=== PATIENT | male | born 1945 | race Two or more races ===

== ENCOUNTER 2016-03-31 10:13 | Inpatient (IN) | payer MEDICARE, OTHER ==
[2016-03-31] MEDS ORDERED: PIPERACILLIN-TAZOBACTAM 3.375 GM in DEXTROSE/WATER 1 50ML.BAG IVPB STA (10:39)
[2016-03-31] MEDS ORDERED: ACETAMINOPHEN TAB 500 MG TAB PO STA (10:39)
[2016-03-31] MEDS ORDERED: IV VANCOMYCIN PER PHARMACY 1 EACH MISC MISCELLANE PRN (10:39)
[2016-03-31] MEDS ORDERED: VANCOMYCIN 1,500 MG in SODIUM CHLORIDE 0.9% 250 ML IVPB STA (10:45)
--- NOTE | 2016-03-31 10:55 | ED ---
General Adult HPI - General Stated complaint: Foot Pain Source: patient, EMS, RN notes reviewed Mode of arrival: EMS Limitations: no limitations - History of Present Illness Initial comments: If complaint and history of present illness 70-year-old male here with a severely infected left foot. The patient has dry gangrene to his left great toe. He has redness and swelling just above the ankle and left side. Patient thinks it may have started 3 weeks ago. Patient's been living with his brother who one week ago. He states she's not been to a physician in over 10 years. History of hypertension but does not take any medications. Otherwise denying any past history of diabetes, cancer or respiratory problems. When asked if he had a stroke he thinks he may have had a stroke in 1973 but states he was never evaluated because his father was too cheap to take him to a hospital or doctor. - Related Data Home Medications Medication Instructions Recorded Confirmed Aspirin/Acetaminophen/Caffeine 2 tab PO Q6H PRN 03/31/16 03/31/16 [Excedrin Extra Strength Caplet] Allergies Allergy/AdvReac Type Severity Reaction Status Date / Time shellfish derived Allergy Unknown Verified 03/31/16 10:41 Review of Systems ROS Statement: Those systems with pertinent positive or pertinent negative responses have been documented in the HPI. Review of systems at this time patient's denying any headache or visual acuity changes denies any chest pain or shortness of breath denies any GI or neuro deficits. He hasn't even complain of pain to his severely infected left foot. All systems are reviewed. Patient denies any significant past medical problems other than maybe having had hypertension but does not take any medications for. Has not seen a doctor for more than 10 years. Denies any surgeries. Denies any ALLERGIES to medications but he does have an ALLERGY to shellfish. Family history Brother one week ago with police lived for as long period of time. States she's lost 50 pounds over the last year because he stopped eating bad food. Smokes 2 packs per day and drinks occasionally but not heavily. ROS Other: All systems not noted in ROS Statement are negative. Past Medical History Past Medical History: Coronary Artery Disease (CAD), Hypertension, Myocardial Infarction (PR) History of Any Multi-Drug Resistant Organisms: None Reported Past Surgical History: No Surgical Hx Reported Past Psychological History: No Psychological Hx Reported Smoking Status: Current every day smoker Past Alcohol Use History: None Reported Past Drug Use History: None Reported General Exam - General Exam Comments Initial Comments: General: The patient is awake and alert, in no distress, and does not appear acutely ill. Presents with severely infected left foot with dry gangrene left great toe swelling cellulitis just above the ankle. Vital signs shows temperature 97.7 pulse 114 respiratory rate 16 pulse ox 90% room air blood pressure 175/84. History of hypertension but no treatment for years. Eye: Pupils are equal, round and reactive to light, extra-ocular movements are intact ; there is normal conjunctiva bilaterally. No signs of icterus. Ears, nose, mouth and throat: There are moist mucous membranes and no oral lesions. Very poor dentition. Missing many teeth. Neck: The neck is supple, there is no tenderness . Cardiovascular: Irregular rate and rhythm. No murmur appreciated. Respiratory: Lungs are clear to auscultation, respirations are non-labored, breath sounds are equal. No wheezes, stridor, rales, or rhonchi. Gastrointestinal: Soft, non-distended, non-tender abdomen without masses or organomegaly noted. There is no rebound or guarding present. No CVA tenderness. Bowel sounds are unremarkable. Patient states she's lost 50 pounds over the past year Back: There is no tenderness to palpation in the midline. There is no obvious deformity. No rashes noted. Musculoskeletal: Upper lower extremities all normal except his left foot from the mid calf down. He has dry gangrene to his left great toe cellulitis with blistering to the plantar surface. Cultures taken. This patient has been ambulating with pain. Denies any specific injury. He states he may have put his foot in the hot water about a month ago but denies any blistering starting after that. Neurological: CN II-XII intact, There are no obvious motor or sensory deficits. Coordination appears grossly intact. Speech is normal. Slight droop to the right side of his mouth. States he may have had a stroke in 1973 when he would've been only 28 but no other deficits. Skin: Cellulitis left mid calf to the foot. Psychiatric: Cooperative, appropriate mood & affect, denies any treatment for past mental health issues. Limitations: no limitations Course Vital Signs 03/31/16 03/31/16 03/31/16 10:21 11:17 12:03 Temperature 97.7 F Pulse Rate 114 H 101 H 92 Respiratory 16 15 18 Rate Blood Pressure 175/84 181/84 173/83 O2 Sat by Pulse 98 99 94 L Oximetry Medical Decision Making - Medical Decision Making Medical decision making; patient's labs show white count of 15.8 hemoglobin 14 hematocrit of 46. INR 1.0. Potassium 4.3, BUN 14 creatinine 0.9 the GFR greater than 60. Cortisol normal at 18 pleasant lactic acid within normal limits. Alk phos elevated at 333. Troponin less than 0.012. But does have an elevated glucose of 355. The patient denies having diabetes. Patient states he never goes to the doctor. Chest x-ray was done and reviewed by radiologist's his final impression is no suspicious acute infiltrate is present. As read by Dr. north x-ray of the foot was done and reviewed by radiologist as well his final impression is there is suspicion for acute osteomyelitis involving the first distal phalanx. Correlate clinically as advised. As read by Dr. north The patient was started on vancomycin and Zosyn soon after admission to the emergency room. Cultures were taken of the discharge from the foot. Patient be admitted to the hospitalist on-call for the emergency room. - Lab Data Result diagrams: 03/31/16 11:00 03/31/16 11:00 Lab Results 03/31/16 03/31/16 03/31/16 Range/Units 11:00 11:00 11:00 WBC 15.8 H (3.8-10.6) k/uL RBC 4.67 (4.30-5.90) m/uL Hgb 14.2 (13.0-17.5) gm/dL Hct 44.1 (39.0-53.0) % MCV 94.3 (80.0-100.0) fL MCH 30.4 (25.0-35.0) pg MCHC 32.2 (31.0-37.0) g/dL RDW 13.3 (11.5-15.5) % Plt Count 320 (150-450) k/uL Neutrophils % 85 % Lymphocytes % 9 % Monocytes % 4 % Eosinophils % 0 % Basophils % 1 % Neutrophils # 13.5 H (1.3-7.7) k/uL Lymphocytes # 1.4 (1.0-4.8) k/uL Monocytes # 0.7 (0-1.0) k/uL Eosinophils # 0.0 (0-0.7) k/uL Basophils # 0.1 (0-0.2) k/uL PT (9.0-12.0) sec INR (<1.1) APTT (22.0-30.0) sec Sodium 139 (137-145) mmol/L Potassium 4.5 (3.5-5.1) mmol/L Chloride 103 (98-107) mmol/L Carbon Dioxide 20 L (22-30) mmol/L Anion Gap 16 mmol/L BUN 14 (9-20) mg/dL Creatinine 0.90 (0.66-1.25) mg/dL Est GFR (MDRD) Af Amer >60 (>60 ml/min/1.73 sqM) Est GFR (MDRD) Non-Af >60 (>60 ml/min/1.73 sqM) Glucose 355 H (74-99) mg/dL Plasma Lactic Acid Kyaw (0.7-2.0) mmol/L Calcium 9.0 (8.4-10.2) mg/dL Total Bilirubin 0.6 (0.2-1.3) mg/dL AST 17 (17-59) U/L ALT 34 (21-72) U/L Alkaline Phosphatase 333 H (38-126) U/L Total Creatine Kinase 94 (55-170) U/L CK-MB (CK-2) 1.4 (0.0-2.4) ng/mL CK-MB (CK-2) Rel Index 1.5 Troponin I <0.012 (0.000-0.034) ng/mL Total Protein 6.7 (6.3-8.2) g/dL Albumin 3.1 L (3.5-5.0) g/dL Cortisol 18 ug/dL 03/31/16 03/31/16 Range/Units 11:00 11:00 WBC (3.8-10.6) k/uL RBC (4.30-5.90) m/uL Hgb (13.0-17.5) gm/dL Hct (39.0-53.0) % MCV (80.0-100.0) fL MCH (25.0-35.0) pg MCHC (31.0-37.0) g/dL RDW (11.5-15.5) % Plt Count (150-450) k/uL Neutrophils % % Lymphocytes % % Monocytes % % Eosinophils % % Basophils % % Neutrophils # (1.3-7.7) k/uL Lymphocytes # (1.0-4.8) k/uL Monocytes # (0-1.0) k/uL Eosinophils # (0-0.7) k/uL Basophils # (0-0.2) k/uL PT 10.1 (9.0-12.0) sec INR 1.0 (<1.1) APTT 24.4 (22.0-30.0) sec Sodium (137-145) mmol/L Potassium (3.5-5.1) mmol/L Chloride (98-107) mmol/L Carbon Dioxide (22-30) mmol/L Anion Gap mmol/L BUN (9-20) mg/dL Creatinine (0.66-1.25) mg/dL Est GFR (MDRD) Af Amer (>60 ml/min/1.73 sqM) Est GFR (MDRD) Non-Af (>60 ml/min/1.73 sqM) Glucose (74-99) mg/dL Plasma Lactic Acid Kyaw 1.4 (0.7-2.0) mmol/L Calcium (8.4-10.2) mg/dL Total Bilirubin (0.2-1.3) mg/dL AST (17-59) U/L ALT (21-72) U/L Alkaline Phosphatase (38-126) U/L Total Creatine Kinase (55-170) U/L CK-MB (CK-2) (0.0-2.4) ng/mL CK-MB (CK-2) Rel Index Troponin I (0.000-0.034) ng/mL Total Protein (6.3-8.2) g/dL Albumin (3.5-5.0) g/dL Cortisol ug/dL Disposition Clinical Impression: Gangrene of toe, Diabetes mellitus type 2 with complications Disposition: ADMITTED IP TO THIS [facility] Condition: Serious
[2016-03-31] MEDS: SODIUM CHLORIDE 0.9% 1,000 ML IV SCH ×2 (11:12→21:03)
[2016-03-31 11:25] LABS: Basophils # (A) 0.1 k/uL (0-0.2); Basophils % (A) 1 %; CH 30.6; CHCM 32.6; Eosinophils % (A) 0 %; HCT 44.1 % (39.0-53.0); HDW 2.72; HGB 14.2 gm/dL (13.0-17.5); Luc # (Auto) 0.08; Luc % (Auto) 1; Lymphocytes # (A) 1.4 k/uL (1.0-4.8); Lymphocytes % (A) 9 %; MCH 30.4 pg (25.0-35.0); MCHC 32.2 g/dL (31.0-37.0); MCV 94.3 fL (80.0-100.0); Mean Platelet Volume 8.8; Monocytes # (A) 0.7 k/uL (0-1.0); Monocytes % (A) 4 %; Neutrophils # (A) 13.5 k/uL (1.3-7.7); Neutrophils % (A) 85 %; RBC 4.67 m/uL (4.30-5.90); RDW 13.3 % (11.5-15.5); WBC 15.8 k/uL (3.8-10.6); WBC (Perox) 15.73
[2016-03-31 11:32] LABS: ALT 34 U/L (21-72); AST 17 U/L (17-59); Alkaline Phosphatase 333 U/L (38-126); Anion Gap 16 mmol/L; Blood Urea Nitrogen 14 mg/dL (9-20); Carbon Dioxide 20 mmol/L (22-30); Chloride 103 mmol/L (98-107); Glucose 355 mg/dL (74-99); Non-African American GFR(MDRD) >60 (>60 ml/min/1.73 sqM); Potassium 4.5 mmol/L (3.5-5.1); Sodium 139 mmol/L (137-145); Total Bilirubin 0.6 mg/dL (0.2-1.3); Total Protein 6.7 g/dL (6.3-8.2)
[2016-03-31 11:42] LABS: Creatine Kinase 94 U/L (55-170)
--- NOTE | 2016-03-31 11:42 | XR ---
EXAMINATION TYPE: XR chest 2V DATE OF EXAM: 03/31/2016 11:33 AM COMPARISON: NONE HISTORY: Fever TECHNIQUE: Frontal and lateral views of the chest are obtained. FINDINGS: Underlying emphysematous change is not excluded. There is no focal air space opacity, pleu ral effusion, or pneumothorax seen. The cardiac silhouette size is within normal limits. The osseo us structures are demineralized. Underlying scoliosis is noted. IMPRESSION: No suspicious acute infiltrate is present.
--- NOTE | 2016-03-31 11:44 | XR ---
EXAMINATION TYPE: XR foot complete LT DATE OF EXAM: 03/31/2016 11:33 AM CLINICAL HISTORY: Left foot pain per order. Swelling and redness for 3 weeks with black great toe TECHNIQUE: Frontal, lateral, and oblique images of the left foot are obtained. COMPARISON: None FINDINGS: Osseous structures are demineralized which is noted lower radiographic sensitivity for eval uation of fine anatomic detail. There is old healed fracture deformity distal fifth metatarsal. There is some irregular cortical destruction suspected involving the first distal phalanx, acute oste omyelitis at this level cannot be excluded. Moderate soft tissue swelling with subcutaneous lucency w orrisome for open or gas-forming infection is noted. Moderate size inferior calcaneal spur is present. Mild diffuse subcutaneous edema is noted. IMPRESSION: There is suspicion for acute osteomyelitis involving the first distal phalanx. Clinical correlation advised.
[2016-03-31 11:55] LABS: Creatine Kinase MB 1.4 ng/mL (0.0-2.4); Troponin I <0.012 ng/mL (0.000-0.034)
[2016-03-31 11:59] LABS: Partial Thromboplastin Time 24.4 sec (22.0-30.0); Prothrombin Time 10.1 sec (9.0-12.0)
[2016-03-31] MEDS ORDERED: NALOXONE 0.4 MG/ML 1 ML VIAL IV PRN (12:50)
[2016-03-31] MEDS ORDERED: ACETAMINOPHEN TAB 325 MG TAB PO PRN (12:50)
[2016-03-31] MEDS ORDERED: SODIUM CHLORIDE 0.9% 1,000 ML IV SCH (13:00)
[2016-03-31 13:12] LABS: Glucose,Whole Blood 301 mg/dL (75-99)
[2016-03-31] MEDS: INSULIN LISPRO (humaLOG) 300 UNIT/3 ML VIAL SQ SCH ×2 (13:15→21:03)
[2016-03-31 13:27] LABS: Appearance,Urine Clear (Clear); Bilirubin,Urine Negative (Negative); Glucose,Urine (UA) 4+ (Negative); Ketones,Urine 1+ (Negative); Leukocyte Esterase,Urine Negative (Negative); Nitrite,Urine Negative (Negative); Protein,Urine Trace (Negative); Specific Gravity,Urine 1.018 (1.001-1.035); UA Billing (MACRO vs. MICRO) CHEM; Urobilinogen,Urine <2.0 mg/dL (<2.0)
[2016-03-31] MEDS ORDERED: HYDROmorphone 1 MG/ML 1 ML SYRINGE IVP STA (15:34)
[2016-03-31] MEDS ORDERED: ASPIRIN-ACET-CAFF 250-250-65MG 1 EACH TAB PO PRN (16:23)
[2016-03-31 17:20] LABS: Glucose,Whole Blood 136 mg/dL (75-99)
[2016-03-31] MEDS: PIPERACILLIN-TAZOBACTAM 3.375 GM in DEXTROSE/WATER 1 50ML.BAG IVPB SCH (17:57)
--- NOTE | 2016-03-31 18:38 | P.GSCN ---
History of Present Illness History of present illness: 70-year-old white male, patient came to the emergency room with history of gangrene left foot according to patient he has this for the past 3 weeks he didn 't pay attention he lives with his brother who about a week ago patient has not been treating physician for the past 10 years has recently been diagnosed with diabetes mellitus type 2 Medical history history of hypertension history of coronary artery disease Personal history no known ALLERGIES On examination neck is supple no bruit appreciated Chest is clear auscultation first and second sound normal Abdomen soft nontender Vascular examination femorals are palpable bilateral posterior tibial dorsal pedis by the Doppler on the left side patient has a gangrene of the left big toe and there is a gangrene changes involving the dorsal aspect of the foot and also plantar aspect of the foot and also involving the ankle there is marked redness noticed on the left lower extremity impression is gangrene of the left foot involving dorsum of poor plantar aspect of the foot with a gangrene and gangrene changes involving the ankles there marked redness noted on the left lower extremity Plan is disarticulation of the foot #1 #2 we will wait for a few days and patient will need below-knee amputation we will arrange this procedure tomorrow ankle very much discussed with the patient he agrees Past Medical History Past Medical History: Coronary Artery Disease (CAD), GERD/Reflux, Hypertension, Myocardial Infarction (DE), Pneumonia Additional Past Medical History / Comment(s): PALPITATIONS, STATED HE" BROKE HIS BACK AGE 14 AND"2 VERTEBRE NATURALLY FUSED TOGETHER"."POSS STROKE 1973 BUT NEVER EVALUATED" Last Myocardial Infarction Date:: UNK History of Any Multi-Drug Resistant Organisms: None Reported Past Surgical History: No Surgical Hx Reported Additional Past Surgical History / Comment(s): TOOTH EXTRACTIONS Past Anesthesia/Blood Transfusion Reactions: Motion Sickness Past Psychological History: No Psychological Hx Reported Additional Psychological History / Comment(s): PT LIVES ALONE, USES CANE WHEN UP , HAD A FALL W/O IMJURY(LOST BALANCE). NO HOME CARE SERVICES. Smoking Status: Current every day smoker Past Alcohol Use History: Daily, Heavy Additional Past Alcohol Use History / Comment(s): 1-2- PPD,, PAST HEVY ETOH ABUSE QUIT HEAVY DRINKING IN 1986 STATED NOW ONLY A RARE DRINK Past Drug Use History: None Reported - Past Family History Mother Family Medical History: Cancer Additional Family Medical History / Comment(s): BREAST CANCER, CERGVICAL CANCER AND PART OF TONGUE AND LT JAW REMOVED Father History Unknown: Yes Additional Family Medical History / Comment(s): DAD LEFT THE HOME WHEN PT WAS 14 Medications and Allergies Home Medications Medication Instructions Recorded Confirmed Type Aspirin/Acetaminophen/Caffeine 2 tab PO Q6H PRN 03/31/16 03/31/16 History [Excedrin Extra Strength Caplet] Allergies Allergy/AdvReac Type Severity Reaction Status Date / Time shellfish derived Allergy Unknown Verified 03/31/16 10:41 Surgical - Exam Vital Signs Temp Pulse Resp BP Pulse Ox 97.7 F 114 H 16 175/84 98 03/31/16 10:21 03/31/16 10:21 03/31/16 10:21 03/31/16 10:21 03/31/16 10:21 Results - Labs 03/31/16 11:00 03/31/16 11:00 Abnormal Lab Results - Last 24 Hours (Table) 03/31/16 03/31/16 03/31/16 Range/Units 13:02 13:10 16:53 POC Glucose (mg/dL) 301 H 136 H (75-99) mg/dL Urine Protein Trace H (Negative) Urine Glucose (UA) 4+ H (Negative) Urine Ketones 1+ H (Negative)
--- NOTE | 2016-03-31 19:38 | HP ---
Patient is a 70-year-old, came in with a severely infected left foot with gangrene of the left great toe, appears to be wet gangrene. Patient was never diagnosed diabetic. Patient's blood sugars were elevated here and patient was complaining of fever since he came in here. Denied any fevers at home. Patient was having burning and sharp pain in the left lower limb with ( ) toes last week of the left foot with gangrene of the left toe. Patient denied any peripheral vascular disease. Patient was started on Zosyn and vancomycin, which I believe are appropriate. Infectious Disease and Vascular Surgery were consulted. Home medications include: 1. Aspirin. 2. Acetaminophen. 3. ( ). ALLERGIES: ALLERGIC TO SHELLFISH. REVIEW OF SYSTEMS: CONSTITUTIONAL: No fever, no malaise, no fatigue. HEENT: No recent visual problems or hearing problems. Denied any sore throat. CARDIOVASCULAR: No chest pain, orthopnea, PND, no palpitations, no syncope. PULMONARY: No shortness of breath, no cough, no hemoptysis. GASTROINTESTINAL: No diarrhea, no nausea, no vomiting, no abdominal pain. Normoactive bowel sounds. NEUROLOGICAL: No headaches, no weakness, no numbness. HEMATOLOGICAL: Denies any bleeding or petechiae. GENITOURINARY: Denies any burning micturition, frequency, or urgency. MUSCULOSKELETAL/RHEUMATOLOGICAL: Denies any joint pain, swelling, or any muscle pain. ENDOCRINE: Denies any polyuria or polydipsia. DERMATALOGIC: As described in HPI. The rest of the 14 point review of systems is negative. PAST MEDICAL HISTORY: Coronary artery disease, hypertension, myocardial infarction and patient does smoke a pack per day. Denied any alcohol abuse or any drug abuse. FAMILY HISTORY: Significant for diabetes mellitus. PHYSICAL EXAMINATION: VITAL SIGNS: Temperature 97, pulse of 114, came down to 92, blood pressure is 172/83, oxygen saturation 94% on room air. GENERAL: The patient is alert and oriented x3, not in any acute distress. Well developed, well nourished. HEENT: Pupils are round and equally reacting to light. EOMI. No scleral icterus. No conjunctival pallor. Normocephalic, atraumatic. No pharyngeal erythema. No thyromegaly. CARDIOVASCULAR: S1 and S2 present. No murmurs, rubs, or gallops. PULMONARY: Chest is clear to auscultation, no wheezing or crackles. ABDOMEN: Soft, nontender, nondistended, normoactive bowel sounds. No palpable organomegaly. MUSCULOSKELETAL: No joint swelling or deformity. EXTREMITIES: Left leg: Patient has significant redness extending up to a few centimeters above the ankle and skin breakdown on the left dorsal aspect of the left foot along with gangrene. Patient does not look like the typical dry gangrene, can be an infected toe as well. Patient has gangrene of the left great toe. Pulses are present but feeble in the left lower extremity. NEUROLOGICAL: Gross neurological examination did not reveal any focal deficits. SKIN: No rashes. LABORATORY DATA: Patient does have leukocytosis, elevated blood sugars. No hemoglobin A1c available yet. ASSESSMENT AND PLAN: 1. Gangrene of the left toe distal with cellulitis of the left foot. Patient is on appropriate antibiotics ( ) because of which patient needs to have anaerobic coverage. Wound culture ( ) will be obtained. 2. Newly diagnosed diabetes mellitus. Patient is on a sliding scale insulin, which will be continued. 3. Mildly elevated blood pressure secondary to pain. Patient is on Dilaudid. I will start him on [place] to avoid Dilaudid as much as possible. Vascular surgery will be consulted. 4. Nicotine abuse. Nicotine cessation counseling was provided. 5. History of hypertension, not on any medication. We will just monitor for now.
[2016-03-31 20:56] LABS: Glucose,Whole Blood 274 mg/dL (75-99)
[2016-03-31] MEDS: VANCOMYCIN 1,500 MG in SODIUM CHLORIDE 0.9% 250 ML IVPB SCH (22:14)
[2016-04-01] MEDS: PIPERACILLIN-TAZOBACTAM 3.375 GM in DEXTROSE/WATER 1 50ML.BAG IVPB SCH ×3 (00:44→17:53)
[2016-04-01] MEDS: HYDROcodone/APAP 10-325MG 1 EACH TAB PO PRN ×2 (01:44→21:30)
[2016-04-01] MEDS: SODIUM CHLORIDE 0.9% 1,000 ML IV SCH ×2 (05:57→18:00)
[2016-04-01 07:16] LABS: Glucose,Whole Blood 226 mg/dL (75-99)
[2016-04-01] MEDS: INSULIN LISPRO (humaLOG) 300 UNIT/3 ML VIAL SQ SCH ×4 (07:30→21:31)
[2016-04-01 12:13] LABS: Glucose,Whole Blood 198 mg/dL (75-99)
[2016-04-01] MEDS: VANCOMYCIN 1,500 MG in SODIUM CHLORIDE 0.9% 250 ML IVPB SCH ×2 (12:48→21:54)
[2016-04-01 13:10] VITALS: BMI 23.7
[2016-04-01] MEDS ORDERED: IV FLUID CONTINUATION 250 ML IV ONE (13:30)
[2016-04-01 13:47] LABS: Glucose,Whole Blood 213 mg/dL (75-99)
[2016-04-01] MEDS ORDERED: INSULIN LISPRO (humaLOG) 300 UNIT/3 ML VIAL SQ ONE (14:17)
[2016-04-01] MEDS ORDERED: fentaNYL (PF) 50 MCG/ML 2 ML AMP ONE (14:58)
[2016-04-01] MEDS ORDERED: LACTATED RINGERS 1,000 ML IV ONE (14:58)
[2016-04-01] MEDS ORDERED: MIDAZOLAM 2 MG/2 ML VIAL ONE (14:58)
[2016-04-01] MEDS ORDERED: PROPOFOL 10 MG/ML 20 ML VIAL IV ONE (14:58)
--- NOTE | 2016-04-01 15:25 | P.PN ---
Objective - Vital Signs Vital signs: Vital Signs Temp 98.2 F 04/01/16 13:32 Pulse 103 H 04/01/16 13:32 Resp 18 04/01/16 13:32 BP 162/76 04/01/16 13:32 Pulse Ox 99 04/01/16 13:32 Intake & Output 03/31/16 04/01/16 04/01/16 18:59 06:59 18:59 Intake Total 50 Balance 50 Weight 81.647 kg Intake: IV 50 Other: Voiding Method Urinal Urinal # Voids 4 1 - Labs CBC & Chem 7: 03/31/16 11:00 03/31/16 11:00 Labs: Abnormal Lab Results - Last 24 Hours (Table) 03/31/16 03/31/16 04/01/16 Range/Units 16:53 20:55 07:15 POC Glucose (mg/dL) 136 H 274 H 226 H (75-99) mg/dL 04/01/16 04/01/16 Range/Units 12:11 13:43 POC Glucose (mg/dL) 198 H 213 H (75-99) mg/dL Microbiology - Last 24 Hours (Table) 03/31/16 13:02 Urine Culture - Preliminary Urine,Voided
--- NOTE | 2016-04-01 15:25 | P.PN ---
Subjective Date of service 2-04/16 Progress note being dictated for Dr. Parker Interval history: This a 70-year-old gentleman admitted with left foot cellulitis with gangrene, newly diagnosed diabetes mellitus, hemoglobin A1c 14, ongoing nicotine abuse and multiple other medical issues. Maintained on Zosyn and vancomycin. Preliminary wound cultures growing Presumptive MRSA, Strep agalactiae - (group b), Gram Neg Bacill. Foot x-ray reporting suspicious for acute osteomyelitis involving the first distal phalanx. Evaluated by vascular surgery and patient is scheduled for surgery today: Disarticulation of foot today, BKA in a few days. Denies chest pain, palpitations or increasing shortness of breath. Blood sugars uncontrolled in the 200s. Objective - Vital Signs Vital signs: Vital Signs Temp 98.2 F 04/01/16 13:32 Pulse 103 H 04/01/16 13:32 Resp 18 04/01/16 13:32 BP 162/76 04/01/16 13:32 Pulse Ox 99 04/01/16 13:32 Intake & Output 03/31/16 04/01/16 04/01/16 18:59 06:59 18:59 Weight 81.647 kg Other: Voiding Method Urinal Urinal # Voids 4 1 - Exam PHYSICAL EXAM: VITAL SIGNS: As above GENERAL: [Sitting up at side of bed, no acute distress] HEENT: [Pupils equal conjunctiva normal, poor dentition.] NECK: [Supple, no JVD] RESPIRATORY EFFORT:[Normal] LUNGS: [Clear to auscultation, no wheezing, no crackles, no rhonchi] CARDIOVASCULAR[regular S1 and S2, no murmurs, rubs or gallops] GI: [Abdomen soft, nontender, positive bowel sounds.] PSYCH: [Alert and oriented -3, mood and affect normal.] SKIN: Unchanged, Left lower leg severe redness, erythema extending up above the ankles, with skin breakdown of the dorsal aspect of the left foot, left great toe black, extremity warm, Doppler pulses, minimal sensation NEURO: No focal deficits Microbiology 03/31/16 11:45 Blood Blood Culture - Preliminary No Growth after 24 hours 03/31/16 11:00 Blood Blood Culture - Preliminary No Growth after 24 hours 03/31/16 11:00 Foot - Left Gram Stain - Preliminary 03/31/16 11:00 Foot - Left Wound Culture - Preliminary Presumptive MRSA Strep agalactiae - (group b) Gram Neg Bacilli 03/31/16 13:02 Urine,Voided Urine Culture - Preliminary - Labs CBC & Chem 7: 03/31/16 11:00 03/31/16 11:00 Labs: Abnormal Lab Results - Last 24 Hours (Table) 03/31/16 03/31/16 04/01/16 Range/Units 16:53 20:55 07:15 POC Glucose (mg/dL) 136 H 274 H 226 H (75-99) mg/dL 04/01/16 04/01/16 Range/Units 12:11 13:43 POC Glucose (mg/dL) 198 H 213 H (75-99) mg/dL Microbiology - Last 24 Hours (Table) 03/31/16 13:02 Urine Culture - Preliminary Urine,Voided Assessment and Plan Plan: 1. Cellulitis of left foot with gangrenous changes involving the ankle, left great toe gangrene, surgery pending]. Preliminary Wound culture Presumptive MRSA, Strep agalactiae - (group b), Gram Neg Bacill 2. [Newly diagnosed diabetes mellitus, hemoglobin A1c 14]. 3. Hypertension]. 4. [Ongoing nicotine abuse]. 5. [CAD, history of RI]. 6. [Gastroesophageal reflux disease]. Plan: Continue on current medication regime , IV antibiotics monitoring and symptomatic treatment. family living educator consulted. Lantus added to med regime. Close monitoring of Accu-Cheks. Nothing by mouth, awaiting surgery with Dr. Ortiz, vascular surgeon. GI prophylaxis in place. Patient has no support system states that his only friend, 1 month ago, has no family. Smoking cessation readdressed. Prognosis guarded given multiple complex medical issues. The impression and plan of care has been dictated as directed. : I performed a H&P examination of this patient and discussed the same with the dictator. I agree with the dictator's note. Any additional findings/opinions/ etc. will be noted.
[2016-04-01 16:21] LABS: Glucose,Whole Blood 187 mg/dL (75-99)
[2016-04-01 17:09] LABS: Glucose,Whole Blood 164 mg/dL (75-99)
[2016-04-01] MEDS: PANTOPRAZOLE 40 MG/10 ML VIAL IVP SCH (17:53)
[2016-04-01] MEDS: HYDROmorphone 1 MG/ML 1 ML SYRINGE IVP PRN (20:21)
[2016-04-01] MEDS ORDERED: INSULIN GLARGINE 100 UNIT/ML 10 ML VIAL SQ SCH (21:00)
[2016-04-01 21:17] LABS: Glucose,Whole Blood 303 mg/dL (75-99)
--- NOTE | 2016-04-01 22:32 | OP ---
DATE OF SERVICE: SURGEON: AMILCAR RENO MD METALLURGICAL SPECIALIST: PREOPERATIVE DIAGNOSIS: Wet gangrene of the left foot involving the left big toe, dorsal aspect of the foot, plantar aspect of the foot, with marked redness of the left lower extremity. POSTOPERATIVE DIAGNOSIS: OPERATION: Disarticulation of the left foot. ANESTHESIA: Spinal. ESTIMATED BLOOD LOSS: SPECIMENS REMOVED: COMPLICATIONS: OPERATIVE FINDINGS: This patient has had wet gangrene of the foot for the last 2 weeks. Patient came to the hospital yesterday. Patient has not been seeing a physician for a long period of time and recently has been diagnosed with diabetes. This foot was not salvageable. Patient was taken to the OR. Left leg was prepped and draped in sterile manner. Under spinal anesthesia, incision was made on the dorsal aspect of the ankle and circular incision was made which was deepened through the skin, fat and tendons. Then the posterior flap incision was mated, deepened through the skin, fat and fascia, and tendo calcaneus was divided. The foot was kept in flexed position. The ligaments of the medial and lateral ankle were divided. Tendo calcaneus was divided. The tibial vessels were identified and were calcified and suture-ligated with 3-0 Prolene. Specimen was removed. There was some extension of pus that was noted going toward the lower leg, and we opened the superficial tissue and the fascia and kept the wound open. No bleeding was noted. Dressing was applied. Patient will need below-knee amputation in a week. We will continue the IV antibiotic and local wound care.
[2016-04-02] MEDS: HYDROmorphone 1 MG/ML 1 ML SYRINGE IVP PRN ×2 (00:16→14:03)
[2016-04-02] MEDS: PIPERACILLIN-TAZOBACTAM 3.375 GM in DEXTROSE/WATER 1 50ML.BAG IVPB SCH ×4 (00:20→23:34)
[2016-04-02] MEDS: SODIUM CHLORIDE 0.9% 1,000 ML IV SCH ×3 (02:28→21:46)
[2016-04-02 07:27] LABS: Glucose,Whole Blood 182 mg/dL (75-99)
[2016-04-02] MEDS: PANTOPRAZOLE 40 MG/10 ML VIAL IVP SCH (07:27)
[2016-04-02] MEDS: INSULIN LISPRO (humaLOG) 300 UNIT/3 ML VIAL SQ SCH ×4 (07:28→21:45)
[2016-04-02] MEDS: HYDROcodone/APAP 10-325MG 1 EACH TAB PO PRN (07:30)
[2016-04-02] MEDS ORDERED: VANCOMYCIN TROUGH DUE 1 EACH MISC MISCELLANE ONE (08:00)
[2016-04-02] MEDS: VANCOMYCIN 1,500 MG in SODIUM CHLORIDE 0.9% 250 ML IVPB SCH (08:08)
[2016-04-02 08:33] LABS: Calcium 8.8 mg/dL (8.4-10.2); Potassium 4.2 mmol/L (3.5-5.1)
[2016-04-02 11:34] LABS: Glucose,Whole Blood 335 mg/dL (75-99)
[2016-04-02 16:22] LABS: Glucose,Whole Blood 292 mg/dL (75-99)
--- NOTE | 2016-04-02 18:59 | P.PN ---
Subjective Date of service 2- Progress note being dictated for Dr. Parker Interval history: This a 70-year-old gentleman admitted with left foot cellulitis with gangrene, status post disarticulation of left foot, newly diagnosed diabetes mellitus, hemoglobin A1c 14, ongoing nicotine abuse and multiple other medical issues. Maintained on Zosyn and vancomycin. Preliminary wound cultures growingMRSA Presumptive MRSA, Strep agalactiae - ( group b). Pain controlled. Denies chest pain, palpitations or increasing shortness of breath. Blood sugars uncontrolled. Objective - Vital Signs Vital signs: Vital Signs Temp 99.5 F 04/02/16 15:00 Pulse 88 04/02/16 15:00 Resp 19 04/02/16 15:00 BP 148/85 04/02/16 15:00 Pulse Ox 96 04/02/16 15:00 Intake & Output 04/01/16 04/02/16 04/02/16 18:59 06:59 18:59 Intake Total 900 Output Total 375 2240 Balance 525 -2240 Weight 81.647 kg Intake: IV 900 Output: Urine 325 2240 Estimated Blood Loss 50 Other: Voiding Method Urinal Urinal # Voids 1 # Bowel Movements 0 - Exam PHYSICAL EXAM: VITAL SIGNS: As above GENERAL: [Sitting up at side of bed, no acute distress] HEENT: [Pupils equal conjunctiva normal, poor dentition.] NECK: [Supple, no JVD] RESPIRATORY EFFORT:[Normal] LUNGS: [Clear to auscultation, no wheezing, no crackles, no rhonchi] CARDIOVASCULAR[regular S1 and S2, no murmurs, rubs or gallops] GI: [Abdomen soft, nontender, positive bowel sounds.] PSYCH: [Alert and oriented -3, mood and affect normal.] SKIN: Status post left disarticulation of foot , underside of Kamaljit wrap dressing with sanguinous drainage .elevated on pillow Left lower leg pink extending up above dressing. NEURO: No focal deficits Microbiology 04/01/16 15:30 Ankle - Left Gram Stain - Preliminary 04/01/16 15:30 Ankle - Left Wound Culture - Preliminary Strep agalactiae - (group b) 03/31/16 11:00 Foot - Left Gram Stain - Final 03/31/16 11:00 Foot - Left Wound Culture - Final Methicillin resist S. aureus Strep agalactiae - (group b) Enterobacter cloacae 03/31/16 11:45 Blood Blood Culture - Preliminary No Growth after 48 hours 03/31/16 11:00 Blood Blood Culture - Preliminary No Growth after 48 hours 04/01/16 15:30 Ankle - Left Anaerobic Culture - Preliminary 03/31/16 13:02 Urine,Voided Urine Culture - Final - Labs CBC & Chem 7: 03/31/16 11:00 04/02/16 07:44 Labs: Abnormal Lab Results - Last 24 Hours (Table) 04/01/16 04/02/16 04/02/16 Range/Units 21:16 07:26 07:44 Creatinine 1.61 H (0.66-1.25) mg/dL Glucose 191 H (74-99) mg/dL POC Glucose (mg/dL) 303 H 182 H (75-99) mg/dL 04/02/16 04/02/16 Range/Units 11:33 16:20 Creatinine (0.66-1.25) mg/dL Glucose (74-99) mg/dL POC Glucose (mg/dL) 335 H 292 H (75-99) mg/dL Microbiology - Last 24 Hours (Table) 04/01/16 15:30 Gram Stain - Preliminary Ankle - Left Wound Culture - Preliminary Strep agalactiae - (group b) 04/01/16 15:30 Anaerobic Culture - Preliminary Ankle - Left 03/31/16 13:02 Urine Culture - Final Urine,Voided Assessment and Plan Plan: 1. Cellulitis of left foot with gangrenous changes involving the ankle, left great toe gangrene, Foot x-ray reporting suspicious for acute osteomyelitis involving the first distal phalanx. S/P Diasrticulation of left foot. Preliminary Wound cultures MRSA, Strep agalactiae - (group b). 2. [Newly diagnosed diabetes mellitus, hemoglobin A1c 14,uncontrolled]. 3. Hypertension]. 4. [Ongoing nicotine abuse]. 5. [CAD, history of AK]. 6. [Gastroesophageal reflux disease]. Plan: Continue on current medication regime , IV antibiotics monitoring and symptomatic treatment. Lantus dose increased, pre-meal insulin added to med regime Close monitoring of Accu-Cheks. GI prophylaxis in place. Smoking cessation readdressed. Prognosis guarded given multiple complex medical issues. The impression and plan of care has been dictated as directed. : I performed a H&P examination of this patient and discussed the same with the dictator. I agree with the dictator's note. Any additional findings/opinions/ etc. will be noted.
--- NOTE | 2016-04-02 19:18 | PN ---
Patient has disarticulation of the left foot for gangrene of the foot. Today we have changed the dressing. There is less redness noted of the left lower extremity. Dressing is changed and we will wait for a few more days and then patient will need BKA amputation. We will continue with IV antibiotics.
[2016-04-02] MEDS ORDERED: INSULIN GLARGINE 100 UNIT/ML 10 ML VIAL SQ SCH (21:00)
[2016-04-02 21:27] LABS: Glucose,Whole Blood 323 mg/dL (75-99)
[2016-04-03 02:17] LABS: Glucose,Whole Blood 305 mg/dL (75-99)
[2016-04-03] MEDS: PIPERACILLIN-TAZOBACTAM 3.375 GM in DEXTROSE/WATER 1 50ML.BAG IVPB SCH ×2 (07:50→15:58)
[2016-04-03] MEDS: PANTOPRAZOLE 40 MG TABLET PO SCH (07:50)
[2016-04-03] MEDS: INSULIN LISPRO (humaLOG) 300 UNIT/3 ML VIAL SQ SCH ×7 (07:50→21:27)
[2016-04-03 07:51] LABS: Glucose,Whole Blood 296 mg/dL (75-99)
[2016-04-03] MEDS: SODIUM CHLORIDE 0.9% 1,000 ML IV SCH ×5 (07:53→17:29)
[2016-04-03 08:40] LABS: Basophils # (A) 0.1 k/uL (0-0.2); Basophils % (A) 0 %; CH 30.6; CHCM 32.7; Eosinophils # (A) 0.1 k/uL (0-0.7); Eosinophils % (A) 1 %; HCT 38.1 % (39.0-53.0); HGB 12.3 gm/dL (13.0-17.5); Luc # (Auto) 0.08; Luc % (Auto) 1; Lymphocytes # (A) 1.5 k/uL (1.0-4.8); Lymphocytes % (A) 11 %; MCH 30.3 pg (25.0-35.0); MCHC 32.2 g/dL (31.0-37.0); Mean Platelet Volume 9.3; Monocytes # (A) 0.8 k/uL (0-1.0); Monocytes % (A) 6 %; Neutrophils # (A) 11.6 k/uL (1.3-7.7); Neutrophils % (A) 82 %; RBC 4.05 m/uL (4.30-5.90); RDW 13.4 % (11.5-15.5); WBC 14.1 k/uL (3.8-10.6); WBC (Perox) 13.34
[2016-04-03 09:05] LABS: Calcium 8.5 mg/dL (8.4-10.2); Potassium 4.3 mmol/L (3.5-5.1)
[2016-04-03 11:49] LABS: Glucose,Whole Blood 247 mg/dL (75-99)
[2016-04-03] MEDS: VANCOMYCIN 1,500 MG in SODIUM CHLORIDE 0.9% 250 ML IVPB SCH (12:22)
[2016-04-03 16:48] LABS: Glucose,Whole Blood 173 mg/dL (75-99)
--- NOTE | 2016-04-03 18:05 | PN ---
INTERVAL HISTORY: Mr. Hayes is a 70-year-old male who was recently diagnosed with diabetes with a Hemoglobin A1c of 14, admitted to the hospital, with left foot cellulitis and gangrene. He is status post disarticulation of the left foot done by Dr. Ortiz. Currently being treated for acute osteomyelitis with antibiotics in the form of Zosyn and vancomycin. Today, the patient is lying in bed, appears to be no acute distress. He states that he is extremely sensitive to touch at his left foot where he had disarticulation but denies having any other complaints. REVIEW OF SYSTEMS: CONSTITUTIONAL: Denies having fever, chills or rigors. RESPIRATORY: No cough. No difficulty in breathing. CARDIAC: No chest pain or palpitations. GI: No abdominal pain, nausea and vomiting. The patient medications have been reviewed. On examination, patient's vital signs temperature 97.4, heart rate 93, respiratory rate is 16, blood pressure 171/93, saturating at 95% on room air. GENERAL EXAMINATION: The patient appears to be no acute distress. HEAD: Atraumatic, normocephalic. EYES: Pupils, round, and reactive to light. NECK: No JVD. No thyromegaly. CARDIOVASCULAR: S1, S2 heard. No additional sounds. RESPIRATORY: Lung sounds positive bilaterally. GI: Abdomen is soft, nontender. Bowel sounds positive. EXTREMITIES: Right lower extremity no edema. No cyanosis. The left extremity had disarticulation of the foot and is wrapped in Kamaljit bandage I did not open the bandage. PSYCHIATRIC: Appropriate mood and affect. CRYSTAL REPORT DEVELOPER: Alert, awake, oriented x3. No focal deficits. Patient's labs: White count of 14.1, hemoglobin 12.3, platelets of 265. Sodium 140, potassium 4.3, chloride 106, bicarb 24, BUN 19, creatinine 2.20. ASSESSMENT AND PLAN: 1. Cellulitis of the left foot with gangrenous changes involving left great toe, gangrene and foot x-ray suspicious for acute osteomyelitis involving the first phalanx status post disarticulation of the left foot. Wound cultures positive for group B streptococcus agalactiae and Methicillin-resistant Staph aureus. The patient currently on vancomycin and Zosyn. 2. Newly diagnosed diabetes mellitus with hemoglobin A1c of 14, poorly controlled. The patient's blood sugars have been elevated around 200s to 300s, so we will increase the dose of Lantus from 20 to 30 units q.h.s. Continue sliding scale of insulin. 3. Acute kidney injury, unclear etiology. We will get urine lytes and also start the patient on IV fluids. 4. Nicotine dependence. 5. History of coronary artery disease in the past. 6. Gastroesophageal reflux disease. PLAN: The plan is to continue the patient on IV antibiotics in the form of vancomycin and Zosyn. Will check vancomycin trough levels and also start the patient on IV fluids and check urine lytes. Further recommendations to follow depending on the progress of the patient. Will repeat a.m. labs
[2016-04-03 18:27] LABS: Specific Gravity,Urine 1.007 (1.001-1.035)
[2016-04-03 21:11] LABS: Glucose,Whole Blood 160 mg/dL (75-99)
[2016-04-03] MEDS: INSULIN GLARGINE 100 UNIT/ML 10 ML VIAL SQ SCH (21:27)
[2016-04-04] MEDS: PIPERACILLIN-TAZOBACTAM 3.375 GM in DEXTROSE/WATER 1 50ML.BAG IVPB SCH ×3 (00:06→16:55)
[2016-04-04] MEDS: SODIUM CHLORIDE 0.9% 1,000 ML IV SCH ×3 (00:06→13:48)
[2016-04-04 01:59] LABS: Glucose,Whole Blood 283 mg/dL (75-99)
[2016-04-04 07:27] LABS: Glucose,Whole Blood 215 mg/dL (75-99)
[2016-04-04] MEDS: INSULIN LISPRO (humaLOG) 300 UNIT/3 ML VIAL SQ SCH ×7 (07:39→22:48)
[2016-04-04] MEDS: PANTOPRAZOLE 40 MG TABLET PO SCH (07:39)
[2016-04-04 08:10] LABS: Basophils # (A) 0.2 k/uL (0-0.2); Basophils % (A) 2 %; CH 30.8; CHCM 32.7; Eosinophils # (A) 0.1 k/uL (0-0.7); Eosinophils % (A) 1 %; HCT 39.8 % (39.0-53.0); HDW 2.66; HGB 12.6 gm/dL (13.0-17.5); Luc # (Auto) 0.12; Luc % (Auto) 1; Lymphocytes # (A) 1.6 k/uL (1.0-4.8); Lymphocytes % (A) 13 %; MCH 29.8 pg (25.0-35.0); MCHC 31.5 g/dL (31.0-37.0); MCV 94.6 fL (80.0-100.0); Mean Platelet Volume 9.2; Monocytes # (A) 0.6 k/uL (0-1.0); Monocytes % (A) 5 %; Neutrophils # (A) 10.2 k/uL (1.3-7.7); Neutrophils % (A) 79 %; RBC 4.21 m/uL (4.30-5.90); RDW 13.4 % (11.5-15.5); WBC 12.8 k/uL (3.8-10.6); WBC (Perox) 12.89
[2016-04-04 08:37] LABS: Calcium 8.7 mg/dL (8.4-10.2); Potassium 4.4 mmol/L (3.5-5.1)
[2016-04-04 11:58] LABS: Glucose,Whole Blood 221 mg/dL (75-99)
[2016-04-04] MEDS: VANCOMYCIN 1,500 MG in SODIUM CHLORIDE 0.9% 250 ML IVPB SCH (12:17)
[2016-04-04 16:58] LABS: Glucose,Whole Blood 178 mg/dL (75-99)
--- NOTE | 2016-04-04 19:29 | PN ---
INTERVAL HISTORY: Mr. Hayes is a 70-year-old male who was recently hallways diagnosed with diabetes with hemoglobin A1c of 14, admitted to the hospital with left foot cellulitis and gangrene. He is status post disarticulation of the left foot, done by Dr. Ortiz. Currently, he is being treated for acute osteomyelitis with antibiotics in the form of Zosyn and vancomycin. The patient is lying in bed, appears to be in no acute distress. He states that the pain in his left amputation site feels much better than yesterday. REVIEW OF SYSTEMS: CONSTITUTIONAL: Denies having any fever, chills, or rigors. RESPIRATORY: No cough, no difficulty in breathing. CARDIAC: No chest pain or palpitation. GI: No abdominal pain, no nausea, vomiting or diarrhea. Patient's medications have been reviewed. On examination, patient's vital signs temperature 97.9, heart rate 80, respiratory rate 16, blood pressure 149/75, saturating at 95% on room air. GENERAL EXAMINATION: Patient appears to be no acute distress. Head is atraumatic, normocephalic. EYES: Pupils round and reactive to light. NECK: No JVD, no thyromegaly. CARDIOVASCULAR: S1, S2 heard. RESPIRATORY: Bilateral breath sounds are positive. No wheeze or crackles. GI: Abdomen is soft, nontender. Bowel sounds are positive. EXTREMITIES: Right lower extremity is no edema. No cyanosis. The left lower extremity, disarticulation of the foot is done and it is wrapped in Kamaljit bandage. PSYCHIATRIC: Appropriate mood and affect. GAS MAKER HELPER: Alert and oriented x3. No focal neurological deficits. Patient's labs from this morning, white count of 12.8, hemoglobin is 12.6. Sodium 144, potassium 4.4, chloride 107, bicarb 25, BUN 20, creatinine is 2.39. ASSESSMENT AND PLAN: 1. Cellulitis of the left foot with gangrenous change involving the left great toe, foot x-ray suspicious for acute osteomyelitis involving the first phalanx. He is status post in disarticulation of the left foot. Wound cultures positive for group B Streptococcus agalactiae and methicillin-resistant Staphylococcus aureus. Patient is currently on vancomycin and Zosyn. 2. Acute kidney injury, most likely secondary to vancomycin that he is on. Patient's vancomycin trough levels have been 23.5 and 24.2. His creatinine has a slightly trended down from yesterday. It was 2.54 and today it is 2.39. 3. Diabetes mellitus with hemoglobin A1c of 14, continue with Lantus for 30 units and sliding scale of insulin. 4. Nicotine dependence. 5. History of coronary artery disease in the past. PLAN: The plan is to continue the patient on IV antibiotics in the form of vancomycin and Zosyn. Patient's vancomycin trough levels have been slightly on higher side, pharmacy to adjust the dosing. Continue with IV fluids and will also obtain a Nephrology consult. Further recommendations to follow depending on the progress of the patient. Will repeat a.m. labs.
[2016-04-04 20:59] LABS: Glucose,Whole Blood 238 mg/dL (75-99)
[2016-04-04] MEDS: INSULIN GLARGINE 100 UNIT/ML 10 ML VIAL SQ SCH (22:47)
[2016-04-05] MEDS: SODIUM CHLORIDE 0.9% 1,000 ML IV SCH ×5 (00:27→20:32)
[2016-04-05] MEDS: PIPERACILLIN-TAZOBACTAM 3.375 GM in DEXTROSE/WATER 1 50ML.BAG IVPB SCH ×3 (01:59→16:43)
[2016-04-05 07:33] LABS: Glucose,Whole Blood 149 mg/dL (75-99)
[2016-04-05 07:49] LABS: Basophils # (A) 0.1 k/uL (0-0.2); Basophils % (A) 1 %; CH 30.6; CHCM 32.3; Eosinophils # (A) 0.1 k/uL (0-0.7); Eosinophils % (A) 1 %; HCT 38.3 % (39.0-53.0); HDW 2.65; HGB 12.5 gm/dL (13.0-17.5); Luc # (Auto) 0.16; Luc % (Auto) 1; Lymphocytes # (A) 1.7 k/uL (1.0-4.8); Lymphocytes % (A) 14 %; MCHC 32.5 g/dL (31.0-37.0); MCV 95.1 fL (80.0-100.0); Monocytes # (A) 0.7 k/uL (0-1.0); Monocytes % (A) 6 %; Neutrophils # (A) 9.6 k/uL (1.3-7.7); Neutrophils % (A) 77 %; RBC 4.02 m/uL (4.30-5.90); RDW 13.5 % (11.5-15.5); WBC 12.4 k/uL (3.8-10.6); WBC (Perox) 12.87
[2016-04-05 08:18] LABS: Calcium 8.7 mg/dL (8.4-10.2); Potassium 4.2 mmol/L (3.5-5.1)
[2016-04-05] MEDS: PANTOPRAZOLE 40 MG TABLET PO SCH (08:31)
[2016-04-05] MEDS: INSULIN LISPRO (humaLOG) 300 UNIT/3 ML VIAL SQ SCH ×7 (08:31→20:31)
[2016-04-05] MEDS ORDERED: VANCOMYCIN 1,500 MG in SODIUM CHLORIDE 0.9% 250 ML IVPB SCH (12:00)
[2016-04-05 12:04] LABS: Glucose,Whole Blood 177 mg/dL (75-99)
[2016-04-05] MEDS: HYDROmorphone 1 MG/ML 1 ML SYRINGE IVP PRN (16:38)
--- NOTE | 2016-04-05 16:47 | CONS ---
REASON FOR CONSULTATION: Renal failure. HISTORY OF PRESENT ILLNESS: Patient is a 70-year-old white male who was admitted to the hospital on 03/31/2016 with pain, drainage and gangrene of the left great toe. Patient was diagnosed to be diabetic this admission, is maintained on antibiotics, but subsequently had left foot disarticulation by Dr. Ortiz. He has been maintained on Zosyn and vancomycin. Wound cultures were growing MRSA. Patient's serum creatinine is noted to be 2.49 mg/dL today. On admission, his creatinine was 0.9 on 03/31/2016. Patient has not received any IV contrast during his admission and he is not maintained on RUBEN inhibitors or nonsteroidal anti-inflammatory agents. Vancomycin level was at 23.5 and 24.2. Patient states he is voiding and has had good urine output. PAST MEDICAL HISTORY: Coronary artery disease, hypertension, history of [place], and nicotine abuse. SOCIAL HISTORY: Positive for smoking. No history of drug abuse or alcohol abuse. REVIEW OF SYSTEMS: Currently negative for nausea, vomiting, fever, chills, chest pain, shortness of breath. Patient has good urine output. On examination, blood pressure is 147/79, heart rate 74 per minute. Patient is afebrile. HEART: S1 and S2. LUNGS: Bilateral breath sounds are heard. Abdomen is soft, nontender. Lower extremities show no edema on the right leg and disarticulation of the foot noted on the left leg. CHIEF DEPUTY is otherwise grossly intact. Patient is moving all 4 extremities. Labs show sodium 144, potassium 4.2, chloride 108, BUN 24, serum creatinine 2.49. ASSESSMENT: Acute kidney injury, most likely acute tubular necrosis. Patient is nonoliguric. He also appears to be hypovolemic. I will add IV fluids and repeat labs in the a.m. Currently the vancomycin level is not significantly elevated. We will also check an ultrasound of the kidneys and repeat his labs in a.m. Creatinine was 0.9 mg/dL at the time of admission. PLAN: Check ultrasound of the kidneys, start IV fluids, consider changing antibiotics and discontinuing vancomycin.
[2016-04-05 16:56] LABS: Glucose,Whole Blood 115 mg/dL (75-99)
--- NOTE | 2016-04-05 19:16 | P.CONS ---
History of Present Illness - Reason for Consult Consult date: 04/05/16 - Chief Complaint Wound left foot - History of Present Illness 70-year-old male who presented to the emergency center with a three- week history of increasing lesion to his left foot. It was not painful. There is evidence of extensive gangrenous change of the time of his presentation at the great toe and ascending the foot. Apparently the patient has a long- standing history of diabetes for about the last 10 years. However is not sought ongoing care for this at this timeframe. It appears that his social situation has recently changed. Apparently was living with his brother until a week ago or so. It is related to brother . The patient has severe pain to the disarticulated site to the left ankle. It is denying fever, chills or rigors. Denies other new acute complaints at this time. Does relate that he is now aware that he has diabetes will need to do something about it. Is aware that his attempt to ignore it has resulted in his significant debility. Review of Systems HEENT:Denies headache or acute visual change. Denies sinus or mouth discomforts. Denies neck stiffness or pain. Denies significant oral cavity pain. Denies difficulty on swallowing. Lungs: Denies significant shortness of breath, cough, sputum production, or hemoptysis. Cardiovascular: Denies significant shortness of breath, chest pain, chest wall pain, orthopnea, dyspnea on exertion, syncope Gastrointestinal:Denies nausea, vomiting, diarrhea, constipation, hematemesis, melena, hematochezia. No no significant change of bowel habit noticed. Musculoskeletal: denies significant myalgias or arthralgias. No new joint swelling. Denies new back pain. Skin: As per the HPI as the gangrenous change to his left foot resulting in the disarticulation Neuro: Denies headache or visual change. Denies any new onset weakness or difficulty with ambulation. Denies falls or seizures. Psychiatric: Significant stressors in his life as of late. Has now technologist 's diabetes for 10 years. Endocrine: Fatigue and weight loss Past Medical History Past Medical History: Coronary Artery Disease (CAD), GERD/Reflux, Hypertension, Myocardial Infarction ([place]), Pneumonia Additional Past Medical History / Comment(s): PALPITATIONS, STATED HE" BROKE HIS BACK AGE 14 AND"2 VERTEBRE NATURALLY FUSED TOGETHER"."POSS STROKE 1973 BUT NEVER EVALUATED" Last Myocardial Infarction Date:: UNK History of Any Multi-Drug Resistant Organisms: None Reported, MRSA Year Discovered:: 03/31/16 MDRO Source:: Left Foot Past Surgical History: No Surgical Hx Reported Additional Past Surgical History / Comment(s): TOOTH EXTRACTIONS Past Anesthesia/Blood Transfusion Reactions: Motion Sickness Past Psychological History: No Psychological Hx Reported Additional Psychological History / Comment(s): PT LIVES ALONE, USES CANE WHEN UP , HAD A FALL W/O IMJURY(LOST BALANCE). NO HOME CARE SERVICES. His primary contact was his brother who about a week ago. He has never been . experience. No international travel. Worked in bars in restaurants. Does related to alcohol use at this time apparently stopped his heavy use in 1986. Is an ongoing tobacco smoker Smoking Status: Current every day smoker Past Alcohol Use History: Daily, Heavy Additional Past Alcohol Use History / Comment(s): 1-2- PPD,, PAST HEVY ETOH ABUSE QUIT HEAVY DRINKING IN 1986 STATED NOW ONLY A RARE DRINK Past Drug Use History: None Reported - Past Family History Mother Family Medical History: Cancer Additional Family Medical History / Comment(s): BREAST CANCER, CERGVICAL CANCER AND PART OF TONGUE AND LT JAW REMOVED Father History Unknown: Yes Additional Family Medical History / Comment(s): DAD LEFT THE HOME WHEN PT WAS 14 Medications and Allergies Home Medications and Allergies Comment(s): Current Medications Acetaminophen (Tylenol Tab) 650 mg PO Q6HR PRN PRN Reason: Mild Pain or Fever > 100.5 Acetaminophen/Aspirin/Caffeine (Excedrin) 2 each PO Q6H PRN PRN Reason: Headache Acetaminophen/Hydrocodone Bitart ([place] 10) 1 each PO Q4HR PRN PRN Reason: Pain Last Admin: 04/02/16 07:30 Dose: 1 each Hydromorphone HCl (Dilaudid) 0.5 mg IVP Q4HR PRN PRN Reason: Pain Last Admin: 04/05/16 16:38 Dose: 0.5 mg Piperacillin/Tazobactam/ (Dextrose 3.375 gm/ IV Solution) 50 mls @ 12.5 mls/hr IVPB Q8HR MAHENDRA Last Admin: 04/05/16 16:43 Dose: 12.5 mls/hr Vancomycin HCl 1,500 mg/ (Sodium Chloride) 250 mls @ 125 mls/hr IVPB Q24H [facility] Last Admin: 04/05/16 12:47 Dose: 125 mls/hr Sodium Chloride (Saline 0.9%) 1,000 mls @ 100 mls/hr IV .Q10H [facility] Last Admin: 04/05/16 12:51 Dose: Not Given Insulin Glargine (Lantus) 30 unit SQ HS [facility] Last Admin: 04/04/16 22:47 Dose: 30 unit Insulin Human Lispro (Humalog) 0 unit SQ ACHS MAHENDRA PRN Reason: Protocol Last Admin: 04/05/16 17:57 Dose: Not Given Insulin Human Lispro (Humalog) 5 unit SQ AC-TID [facility] Last Admin: 04/05/16 17:58 Dose: 5 unit Miscellaneous Information (Vancomycin Trough Due) 0 each MISCELLANE DIRECTED ONE Stop: 04/06/16 11:01 Naloxone HCl (Narcan) 0.2 mg IV Q2M PRN PRN Reason: Opioid Reversal Pantoprazole Sodium (Protonix) 40 mg PO AC-BRKFST [facility] Last Admin: 04/05/16 08:31 Dose: 40 mg Home Medications Medication Instructions Recorded Confirmed Type Aspirin/Acetaminophen/Caffeine 2 tab PO Q6H PRN 03/31/16 03/31/16 History [Excedrin Extra Strength Caplet] Allergies Allergy/AdvReac Type Severity Reaction Status Date / Time shellfish derived Allergy Unknown Verified 03/31/16 10:41 Physical Exam Vitals: Vital Signs Temp Pulse Resp BP Pulse Ox 04/05/16 15:00 97.6 F 75 16 152/77 97 04/05/16 07:00 97.5 F L 80 16 144/76 96 04/04/16 23:00 98.4 F 74 20 147/79 97 Intake and Output 04/05/16 04/05/16 04/05/16 06:59 14:59 22:59 Intake Total 100 1000 Output Total 500 1300 Balance -400 -300 Intake: Oral 100 1000 Output: Urine 500 1300 Other: # Voids 4 3 # Bowel Movements 0 70-year-old male who is a poor historian relates to some pain at the amputation site to his left ankle area. Other than this he has no acute complaint. HEENT: Anicteric conjunctiva are pink and moist nasal mucosa grossly intact without significant lesions, there is no thrush. Poor dentition Neck: The neck is supple without significant lymphadenopathy or thyromegaly. Lungs: Metrical air entry is noted. Expiratory wheezes scattered at the lung hernandez. No bronchial sounds are noted. No dullness or egophony Heart: Regular with an audible S1 and S2 soft S4 no murmur click or rub PMI was nondisplaced Abdomen: Positive bowel sounds soft and nontender without palpable masses or organomegaly. There was no guarding or rebound. Extremities: The upper extremities failed to reveal lesions. IV access is noted. Is without erythema or tenderness. The lower extremities reveal evidence of the disarticulation site to the left ankle. Remove the dressing causes him to scream in pain. It is done gently and saturating with saline. despite this he had significant pain. Vaseline dressing is applied and a bulky dressing was replaced. He tolerated this part well. The ascending erythema appears to be improving, there is mild lymphadenopathy to the left groin. Neuro: Awake alert oriented to person person and place. He is however quite a poor historian. Results CBC & Chem 7: 04/05/16 07:09 04/05/16 07:09 Labs: Abnormal Lab Results - Last 24 Hours (Table) 04/04/16 04/05/16 04/05/16 Range/Units 20:56 07:09 07:09 WBC 12.4 H (3.8-10.6) k/uL RBC 4.02 L (4.30-5.90) m/uL Hgb 12.5 L (13.0-17.5) gm/dL Hct 38.3 L (39.0-53.0) % Neutrophils # 9.6 H (1.3-7.7) k/uL Chloride 108 H (98-107) mmol/L BUN 24 H (9-20) mg/dL Creatinine 2.49 H (0.66-1.25) mg/dL Glucose 141 H (74-99) mg/dL POC Glucose (mg/dL) 238 H (75-99) mg/dL 04/05/16 04/05/16 04/05/16 Range/Units 07:19 11:58 16:54 WBC (3.8-10.6) k/uL RBC (4.30-5.90) m/uL Hgb (13.0-17.5) gm/dL Hct (39.0-53.0) % Neutrophils # (1.3-7.7) k/uL Chloride (98-107) mmol/L BUN (9-20) mg/dL Creatinine (0.66-1.25) mg/dL Glucose (74-99) mg/dL POC Glucose (mg/dL) 149 H 177 H 115 H (75-99) mg/dL Microbiology - Last 24 Hours (Table) 04/01/16 15:30 Anaerobic Culture - Final Ankle - Left Laboratory Results WBC 12.4 k/uL (3.8-10.6) H 04/05/16 07:09 RBC 4.02 m/uL (4.30-5.90) L 04/05/16 07:09 Hgb 12.5 gm/dL (13.0-17.5) L 04/05/16 07:09 Hct 38.3 % (39.0-53.0) L 04/05/16 07:09 MCV 95.1 fL (80.0-100.0) 04/05/16 07:09 MCH 31.0 pg (25.0-35.0) 04/05/16 07:09 MCHC 32.5 g/dL (31.0-37.0) 04/05/16 07:09 RDW 13.5 % (11.5-15.5) 04/05/16 07:09 Plt Count 282 k/uL (150-450) 04/05/16 07:09 Neutrophils % 77 % 04/05/16 07:09 Lymphocytes % 14 % 04/05/16 07:09 Monocytes % 6 % 04/05/16 07:09 Eosinophils % 1 % 04/05/16 07:09 Basophils % 1 % 04/05/16 07:09 Neutrophils # 9.6 k/uL (1.3-7.7) H 04/05/16 07:09 Lymphocytes # 1.7 k/uL (1.0-4.8) 04/05/16 07:09 Monocytes # 0.7 k/uL (0-1.0) 04/05/16 07:09 Eosinophils # 0.1 k/uL (0-0.7) 04/05/16 07:09 Basophils # 0.1 k/uL (0-0.2) 04/05/16 07:09 PT 10.1 sec (9.0-12.0) 03/31/16 11:00 INR 1.0 (<1.1) 03/31/16 11:00 APTT 24.4 sec (22.0-30.0) 03/31/16 11:00 Sodium 144 mmol/L (137-145) 04/05/16 07:09 Potassium 4.2 mmol/L (3.5-5.1) 04/05/16 07:09 Chloride 108 mmol/L (98-107) H 04/05/16 07:09 Carbon Dioxide 24 mmol/L (22-30) 04/05/16 07:09 Anion Gap 12 mmol/L 04/05/16 07:09 BUN 24 mg/dL (9-20) H 04/05/16 07:09 Creatinine 2.49 mg/dL (0.66-1.25) H 04/05/16 07:09 Est GFR (MDRD) Af Amer 31 (>60 ml/min/1.73 sqM) 04/05/16 07:09 Est GFR (MDRD) Non-Af 26 (>60 ml/min/1.73 sqM) 04/05/16 07:09 Glucose 141 mg/dL (74-99) H 04/05/16 07:09 POC Glucose (mg/dL) 115 mg/dL (75-99) H 04/05/16 16:54 POC Glu Cook Pickled Meat Kathia Sheth 04/05/16 16:[address] Glu mg/dL 355 mg/dL 03/31/16 11:00 Hemoglobin A1c 14.0 % (4.2-6.1) H 03/31/16 11:00 Plasma Lactic Acid [place] 1.4 mmol/L (0.7-2.0) 03/31/16 11:00 Calcium 8.7 mg/dL (8.4-10.2) 04/05/16 07:09 Total Bilirubin 0.6 mg/dL (0.2-1.3) 03/31/16 11:00 AST 17 U/L (17-59) 03/31/16 11:00 ALT 34 U/L (21-72) 03/31/16 11:00 Alkaline Phosphatase 333 U/L (38-126) H 03/31/16 11:00 Total Creatine Kinase 94 U/L (55-170) 03/31/16 11:00 CK-MB (CK-2) 1.4 ng/mL (0.0-2.4) 03/31/16 11:00 CK-MB (CK-2) Rel Index 1.5 03/31/16 11:00 Troponin I <0.012 ng/mL (0.000-0.034) 03/31/16 11:00 Total Protein 6.7 g/dL (6.3-8.2) 03/31/16 11:00 Albumin 3.1 g/dL (3.5-5.0) L 03/31/16 11:00 Cortisol 18 ug/dL 03/31/16 11:00 Urine Color Yellow 03/31/16 13:02 Urine Appearance Clear (Clear) 03/31/16 13:02 Urine pH 6.0 (5.0-8.0) 03/31/16 13:02 Ur Specific [place] 1.007 (1.001-1.035) 04/03/16 16:01 Urine Protein Trace (Negative) H 03/31/16 13:02 Urine Glucose (UA) 4+ (Negative) H 03/31/16 13:02 Urine Ketones 1+ (Negative) H 03/31/16 13:02 Urine Blood Negative (Negative) 03/31/16 13:02 Urine Nitrate Negative (Negative) 03/31/16 13:02 Urine Bilirubin Negative (Negative) 03/31/16 13:02 Urine Urobilinogen <2.0 mg/dL (<2.0) 03/31/16 13:02 Ur Leukocyte Esterase Negative (Negative) 03/31/16 13:02 Urine Eosinophils 0 % 04/03/16 16:01 Urine Osmolality 250 mosm/kg (50-1400) 04/03/16 16:01 Ur Random Sodium 92 mmol/L (30-90) H 04/03/16 16:01 Ur Random Potassium 10.0 mmol/L 04/03/16 16:01 Vancomycin Trough 24.2 ug/mL 04/04/16 07:35 Microbiology 04/01/16 15:30 Ankle - Left Anaerobic Culture - Final 03/31/16 11:45 Blood Blood Culture - Preliminary No Growth after 120 hours 03/31/16 11:00 Blood Blood Culture - Preliminary No Growth after 120 hours 04/01/16 15:30 Ankle - Left Gram Stain - Final 04/01/16 15:30 Ankle - Left Wound Culture - Final Strep agalactiae - (group b) 03/31/16 11:00 Foot - Left Gram Stain - Final 03/31/16 11:00 Foot - Left Wound Culture - Final Methicillin resist S. aureus Strep agalactiae - (group b) Enterobacter cloacae 03/31/16 13:02 Urine,Voided Urine Culture - Final Assessment and Plan (1) Gangrene of toe Narrative/Plan: 70-year-old male who is approximately a 10 year history of diabetes that has not been treated to the patient not wanting to acknowledge his diabetes. Presents to hospital with evidence of the gangrenous changes to his left foot. Because of the extensive infection he was taken to the operating room and disarticulation of the foot occurred. The patient will need formal amputation the near future once his infection is improved. For antibiotic therapy we'll alter to Ceftaroline. Given his elevated creatinine avoiding further vancomycin therapy would be ideal, in the center with good coverage for MRSA staph and Enterobacter that has been isolated. Local wound care is with the nonstick Vaseline dressing and bulky dressing. Patient is very intolerant of the dressing change in with pain medication. Albumin is low at 3.1 and will need appropriate protein supplementation. Hemoglobin A1c was 14 admission with an average blood sugar of 355. Blood sugars have improved during his stay but it has been a definite struggle to improve them. His creatinine is markedly increased since admission and hydration is being utilized. Avoid further vancomycin therapy. Likely will go to extended care his discharge. Status: Acute (2) Diabetes mellitus type 2 with complications Status: Acute (3) Leukocytosis Status: Acute
[2016-04-05] MEDS: INSULIN GLARGINE 100 UNIT/ML 10 ML VIAL SQ SCH (20:31)
[2016-04-05] MEDS: CEFTAROLINE FOSAMIL 400 MG in SODIUM CHLORIDE 0.9% 250 ML IVPB SCH (20:32)
--- NOTE | 2016-04-05 20:32 | US ---
EXAMINATION TYPE: US kidneys/renal and bladder DATE OF EXAM: 04/05/2016 4:55 PM COMPARISON: NONE CLINICAL HISTORY: renal failure. EXAM MEASUREMENTS: Right Kidney: 11.5 x 5.7 x 5.4 cm Left Kidney: 10.7 x 5.9 x 6.2 cm TECHNOLOGIST IMPRESSION: Right Kidney: No hydronephrosis or masses seen Left Kidney: No hydronephrosis or masses seen Bladder: wnl Bilateral Jets seen: Yes There is no evidence for hydronephrosis at this point in time. No nephrolithiasis is seen. No erinn s are identified. The urinary bladder is anechoic. Bilateral ureteral jets are seen. IMPRESSION: Normal retroperitoneal sonogram exam. No sign of renal stone or obstruction. No renal atrophy.
[2016-04-05 20:38] LABS: Glucose,Whole Blood 176 mg/dL (75-99)
[2016-04-06 07:48] LABS: Glucose,Whole Blood 84 mg/dL (75-99)
[2016-04-06] MEDS: INSULIN LISPRO (humaLOG) 300 UNIT/3 ML VIAL SQ SCH ×7 (07:49→21:56)
[2016-04-06] MEDS: PANTOPRAZOLE 40 MG TABLET PO SCH (07:50)
[2016-04-06] MEDS: SODIUM CHLORIDE 0.9% 1,000 ML IV SCH ×2 (07:51→15:38)
[2016-04-06] MEDS: CEFTAROLINE FOSAMIL 400 MG in SODIUM CHLORIDE 0.9% 250 ML IVPB SCH ×2 (07:51→20:42)
--- NOTE | 2016-04-06 07:55 | PN ---
INTERVAL HISTORY: Mr. Hayes is a 70-year-old male who was recently diagnosed with diabetes with hemoglobin A1c of 14, admitted to the hospital with left foot gangrene. He is status post disarticulation of the left foot done by Dr. Ortiz. Currently being treated for acute osteomyelitis. Infectious Disease, Dr. Morfin has been consulted today for management of his antibiotics. Today, patient is lying in bed, appears to be in no acute distress. He states that his pain in the left amputation site feels much better. REVIEW OF SYSTEMS: CONSTITUTIONAL: Denies having any fevers, chills or rigors. RESPIRATORY: No cough. No difficulty in breathing. CARDIAC: No chest pain or palpitations. GI: No abdominal pain, nausea, vomiting, or diarrhea. Patient's medications have been reviewed. On examination, the patient's vital signs, temperature 97.6, heart rate 70, respiratory rate 16, blood pressure 152/77, saturating at 97% on room air. GENERAL EXAMINATION: Patient appears to be in no acute distress. HEAD: Atraumatic, normocephalic. EYES: Pupils round and reactive to light. NECK: No JVD. No thyromegaly. CARDIOVASCULAR: S1, S2 are heard. RESPIRATORY: Bilateral breath sounds are positive. No crackles. GI/ABDOMEN: Soft, nontender. Bowel sounds positive. EXTREMITIES: Right lower extremity, no edema. No cyanosis. Left lower extremity, status post amputation, grafting and Kamaljit bandage. TECHNICAL PROJECT LEAD: Alert, awake, oriented x3. No focal deficits. PATIENT'S LABS: White count of 12.4, hemoglobin 12.5, platelets of 282, sodium 142, potassium 4.2, chloride 108, bicarb 24, BUN 24, creatinine 2.49. ASSESSMENT AND PLAN: 1. Left foot gangrene with cellulitis, status post amputation, x-rays suspicious for acute myelitis. Currently on antibiotics in the form of ceftaroline as per ID, Dr. Morfin recommendations and his wound cultures are positive for group B streptococci and methicillin-resistant Staphylococcus aureus. 2. Acute kidney injury, most likely ATN and also that the patient is on vancomycin. His vancomycin and Zosyn has been discontinued this morning. Will continue with IV fluids and avoid nephrotoxins. Nephrology on board. 3. Type 2 diabetes mellitus with hemoglobin A1c of 14. Continue with Lantus and sliding scale of insulin. 4. Nicotine dependence. 5. History of coronary artery disease in the past. PLAN: The plan is to continue the patient on the ceftaroline, IV fluids and monitor his kidney function. Further recommendations to follow depending on the progress of the patient.
[2016-04-06] MEDS ORDERED: VANCOMYCIN TROUGH DUE 1 EACH MISC MISCELLANE ONE (11:00)
[2016-04-06 11:31] LABS: Calcium 8.6 mg/dL (8.4-10.2)
[2016-04-06 11:57] LABS: Glucose,Whole Blood 176 mg/dL (75-99)
--- NOTE | 2016-04-06 15:33 | P.PN ---
Progress Note - Text 70 old white male, patient had a disarticulation of the left foot for blood gangrene of the left foot patient has a MRSA and patient has been on teforo antibiotic for MRSA dressing has been changed stump site looks clean we will scheduled this week for a left BK amputation in the meantime continue with IV antibiotic
[2016-04-06 17:20] LABS: Glucose,Whole Blood 167 mg/dL (75-99)
--- NOTE | 2016-04-06 19:50 | P.PN ---
Subjective Principal diagnosis: Gangrene left foot 70-year-old male who presented to the emergency center with a three- week history of increasing lesion to his left foot. It was not painful. There is evidence of extensive gangrenous change of the time of his presentation at the great toe and ascending the foot. Apparently the patient has a long- standing history of diabetes for about the last 10 years. However is not sought ongoing care for this at this timeframe. It appears that his social situation has recently changed. Apparently was living with his brother until a week ago or so. It is related to brother . The patient has severe pain to the disarticulated site to the left ankle. It is denying fever, chills or rigors. Denies other new acute complaints at this time. Does relate that he is now aware that he has diabetes will need to do something about it. Is aware that his attempt to ignore it has resulted in his significant debility. He is feeling better today. Eating his dinner without troubles. Denies fevers chills or rigors or sweats. Pain is good control Objective - Vital Signs Vital signs: Vital Signs Temp 97.3 F L 04/06/16 15:00 Pulse 84 04/06/16 15:00 Resp 22 04/06/16 15:00 BP 124/75 04/06/16 15:00 Pulse Ox 97 04/06/16 15:00 Intake & Output 04/06/16 04/06/16 04/07/16 06:59 18:59 06:59 Intake Total 250 480 Output Total 1450 575 Balance -1200 -95 Weight 81.647 kg Intake: Oral 250 480 Output: Urine 1450 575 Other: Voiding Method Urinal Urinal # Voids 275 - Exam 70-year-old male who is a poor historian relates to some pain at the amputation site to his left ankle area. Other than this he has no acute complaint. HEENT: Anicteric conjunctiva are pink and moist nasal mucosa grossly intact without significant lesions, there is no thrush. Poor dentition Neck: The neck is supple without significant lymphadenopathy or thyromegaly. Lungs: Metrical air entry is noted. Expiratory wheezes scattered at the lung hernandez. No bronchial sounds are noted. No dullness or egophony Heart: Regular with an audible S1 and S2 soft S4 no murmur click or rub PMI was nondisplaced Abdomen: Positive bowel sounds soft and nontender without palpable masses or organomegaly. There was no guarding or rebound. Extremities: The upper extremities failed to reveal lesions. IV access is noted. Is without erythema or tenderness. The lower extremities reveal evidence of the disarticulation site to the left ankle. The site is without significant bloody drainage or purulent drainage at this time. Is less tender today. Neuro: Awake alert oriented to person person and place. He is however quite a poor historian. - Labs CBC & Chem 7: 04/05/16 07:09 04/06/16 10:34 Labs: Abnormal Lab Results - Last 24 Hours (Table) 04/05/16 04/06/16 04/06/16 Range/Units 20:27 10:34 11:48 Chloride 109 H (98-107) mmol/L BUN 22 H (9-20) mg/dL Creatinine 2.37 H (0.66-1.25) mg/dL Glucose 215 H (74-99) mg/dL POC Glucose (mg/dL) 176 H 176 H (75-99) mg/dL 04/06/16 Range/Units 17:06 Chloride (98-107) mmol/L BUN (9-20) mg/dL Creatinine (0.66-1.25) mg/dL Glucose (74-99) mg/dL POC Glucose (mg/dL) 167 H (75-99) mg/dL Microbiology - Last 24 Hours (Table) 04/01/16 15:30 Anaerobic Culture - Final Ankle - Left Laboratory Results WBC 12.4 k/uL (3.8-10.6) H 04/05/16 07:09 RBC 4.02 m/uL (4.30-5.90) L 04/05/16 07:09 Hgb 12.5 gm/dL (13.0-17.5) L 04/05/16 07:09 Hct 38.3 % (39.0-53.0) L 04/05/16 07:09 MCV 95.1 fL (80.0-100.0) 04/05/16 07:09 MCH 31.0 pg (25.0-35.0) 04/05/16 07:09 MCHC 32.5 g/dL (31.0-37.0) 04/05/16 07:09 RDW 13.5 % (11.5-15.5) 04/05/16 07:09 Plt Count 282 k/uL (150-450) 04/05/16 07:09 Neutrophils % 77 % 04/05/16 07:09 Lymphocytes % 14 % 04/05/16 07:09 Monocytes % 6 % 04/05/16 07:09 Eosinophils % 1 % 04/05/16 07:09 Basophils % 1 % 04/05/16 07:09 Neutrophils # 9.6 k/uL (1.3-7.7) H 04/05/16 07:09 Lymphocytes # 1.7 k/uL (1.0-4.8) 04/05/16 07:09 Monocytes # 0.7 k/uL (0-1.0) 04/05/16 07:09 Eosinophils # 0.1 k/uL (0-0.7) 04/05/16 07:09 Basophils # 0.1 k/uL (0-0.2) 04/05/16 07:09 PT 10.1 sec (9.0-12.0) 03/31/16 11:00 INR 1.0 (<1.1) 03/31/16 11:00 APTT 24.4 sec (22.0-30.0) 03/31/16 11:00 Sodium 143 mmol/L (137-145) 04/06/16 10:34 Potassium 5.0 mmol/L (3.5-5.1) 04/06/16 10:34 Chloride 109 mmol/L (98-107) H 04/06/16 10:34 Carbon Dioxide 25 mmol/L (22-30) 04/06/16 10:34 Anion Gap 9 mmol/L 04/06/16 10:34 BUN 22 mg/dL (9-20) H 04/06/16 10:34 Creatinine 2.37 mg/dL (0.66-1.25) H 04/06/16 10:34 Est GFR (MDRD) Af Amer 33 (>60 ml/min/1.73 sqM) 04/06/16 10:34 Est GFR (MDRD) Non-Af 27 (>60 ml/min/1.73 sqM) 04/06/16 10:34 Glucose 215 mg/dL (74-99) H 04/06/16 10:34 POC Glucose (mg/dL) 167 mg/dL (75-99) H 04/06/16 17:06 POC Glu Rn Building ID Aye Beasley 04/06/16 17:[address] Glu mg/dL 355 mg/dL 03/31/16 11:00 Hemoglobin A1c 14.0 % (4.2-6.1) H 03/31/16 11:00 Plasma Lactic Acid Kyaw 1.4 mmol/L (0.7-2.0) 03/31/16 11:00 Calcium 8.6 mg/dL (8.4-10.2) 04/06/16 10:34 Total Bilirubin 0.6 mg/dL (0.2-1.3) 03/31/16 11:00 AST 17 U/L (17-59) 03/31/16 11:00 ALT 34 U/L (21-72) 03/31/16 11:00 Alkaline Phosphatase 333 U/L (38-126) H 03/31/16 11:00 Total Creatine Kinase 94 U/L (55-170) 03/31/16 11:00 CK-MB (CK-2) 1.4 ng/mL (0.0-2.4) 03/31/16 11:00 CK-MB (CK-2) Rel Index 1.5 03/31/16 11:00 Troponin I <0.012 ng/mL (0.000-0.034) 03/31/16 11:00 Total Protein 6.7 g/dL (6.3-8.2) 03/31/16 11:00 Albumin 3.1 g/dL (3.5-5.0) L 03/31/16 11:00 Cortisol 18 ug/dL 03/31/16 11:00 Urine Color Yellow 03/31/16 13:02 Urine Appearance Clear (Clear) 03/31/16 13:02 Urine pH 6.0 (5.0-8.0) 03/31/16 13:02 Ur Specific [place] 1.007 (1.001-1.035) 04/03/16 16:01 Urine Protein Trace (Negative) H 03/31/16 13:02 Urine Glucose (UA) 4+ (Negative) H 03/31/16 13:02 Urine Ketones 1+ (Negative) H 03/31/16 13:02 Urine Blood Negative (Negative) 03/31/16 13:02 Urine Nitrate Negative (Negative) 03/31/16 13:02 Urine Bilirubin Negative (Negative) 03/31/16 13:02 Urine Urobilinogen <2.0 mg/dL (<2.0) 03/31/16 13:02 Ur Leukocyte Esterase Negative (Negative) 03/31/16 13:02 Urine Eosinophils 0 % 04/03/16 16:01 Urine Osmolality 250 mosm/kg (50-1400) 04/03/16 16:01 Ur Random Sodium 92 mmol/L (30-90) H 04/03/16 16:01 Ur Random Potassium 10.0 mmol/L 04/03/16 16:01 Vancomycin Trough 24.6 ug/mL 04/06/16 10:34 Microbiology 03/31/16 11:45 Blood Blood Culture - Final No Growth after 144 hours 03/31/16 11:00 Blood Blood Culture - Final No Growth after 144 hours 04/01/16 15:30 Ankle - Left Anaerobic Culture - Final 04/01/16 15:30 Ankle - Left Gram Stain - Final 04/01/16 15:30 Ankle - Left Wound Culture - Final Strep agalactiae - (group b) 03/31/16 11:00 Foot - Left Gram Stain - Final 03/31/16 11:00 Foot - Left Wound Culture - Final Methicillin resist S. aureus Strep agalactiae - (group b) Enterobacter cloacae 03/31/16 13:02 Urine,Voided Urine Culture - Final Assessment and Plan (1) Gangrene of toe Narrative/Plan: 70-year-old male who is approximately a 10 year history of diabetes that has not been treated to the patient not wanting to acknowledge his diabetes. Presents to hospital with evidence of the gangrenous changes to his left foot. Because of the extensive infection he was taken to the operating room and disarticulation of the foot occurred. The patient will need formal amputation the near future once his infection is improved. For antibiotic therapy we'll alter to Ceftaroline. Given his elevated creatinine avoiding further vancomycin therapy would be ideal, in the center with good coverage for MRSA staph and Enterobacter that has been isolated. Local wound care is with the nonstick Vaseline dressing and bulky dressing. Patient better today and has less pain Albumin is low at 3.1 and will need appropriate protein supplementation. Hemoglobin A1c was 14 admission with an average blood sugar of 355. Blood sugars have improved during his stay but it has been a definite struggle to improve them. His creatinine is markedly increased since admission was 0.90. Peak at 2.49 now down to 2.37 with antibiotic change and hydration is being utilized. Avoid further vancomycin therapy. Likely will go to extended care his discharge. Status: Acute (2) Diabetes mellitus type 2 with complications Status: Acute (3) Leukocytosis Status: Acute
--- NOTE | 2016-04-06 20:35 | PN ---
Patient is seen for followup for acute kidney injury which appears to be most likely ATN with underlying hypovolemia. Patient had been on vancomycin, which is now discontinued. He is being seen by ID. He was admitted to the hospital with gangrene of his foot and is currently status post disarticulation of his left foot. On examination, blood pressure is 141/70, heart rate 80 per minute. He is afebrile. HEART: S1 and S2. LUNGS: Bilateral breath sounds are heard. Abdomen is soft, nontender. Lower extremities show no evidence of edema in his right leg. Left lower extremity has disarticulation of his foot. Labs show serum creatinine 2.27, sodium 143, potassium 5.0. ASSESSMENT: 1. Acute kidney injury with some improvement in renal function with creatinine going down from 2.49 to 2.37. Continue with IV fluids. The urinalysis does not show any significant hematuria. He has trace proteinuria on 03/31/2016 and the ultrasound of the kidneys unremarkable. Vancomycin has been appropriately discontinued and patient is maintained on ceftaroline. 2. Gangrene of the left foot, status post left lower extremity disarticulation of the foot. PLAN: Continue IV fluids. Repeat labs in a.m. Continue to avoid nephrotoxic agents.
[2016-04-06 21:09] LABS: Glucose,Whole Blood 249 mg/dL (75-99)
[2016-04-06] MEDS: INSULIN GLARGINE 100 UNIT/ML 10 ML VIAL SQ SCH (21:56)
[2016-04-07 03:11] LABS: Glucose,Whole Blood 149 mg/dL (75-99)
[2016-04-07] MEDS: SODIUM CHLORIDE 0.9% 1,000 ML IV SCH ×2 (04:43→13:34)
[2016-04-07 07:30] LABS: Glucose,Whole Blood 120 mg/dL (75-99)
[2016-04-07] MEDS: INSULIN LISPRO (humaLOG) 300 UNIT/3 ML VIAL SQ SCH ×7 (07:41→21:46)
[2016-04-07] MEDS: CEFTAROLINE FOSAMIL 400 MG in SODIUM CHLORIDE 0.9% 250 ML IVPB SCH ×2 (08:24→20:58)
[2016-04-07] MEDS: PANTOPRAZOLE 40 MG TABLET PO SCH (08:24)
--- NOTE | 2016-04-07 09:21 | PN ---
DATE OF SERVICE: 04/06/2016 INTERVAL HISTORY: Mr. Hayes is a 70-year-old male with a past medical history of recently diagnosed diabetes mellitus with hemoglobin A1c, admitted to the hospital for left foot gangrene. Patient is status post disarticulation of the left foot done by Dr. Ortiz. Currently, patient is being treated for acute osteomyelitis. Patient was initially on vancomycin and Zosyn. Patient's creatinine did creep up and these antibiotics have been discontinued and patient currently on ceftaroline. The patient is lying in bed, appears to be in no acute distress. He states Dr. Ortiz did talk to him earlier and talked about further amputation of his left extremity. REVIEW OF SYSTEMS: CONSTITUTIONAL: Denies having in fevers, chills or rigors. RESPIRATORY: No cough, no difficulty in breathing. CARDIAC: No chest pain or palpitation. ABDOMEN: No abdominal pain, nausea, vomiting, or diarrhea. Patient's medications have been reviewed. On examination, patient's vital signs, temperature 97.3, heart rate 84, respiratory rate 22, blood pressure 124/75, saturating at 97% on room air. GENERAL EXAMINATION: Patient appears to be in no acute distress. HEAD: Atraumatic, normocephalic. EYES: Pupils, round, and reactive to light. NECK: No JVD, no thyromegaly. CARDIOVASCULAR SYSTEM: S1, S2, heard. RESPIRATORY: Bilateral breath sounds are positive. No crackles. GI: Abdomen soft, nontender. Bowel sounds are positive. EXTREMITIES: Right lower extremity no edema or cyanosis. Left lower extremity, status post amputation wrapped in Kamaljit bandage. DIRECTOR OF RECRUITMENT AND ADMISSIONS: Alert, awake, oriented x3. No focal deficits. Patient's labs: Sodium 143, potassium 5, chloride 109, bicarb 22, creatinine 2.37. ASSESSMENT AND PLAN: 1. Left foot gangrene with cellulitis, status post amputation, suspicious for an acute osteomyelitis. Patient is currently on ceftaroline as per Infection Disease, Dr. Morfin recommendations. Dr. Ortiz as well as Surgery on board and planning for further amputation of his left extremity. Patient's blood cultures have been positive for group B streptococci and methicillin-resistant Staphylococcus aureus. 2. Acute kidney injury secondary to acute tubular necrosis and also patient was on vancomycin. His vancomycin has been discontinued and his creatinine has been trending down. Continue with IV fluids and avoid nephrotoxins. Nephrology on board. 3. Diabetes mellitus with hemoglobin A1c of 14, recently diagnosed, continue with sliding scale of insulin. 4. Nicotine dependence. 5. History of coronary artery disease in the past. PLAN: Plan is to continue the patient on IV antibiotics in the form of ceftaroline and monitor his kidney function. Patient states that he is very much motivated and wants to talk with other people who have diabetes they are in the care they should be taking as he was really unaware that diabetes could have so many complications. Appreciated ( ). Further recommendations to follow depending on the progress of the patient.
[2016-04-07 10:25] LABS: Calcium 8.2 mg/dL (8.4-10.2); Potassium 4.2 mmol/L (3.5-5.1)
[2016-04-07 11:52] LABS: Glucose,Whole Blood 168 mg/dL (75-99)
[2016-04-07] MEDS: HYDROcodone/APAP 10-325MG 1 EACH TAB PO PRN ×2 (11:54→15:49)
--- NOTE | 2016-04-07 14:20 | PN ---
70-year-old admitted for left foot gangrene status post disarticulation procedure of the left foot and patient is going for a more proximal amputation. The patient is being treated for acute osteomyelitis and patient apparently appears to be on ceftaroline at this point of time. Dr. Morfin is recommending ( ). REVIEW OF SYSTEMS: CARDIOVASCULAR: No chest pain, no orthopnea, no PND, no palpitations. PULMONARY: Denied any shortness of breath. No cough or hemoptysis. GASTROINTESTINAL: No diarrhea, nausea or vomiting. No abdominal pain. Normoactive bowel sounds. NEUROLOGIC: No headaches, no weakness, no numbness. Medications were reviewed. PHYSICAL EXAMINATION: VITAL SIGNS: Temperature 97.0, pulse of 68, respiratory rate 20, blood pressure is 141/72, saturating at 95% on room air. GENERAL: The patient is alert and oriented x3, not in any acute distress. Well developed, well nourished. HEENT: Pupils are round and equally reacting to light. EOMI. No scleral icterus. No conjunctival pallor. Normocephalic, atraumatic. No pharyngeal erythema. No thyromegaly. CARDIOVASCULAR: S1 and S2 present. No murmurs, rubs, or gallops. PULMONARY: Chest is clear to auscultation, no wheezing or crackles. ABDOMEN: Soft, nontender, nondistended, normoactive bowel sounds. No palpable organomegaly. MUSCULOSKELETAL: No joint swelling or deformity. EXTREMITIES: The patient left lower extremity status post amputation and Kamaljit bandage no significant change compared to yesterday. NEUROLOGICAL: Gross neurological examination did not reveal any focal deficits. SKIN: No rashes. LABORATORY DATA: Creatinine remains stable at 2.19. ASSESSMENT AND PLAN: 1. Left foot gangrene status post disarticulation procedure. The patient has osteomyelitis of the left foot, continued with Ceftaroline. 2. Acute kidney injury due to acute tubular necrosis from vancomycin. Patient's kidney function remains stable. Nephrology is following the patient. 3. Diabetes mellitus, uncontrolled blood sugars on admission, fairly controlled now. 4. Nicotine dependence. 5. History of coronary artery disease.
--- NOTE | 2016-04-07 14:55 | PN ---
Patient is seen for followup for acute kidney injury, most likely ATN. He is maintained on IV fluids as he was also hypovolemic. Patient was on vancomycin which is now discontinued. His creatinine went from 0.9 on 03/31/2016 to 2.54 on 04/03/2016. He continues to have good urine output. His UA has been fairly unremarkable with no evidence of proteinuria or hematuria and vancomycin level was not higher than 24. On examination today, blood pressure is 135/71, heart rate 82 per minute. He is afebrile. Examination of the heart, S1 and S2. Examination of the lungs, bilateral breath sounds are heard. Abdomen is soft, nontender. Examination of the lower extremities shows left lower extremity disarticulation of the foot. Labs show sodium 141, potassium 4.2, serum creatinine down to 2.19. ASSESSMENT: 1. Acute kidney injury, most likely acute tubular necrosis, currently nonoliguric and improving. Continue with IV fluids for now. 2. Continue off of nephrotoxic medications including vancomycin. 3. Gangrene of the left foot, status post disarticulation of the left foot, maintained on antibiotics, being followed by Infectious Disease and maintained on ceftaroline. 4. Newly diagnosed diabetes. PLAN: Continue IV fluids. Repeat labs in the a.m. Continue to avoid nephrotoxic agents.
--- NOTE | 2016-04-07 16:12 | P.PN ---
Progress Note - Text 67 old white male, patient came with gangrene of the left foot patient had disarticulation the foot patient is growing MRSA we been changing dressing on daily basis patient scheduled to have a left BK amputation on Tuesday patient will continue with IV antibiotic I have discussed in detail and risks including bleeding infection is ischemic stump patient understand and we'll proceed
[2016-04-07 17:33] LABS: Glucose,Whole Blood 137 mg/dL (75-99)
--- NOTE | 2016-04-07 19:10 | P.PN ---
Subjective Principal diagnosis: Gangrene left foot 70-year-old male who presented to the emergency center with a three- week history of increasing lesion to his left foot. It was not painful. There is evidence of extensive gangrenous change of the time of his presentation at the great toe and ascending the foot. Apparently the patient has a long- standing history of diabetes for about the last 10 years. However is not sought ongoing care for this at this timeframe. It appears that his social situation has recently changed. Apparently was living with his brother until a week ago or so. It is related to brother . The patient has severe pain to the disarticulated site to the left ankle. It is denying fever, chills or rigors. Denies other new acute complaints at this time. Does relate that he is now aware that he has diabetes will need to do something about it. Is aware that his attempt to ignore it has resulted in his significant debility. He is feeling better today. Denies fevers chills or rigors or sweats. Pain is good control Objective - Vital Signs Vital signs: Vital Signs Temp 97.9 F 04/07/16 15:00 Pulse 79 04/07/16 15:00 Resp 20 04/07/16 15:00 BP 135/65 04/07/16 15:00 Pulse Ox 97 04/07/16 15:00 Intake & Output 04/07/16 04/07/16 04/08/16 06:59 18:59 06:59 Intake Total 676 240 Output Total 1275 1475 Balance -599 -1235 Intake: Oral 240 Tube Feeding 675 Other 1 Output: Urine 1275 1475 Other: Voiding Method Urinal Urinal # Voids 3 # Bowel Movements 1 - Exam 70-year-old male who is a poor historian relates to some pain at the amputation site to his left ankle area. Other than this he has no acute complaint. HEENT: Anicteric conjunctiva are pink and moist nasal mucosa grossly intact without significant lesions, there is no thrush. Poor dentition Neck: The neck is supple without significant lymphadenopathy or thyromegaly. Lungs: Metrical air entry is noted. Expiratory wheezes scattered at the lung hernandez. No bronchial sounds are noted. No dullness or egophony Heart: Regular with an audible S1 and S2 soft S4 no murmur click or rub PMI was nondisplaced Abdomen: Positive bowel sounds soft and nontender without palpable masses or organomegaly. There was no guarding or rebound. Extremities: The upper extremities failed to reveal lesions. IV access is noted. Is without erythema or tenderness. The lower extremities reveal evidence of the disarticulation site to the left ankle. The site is without significant bloody drainage or purulent drainage at this time. Is less tender today. Neuro: Awake alert oriented to person and place. He is however quite a poor historian. - Labs CBC & Chem 7: 04/05/16 07:09 04/07/16 09:58 Labs: Abnormal Lab Results - Last 24 Hours (Table) 04/06/16 04/07/16 04/07/16 Range/Units 21:07 03:10 07:26 Chloride (98-107) mmol/L Creatinine (0.66-1.25) mg/dL Glucose (74-99) mg/dL POC Glucose (mg/dL) 249 H 149 H 120 H (75-99) mg/dL Calcium (8.4-10.2) mg/dL 04/07/16 04/07/16 04/07/16 Range/Units 09:58 11:46 17:19 Chloride 109 H (98-107) mmol/L Creatinine 2.19 H (0.66-1.25) mg/dL Glucose 189 H (74-99) mg/dL POC Glucose (mg/dL) 168 H 137 H (75-99) mg/dL Calcium 8.2 L (8.4-10.2) mg/dL Laboratory Results WBC 12.4 k/uL (3.8-10.6) H 04/05/16 07:09 RBC 4.02 m/uL (4.30-5.90) L 04/05/16 07:09 Hgb 12.5 gm/dL (13.0-17.5) L 04/05/16 07:09 Hct 38.3 % (39.0-53.0) L 04/05/16 07:09 MCV 95.1 fL (80.0-100.0) 04/05/16 07:09 MCH 31.0 pg (25.0-35.0) 04/05/16 07:09 MCHC 32.5 g/dL (31.0-37.0) 04/05/16 07:09 RDW 13.5 % (11.5-15.5) 04/05/16 07:09 Plt Count 282 k/uL (150-450) 04/05/16 07:09 Neutrophils % 77 % 04/05/16 07:09 Lymphocytes % 14 % 04/05/16 07:09 Monocytes % 6 % 04/05/16 07:09 Eosinophils % 1 % 04/05/16 07:09 Basophils % 1 % 04/05/16 07:09 Neutrophils # 9.6 k/uL (1.3-7.7) H 04/05/16 07:09 Lymphocytes # 1.7 k/uL (1.0-4.8) 04/05/16 07:09 Monocytes # 0.7 k/uL (0-1.0) 04/05/16 07:09 Eosinophils # 0.1 k/uL (0-0.7) 04/05/16 07:09 Basophils # 0.1 k/uL (0-0.2) 04/05/16 07:09 PT 10.1 sec (9.0-12.0) 03/31/16 11:00 INR 1.0 (<1.1) 03/31/16 11:00 APTT 24.4 sec (22.0-30.0) 03/31/16 11:00 Sodium 141 mmol/L (137-145) 04/07/16 09:58 Potassium 4.2 mmol/L (3.5-5.1) 04/07/16 09:58 Chloride 109 mmol/L (98-107) H 04/07/16 09:58 Carbon Dioxide 22 mmol/L (22-30) 04/07/16 09:58 Anion Gap 10 mmol/L 04/07/16 09:58 BUN 20 mg/dL (9-20) 04/07/16 09:58 Creatinine 2.19 mg/dL (0.66-1.25) H 04/07/16 09:58 Est GFR (MDRD) Af Amer 36 (>60 ml/min/1.73 sqM) 04/07/16 09:58 Est GFR (MDRD) Non-Af 30 (>60 ml/min/1.73 sqM) 04/07/16 09:58 Glucose 189 mg/dL (74-99) H 04/07/16 09:58 POC Glucose (mg/dL) 137 mg/dL (75-99) H 04/07/16 17:19 POC Glu Under Ground [employer]er ID Aye Beasley 04/07/16 17:[address] Glu mg/dL 355 mg/dL 03/31/16 11:00 Hemoglobin A1c 14.0 % (4.2-6.1) H 03/31/16 11:00 Plasma Lactic Acid Ky[place] 1.4 mmol/L (0.7-2.0) 03/31/16 11:00 Calcium 8.2 mg/dL (8.4-10.2) L 04/07/16 09:58 Total Bilirubin 0.6 mg/dL (0.2-1.3) 03/31/16 11:00 AST 17 U/L (17-59) 03/31/16 11:00 ALT 34 U/L (21-72) 03/31/16 11:00 Alkaline Phosphatase 333 U/L (38-126) H 03/31/16 11:00 Total Creatine Kinase 94 U/L (55-170) 03/31/16 11:00 CK-MB (CK-2) 1.4 ng/mL (0.0-2.4) 03/31/16 11:00 CK-MB (CK-2) Rel Index 1.5 03/31/16 11:00 Troponin I <0.012 ng/mL (0.000-0.034) 03/31/16 11:00 Total Protein 6.7 g/dL (6.3-8.2) 03/31/16 11:00 Albumin 3.1 g/dL (3.5-5.0) L 03/31/16 11:00 Cortisol 18 ug/dL 03/31/16 11:00 Urine Color Yellow 03/31/16 13:02 Urine Appearance Clear (Clear) 03/31/16 13:02 Urine pH 6.0 (5.0-8.0) 03/31/16 13:02 Ur Specific [place] 1.007 (1.001-1.035) 04/03/16 16:01 Urine Protein Trace (Negative) H 03/31/16 13:02 Urine Glucose (UA) 4+ (Negative) H 03/31/16 13:02 Urine Ketones 1+ (Negative) H 03/31/16 13:02 Urine Blood Negative (Negative) 03/31/16 13:02 Urine Nitrate Negative (Negative) 03/31/16 13:02 Urine Bilirubin Negative (Negative) 03/31/16 13:02 Urine Urobilinogen <2.0 mg/dL (<2.0) 03/31/16 13:02 Ur Leukocyte Esterase Negative (Negative) 03/31/16 13:02 Urine Eosinophils 0 % 04/03/16 16:01 Urine Osmolality 250 mosm/kg (50-1400) 04/03/16 16:01 Ur Random Sodium 92 mmol/L (30-90) H 04/03/16 16:01 Ur Random Potassium 10.0 mmol/L 04/03/16 16:01 Vancomycin Trough 24.6 ug/mL 04/06/16 10:34 Microbiology 03/31/16 11:45 Blood Blood Culture - Final No Growth after 144 hours 03/31/16 11:00 Blood Blood Culture - Final No Growth after 144 hours 04/01/16 15:30 Ankle - Left Anaerobic Culture - Final 04/01/16 15:30 Ankle - Left Gram Stain - Final 04/01/16 15:30 Ankle - Left Wound Culture - Final Strep agalactiae - (group b) 03/31/16 11:00 Foot - Left Gram Stain - Final 03/31/16 11:00 Foot - Left Wound Culture - Final Methicillin resist S. aureus Strep agalactiae - (group b) Enterobacter cloacae 03/31/16 13:02 Urine,Voided Urine Culture - Final Assessment and Plan (1) Gangrene of toe Narrative/Plan: 70-year-old male who is approximately a 10 year history of diabetes that has not been treated to the patient not wanting to acknowledge his diabetes. Presents to hospital with evidence of the gangrenous changes to his left foot. Because of the extensive infection he was taken to the operating room and disarticulation of the foot occurred. The patient will need formal amputation which is planned for Tuesday. For antibiotic therapy we'll alter to Ceftaroline. Given his elevated creatinine avoiding further vancomycin therapy would be ideal, in the center with good coverage for MRSA staph and Enterobacter that has been isolated. Local wound care is with the nonstick Vaseline dressing and bulky dressing. Patient better today and has less pain Albumin is low at 3.1 and will need appropriate protein supplementation. Hemoglobin A1c was 14 admission with an average blood sugar of 355. Blood sugars have improved during his stay but it has been a definite struggle to improve them. His creatinine is markedly increased since admission was 0.90. Peak at 2.49 now down to 2.37 with antibiotic change and hydration is being utilized. Avoid further vancomycin therapy. Likely will go to extended care his discharge. Status: Acute (2) Diabetes mellitus type 2 with complications Status: Acute (3) Leukocytosis Status: Acute
[2016-04-07 21:02] LABS: Glucose,Whole Blood 157 mg/dL (75-99)
[2016-04-07] MEDS: INSULIN GLARGINE 100 UNIT/ML 10 ML VIAL SQ SCH (21:46)
[2016-04-08 02:30] LABS: Glucose,Whole Blood 135 mg/dL (75-99)
[2016-04-08] MEDS: SODIUM CHLORIDE 0.9% 1,000 ML IV SCH ×3 (03:46→21:09)
[2016-04-08 07:24] LABS: Glucose,Whole Blood 120 mg/dL (75-99)
[2016-04-08] MEDS: PANTOPRAZOLE 40 MG TABLET PO SCH (08:55)
[2016-04-08] MEDS: CEFTAROLINE FOSAMIL 400 MG in SODIUM CHLORIDE 0.9% 250 ML IVPB SCH ×2 (08:55→22:08)
[2016-04-08] MEDS: INSULIN LISPRO (humaLOG) 300 UNIT/3 ML VIAL SQ SCH ×7 (08:55→21:08)
[2016-04-08 12:20] LABS: Glucose,Whole Blood 239 mg/dL (75-99)
--- NOTE | 2016-04-08 13:47 | P.PN ---
Subjective Patient is seen in follow-up for acute kidney injury. His baseline creatinine is near 1 and is elevated at 2.5 this admission. It was down to 2.1 as of yesterday. He is currently having lunch. Denies any vomiting or diarrhea. Admits to good urine output. Denies any chest pain or shortness of breath. Vital signs are stable. General: The patient appeared well nourished and normally developed. HEENT: Head exam is unremarkable. Neck is without jugular venous distension. LUNGS: Lungs are clear to auscultation and percussion. Breath sounds decreased. HEART: Rate and Rhythm are regular. First and second heart sounds normal. No murmurs, rubs or gallops. ABDOMEN: Abdominal exam reveals normal bowel sounds. Non-tender and non- distended. No evidence of peritonitis. EXTREMITITES: No clubbing, cyanosis, or edema. Objective - Vital Signs Vital signs: Vital Signs Temp 98.0 F 04/08/16 07:00 Pulse 69 04/08/16 07:00 Resp 18 04/08/16 07:00 BP 161/71 04/08/16 07:00 Pulse Ox 94 L 04/08/16 07:00 Intake & Output 04/07/16 04/08/16 04/08/16 18:59 06:59 18:59 Intake Total 240 Output Total 1475 1275 1751 Balance -1235 1275 1751 Intake: Oral 240 Output: Urine 1475 1275 1750 Stool 1 Other: Voiding Method Urinal Urinal # Voids 1 # Bowel Movements 1 - Labs CBC & Chem 7: 04/05/16 07:09 04/07/16 09:58 Labs: Abnormal Lab Results - Last 24 Hours (Table) 04/07/16 04/07/16 04/08/16 Range/Units 17:19 20:59 02:27 POC Glucose (mg/dL) 137 H 157 H 135 H (75-99) mg/dL 04/08/16 04/08/16 Range/Units 07:21 12:18 POC Glucose (mg/dL) 120 H 239 H (75-99) mg/dL Assessment and Plan Plan: Assessment: #1. Nonoliguric acute kidney injury secondary to ischemic ATN. Improving. Creatinine was down to 2.1 as of yesterday. #2. Gangrene of the left foot status post disarticulation. #3. Diabetes mellitus. Plan: Continue normal saline to be run at 100 mL an hour. Can likely be discontinued tomorrow. Encourage oral intake. Repeat electrolytes in the morning. Avoid nephrotoxic agents and hypotensive episodes. Antibiotics per infectious disease recommendations.
--- NOTE | 2016-04-08 16:46 | P.PN ---
Progress Note - Text 70-year-old white male, patient has a disarticulation of the left foot for wet gangrene patient has been on IV antibiotic and growing MRSA we have been changing dressing daily basis there is no redness noted of the lower extremity we have discussed with infectious disease patient will need to left BK amputation and scheduled to have a tomorrow risk and complication nonhealing infection bleeding has been discussed thank you
--- NOTE | 2016-04-08 16:57 | PN ---
70-year-old admitted for left foot gangrene status post disarticulation procedure of the left foot and patient is going for a more proximal amputation. The patient is being treated for acute osteomyelitis and patient apparently appears to be on ceftaroline at this point of time. Dr. Morfin is recommending ( ). The patient is going for more proximal amputation today. Creatinine improved to 2.19. Continue to monitor creatinine. REVIEW OF SYSTEMS: CARDIOVASCULAR: No chest pain, no orthopnea, no PND, no palpitations. PULMONARY: Denied any shortness of breath. No cough or hemoptysis. GASTROINTESTINAL: No diarrhea, nausea or vomiting. No abdominal pain. Normoactive bowel sounds. NEUROLOGIC: No headaches, no weakness, no numbness. Medications were reviewed. PHYSICAL EXAMINATION: VITAL SIGNS: Temperature 98.0, pulse of 69, respiratory rate of 18, blood pressure 161/71, saturating at 94% on room air. GENERAL: The patient is alert and oriented x3, not in any acute distress. Well developed, well nourished. HEENT: Pupils are round and equally reacting to light. EOMI. No scleral icterus. No conjunctival pallor. Normocephalic, atraumatic. No pharyngeal erythema. No thyromegaly. CARDIOVASCULAR: S1 and S2 present. No murmurs, rubs, or gallops. PULMONARY: Chest is clear to auscultation, no wheezing or crackles. ABDOMEN: Soft, nontender, nondistended, normoactive bowel sounds. No palpable organomegaly. MUSCULOSKELETAL: No joint swelling or deformity. EXTREMITIES: The patient left lower extremity status post amputation and Kamaljit bandage no significant change compared to yesterday. NEUROLOGICAL: Gross neurological examination did not reveal any focal deficits. SKIN: No rashes. LABORATORY DATA: Creatinine remains stable at 2.19. ASSESSMENT AND PLAN: 1. Left foot gangrene status post disarticulation procedure. The patient has osteomyelitis of the left foot, continued with Ceftaroline. 2. Acute kidney injury due to acute tubular necrosis from vancomycin. Patient's kidney function remains stable. Nephrology is following the patient. 3. Diabetes mellitus, uncontrolled blood sugars on admission, fairly controlled now. 4. Nicotine dependence. 5. History of coronary artery disease.
[2016-04-08 17:03] LABS: Glucose,Whole Blood 166 mg/dL (75-99)
[2016-04-08 20:54] LABS: Glucose,Whole Blood 107 mg/dL (75-99)
[2016-04-08] MEDS: INSULIN GLARGINE 100 UNIT/ML 10 ML VIAL SQ SCH (21:08)
--- NOTE | 2016-04-08 21:34 | P.PN ---
Subjective Principal diagnosis: Gangrene left foot 70-year-old male who presented to the emergency center with a three- week history of increasing lesion to his left foot. It was not painful. There is evidence of extensive gangrenous change of the time of his presentation at the great toe and ascending the foot. Apparently the patient has a long- standing history of diabetes for about the last 10 years. However is not sought ongoing care for this at this timeframe. It appears that his social situation has recently changed. Apparently was living with his brother until a week ago or so. It is related to brother . The patient has severe pain to the disarticulated site to the left ankle. It is denying fever, chills or rigors. Denies other new acute complaints at this time. Does relate that he is now aware that he has diabetes will need to do something about it. Is aware that his attempt to ignore it has resulted in his significant debility. He is feeling better today. Denies fevers chills or rigors or sweats. Pain is good control Objective - Vital Signs Vital signs: Vital Signs Temp 97.9 F 04/08/16 21:14 Pulse 73 04/08/16 21:14 Resp 18 04/08/16 21:14 BP 161/74 04/08/16 21:14 Pulse Ox 98 04/08/16 21:14 Intake & Output 04/08/16 04/08/16 04/09/16 06:59 18:59 06:59 Output Total 1275 2601 300 Balance -1275 -2601 -300 Output: Urine 1275 2600 300 Stool 1 Other: Voiding Method Urinal Urinal # Voids 1 - Exam 70-year-old male who is a poor historian relates to some pain at the amputation site to his left ankle area. Other than this he has no acute complaint. HEENT: Anicteric conjunctiva are pink and moist nasal mucosa grossly intact without significant lesions, there is no thrush. Poor dentition Neck: The neck is supple without significant lymphadenopathy or thyromegaly. Lungs: Metrical air entry is noted. Expiratory wheezes scattered at the lung hernandez. No bronchial sounds are noted. No dullness or egophony Heart: Regular with an audible S1 and S2 soft S4 no murmur click or rub PMI was nondisplaced Abdomen: Positive bowel sounds soft and nontender without palpable masses or organomegaly. There was no guarding or rebound. Extremities: The upper extremities failed to reveal lesions. IV access is noted. Is without erythema or tenderness. The lower extremities reveal evidence of the disarticulation site to the left ankle. The site is without significant bloody drainage or purulent drainage at this time. Is less tender today. Neuro: Awake alert oriented to person and place. He is however quite a poor historian. - Labs CBC & Chem 7: 04/05/16 07:09 04/07/16 09:58 Labs: Abnormal Lab Results - Last 24 Hours (Table) 04/08/16 04/08/16 04/08/16 Range/Units 02:27 07:21 12:18 POC Glucose (mg/dL) 135 H 120 H 239 H (75-99) mg/dL 04/08/16 04/08/16 Range/Units 17:00 20:47 POC Glucose (mg/dL) 166 H 107 H (75-99) mg/dL Laboratory Results WBC 12.4 k/uL (3.8-10.6) H 04/05/16 07:09 RBC 4.02 m/uL (4.30-5.90) L 04/05/16 07:09 Hgb 12.5 gm/dL (13.0-17.5) L 04/05/16 07:09 Hct 38.3 % (39.0-53.0) L 04/05/16 07:09 MCV 95.1 fL (80.0-100.0) 04/05/16 07:09 MCH 31.0 pg (25.0-35.0) 04/05/16 07:09 MCHC 32.5 g/dL (31.0-37.0) 04/05/16 07:09 RDW 13.5 % (11.5-15.5) 04/05/16 07:09 Plt Count 282 k/uL (150-450) 04/05/16 07:09 Neutrophils % 77 % 04/05/16 07:09 Lymphocytes % 14 % 04/05/16 07:09 Monocytes % 6 % 04/05/16 07:09 Eosinophils % 1 % 04/05/16 07:09 Basophils % 1 % 04/05/16 07:09 Neutrophils # 9.6 k/uL (1.3-7.7) H 04/05/16 07:09 Lymphocytes # 1.7 k/uL (1.0-4.8) 04/05/16 07:09 Monocytes # 0.7 k/uL (0-1.0) 04/05/16 07:09 Eosinophils # 0.1 k/uL (0-0.7) 04/05/16 07:09 Basophils # 0.1 k/uL (0-0.2) 04/05/16 07:09 PT 10.1 sec (9.0-12.0) 03/31/16 11:00 INR 1.0 (<1.1) 03/31/16 11:00 APTT 24.4 sec (22.0-30.0) 03/31/16 11:00 Sodium 141 mmol/L (137-145) 04/07/16 09:58 Potassium 4.2 mmol/L (3.5-5.1) 04/07/16 09:58 Chloride 109 mmol/L (98-107) H 04/07/16 09:58 Carbon Dioxide 22 mmol/L (22-30) 04/07/16 09:58 Anion Gap 10 mmol/L 04/07/16 09:58 BUN 20 mg/dL (9-20) 04/07/16 09:58 Creatinine 2.19 mg/dL (0.66-1.25) H 04/07/16 09:58 Est GFR (MDRD) Af Amer 36 (>60 ml/min/1.73 sqM) 04/07/16 09:58 Est GFR (MDRD) Non-Af 30 (>60 ml/min/1.73 sqM) 04/07/16 09:58 Glucose 189 mg/dL (74-99) H 04/07/16 09:58 POC Glucose (mg/dL) 107 mg/dL (75-99) H 04/08/16 20:47 POC Glu Assistant Tennis Coach CHARISSA Chani Perez 04/08/16 20:[address] Glu mg/dL 355 mg/dL 03/31/16 11:00 Hemoglobin A1c 14.0 % (4.2-6.1) H 03/31/16 11:00 Plasma Lactic Acid Kyaw 1.4 mmol/L (0.7-2.0) 03/31/16 11:00 Calcium 8.2 mg/dL (8.4-10.2) L 04/07/16 09:58 Total Bilirubin 0.6 mg/dL (0.2-1.3) 03/31/16 11:00 AST 17 U/L (17-59) 03/31/16 11:00 ALT 34 U/L (21-72) 03/31/16 11:00 Alkaline Phosphatase 333 U/L (38-126) H 03/31/16 11:00 Total Creatine Kinase 94 U/L (55-170) 03/31/16 11:00 CK-MB (CK-2) 1.4 ng/mL (0.0-2.4) 03/31/16 11:00 CK-MB (CK-2) Rel Index 1.5 03/31/16 11:00 Troponin I <0.012 ng/mL (0.000-0.034) 03/31/16 11:00 Total Protein 6.7 g/dL (6.3-8.2) 03/31/16 11:00 Albumin 3.1 g/dL (3.5-5.0) L 03/31/16 11:00 Cortisol 18 ug/dL 03/31/16 11:00 Urine Color Yellow 03/31/16 13:02 Urine Appearance Clear (Clear) 03/31/16 13:02 Urine pH 6.0 (5.0-8.0) 03/31/16 13:02 Ur Specific [place] 1.007 (1.001-1.035) 04/03/16 16:01 Urine Protein Trace (Negative) H 03/31/16 13:02 Urine Glucose (UA) 4+ (Negative) H 03/31/16 13:02 Urine Ketones 1+ (Negative) H 03/31/16 13:02 Urine Blood Negative (Negative) 03/31/16 13:02 Urine Nitrate Negative (Negative) 03/31/16 13:02 Urine Bilirubin Negative (Negative) 03/31/16 13:02 Urine Urobilinogen <2.0 mg/dL (<2.0) 03/31/16 13:02 Ur Leukocyte Esterase Negative (Negative) 03/31/16 13:02 Urine Eosinophils 0 % 04/03/16 16:01 Urine Osmolality 250 mosm/kg (50-1400) 04/03/16 16:01 Ur Random Sodium 92 mmol/L (30-90) H 04/03/16 16:01 Ur Random Potassium 10.0 mmol/L 04/03/16 16:01 Vancomycin Trough 24.6 ug/mL 04/06/16 10:34 Microbiology 03/31/16 11:45 Blood Blood Culture - Final No Growth after 144 hours 03/31/16 11:00 Blood Blood Culture - Final No Growth after 144 hours 04/01/16 15:30 Ankle - Left Anaerobic Culture - Final 04/01/16 15:30 Ankle - Left Gram Stain - Final 04/01/16 15:30 Ankle - Left Wound Culture - Final Strep agalactiae - (group b) 03/31/16 11:00 Foot - Left Gram Stain - Final 03/31/16 11:00 Foot - Left Wound Culture - Final Methicillin resist S. aureus Strep agalactiae - (group b) Enterobacter cloacae 03/31/16 13:02 Urine,Voided Urine Culture - Final Assessment and Plan (1) Gangrene of toe Narrative/Plan: 70-year-old male who is approximately a 10 year history of diabetes that has not been treated to the patient not wanting to acknowledge his diabetes. Presents to hospital with evidence of the gangrenous changes to his left foot. Because of the extensive infection he was taken to the operating room and disarticulation of the foot occurred. The patient will need formal amputation which is planned for tomorrow at noon. The patient is aware and willing to proceed ahead. Has been seen by the field crop i farmworker and is looking forward to improvement. For antibiotic therapy we'll alter to Ceftaroline. Given his elevated creatinine avoiding further vancomycin therapy would be ideal, in the center with good coverage for MRSA staph and Enterobacter that has been isolated. Local wound care is with the nonstick Vaseline dressing and bulky dressing. Patient better today and has less pain Albumin is low at 3.1 and will need appropriate protein supplementation. Hemoglobin A1c was 14 admission with an average blood sugar of 355. Blood sugars have improved during his stay but it has been a definite struggle to improve them. His creatinine is markedly increased since admission was 0.90. Peak at 2.49 now down to 2.19 with antibiotic change and hydration is being utilized. Avoid further vancomycin therapy. Likely will go to extended care his discharge. After the final amputation will not need long-term intravenous antibiotic therapy. Status: Acute (2) Diabetes mellitus type 2 with complications Status: Acute (3) Leukocytosis Status: Acute
[2016-04-09] MEDS: SODIUM CHLORIDE 0.9% 1,000 ML IV SCH ×2 (05:51→17:46)
[2016-04-09 07:15] LABS: Glucose,Whole Blood 139 mg/dL (75-99)
[2016-04-09] MEDS: PANTOPRAZOLE 40 MG TABLET PO SCH (07:46)
[2016-04-09] MEDS: INSULIN LISPRO (humaLOG) 300 UNIT/3 ML VIAL SQ SCH ×7 (07:46→22:20)
[2016-04-09] MEDS: CEFTAROLINE FOSAMIL 400 MG in SODIUM CHLORIDE 0.9% 250 ML IVPB SCH ×2 (07:46→21:44)
[2016-04-09 08:45] LABS: Potassium 4.4 mmol/L (3.5-5.1)
[2016-04-09 11:16] LABS: Appearance,Urine Clear (Clear); Bilirubin,Urine Negative (Negative); Glucose,Urine (UA) Negative (Negative); Ketones,Urine Negative (Negative); Leukocyte Esterase,Urine Negative (Negative); Nitrite,Urine Negative (Negative); Protein,Urine Negative (Negative); Specific Gravity,Urine 1.006 (1.001-1.035); UA Billing (MACRO vs. MICRO) CHEM; Urobilinogen,Urine <2.0 mg/dL (<2.0)
[2016-04-09] MEDS ORDERED: IV FLUID CONTINUATION 1,000 ML IV ONE (11:50)
[2016-04-09] MEDS ORDERED: MIDAZOLAM 2 MG/2 ML VIAL ONE (12:01)
[2016-04-09] MEDS ORDERED: fentaNYL (PF) 50 MCG/ML 2 ML AMP ONE (12:01)
[2016-04-09] MEDS ORDERED: LIDOCAINE 1% INJ 10MG/ML (20 ML MDV) ONE (12:01)
[2016-04-09] MEDS ORDERED: ePHEDrine 50 MG/ML 1 ML AMP ONE (12:01)
[2016-04-09] MEDS ORDERED: PROPOFOL 10 MG/ML 20 ML VIAL IV ONE (12:01)
[2016-04-09] MEDS ORDERED: LACTATED RINGERS 1,000 ML IV ONE (12:37)
[2016-04-09 14:21] LABS: Glucose,Whole Blood 132 mg/dL (75-99)
--- NOTE | 2016-04-09 15:09 | PN ---
Patient is seen for followup for acute kidney injury this admission. Patient's serum creatinine went from 0.9 to 1.61 and subsequently 2.5 mg/dL. He had been maintained on vancomycin, which is now discontinued. He remains non-oliguric, with good urine output. Patient was hypovolemic initially and has been maintained on IV fluids. Serum creatinine has not improved significantly over the past few days. There are no other nephrotoxic agents on board. Repeat UA was ordered today and it is completely benign. There is no evidence of obstructive uropathy noted on the ultrasound. On examination, patient is comfortable, awake, not in any acute distress. Alert and oriented x3. Blood pressure 136/69, heart rate 71 per minute. He is afebrile. EXAMINATION OF THE HEART: S1 and S2. EXAMINATION OF LUNGS: Bilateral breath sounds are heard. Decreased breath sounds in the bases. ABDOMEN: Soft, nontender. Examination shows disarticulation of the foot on the left lower extremity. Labs show serum creatinine of 2.23, BUN 22; sodium 144, potassium 4.4. UA completely normal. ASSESSMENT: 1. Acute kidney injury, most likely secondary to some degree of vancomycin toxicity, although the level was not significantly high. Patient's UA is completely normal. He remains non-oliguric with no evidence of obstructive uropathy on the ultrasound. He is maintained on IV fluids, which I will continue for now. 2. Gangrene of the left foot, status post disarticulation of the foot. Patient will be going down for BKA. 3. Methicillin-resistant Staphylococcus aureus wound infection in the left foot, maintained on ceftaroline now and off of vancomycin, being followed by ID. PLAN: Continue IV fluids. Continue to avoid nephrotoxic agents. Repeat labs in a.m.
--- NOTE | 2016-04-09 15:49 | PN ---
70-year-old admitted for left foot gangrene status post disarticulation procedure of the left foot and patient is going for a more proximal amputation. The patient is being treated for acute osteomyelitis and patient apparently appears to be on ceftaroline at this point of time. Dr. Morfin is recommending ( ). The patient is going for more proximal amputation today. Creatinine improved to 2.19. Continue to monitor creatinine. REVIEW OF SYSTEMS: CARDIOVASCULAR: No chest pain, no orthopnea, no PND, no palpitations. PULMONARY: Denied any shortness of breath. No cough or hemoptysis. GASTROINTESTINAL: No diarrhea, nausea or vomiting. No abdominal pain. Normoactive bowel sounds. NEUROLOGIC: No headaches, no weakness, no numbness. Medications were reviewed. PHYSICAL EXAMINATION: VITAL SIGNS: Temperature 97.3, pulse of 78, respiratory rate of 18, blood pressure is ( )/63, saturating at 95% on room air. GENERAL: The patient is alert and oriented x3, not in any acute distress. Well developed, well nourished. HEENT: Pupils are round and equally reacting to light. EOMI. No scleral icterus. No conjunctival pallor. Normocephalic, atraumatic. No pharyngeal erythema. No thyromegaly. CARDIOVASCULAR: S1 and S2 present. No murmurs, rubs, or gallops. PULMONARY: Chest is clear to auscultation, no wheezing or crackles. ABDOMEN: Soft, nontender, nondistended, normoactive bowel sounds. No palpable organomegaly. MUSCULOSKELETAL: No joint swelling or deformity. EXTREMITIES: The patient left lower extremity status post amputation and Kamaljit bandage no significant change compared to yesterday. NEUROLOGICAL: Gross neurological examination did not reveal any focal deficits. SKIN: No rashes. LABORATORY DATA: Creatinine is 2.23. ASSESSMENT AND PLAN: 1. Left foot gangrene status post disarticulation procedure. The patient has osteomyelitis of the left foot, continued with Ceftaroline. 2. Acute kidney injury due to acute tubular necrosis from vancomycin. Patient's kidney function remains stable. Nephrology is following the patient. 3. Diabetes mellitus, uncontrolled blood sugars on admission, fairly controlled now. 4. Nicotine dependence. 5. History of coronary artery disease. Patient is going for more proximal amputation today.
[2016-04-09] MEDS: HYDROmorphone 1 MG/ML 1 ML SYRINGE IVP PRN (16:05)
[2016-04-09] MEDS: HYDROcodone/APAP 10-325MG 1 EACH TAB PO PRN ×2 (16:52→23:16)
[2016-04-09 16:59] LABS: Glucose,Whole Blood 129 mg/dL (75-99)
--- NOTE | 2016-04-09 17:07 | P.PN ---
Subjective Principal diagnosis: Gangrene left foot 70-year-old male who presented to the emergency center with a three- week history of increasing lesion to his left foot. It was not painful. There is evidence of extensive gangrenous change of the time of his presentation at the great toe and ascending the foot. Apparently the patient has a long- standing history of diabetes for about the last 10 years. However is not sought ongoing care for this at this timeframe. It appears that his social situation has recently changed. Apparently was living with his brother until a week ago or so. It is related to brother . The patient has severe pain to the disarticulated site to the left ankle. It is denying fever, chills or rigors. Denies other new acute complaints at this time. Does relate that he is now aware that he has diabetes will need to do something about it. Is aware that his attempt to ignore it has resulted in his significant debility. H amputation as occurred today. Other than some pain is feeling relatively well Objective - Vital Signs Vital signs: Vital Signs Temp 97.7 F 04/09/16 15:00 Pulse 83 04/09/16 15:45 Resp 18 04/09/16 15:00 BP 152/71 04/09/16 15:45 Pulse Ox 95 04/09/16 15:00 Intake & Output 04/08/16 04/09/16 04/09/16 18:59 06:59 18:59 Intake Total 700 Output Total 2601 1750 760 Balance -2601 -1750 -60 Intake: IV 700 Output: Urine 2600 1750 660 Stool 1 Estimated Blood Loss 100 Other: Voiding Method Urinal Indwelling Catheter - Exam 70-year-old male who is a poor historian relates to some pain at the amputation site to his left ankle area. Other than this he has no acute complaint. HEENT: Anicteric conjunctiva are pink and moist nasal mucosa grossly intact without significant lesions, there is no thrush. Poor dentition Neck: The neck is supple without significant lymphadenopathy or thyromegaly. Lungs: Metrical air entry is noted. Expiratory wheezes scattered at the lung hernandez. No bronchial sounds are noted. No dullness or egophony Heart: Regular with an audible S1 and S2 soft S4 no murmur click or rub PMI was nondisplaced Abdomen: Positive bowel sounds soft and nontender without palpable masses or organomegaly. There was no guarding or rebound. Extremities: The upper extremities failed to reveal lesions. IV access is noted. Is without erythema or tenderness. The lower extremities reveal evidence of the [id number] amputation site that is heavily dressed from the recent surgery today. Neuro: Awake alert oriented to person and place. He is however quite a poor historian. - Labs CBC & Chem 7: 04/05/16 07:09 04/09/16 08:05 Labs: Abnormal Lab Results - Last 24 Hours (Table) 04/08/16 04/09/16 04/09/16 Range/Units 20:47 07:13 08:05 Chloride 110 H (98-107) mmol/L BUN 22 H (9-20) mg/dL Creatinine 2.23 H (0.66-1.25) mg/dL Glucose 143 H (74-99) mg/dL POC Glucose (mg/dL) 107 H 139 H (75-99) mg/dL 04/09/16 04/09/16 Range/Units 14:19 16:57 Chloride (98-107) mmol/L BUN (9-20) mg/dL Creatinine (0.66-1.25) mg/dL Glucose (74-99) mg/dL POC Glucose (mg/dL) 132 H 129 H (75-99) mg/dL Laboratory Results WBC 12.4 k/uL (3.8-10.6) H 04/05/16 07:09 RBC 4.02 m/uL (4.30-5.90) L 04/05/16 07:09 Hgb 12.5 gm/dL (13.0-17.5) L 04/05/16 07:09 Hct 38.3 % (39.0-53.0) L 04/05/16 07:09 MCV 95.1 fL (80.0-100.0) 04/05/16 07:09 MCH 31.0 pg (25.0-35.0) 04/05/16 07:09 MCHC 32.5 g/dL (31.0-37.0) 04/05/16 07:09 RDW 13.5 % (11.5-15.5) 04/05/16 07:09 Plt Count 282 k/uL (150-450) 04/05/16 07:09 Neutrophils % 77 % 04/05/16 07:09 Lymphocytes % 14 % 04/05/16 07:09 Monocytes % 6 % 04/05/16 07:09 Eosinophils % 1 % 04/05/16 07:09 Basophils % 1 % 04/05/16 07:09 Neutrophils # 9.6 k/uL (1.3-7.7) H 04/05/16 07:09 Lymphocytes # 1.7 k/uL (1.0-4.8) 04/05/16 07:09 Monocytes # 0.7 k/uL (0-1.0) 04/05/16 07:09 Eosinophils # 0.1 k/uL (0-0.7) 04/05/16 07:09 Basophils # 0.1 k/uL (0-0.2) 04/05/16 07:09 PT 10.1 sec (9.0-12.0) 03/31/16 11:00 INR 1.0 (<1.1) 03/31/16 11:00 APTT 24.4 sec (22.0-30.0) 03/31/16 11:00 Sodium 144 mmol/L (137-145) 04/09/16 08:05 Potassium 4.4 mmol/L (3.5-5.1) 04/09/16 08:05 Chloride 110 mmol/L (98-107) H 04/09/16 08:05 Carbon Dioxide 24 mmol/L (22-30) 04/09/16 08:05 Anion Gap 10 mmol/L 04/09/16 08:05 BUN 22 mg/dL (9-20) H 04/09/16 08:05 Creatinine 2.23 mg/dL (0.66-1.25) H 04/09/16 08:05 Est GFR (MDRD) Af Amer 36 (>60 ml/min/1.73 sqM) 04/09/16 08:05 Est GFR (MDRD) Non-Af 29 (>60 ml/min/1.73 sqM) 04/09/16 08:05 Glucose 143 mg/dL (74-99) H 04/09/16 08:05 POC Glucose (mg/dL) 129 mg/dL (75-99) H 04/09/16 16:57 POC Glu Technology Coordinator ID Nay Saeed 04/09/16 16:[address] Glu mg/dL 355 mg/dL 03/31/16 11:00 Hemoglobin A1c 14.0 % (4.2-6.1) H 03/31/16 11:00 Plasma Lactic Acid Kyaw 1.4 mmol/L (0.7-2.0) 03/31/16 11:00 Calcium 9.0 mg/dL (8.4-10.2) 04/09/16 08:05 Total Bilirubin 0.6 mg/dL (0.2-1.3) 03/31/16 11:00 AST 17 U/L (17-59) 03/31/16 11:00 ALT 34 U/L (21-72) 03/31/16 11:00 Alkaline Phosphatase 333 U/L (38-126) H 03/31/16 11:00 Total Creatine Kinase 94 U/L (55-170) 03/31/16 11:00 CK-MB (CK-2) 1.4 ng/mL (0.0-2.4) 03/31/16 11:00 CK-MB (CK-2) Rel Index 1.5 03/31/16 11:00 Troponin I <0.012 ng/mL (0.000-0.034) 03/31/16 11:00 Total Protein 6.7 g/dL (6.3-8.2) 03/31/16 11:00 Albumin 3.1 g/dL (3.5-5.0) L 03/31/16 11:00 Cortisol 18 ug/dL 03/31/16 11:00 Urine Color Light Yellow 04/09/16 10:15 Urine Appearance Clear (Clear) 04/09/16 10:15 Urine pH 6.0 (5.0-8.0) 04/09/16 10:15 Ur Specific [place] 1.006 (1.001-1.035) 04/09/16 10:15 Urine Protein Negative (Negative) 04/09/16 10:15 Urine Glucose (UA) Negative (Negative) 04/09/16 10:15 Urine Ketones Negative (Negative) 04/09/16 10:15 Urine Blood Negative (Negative) 04/09/16 10:15 Urine Nitrate Negative (Negative) 04/09/16 10:15 Urine Bilirubin Negative (Negative) 04/09/16 10:15 Urine Urobilinogen <2.0 mg/dL (<2.0) 04/09/16 10:15 Ur Leukocyte Esterase Negative (Negative) 04/09/16 10:15 Urine Eosinophils 0 % 04/03/16 16:01 Urine Osmolality 250 mosm/kg (50-1400) 04/03/16 16:01 Ur Random Sodium 92 mmol/L (30-90) H 04/03/16 16:01 Ur Random Potassium 10.0 mmol/L 04/03/16 16:01 Vancomycin Trough 24.6 ug/mL 04/06/16 10:34 Microbiology 03/31/16 11:45 Blood Blood Culture - Final No Growth after 144 hours 03/31/16 11:00 Blood Blood Culture - Final No Growth after 144 hours 04/01/16 15:30 Ankle - Left Anaerobic Culture - Final 04/01/16 15:30 Ankle - Left Gram Stain - Final 04/01/16 15:30 Ankle - Left Wound Culture - Final Strep agalactiae - (group b) 03/31/16 11:00 Foot - Left Gram Stain - Final 03/31/16 11:00 Foot - Left Wound Culture - Final Methicillin resist S. aureus Strep agalactiae - (group b) Enterobacter cloacae 03/31/16 13:02 Urine,Voided Urine Culture - Final Assessment and Plan (1) Gangrene of toe Narrative/Plan: 70-year-old male who is approximately a 10 year history of diabetes that has not been treated to the patient not wanting to acknowledge his diabetes. Presents to hospital with evidence of the gangrenous changes to his left foot. Because of the extensive infection he was taken to the operating room and disarticulation of the foot occurred. The patient will need formal amputation which is planned for tomorrow at noon. The patient is aware and willing to proceed ahead. Has been seen by the landman and is looking forward to improvement. For antibiotic therapy we'll alter to Ceftaroline. Given his elevated creatinine avoiding further vancomycin therapy would be ideal, in the center with good coverage for MRSA staph and Enterobacter that has been isolated. Local wound care is with the nonstick Vaseline dressing and bulky dressing. Patient better today and has less pain Albumin is low at 3.1 and will need appropriate protein supplementation. Hemoglobin A1c was 14 admission with an average blood sugar of 355. Blood sugars have improved during his stay but it has been a definite struggle to improve them. His creatinine is markedly increased since admission was 0.90. Peak at 2.49 now 2.23 with antibiotic change and hydration is being utilized. Avoid further vancomycin therapy. Likely will go to extended care his discharge. After the final amputation will not need long-term intravenous antibiotic therapy. Status: Acute (2) Diabetes mellitus type 2 with complications Status: Acute (3) Leukocytosis Status: Acute
--- NOTE | 2016-04-09 19:53 | OP ---
DATE OF SERVICE: SURGEON: AMILCAR RENO MD FORECAST ANALYST: PREOPERATIVE DIAGNOSIS: Gangrene of the left foot. POSTOPERATIVE DIAGNOSIS: Disarticulated the foot. OPERATION: Left below knee amputation. ANESTHESIA: Spinal. ESTIMATED BLOOD LOSS: SPECIMENS REMOVED: COMPLICATIONS: OPERATIVE FINDINGS: DESCRIPTION OF PROCEDURE: This patient had a wet gangrene of the left foot. He came in and had a disarticulate foot. The patient is on IV antibiotics. Today we brought him for below-knee amputation. The patient had a spinal anesthesia. Left leg was prepped and draped in usual sterile manner. Incision was made 6 inches below the left tibial tuberosity for the anterior flap, deepened through the skin, fat, and fascia. Then the posterior flap incision was made, which was longer than the anterior flap incision and after that, we divided the medial compartment muscles and tibial vessel was identified and suture ligated with Prolene and then the lateral compartment muscles were divided and tibial vessels were also suture ligated with 0 Prolene until we reached the fibula. Fibula was divided shorter than the tibia. After that, the periosteum elevator was used to elevate the periosteum from the tibia and tibia was divided with hand electric saw and then the posterior flap incision was created. Soleus and gastrocnemius muscles were divided. After that, we had good hemostasis and tibial nerve was divided. Hemostasis was well controlled. After that, we irrigated the wound with saline and hydrogen peroxide and hemostasis was controlled. Tibia and fibula were covered by anterior and posterior compartment muscles with 0 Vicryl interrupted sutures. Then the fascia was approximated with 3-0 Vicryl with interrupted suture and skin was approximated with 4-0 nylon with mattress interrupted suture. Dressing applied. The patient tolerated the procedure well. Blood loss was less than 100 and dressing was applied. Patient transferred to recovery in satisfactory condition.
[2016-04-09] MEDS: MORPHINE SULFATE 4 MG/ML SYRINGE IVP PRN (20:27)
[2016-04-09] MEDS: INSULIN GLARGINE 100 UNIT/ML 10 ML VIAL SQ SCH (22:19)
[2016-04-09 22:29] LABS: Glucose,Whole Blood 159 mg/dL (75-99)
[2016-04-10] MEDS: SODIUM CHLORIDE 0.9% 1,000 ML IV SCH ×3 (04:10→22:01)
[2016-04-10] MEDS: MORPHINE SULFATE 4 MG/ML SYRINGE IVP PRN ×3 (05:34→22:01)
[2016-04-10 07:43] LABS: Glucose,Whole Blood 192 mg/dL (75-99)
[2016-04-10 07:51] LABS: CH 30.3; CHCM 32.4; HCT 34.6 % (39.0-53.0); HDW 2.82; HGB 11.2 gm/dL (13.0-17.5); MCH 30.4 pg (25.0-35.0); MCHC 32.4 g/dL (31.0-37.0); MCV 93.8 fL (80.0-100.0); Mean Platelet Volume 8.2; RDW 13.6 % (11.5-15.5); WBC 12.6 k/uL (3.8-10.6)
[2016-04-10 08:07] LABS: Calcium 8.6 mg/dL (8.4-10.2)
[2016-04-10 08:14] LABS: Potassium 4.6 mmol/L (3.5-5.1)
[2016-04-10] MEDS: PANTOPRAZOLE 40 MG TABLET PO SCH (08:38)
[2016-04-10] MEDS: INSULIN LISPRO (humaLOG) 300 UNIT/3 ML VIAL SQ SCH ×7 (08:38→22:01)
[2016-04-10] MEDS: CEFTAROLINE FOSAMIL 400 MG in SODIUM CHLORIDE 0.9% 250 ML IVPB SCH ×2 (08:38→22:01)
--- NOTE | 2016-04-10 09:49 | P.PN ---
Subjective Principal diagnosis: doing well. Pain controlled. Objective - Vital Signs Vital signs: Vital Signs Temp 98.0 F 04/10/16 07:00 Pulse 87 04/10/16 07:00 Resp 20 04/10/16 07:00 BP 161/76 04/10/16 07:00 Pulse Ox 97 04/10/16 07:00 Intake & Output 04/09/16 04/10/16 04/10/16 18:59 06:59 18:59 Intake Total 700 300 Output Total 1360 3700 Balance -660 -3400 Intake: IV 700 Oral 300 Output: Urine 1260 3700 Uretheral (Dc) 2800 Estimated Blood Loss 100 Other: Voiding Method Indwelling Catheter Indwelling Catheter - Constitutional General appearance: Present: cooperative, no acute distress - Respiratory Respiratory: bilateral: CTA - Cardiovascular Rhythm: regular Heart sounds: normal: S1, S2 - Gastrointestinal General gastrointestinal: Present: normal bowel sounds, soft - Labs CBC & Chem 7: 04/10/16 07:07 04/10/16 07:04 Labs: Abnormal Lab Results - Last 24 Hours (Table) 04/09/16 04/09/16 04/09/16 Range/Units 14:19 16:57 22:07 WBC (3.8-10.6) k/uL RBC (4.30-5.90) m/uL Hgb (13.0-17.5) gm/dL Hct (39.0-53.0) % Chloride (98-107) mmol/L Carbon Dioxide (22-30) mmol/L Creatinine (0.66-1.25) mg/dL Glucose (74-99) mg/dL POC Glucose (mg/dL) 132 H 129 H 159 H (75-99) mg/dL 04/10/16 04/10/16 04/10/16 Range/Units 07:02 07:04 07:07 WBC 12.6 H (3.8-10.6) k/uL RBC 3.70 L (4.30-5.90) m/uL Hgb 11.2 L (13.0-17.5) gm/dL Hct 34.6 L (39.0-53.0) % Chloride 108 H (98-107) mmol/L Carbon Dioxide 20 L (22-30) mmol/L Creatinine 1.85 H (0.66-1.25) mg/dL Glucose 197 H (74-99) mg/dL POC Glucose (mg/dL) 192 H (75-99) mg/dL Assessment and Plan Plan: Assessment/Plan #1. Nonoliguric acute kidney injury secondary to ATN. Improving. --Continue IVFs. #2. Gangrene of the left foot status post disarticulation. #3. Diabetes mellitus.
[2016-04-10 11:52] LABS: Glucose,Whole Blood 203 mg/dL (75-99)
[2016-04-10 17:04] LABS: Glucose,Whole Blood 167 mg/dL (75-99)
--- NOTE | 2016-04-10 18:05 | PN ---
A 70-year-old admitted with left foot gangrene. The patient underwent below-knee amputation and patient went into acute renal failure secondary to acute tubular necrosis, which improved with improving creatinine at this point of time. Creatinine is at 1.85. Patient is receiving IV fluids. REVIEW OF SYSTEMS: CARDIOVASCULAR: No chest pain, no orthopnea, no PND, no palpitations. PULMONARY: Denied any shortness of breath. No cough or hemoptysis. GASTROINTESTINAL: No diarrhea, nausea or vomiting. No abdominal pain. Normoactive bowel sounds. NEUROLOGIC: No headaches, no weakness, no numbness. Medications were reviewed. PHYSICAL EXAMINATION: VITAL SIGNS: Temperature 98.0, pulse 87, shortness 20, blood pressure is 161/76, saturating at 97% on room air. GENERAL: The patient is alert and oriented x3, not in any acute distress. Well developed, well nourished. HEENT: Pupils are round and equally reacting to light. EOMI. No scleral icterus. No conjunctival pallor. Normocephalic, atraumatic. No pharyngeal erythema. No thyromegaly. CARDIOVASCULAR: S1 and S2 present. No murmurs, rubs, or gallops. PULMONARY: Chest is clear to auscultation, no wheezing or crackles. ABDOMEN: Soft, nontender, nondistended, normoactive bowel sounds. No palpable organomegaly. MUSCULOSKELETAL: No joint swelling or deformity. EXTREMITIES: Left extremity, below-knee amputation on the left side. NEUROLOGICAL: Gross neurological examination did not reveal any focal deficits. SKIN: No rashes. LABORATORY DATA: Creatinine is 1.85 as opposed to 2.23 yesterday. ASSESSMENT AND PLAN: 1. Left foot gangrene status post below-knee amputation. To continue with antibiotics. Patient is on ceftaroline at this point of time. 2. Acute kidney injury secondary to acute tubular necrosis from vancomycin. Improving kidney function. 3. Type 2 diabetes mellitus. 4. Nicotine dependence. 5. History of coronary artery disease. Plan is to continue with antibiotics, continue with IV fluids. Possibility of discharge on Tuesday to subacute rehab.
[2016-04-10 21:41] LABS: Glucose,Whole Blood 176 mg/dL (75-99)
[2016-04-10] MEDS: INSULIN GLARGINE 100 UNIT/ML 10 ML VIAL SQ SCH (22:00)
[2016-04-11 07:36] LABS: Glucose,Whole Blood 153 mg/dL (75-99)
[2016-04-11 08:10] LABS: Calcium 8.6 mg/dL (8.4-10.2); Potassium 4.2 mmol/L (3.5-5.1)
[2016-04-11] MEDS: CEFTAROLINE FOSAMIL 400 MG in SODIUM CHLORIDE 0.9% 250 ML IVPB SCH ×2 (08:31→21:16)
[2016-04-11] MEDS: INSULIN LISPRO (humaLOG) 300 UNIT/3 ML VIAL SQ SCH ×7 (08:31→21:10)
[2016-04-11] MEDS: PANTOPRAZOLE 40 MG TABLET PO SCH (08:31)
[2016-04-11] MEDS: SODIUM CHLORIDE 0.9% 1,000 ML IV SCH ×2 (08:33→12:47)
--- NOTE | 2016-04-11 11:01 | P.PN ---
Subjective Principal diagnosis: doing well. Pain controlled. Mo cp/sob. No diarrhea. Recovering MADDY due to ATN. Objective - Vital Signs Vital signs: Vital Signs Temp 97.9 F 04/11/16 07:00 Pulse 69 04/11/16 07:00 Resp 20 04/11/16 07:00 BP 145/68 04/11/16 07:00 Pulse Ox 95 04/11/16 07:00 Intake & Output 04/10/16 04/11/16 04/11/16 18:59 06:59 18:59 Intake Total 600 400 480 Output Total 1425 3600 Balance -825 -3200 480 Intake: Oral 600 400 480 Output: Urine 1425 3600 Uretheral (Dc) 1000 Other: Voiding Method Indwelling Catheter Indwelling Catheter # Bowel Movements 0 - Constitutional General appearance: Present: cooperative, no acute distress - Respiratory Respiratory: bilateral: CTA - Cardiovascular Rhythm: regular Heart sounds: normal: S1, S2 - Peripheral edema leg Peripheral Edema: right: Trace - Gastrointestinal General gastrointestinal: Present: normal bowel sounds, soft - Labs CBC & Chem 7: 04/10/16 07:07 04/11/16 07:17 Labs: Abnormal Lab Results - Last 24 Hours (Table) 04/10/16 04/10/16 04/10/16 Range/Units 11:46 16:55 21:33 Chloride (98-107) mmol/L Carbon Dioxide (22-30) mmol/L Creatinine (0.66-1.25) mg/dL Glucose (74-99) mg/dL POC Glucose (mg/dL) 203 H 167 H 176 H (75-99) mg/dL 04/11/16 04/11/16 Range/Units 07:17 07:22 Chloride 109 H (98-107) mmol/L Carbon Dioxide 21 L (22-30) mmol/L Creatinine 1.72 H (0.66-1.25) mg/dL Glucose 145 H (74-99) mg/dL POC Glucose (mg/dL) 153 H (75-99) mg/dL Assessment and Plan Plan: Assessment/Plan #1. Nonoliguric acute kidney injury secondary to ATN. Improving. --Decrease IVF to 50/hr. --Baseline creatinine 0.9 #2. Gangrene of the left foot s/p BKA. #3. Diabetes mellitus.
[2016-04-11 11:55] LABS: Glucose,Whole Blood 121 mg/dL (75-99)
[2016-04-11] MEDS: MORPHINE SULFATE 4 MG/ML SYRINGE IVP PRN ×2 (12:47→17:23)
[2016-04-11 17:31] LABS: Glucose,Whole Blood 250 mg/dL (75-99)
--- NOTE | 2016-04-11 18:21 | PN ---
A 70-year-old admitted with left foot gangrene. The patient underwent below-knee amputation and patient went into acute renal failure secondary to acute tubular necrosis, which improved with improving creatinine at this point of time. Creatinine is at 1.85. Patient is receiving IV fluids. REVIEW OF SYSTEMS: CARDIOVASCULAR: No chest pain, no orthopnea, no PND, no palpitations. PULMONARY: Denied any shortness of breath. No cough or hemoptysis. GASTROINTESTINAL: No diarrhea, nausea or vomiting. No abdominal pain. Normoactive bowel sounds. NEUROLOGIC: No headaches, no weakness, no numbness. Medications were reviewed. PHYSICAL EXAMINATION: VITAL SIGNS: Temperature 97.9, pulse of 69, respiratory rate 20, blood pressure is 145/68, saturating at 95% on room air. GENERAL: The patient is alert and oriented x3, not in any acute distress. Well developed, well nourished. HEENT: Pupils are round and equally reacting to light. EOMI. No scleral icterus. No conjunctival pallor. Normocephalic, atraumatic. No pharyngeal erythema. No thyromegaly. CARDIOVASCULAR: S1 and S2 present. No murmurs, rubs, or gallops. PULMONARY: Chest is clear to auscultation, no wheezing or crackles. ABDOMEN: Soft, nontender, nondistended, normoactive bowel sounds. No palpable organomegaly. MUSCULOSKELETAL: No joint swelling or deformity. EXTREMITIES: Left extremity, below-knee amputation on the left side. NEUROLOGICAL: Gross neurological examination did not reveal any focal deficits. SKIN: No rashes. LABORATORY DATA: Continued improvement in BUN and creatinine to 17 and 1.72. ASSESSMENT AND PLAN: 1. Left foot gangrene status post below-knee amputation. To continue with antibiotics. Patient is on ceftaroline at this point of time. 2. Acute kidney injury secondary to acute tubular necrosis from vancomycin. Improving kidney function. 3. Type 2 diabetes mellitus. 4. Nicotine dependence. 5. History of coronary artery disease. Plan is to continue with antibiotics, continue with IV fluids. Possibility of discharge on Tuesday to subacute rehab.
--- NOTE | 2016-04-11 18:54 | P.PN ---
Subjective Principal diagnosis: Gangrene left foot 70-year-old male who presented to the emergency center with a three- week history of increasing lesion to his left foot. It was not painful. There is evidence of extensive gangrenous change of the time of his presentation at the great toe and ascending the foot. Apparently the patient has a long- standing history of diabetes for about the last 10 years. However is not sought ongoing care for this at this timeframe. It appears that his social situation has recently changed. Apparently was living with his brother until a week ago or so. It is related to brother . The patient has severe pain to the disarticulated site to the left ankle. It is denying fever, chills or rigors. Denies other new acute complaints at this time. Does relate that he is now aware that he has diabetes will need to do something about it. Is aware that his attempt to ignore it has resulted in his significant debility. H amputation has occurred . Other than some pain is feeling relatively well Objective - Vital Signs Vital signs: Vital Signs Temp 98.9 F 04/11/16 15:00 Pulse 95 04/11/16 15:00 Resp 20 04/11/16 15:00 BP 136/87 04/11/16 15:00 Pulse Ox 95 04/11/16 15:00 Intake & Output 04/10/16 04/11/16 04/11/16 18:59 06:59 18:59 Intake Total 140 762 0407 Output Total 1425 3600 1775 Balance -825 -3200 -355 Intake: Intake, IV Titration 700 Amount Sodium Chloride 0.9% 1, 700 000 ml @ 50 mls/hr IV . Q20H [facility] Rx#:[id number] Oral 600 400 720 Output: Urine 1425 3600 1775 Uretheral (Dc) 1000 Other: Voiding Method Indwelling Catheter Indwelling Catheter Indwelling Catheter # Bowel Movements 0 0 - Exam 70-year-old male who is a poor historian relates to some pain at the amputation site to his left ankle area. Other than this he has no acute complaint. HEENT: Anicteric conjunctiva are pink and moist nasal mucosa grossly intact without significant lesions, there is no thrush. Poor dentition Neck: The neck is supple without significant lymphadenopathy or thyromegaly. Lungs: Metrical air entry is noted. Expiratory wheezes scattered at the lung hernandez. No bronchial sounds are noted. No dullness or egophony Heart: Regular with an audible S1 and S2 soft S4 no murmur click or rub PMI was nondisplaced Abdomen: Positive bowel sounds soft and nontender without palpable masses or organomegaly. There was no guarding or rebound. Extremities: The upper extremities failed to reveal lesions. IV access is noted. Is without erythema or tenderness. The lower extremities reveal evidence of the [id number] amputation site that is heavily dressed from the recent surgery today. Neuro: Awake alert oriented to person and place. He is however quite a poor historian. - Labs CBC & Chem 7: 04/10/16 07:07 04/11/16 07:17 Labs: Abnormal Lab Results - Last 24 Hours (Table) 04/10/16 04/11/16 04/11/16 Range/Units 21:33 07:17 07:22 Chloride 109 H (98-107) mmol/L Carbon Dioxide 21 L (22-30) mmol/L Creatinine 1.72 H (0.66-1.25) mg/dL Glucose 145 H (74-99) mg/dL POC Glucose (mg/dL) 176 H 153 H (75-99) mg/dL 04/11/16 04/11/16 Range/Units 11:50 17:10 Chloride (98-107) mmol/L Carbon Dioxide (22-30) mmol/L Creatinine (0.66-1.25) mg/dL Glucose (74-99) mg/dL POC Glucose (mg/dL) 121 H 250 H (75-99) mg/dL Laboratory Results WBC 12.6 k/uL (3.8-10.6) H 04/10/16 07:07 RBC 3.70 m/uL (4.30-5.90) L 04/10/16 07:07 Hgb 11.2 gm/dL (13.0-17.5) L 04/10/16 07:07 Hct 34.6 % (39.0-53.0) L 04/10/16 07:07 MCV 93.8 fL (80.0-100.0) 04/10/16 07:07 MCH 30.4 pg (25.0-35.0) 04/10/16 07:07 MCHC 32.4 g/dL (31.0-37.0) 04/10/16 07:07 RDW 13.6 % (11.5-15.5) 04/10/16 07:07 Plt Count 299 k/uL (150-450) 04/10/16 07:07 Neutrophils % 77 % 04/05/16 07:09 Lymphocytes % 14 % 04/05/16 07:09 Monocytes % 6 % 04/05/16 07:09 Eosinophils % 1 % 04/05/16 07:09 Basophils % 1 % 04/05/16 07:09 Neutrophils # 9.6 k/uL (1.3-7.7) H 04/05/16 07:09 Lymphocytes # 1.7 k/uL (1.0-4.8) 04/05/16 07:09 Monocytes # 0.7 k/uL (0-1.0) 04/05/16 07:09 Eosinophils # 0.1 k/uL (0-0.7) 04/05/16 07:09 Basophils # 0.1 k/uL (0-0.2) 04/05/16 07:09 PT 10.1 sec (9.0-12.0) 03/31/16 11:00 INR 1.0 (<1.1) 03/31/16 11:00 APTT 24.4 sec (22.0-30.0) 03/31/16 11:00 Sodium 141 mmol/L (137-145) 04/11/16 07:17 Potassium 4.2 mmol/L (3.5-5.1) 04/11/16 07:17 Chloride 109 mmol/L (98-107) H 04/11/16 07:17 Carbon Dioxide 21 mmol/L (22-30) L 04/11/16 07:17 Anion Gap 11 mmol/L 04/11/16 07:17 BUN 17 mg/dL (9-20) 04/11/16 07:17 Creatinine 1.72 mg/dL (0.66-1.25) H 04/11/16 07:17 Est GFR (MDRD) Af Amer 48 (>60 ml/min/1.73 sqM) 04/11/16 07:17 Est GFR (MDRD) Non-Af 40 (>60 ml/min/1.73 sqM) 04/11/16 07:17 Glucose 145 mg/dL (74-99) H 04/11/16 07:17 POC Glucose (mg/dL) 250 mg/dL (75-99) H 04/11/16 17:10 POC Glu [employer] ID Padmini Mac 04/11/16 17:[address] Glu mg/dL 355 mg/dL 03/31/16 11:00 Hemoglobin A1c 14.0 % (4.2-6.1) H 03/31/16 11:00 Plasma Lactic Acid Kyaw 1.4 mmol/L (0.7-2.0) 03/31/16 11:00 Calcium 8.6 mg/dL (8.4-10.2) 04/11/16 07:17 Total Bilirubin 0.6 mg/dL (0.2-1.3) 03/31/16 11:00 AST 17 U/L (17-59) 03/31/16 11:00 ALT 34 U/L (21-72) 03/31/16 11:00 Alkaline Phosphatase 333 U/L (38-126) H 03/31/16 11:00 Total Creatine Kinase 94 U/L (55-170) 03/31/16 11:00 CK-MB (CK-2) 1.4 ng/mL (0.0-2.4) 03/31/16 11:00 CK-MB (CK-2) Rel Index 1.5 03/31/16 11:00 Troponin I <0.012 ng/mL (0.000-0.034) 03/31/16 11:00 Total Protein 6.7 g/dL (6.3-8.2) 03/31/16 11:00 Albumin 3.1 g/dL (3.5-5.0) L 03/31/16 11:00 Cortisol 18 ug/dL 03/31/16 11:00 Urine Color Light Yellow 04/09/16 10:15 Urine Appearance Clear (Clear) 04/09/16 10:15 Urine pH 6.0 (5.0-8.0) 04/09/16 10:15 Ur Specific [place] 1.006 (1.001-1.035) 04/09/16 10:15 Urine Protein Negative (Negative) 04/09/16 10:15 Urine Glucose (UA) Negative (Negative) 04/09/16 10:15 Urine Ketones Negative (Negative) 04/09/16 10:15 Urine Blood Negative (Negative) 04/09/16 10:15 Urine Nitrate Negative (Negative) 04/09/16 10:15 Urine Bilirubin Negative (Negative) 04/09/16 10:15 Urine Urobilinogen <2.0 mg/dL (<2.0) 04/09/16 10:15 Ur Leukocyte Esterase Negative (Negative) 04/09/16 10:15 Urine Eosinophils 0 % 04/03/16 16:01 Urine Osmolality 250 mosm/kg (50-1400) 04/03/16 16:01 Ur Random Sodium 92 mmol/L (30-90) H 04/03/16 16:01 Ur Random Potassium 10.0 mmol/L 04/03/16 16:01 Vancomycin Trough 24.6 ug/mL 04/06/16 10:34 Microbiology 03/31/16 11:45 Blood Blood Culture - Final No Growth after 144 hours 03/31/16 11:00 Blood Blood Culture - Final No Growth after 144 hours 04/01/16 15:30 Ankle - Left Anaerobic Culture - Final 04/01/16 15:30 Ankle - Left Gram Stain - Final 04/01/16 15:30 Ankle - Left Wound Culture - Final Strep agalactiae - (group b) 03/31/16 11:00 Foot - Left Gram Stain - Final 03/31/16 11:00 Foot - Left Wound Culture - Final Methicillin resist S. aureus Strep agalactiae - (group b) Enterobacter cloacae 03/31/16 13:02 Urine,Voided Urine Culture - Final Assessment and Plan (1) Gangrene of toe Narrative/Plan: 70-year-old male who is approximately a 10 year history of diabetes that has not been treated to the patient not wanting to acknowledge his diabetes. Presents to hospital with evidence of the gangrenous changes to his left foot. Because of the extensive infection he was taken to the operating room and disarticulation of the foot occurred. The patient will need formal amputation which is planned for tomorrow at noon. The patient is aware and willing to proceed ahead. Has been seen by the sales merchandising specialist and is looking forward to improvement. For antibiotic therapy we'll alter to Ceftaroline. Given his elevated creatinine avoiding further vancomycin therapy would be ideal, in the center with good coverage for MRSA staph and Enterobacter that has been isolated. Local wound care is with the nonstick Vaseline dressing and bulky dressing. Patient better today and has less pain Albumin is low at 3.1 and will need appropriate protein supplementation. Hemoglobin A1c was 14 admission with an average blood sugar of 355. Blood sugars have improved during his stay but it has been a definite struggle to improve them. His creatinine is markedly increased since admission was 0.90. Peak at 2.49 now 1.72 with antibiotic change and hydration has improved. Avoid further vancomycin therapy. Likely will go to extended care his discharge. Will not need long-term intravenous antibiotic therapy, may transition to po doxycycline 100mg po bid for 7 days Status: Acute (2) Diabetes mellitus type 2 with complications Status: Acute (3) Leukocytosis Status: Acute
[2016-04-11 21:08] LABS: Glucose,Whole Blood 116 mg/dL (75-99)
[2016-04-11] MEDS: INSULIN GLARGINE 100 UNIT/ML 10 ML VIAL SQ SCH (21:16)
[2016-04-12 01:54] LABS: Glucose,Whole Blood 185 mg/dL (75-99)
[2016-04-12 07:24] LABS: Glucose,Whole Blood 135 mg/dL (75-99)
[2016-04-12 07:36] VITALS: BP 170/79; PULSE 82; RESP 16; TEMP 97.8
[2016-04-12] MEDS: CEFTAROLINE FOSAMIL 400 MG in SODIUM CHLORIDE 0.9% 250 ML IVPB SCH (08:07)
[2016-04-12] MEDS: SODIUM CHLORIDE 0.9% 1,000 ML IV SCH (08:07)
[2016-04-12] MEDS: INSULIN LISPRO (humaLOG) 300 UNIT/3 ML VIAL SQ SCH ×4 (08:10→12:31)
[2016-04-12] MEDS: PANTOPRAZOLE 40 MG TABLET PO SCH (08:12)
[2016-04-12 08:22] LABS: Calcium 8.7 mg/dL (8.4-10.2); Potassium 4.3 mmol/L (3.5-5.1)
--- NOTE | 2016-04-12 11:22 | P.PN ---
Progress Note - Text 70-year-old diabetic male, who came with infected gangrene of the left foot patient had a culture and patient is an IV antibiotic first we did the disarticulation of the foot then we did the second stage procedure left below- knee amputation he has history of diabetes newly diagnosed Today we have changed her dressing stump looked clean no discharge or redness noted patient is going to the [facility] today advised to change her dressing every 48 hours patient will be seen in my office patient will be seen in my office 22 of March for possible removal of the stitches
[2016-04-12 12:19] LABS: Glucose,Whole Blood 128 mg/dL (75-99)
--- NOTE | 2016-04-12 14:35 | P.DS ---
Providers Date of admission: 03/31/16 12:50 Expected date of discharge: 04/12/16 Attending physician: Stephanie Parker Consults: 04/04/16 13:15 Consult Physician Routine Consulting Provider: Lona Baltazar Consult Reason/Comments: kidney failure Do you want consulting provider notified?: Yes 04/05/16 11:19 Consult Physician Routine Consulting Provider: Esteban Morfin Consult Reason/Comments: gangrenous left foot with amputation Do you want consulting provider notified?: Yes Dr. Ortiz, Vascular Surgery Primary care physician: Stated None Dr. Quintana [place] Hospital Course: 1. Cellulitis of left foot with gangrenous changes involving the ankle, left great toe gangrene, Foot x-ray reporting suspicious for acute osteomyelitis involving the first distal phalanx. S/P Diasrticulation of left foot. Status post left BKA. Wound cultures MRSA, Strep agalactiae - (group b), Enterobacter clocae.. 2. [Newly diagnosed diabetes mellitus II, hemoglobin A1c 14. 3. Hypertension]. 4. [Ongoing nicotine abuse]. 5. [CAD, history of [place]]. 6. [Gastroesophageal reflux disease]. 7. Acute renal failure secondary to acute tubular necrosis from vancomycin, antibiotics changed to ceftaroline, improving. 8. Hypoalbuminemia, on protein supplementation. Hospital course:This a 70-year-old gentleman admitted with left foot cellulitis with gangrene, status post disarticulation of left foot, status post left BKA, newly diagnosed diabetes mellitus, hemoglobin A1c 14, ongoing nicotine abuse and multiple other medical issues. Evaluated by both vascular surgery and infectious disease. Initially patient had been on vancomycin, developed acute renal failure which is subsequently improving with antibiotics changed to Ceftaroline and IV fluid hydration. Significant clinical improvement. Cleared by both infectious disease, vascular surgery for discharge. Patient is being discharged to [facility] rehab in stable condition with guarded prognosis. Microbiology 03/31/16 11:45 Blood Blood Culture - Final No Growth after 144 hours 03/31/16 11:00 Blood Blood Culture - Final No Growth after 144 hours 04/01/16 15:30 Ankle - Left Anaerobic Culture - Final 04/01/16 15:30 Ankle - Left Gram Stain - Final 04/01/16 15:30 Ankle - Left Wound Culture - Final Strep agalactiae - (group b) 03/31/16 11:00 Foot - Left Gram Stain - Final 03/31/16 11:00 Foot - Left Wound Culture - Final Methicillin resist S. aureus Strep agalactiae - (group b) Enterobacter cloacae 03/31/16 13:02 Urine,Voided Urine Culture - Final Patient Condition at Discharge: Stable Plan - Discharge Summary New Discharge Prescriptions: Doxycycline Monohydrate [Monodox] 100 mg PO Q12HR #14 cap HYDROcodone/APAP 10-325MG [Tower 10-325] 1 each PO Q4HR PRN #20 tab PRN Reason: Pain INSULIN LISPRO (HumaLOG) [humaLOG] 0 unit SQ ACHS #1 vial Discharge Medication List Aspirin/Acetaminophen/Caffeine [Excedrin Extra Strength Caplet] 2 tab PO Q6H PRN 03/31/16 [History] Doxycycline Monohydrate [Monodox] 100 mg PO Q12HR #14 cap 04/12/16 [Rx] HYDROcodone/APAP 10-325MG [Tower 10-325] 1 each PO Q4HR PRN #20 tab 04/12/16 [Rx ] INSULIN LISPRO (HumaLOG) [humaLOG] 0 unit SQ ACHS #1 vial 04/12/16 [Rx] Insulin Glargine [Lantus] 30 unit SQ HS vial 04/12/16 [Rx] Pantoprazole [Protonix] 40 mg PO [id number] tablet. 04/12/16 [Rx] Follow up Appointment(s)/Referral(s): Bryce Minor DO [STAFF PHYSICIAN] - 3 Days (While at [facility]) Robert Quintana MD [REFERRING] - 1 Week (After DC from [facility]) Main Ortiz MD [STAFF PHYSICIAN] - 04/22/16 Activity/Diet/Wound Care/Special Instructions: Medi [facility] PH See Dr. Ortiz on 04-22-16 in his office. Surgical wound care every 48 hours [address] per her Dr. Ortiz Accu-Cheks before meals and at bedtime Diet: Consistent carb Activity: As per surgery CBC, BMP in 3 days Discharge Disposition: TRANSFER TO SNF/F
--- NOTE | 2016-04-12 18:09 | P.PN ---
Subjective Principal diagnosis: Gangrene left foot 70-year-old male who presented to the emergency center with a three- week history of increasing lesion to his left foot. It was not painful. There is evidence of extensive gangrenous change of the time of his presentation at the great toe and ascending the foot. Apparently the patient has a long- standing history of diabetes for about the last 10 years. However is not sought ongoing care for this at this timeframe. It appears that his social situation has recently changed. Apparently was living with his brother until a week ago or so. It is related to brother . The patient has severe pain to the disarticulated site to the left ankle. It is denying fever, chills or rigors. Denies other new acute complaints at this time. Does relate that he is now aware that he has diabetes will need to do something about it. Is aware that his attempt to ignore it has resulted in his significant debility. H amputation has occurred . Other than some pain is feeling relatively well Objective - Vital Signs Vital signs: Vital Signs Temp 97.8 F 04/12/16 07:00 Pulse 82 04/12/16 08:00 Resp 16 04/12/16 08:00 BP 170/79 04/12/16 07:00 Pulse Ox 97 04/12/16 07:00 Intake & Output 04/11/16 04/12/16 04/12/16 18:59 06:59 18:59 Intake Total 1420 500 600 Output Total 1775 3100 1390 Balance -355 2600 -790 Intake: IV 600 Ceftaroline Fosamil 400 250 mg In Sodium Chloride 0.9 % 250 ml @ 250 mls/hr IVPB Q12HR [facility] Rx#: [id number] Sodium Chloride 0.9% 1, 350 000 ml @ 50 mls/hr IV . Q20H [facility] Rx#:[id number] Intake, IV Titration 700 Amount Sodium Chloride 0.9% 1, 700 000 ml @ 50 mls/hr IV . Q20H [facility] Rx#:[id number] Oral 720 500 Output: Urine 1775 3100 1390 Uretheral (Dc) 2200 240 Other: Voiding Method Indwelling Catheter Indwelling Catheter Indwelling Catheter # Voids 1 # Bowel Movements 0 - Exam 70-year-old male who is a poor historian relates to some pain at the amputation site to his left ankle area. Other than this he has no acute complaint. HEENT: Anicteric conjunctiva are pink and moist nasal mucosa grossly intact without significant lesions, there is no thrush. Poor dentition Neck: The neck is supple without significant lymphadenopathy or thyromegaly. Lungs: Metrical air entry is noted. Expiratory wheezes scattered at the lung hernandez. No bronchial sounds are noted. No dullness or egophony Heart: Regular with an audible S1 and S2 soft S4 no murmur click or rub PMI was nondisplaced Abdomen: Positive bowel sounds soft and nontender without palpable masses or organomegaly. There was no guarding or rebound. Extremities: The upper extremities failed to reveal lesions. IV access is noted. Is without erythema or tenderness. The lower extremities reveal evidence of the [id number] amputation site that is without drainage. Neuro: Awake alert oriented to person and place. He is however quite a poor historian. - Labs CBC & Chem 7: 04/10/16 07:07 04/12/16 07:43 Labs: Abnormal Lab Results - Last 24 Hours (Table) 04/11/16 04/12/16 04/12/16 Range/Units 20:59 01:51 07:23 Chloride (98-107) mmol/L Carbon Dioxide (22-30) mmol/L BUN (9-20) mg/dL Creatinine (0.66-1.25) mg/dL Glucose (74-99) mg/dL POC Glucose (mg/dL) 116 H 185 H 135 H (75-99) mg/dL 04/12/16 04/12/16 Range/Units 07:43 12:17 Chloride 110 H (98-107) mmol/L Carbon Dioxide 20 L (22-30) mmol/L BUN 22 H (9-20) mg/dL Creatinine 1.88 H (0.66-1.25) mg/dL Glucose 131 H (74-99) mg/dL POC Glucose (mg/dL) 128 H (75-99) mg/dL Laboratory Results WBC 12.6 k/uL (3.8-10.6) H 04/10/16 07:07 RBC 3.70 m/uL (4.30-5.90) L 04/10/16 07:07 Hgb 11.2 gm/dL (13.0-17.5) L 04/10/16 07:07 Hct 34.6 % (39.0-53.0) L 04/10/16 07:07 MCV 93.8 fL (80.0-100.0) 04/10/16 07:07 MCH 30.4 pg (25.0-35.0) 04/10/16 07:07 MCHC 32.4 g/dL (31.0-37.0) 04/10/16 07:07 RDW 13.6 % (11.5-15.5) 04/10/16 07:07 Plt Count 299 k/uL (150-450) 04/10/16 07:07 Neutrophils % 77 % 04/05/16 07:09 Lymphocytes % 14 % 04/05/16 07:09 Monocytes % 6 % 04/05/16 07:09 Eosinophils % 1 % 04/05/16 07:09 Basophils % 1 % 04/05/16 07:09 Neutrophils # 9.6 k/uL (1.3-7.7) H 04/05/16 07:09 Lymphocytes # 1.7 k/uL (1.0-4.8) 04/05/16 07:09 Monocytes # 0.7 k/uL (0-1.0) 04/05/16 07:09 Eosinophils # 0.1 k/uL (0-0.7) 04/05/16 07:09 Basophils # 0.1 k/uL (0-0.2) 04/05/16 07:09 PT 10.1 sec (9.0-12.0) 03/31/16 11:00 INR 1.0 (<1.1) 03/31/16 11:00 APTT 24.4 sec (22.0-30.0) 03/31/16 11:00 Sodium 142 mmol/L (137-145) 04/12/16 07:43 Potassium 4.3 mmol/L (3.5-5.1) 04/12/16 07:43 Chloride 110 mmol/L (98-107) H 04/12/16 07:43 Carbon Dioxide 20 mmol/L (22-30) L 04/12/16 07:43 Anion Gap 12 mmol/L 04/12/16 07:43 BUN 22 mg/dL (9-20) H 04/12/16 07:43 Creatinine 1.88 mg/dL (0.66-1.25) H 04/12/16 07:43 Est GFR (MDRD) Af Amer 43 (>60 ml/min/1.73 sqM) 04/12/16 07:43 Est GFR (MDRD) Non-Af 36 (>60 ml/min/1.73 sqM) 04/12/16 07:43 Glucose 131 mg/dL (74-99) H 04/12/16 07:43 POC Glucose (mg/dL) 128 mg/dL (75-99) H 04/12/16 12:17 POC Glu Document Design Specialist ID Nay Saeed 04/12/16 12:[address] Glu mg/dL 355 mg/dL 03/31/16 11:00 Hemoglobin A1c 14.0 % (4.2-6.1) H 03/31/16 11:00 Plasma Lactic Acid Kyaw 1.4 mmol/L (0.7-2.0) 03/31/16 11:00 Calcium 8.7 mg/dL (8.4-10.2) 04/12/16 07:43 Total Bilirubin 0.6 mg/dL (0.2-1.3) 03/31/16 11:00 AST 17 U/L (17-59) 03/31/16 11:00 ALT 34 U/L (21-72) 03/31/16 11:00 Alkaline Phosphatase 333 U/L (38-126) H 03/31/16 11:00 Total Creatine Kinase 94 U/L (55-170) 03/31/16 11:00 CK-MB (CK-2) 1.4 ng/mL (0.0-2.4) 03/31/16 11:00 CK-MB (CK-2) Rel Index 1.5 03/31/16 11:00 Troponin I <0.012 ng/mL (0.000-0.034) 03/31/16 11:00 Total Protein 6.7 g/dL (6.3-8.2) 03/31/16 11:00 Albumin 3.1 g/dL (3.5-5.0) L 03/31/16 11:00 Cortisol 18 ug/dL 03/31/16 11:00 Urine Color Light Yellow 04/09/16 10:15 Urine Appearance Clear (Clear) 04/09/16 10:15 Urine pH 6.0 (5.0-8.0) 04/09/16 10:15 Ur Specific [place] 1.006 (1.001-1.035) 04/09/16 10:15 Urine Protein Negative (Negative) 04/09/16 10:15 Urine Glucose (UA) Negative (Negative) 04/09/16 10:15 Urine Ketones Negative (Negative) 04/09/16 10:15 Urine Blood Negative (Negative) 04/09/16 10:15 Urine Nitrate Negative (Negative) 04/09/16 10:15 Urine Bilirubin Negative (Negative) 04/09/16 10:15 Urine Urobilinogen <2.0 mg/dL (<2.0) 04/09/16 10:15 Ur Leukocyte Esterase Negative (Negative) 04/09/16 10:15 Urine Eosinophils 0 % 04/03/16 16:01 Urine Osmolality 250 mosm/kg (50-1400) 04/03/16 16:01 Ur Random Sodium 92 mmol/L (30-90) H 04/03/16 16:01 Ur Random Potassium 10.0 mmol/L 04/03/16 16:01 Vancomycin Trough 24.6 ug/mL 04/06/16 10:34 Microbiology 03/31/16 11:45 Blood Blood Culture - Final No Growth after 144 hours 03/31/16 11:00 Blood Blood Culture - Final No Growth after 144 hours 04/01/16 15:30 Ankle - Left Anaerobic Culture - Final 04/01/16 15:30 Ankle - Left Gram Stain - Final 04/01/16 15:30 Ankle - Left Wound Culture - Final Strep agalactiae - (group b) 03/31/16 11:00 Foot - Left Gram Stain - Final 03/31/16 11:00 Foot - Left Wound Culture - Final Methicillin resist S. aureus Strep agalactiae - (group b) Enterobacter cloacae 03/31/16 13:02 Urine,Voided Urine Culture - Final Assessment and Plan (1) Gangrene of toe Narrative/Plan: 70-year-old male who is approximately a 10 year history of diabetes that has not been treated to the patient not wanting to acknowledge his diabetes. Presents to hospital with evidence of the gangrenous changes to his left foot. Because of the extensive infection he was taken to the operating room and disarticulation of the foot occurred. The patient will need formal amputation which is planned for tomorrow at noon. The patient is aware and willing to proceed ahead. Has been seen by the recreation instructor and is looking forward to improvement. For antibiotic therapy we'll alter to Ceftaroline. Given his elevated creatinine avoiding further vancomycin therapy would be ideal, in the center with good coverage for MRSA staph and Enterobacter that has been isolated. Local wound care is with the nonstick Vaseline dressing and bulky dressing. Patient better today and has less pain Albumin is low at 3.1 and will need appropriate protein supplementation. Hemoglobin A1c was 14 admission with an average blood sugar of 355. Blood sugars have improved during his stay but it has been a definite struggle to improve them. His creatinine is markedly increased since admission was 0.90. Peak at 2.49 now 1.72 with antibiotic change and hydration has improved. Avoid further vancomycin therapy. Likely will go to extended care his discharge. Will not need long-term intravenous antibiotic therapy, will transition to po doxycycline 100mg po bid for 7 days at the [facility]. Status: Acute (2) Diabetes mellitus type 2 with complications Status: Acute (3) Leukocytosis Status: Acute
== END 2016-04-12 15:31 | DRG 239 ==
LOC: EC 10:13 → 5MS5E 12:50 → 4MS4W 16:55
PROVIDERS: ADMIT Internal Medicine; ATTEND Internal Medicine
PROC: 0Y6N0Z0 Detachment at Left Foot, Complete, Open Approach (ICD-10-PCS; principal; 2016-04-01 08:30)
PROC: 0Y6J0Z3 Detachment at Left Lower Leg, Low, Open Approach (ICD-10-PCS; 2016-04-09)
DX: E11.52 Type 2 diabetes mellitus with diabetic peripheral angiopathy with gangrene (principal); N17.0 Acute kidney failure with tubular necrosis; M86.172 Other acute osteomyelitis, left ankle and foot; L03.116 Cellulitis of left lower limb; E11.69 Type 2 diabetes mellitus with other specified complication; E11.65 Type 2 diabetes mellitus with hyperglycemia; E88.09 Other disorders of plasma-protein metabolism, not elsewhere classified; E86.1 Hypovolemia; I10 Essential (primary) hypertension; I25.10 Atherosclerotic heart disease of native coronary artery without angina pectoris; I25.2 Old myocardial infarction; K21.9 Gastro-esophageal reflux disease without esophagitis; T36.8X5A Adverse effect of other systemic antibiotics, initial encounter; B95.1 Streptococcus, group B, as the cause of diseases classified elsewhere; B95.62 Methicillin resistant Staphylococcus aureus infection as the cause of diseases classified elsewhere; Z83.3 Family history of diabetes mellitus; Z79.82 Long term (current) use of aspirin; Z91.013 Allergy to seafood; Z72.0 Tobacco use
CPT/HCPCS: 36415; 71020; 76770; 80048; 80053; 80202; 81003; 82533; 82550; 82553; 83036; 83605; 83935; 84133; 84300; 84484; 85025; 85027; 85610; 85730; 87040; 87070; 87075; 87077; 87086; 87186; 87205; 88307; 93005; 96365; 96366; 96367; 96375; 99285

== ENCOUNTER 2018-09-22 08:07 | Inpatient (IN) | payer MEDICARE, OTHER ==
[2018-09-22] MEDS ORDERED: PIPERACILLIN-TAZOBACTAM 3.375 GM in SODIUM CHLORIDE 0.9% 100 ML IVPB STA (08:21)
[2018-09-22] MEDS ORDERED: VANCOMYCIN IV PER PHARMACY 1 EACH MISC MISCELLANE PRN (08:21)
--- NOTE | 2018-09-22 08:41 | ED ---
General Adult HPI <Nagi Beverly - Last Filed: 09/22/18 08:44> - General Source: EMS, RN notes reviewed, old records reviewed Mode of arrival: EMS Limitations: physical limitation <Sue Ortizily - Last Filed: 09/22/18 11:15> - General Chief complaint: Fall Stated complaint: Fall Time Seen by Provider: 09/22/18 08:10 - History of Present Illness Initial comments: Patient is a 72-year-old male who arrives to emergency Department via EMS, he currently lives at [facility] in [facility] and complains of a fall after having a bowel movement. Assisted living found him on the floor this morn ing. Patient complains of generalized pain and confusion. Patient states that he does not believe he has had. He is placed in a soft c-collar upon EMS arrival. Patient is a diabetic. He has a left below the knee amputee. He also has evidence of the wound and pain over his right leg. Patient states he does not have any family in the area. (Rosalie Ortiz) - Related Data Home Medications Medication Instructions Recorded Confirmed Acetaminophen [Tylenol Arthritis] 650 mg PO Q8H PRN 09/22/18 09/22/18 Allergies Allergy/AdvReac Type Severity Reaction Status Date / Time shellfish derived Allergy Unknown Verified 09/22/18 10:13 Review of Systems ROS Other: All systems not noted in ROS Statement are negative. <BeverlyNagi - Last Filed: 09/22/18 08:44> ROS Other: All systems not noted in ROS Statement are negative. <Rosalie Ortiz - Last Filed: 09/22/18 11:15> ROS Statement: Those systems with pertinent positive or pertinent negative responses have been documented in the HPI. Past Medical History Past Medical History: Coronary Artery Disease (CAD), GERD/Reflux, Hypertension, Myocardial Infarction (OR), Pneumonia Additional Past Medical History / Comment(s): PALPITATIONS, STATED HE" BROKE HIS BACK AGE 14 AND"2 VERTEBRE NATURALLY FUSED TOGETHER"."POSS STROKE 1973 BUT NEVER EVALUATED" Last Myocardial Infarction Date:: UNK History of Any Multi-Drug Resistant Organisms: None Reported, MRSA Date of last positivie culture/infection: 03/31/16 MDRO Source:: Left Foot Past Surgical History: No Surgical Hx Reported Additional Past Surgical History / Comment(s): TOOTH EXTRACTIONS Past Anesthesia/Blood Transfusion Reactions: Motion Sickness Past Psychological History: No Psychological Hx Reported Smoking Status: Current every day smoker Past Alcohol Use History: Daily, Heavy Past Drug Use History: None Reported - Past Family History Mother Family Medical History: Cancer Additional Family Medical History / Comment(s): BREAST CANCER, CERGVICAL CANCER AND PART OF TONGUE AND LT JAW REMOVED Father History Unknown: Yes Additional Family Medical History / Comment(s): DAD LEFT THE HOME WHEN PT WAS 14 <Rosalie Ortiz - Last Filed: 09/22/18 11:15> General Exam Limitations: physical limitation General appearance: alert, in no apparent distress Head exam: Present: atraumatic, normocephalic, normal inspection Eye exam: Present: normal appearance, PERRL, EOMI. Absent: scleral icterus, conjunctival injection, periorbital swelling ENT exam: Present: mucous membranes moist. Absent: normal exam (Pale conjunctiva.) Neck exam: Present: normal inspection. Absent: tenderness, meningismus, lymphadenopathy Respiratory exam: Present: normal lung sounds bilaterally. Absent: respiratory distress, wheezes, rales, rhonchi, stridor Cardiovascular Exam: Present: regular rate, normal rhythm, normal heart sounds. Absent: systolic murmur, diastolic murmur, rubs, gallop, clicks GI/Abdominal exam: Present: soft, normal bowel sounds. Absent: distended, tenderness, guarding, rebound, rigid Rectal exam: Present: heme (+) stool, black stool Extremities exam: Present: full ROM, normal capillary refill, other (Patient has a left below the knee amputee.). Absent: normal inspection, tenderness, pedal edema, joint swelling, calf tenderness Right Ankle exam: Present: swelling (2+ pitting edema bilaterally.). Absent: normal inspection Foot/Toe exam: Absent: normal inspection (Evidence of gangrenous fifth fourth toe. The fifth toe was black necrotic appearing.), full ROM Neurovascular tendon exam: Present: pulse deficit (Unable to obtain Doppler pulses on dorsalis pedis, or posterior tibial pulse, no dopper pulse on the popliteal. Femoral pulses obtained with doppler. ), extremity cold to touch Neurological exam: Present: alert, altered Expanded Patient oriented to: Present: person, place Cranial nerves: EOM's Intact: Normal Upper motor neuron: Pronator Drift: Normal Eye Response: (4) open spontaneously Motor Response: (6) obeys commands Verbal Response: (4) confused conversation Joey Total: 14 Psychiatric exam: Present: normal affect, normal mood Skin exam: Present: warm, dry, intact, normal color. Absent: rash <Rosalie Ortiz - Last Filed: 09/22/18 11:15> - General Exam Comments Initial Comments: 72-year-old male. Patient appears very pale. Confused, alert and oriented to self and place. Does not know date or time. (Rosalie Ortiz) Course <Rosalie Ortiz - Last Filed: 09/22/18 11:15> Vital Signs 09/22/18 09/22/18 09/22/18 08:08 09:09 10:59 Temperature 99.2 F Pulse Rate 115 H 99 89 Respiratory 16 16 16 Rate Blood Pressure 125/47 128/56 136/74 O2 Sat by Pulse 100 100 99 Oximetry - Reevaluation(s) Reevaluation #1: 09/22/18 10:12 Patient is on Avelox hemoglobin of 6.6. Fecal occult was performed and grossly positive. Patient was started on heparin for below the knee ischemia with no palpable pulses were just were Doppler pulses obtained. However this will be discontinued with concern for GI bleed. Patient was given 2 units of PRBCs and one dose of Protonix. Nontender contact patient's assisted living facility with no result. Unaware if Patient is full code. No family is listed as contact. (Rosalie Ortiz) Procedures - Sepsis Sepsis Focused Exam #1 Time Sepsis Criteria Met: 11:14 Sepsis Focused Exam Date: 09/22/18 Sepsis Focused Exam Complete: Yes Vital Signs & RN Notes Reviewed: Yes Capillary Refill: < 2 Seconds: Toes (ischemic right leg with gangreen, left leg amputee. ), > 2 Seconds: Fingers Peripheral Pulses: Absent: Posterior Tibialis (R), Posterior Tibialis (L), Dorsalis Pedis (R), Dorsalis Pedis (L), Normal: Radial (R), Radial (L) Skin Color: Pallor (over entire body, hgb 6.6. ) Respiratory Exam: normal lung sounds Cardiovascular Exam: normal rhythm, tachycardia (112 bpm. ) <Rosalie Ortiz - Last Filed: 09/22/18 11:15> Medical Decision Making <BeverlyNagi rachel - Last Filed: 09/22/18 08:44> - Lab Data Result diagrams: 09/22/18 08:41 09/22/18 08:41 - Radiology Data Radiology results: report reviewed <Rosalie Ortiz - Last Filed: 09/22/18 11:15> - Medical Decision Making I, Sandro Beverly, personally saw and examined the patient. I have reviewed and agree with the PA findings, including all diagnostic interpretations and treatment plans as written unless otherwise stated. I was present for the pritchard portions of any procedures performed and the inclusive time noted for any critical care statement. (Nagi Beverly) Patient is a 72-year-old male who presents emergency department today for evaluation for a fall. Upon arrival he appears very pale. She is conversation. Patient has evidence of gangrenous right foot. The left leg below the knee amputee. History of diabetes. He does not have a doctor. He apparently lives in assisted living facility in [place]. Patient does report he has had some dark stools. Occult is remotely positive with black tarry stool. Patient's hemoglobin is low at 6.6. Reduced want to start the Patient on heparin because dorsalis pedis and popliteal pulses were not detected on Doppler however this will be discontinued with a concern for GI bleed. Patient also was receiving 2 units of PRBCs. He is given IV Protonix. Patient is also acutely septic from the right foot gangrene. White blood cell count is elevated at 27,000 with a lactic acid of 7.9. Patient was started on IV Zosyn and vancomycin. Patient CT of the brain was completed for concern for confusion. This is negative for any acute process. Altered mental status is likely secondary to anemia and sepsis. (DianaRosalie) - Lab Data Lab Results 09/22/18 09/22/18 09/22/18 Range/Units 08:41 08:41 08:41 WBC 27.8 H (3.8-10.6) k/uL RBC 2.11 L (4.30-5.90) m/uL Hgb 6.6 L* (13.0-17.5) gm/dL Hct 20.6 L (39.0-53.0) % MCV 97.4 (80.0-100.0) fL MCH 31.3 (25.0-35.0) pg MCHC 32.2 (31.0-37.0) g/dL RDW 15.4 (11.5-15.5) % Plt Count 292 (150-450) k/uL Neutrophils % 92 % Lymphocytes % 4 % Monocytes % 3 % Eosinophils % 0 % Basophils % 0 % Neutrophils # 25.4 H (1.3-7.7) k/uL Lymphocytes # 1.1 (1.0-4.8) k/uL Monocytes # 0.9 (0-1.0) k/uL Eosinophils # 0.1 (0-0.7) k/uL Basophils # 0.1 (0-0.2) k/uL Manual Slide Review Performed PT (9.0-12.0) sec INR (<1.2) APTT (22.0-30.0) sec Sodium 136 L (137-145) mmol/L Potassium 4.4 (3.5-5.1) mmol/L Chloride 109 H (98-107) mmol/L Carbon Dioxide 10 L (22-30) mmol/L Anion Gap 17 mmol/L BUN 73 H (9-20) mg/dL Creatinine 1.66 H (0.66-1.25) mg/dL Est GFR (CKD-EPI)AfAm 48 (>60 ml/min/1.73 sqM) Est GFR (CKD-EPI)NonAf 41 (>60 ml/min/1.73 sqM) Glucose 282 H (74-99) mg/dL POC Glucose (mg/dL) (75-99) mg/dL POC Glu [employer] Tender ID Plasma Lactic Acid Kyaw 7.2 H* (0.7-2.0) mmol/L Calcium 8.0 L (8.4-10.2) mg/dL Total Bilirubin 0.3 (0.2-1.3) mg/dL AST 18 (17-59) U/L ALT 13 L (21-72) U/L Alkaline Phosphatase 50 (38-126) U/L Creatine Kinase (55-170) U/L Troponin I (0.000-0.034) ng/mL Total Protein 4.9 L (6.3-8.2) g/dL Albumin 2.6 L (3.5-5.0) g/dL 09/22/18 09/22/18 09/22/18 Range/Units 08:41 08:41 08:41 WBC (3.8-10.6) k/uL RBC (4.30-5.90) m/uL Hgb (13.0-17.5) gm/dL Hct (39.0-53.0) % MCV (80.0-100.0) fL MCH (25.0-35.0) pg MCHC (31.0-37.0) g/dL RDW (11.5-15.5) % Plt Count (150-450) k/uL Neutrophils % % Lymphocytes % % Monocytes % % Eosinophils % % Basophils % % Neutrophils # (1.3-7.7) k/uL Lymphocytes # (1.0-4.8) k/uL Monocytes # (0-1.0) k/uL Eosinophils # (0-0.7) k/uL Basophils # (0-0.2) k/uL Manual Slide Review PT 10.3 (9.0-12.0) sec INR 1.0 (<1.2) APTT 20.8 L (22.0-30.0) sec Sodium (137-145) mmol/L Potassium (3.5-5.1) mmol/L Chloride (98-107) mmol/L Carbon Dioxide (22-30) mmol/L Anion Gap mmol/L BUN (9-20) mg/dL Creatinine (0.66-1.25) mg/dL Est GFR (CKD-EPI)AfAm (>60 ml/min/1.73 sqM) Est GFR (CKD-EPI)NonAf (>60 ml/min/1.73 sqM) Glucose (74-99) mg/dL POC Glucose (mg/dL) (75-99) mg/dL POC Glu [employer] Tender ID Plasma Lactic Acid Kyaw (0.7-2.0) mmol/L Calcium (8.4-10.2) mg/dL Total Bilirubin (0.2-1.3) mg/dL AST (17-59) U/L ALT (21-72) U/L Alkaline Phosphatase (38-126) U/L Creatine Kinase 152 (55-170) U/L Troponin I 0.081 H* (0.000-0.034) ng/mL Total Protein (6.3-8.2) g/dL Albumin (3.5-5.0) g/dL 09/22/18 Range/Units 08:44 WBC (3.8-10.6) k/uL RBC (4.30-5.90) m/uL Hgb (13.0-17.5) gm/dL Hct (39.0-53.0) % MCV (80.0-100.0) fL MCH (25.0-35.0) pg MCHC (31.0-37.0) g/dL RDW (11.5-15.5) % Plt Count (150-450) k/uL Neutrophils % % Lymphocytes % % Monocytes % % Eosinophils % % Basophils % % Neutrophils # (1.3-7.7) k/uL Lymphocytes # (1.0-4.8) k/uL Monocytes # (0-1.0) k/uL Eosinophils # (0-0.7) k/uL Basophils # (0-0.2) k/uL Manual Slide Review PT (9.0-12.0) sec INR (<1.2) APTT (22.0-30.0) sec Sodium (137-145) mmol/L Potassium (3.5-5.1) mmol/L Chloride (98-107) mmol/L Carbon Dioxide (22-30) mmol/L Anion Gap mmol/L BUN (9-20) mg/dL Creatinine (0.66-1.25) mg/dL Est GFR (CKD-EPI)AfAm (>60 ml/min/1.73 sqM) Est GFR (CKD-EPI)NonAf (>60 ml/min/1.73 sqM) Glucose (74-99) mg/dL POC Glucose (mg/dL) 353 H (75-99) mg/dL POC Glu [employer] Tender Barb Pina Plasma Lactic Acid Kyaw (0.7-2.0) mmol/L Calcium (8.4-10.2) mg/dL Total Bilirubin (0.2-1.3) mg/dL AST (17-59) U/L ALT (21-72) U/L Alkaline Phosphatase (38-126) U/L Creatine Kinase (55-170) U/L Troponin I (0.000-0.034) ng/mL Total Protein (6.3-8.2) g/dL Albumin (3.5-5.0) g/dL 09/22/18 09:32 EKG performed at 825 shows normal sinus rhythm with sinus arrhythmia, ST-T wave abnormality consider inferior lateral ischemia. Abnormal EKG noted. Ventricular rate of 98 bpm. Interval is 134 ms. QRS duration 8D6 most seconds. QT QTc is 350/446 ms. (Rosalie Ortiz) - Radiology Data Age-related atrophy and chronic small vessel ischemic changes had acute cranial process seen at this time. No evidence for fracture subluxation of cervical spine. Foot x-rays negative for fracture dislocation. Chest x-ray shows biapical opacities right greater than left may be artifactual. Apical lordotic view which could be performed to assess for persistence if there is further clinical concern. (Rosalie Ortiz) Critical Care Time Critical Care Time: Yes Total Critical Care Time: 35 <Rosalie Ortiz - Last Filed: 09/22/18 11:15> Critical Care Time: Crit is 35 minutes of critical care time was with Patient for the patient's care with critical GI bleed, sepsis from right foot gangrene. This time was managed with placing consults to vascular surgery as well as government teacher. (Rosalie Ortiz) Disposition <Nagi Beverly - Last Filed: 09/22/18 08:44> Is patient prescribed a controlled substance at d/c from ED?: No Time of Disposition: 11:15 <Rosalie Ortiz - Last Filed: 09/22/18 11:15> Clinical Impression: Fall, Gangrene of right foot, Ischemia of right lower extremity, Sepsis, Altered mental status, GI bleed, Lactic acidosis, Diabetes Disposition: ADMITTED IP TO THIS HOSP Referrals: None,Stated [Primary Care Provider] - 1-2 days
[2018-09-22] MEDS ORDERED: HEPARIN SODIUM,PORCINE 10,000 UNIT/ML 1 ML VIAL IV ONE (08:43)
[2018-09-22 08:45] LABS: Glucose,Whole Blood 353 mg/dL (75-99)
[2018-09-22] MEDS: SODIUM CHLORIDE 0.9% 500 ML 500 ML IV SCH ×4 (08:54→11:15)
[2018-09-22] MEDS ORDERED: VANCOMYCIN 1,500 MG in SODIUM CHLORIDE 0.9% 250 ML IVPB ONE (09:00)
[2018-09-22] MEDS: HEPARIN SOD,PORK IN 0.45% NACL 25,000 UNIT in 0.45% NACL 1 250ML.BAG IV SCH (09:01)
[2018-09-22 09:29] LABS: Basophils # (A) 0.1 k/uL (0-0.2); Basophils % (A) 0 %; Eosinophils # (A) 0.1 k/uL (0-0.7); Eosinophils % (A) 0 %; HCT 20.6 % (39.0-53.0); Lymphocytes # (A) 1.1 k/uL (1.0-4.8); Lymphocytes % (A) 4 %; MCH 31.3 pg (25.0-35.0); MCHC 32.2 g/dL (31.0-37.0); MCV 97.4 fL (80.0-100.0); Mean Platelet Volume 9.4; Monocytes # (A) 0.9 k/uL (0-1.0); Monocytes % (A) 3 %; Neutrophils # (A) 25.4 k/uL (1.3-7.7); Neutrophils % (A) 92 %; Platelet Count 292 k/uL (150-450); RBC 2.11 m/uL (4.30-5.90); RDW 15.4 % (11.5-15.5); WBC 27.8 k/uL (3.8-10.6)
[2018-09-22 09:32] LABS: HGB 6.6 gm/dL (13.0-17.5)
[2018-09-22 09:35] LABS: Prothrombin Time 10.3 sec (9.0-12.0)
--- NOTE | 2018-09-22 09:44 | XR ---
EXAMINATION TYPE: XR foot complete RT DATE OF EXAM: 09/22/2018 CLINICAL HISTORY: pain TECHNIQUE: Frontal, lateral and oblique images of the right foot are obtained. COMPARISON: None. FINDINGS: There is no acute fracture/dislocation evident. The joint spaces appear within normal fleming its. Soft tissue swelling may reflect underlying cellulitis. IMPRESSION: There is no acute fracture or dislocation. ICD 10 NO FRACTURE, INITIAL EVALUATION
[2018-09-22 09:45] LABS: Albumin 2.6 g/dL (3.5-5.0); Potassium 4.4 mmol/L (3.5-5.1); Total Bilirubin 0.3 mg/dL (0.2-1.3); Total Protein 4.9 g/dL (6.3-8.2)
--- NOTE | 2018-09-22 09:47 | CT ---
EXAMINATION TYPE: CT brain pina cortés DATE OF EXAM: 09/22/2018 COMPARISON: None HISTORY: Pain Unenhanced CT of the brain was performed. The ventricles, basal cisterns and sulci overlying the cerebral convexities demonstrate enlargement. There is no evidence for intracranial hemorrhage or sulcal effacement. Remote insult posterior right MCA territory. There is decreased attenuation about the periventricular white matter and deep white matter of both cerebral hemispheres, compatible with chronic small vessel ischemia. No mass effects are seen. If symptoms persist consider MRI. Osseous calvarium is intact. IMPRESSION: 1. Age related atrophic and chronic small vessel ischemic change without acute intracranial process seen at this time. CT Cervical Spine: Unenhanced CT of the cervical spine was performed with bone and soft tissue window settings submitted . Coronal and sagittal reconstruction is obtained. There is normal alignment and prevertebral soft tissues. No evidence for acute cervical fracture . Scattered degenerative disc disease and spondylosis. Biapical scarring. IMPRESSION: 1. No evidence for acute fracture or subluxation of the cervical spine.
--- NOTE | 2018-09-22 09:49 | XR ---
EXAMINATION TYPE: XR chest 1V portable DATE OF EXAM: 09/22/2018 COMPARISON: 03/31/2016 HISTORY: Fever of unknown origin. TECHNIQUE: Single frontal view of the chest is obtained. FINDINGS: There is no pulmonary vascular congestion, pleural effusion, or pneumothorax seen. The ca rdiac silhouette size is within normal limits. The osseous structures are intact. Biapical opacitie s, right greater than left may be artifactual. [place] multilevel degenerative changes of the thor acic spine. IMPRESSION: Biapical opacities, right greater than left may be artifactual. Apical lordotic view cou ld be performed to assess for persistence if there is further clinical concern.
[2018-09-22 10:26] LABS: Partial Thromboplastin Time 20.8 sec (22.0-30.0)
[2018-09-22] MEDS: PANTOPRAZOLE 40 MG/10 ML VIAL IVP SCH ×2 (11:01→21:11)
[2018-09-22] MEDS ORDERED: LIDOCAINE URO-JET JELLY 2% 5 ML KIT URETHRAL ONE (11:16)
[2018-09-22] MEDS ORDERED: NALOXONE 0.4 MG/ML 1 ML VIAL IV PRN (11:16)
[2018-09-22] MEDS ORDERED: ACETAMINOPHEN TAB 325 MG TAB PO PRN (11:16)
[2018-09-22 11:41] LABS: Appearance,Urine Clear (Clear); Bilirubin,Urine Negative (Negative); Blood,Urine Trace (Negative); Color,Urine Light Yellow; Glucose,Urine (UA) Trace (Negative); Ketones,Urine Negative (Negative); Leukocyte Esterase,Urine Negative (Negative); Mucus,Urine Rare /hpf; Nitrite,Urine Negative (Negative); PH, Urine 5.5 (5.0-8.0); Protein,Urine Trace (Negative); RBC,Urine 4 /hpf (0-5); Specific Gravity,Urine 1.018 (1.001-1.035); Squamous Epithelial Cell,Urine <1 /hpf (0-4); Urobilinogen,Urine <2.0 mg/dL (<2.0); WBC,Urine 3 /hpf (0-5)
[2018-09-22] MEDS: SODIUM CHLORIDE 0.9% 1,000 ML IV SCH (12:25)
[2018-09-22 14:05] LABS: Glucose,Whole Blood 241 mg/dL (75-99)
--- NOTE | 2018-09-22 15:00 | P.CNPUL ---
History of Present Illness Consult date: 09/22/18 Chief complaint: Severe peripheral vascular disease, gangrenous toe, cellulitis History of present illness: 72-year-old male patient came into the hospital because of a fall after having a bowel movement at home. Apparently lives in an assisted living and he was found on the floor to smoke. He was complaining of generalized pain and weakness and the patient was also somewhat confused. For that reason it was brought into the hospital. 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 This was done she years back. He also has diabetes mellitus that seems to be poorly controlled and coronary artery disease . The patient is a chronic smoker and he also drinks alcohol. No previous history of GI bleeds. In the emergency, the patient was found to have a gangrenous right fifth toe in addition to extensive skin maceration over the anterior aspect of the right foot and between his toes mainly in between the third fourth and fifth toe addition to anterior foot cellulitis and marked diminished pulses that were initially absent in the emergency department and subsequently after being transferred to the ICU dorsalis pedis and posterior tibialis pulses were obtained by Doppler signal. He had leukocytosis. Lactic acidosis. He was profoundly anemic. At the later stage he was found to have melanotic stools. His serum bicarb was 10. Creatinine was up to 1.6. Blood sugar was at 282. Hemoglobin is at 6.6. White cell count is at 27. He got moved to the ICU where he was started on IV fluids and the patient currently is receiving maintenance of 100 mL an hour and addition to Zosyn and vancomycin. IV heparin was briefly started and stopped as the patient was found to be GI bleed. He was ordered a total of 2 units of packed RBC. No abdominal distention. No nausea. No vomiting. No hematemesis. He drinks 4 shots of alcohol on a daily basis. He was given 3 L of IV fluid in the emergency department. He has poor vision. He denies having any chest pain or shortness of breath. No cough or sputum production. No altered mentation at this point in time. He is not seeing any physician on a regular basis. In fact he doesn't seem to have seen any physician or seek any medical care over the past 2 years. Review of Systems 14 point review of system was done. The patient is a poor historian and most of the positive findings are mentioned below. HEENT:Denies headache or acute visual change. Denies sinus or mouth discomforts. Denies neck stiffness or pain. Denies significant oral cavity pain. Denies difficulty on swallowing. The patient has impaired vision. This is a chronic problem and there is no acute loss in the vision in both eyes. Lungs: Denies significant shortness of breath, cough, sputum production, or hem optysis. Cardiovascular: Denies significant shortness of breath, chest pain, chest wall pain, orthopnea, dyspnea on exertion, syncope Gastrointestinal:Denies nausea, vomiting, diarrhea, constipation, hematemesis, melena, hematochezia. No no significant change of bowel habit noticed. The patient does not see what is not aware of any GI bleed although this has been documented in the emergency room the patient was found to have melanotic stool. Musculoskeletal: denies significant myalgias or arthralgias. No new joint swelling. Denies new back pain. Skin: As per the HPI as the gangrenous change to his right foot and the patient has also cellulitis Neuro: Altered mentation improved, difficult mobility and gait and is partly related to his application of the left, no headaches, no seizure activity, no change in his speech. Psychiatric: Significant stressors in his life as of late. Has now technologist's diabetes for 10 years. Endocrine: Fatigue and weight loss Constitutional is positive for generalized weakness, weight loss, diminished appetite and poor nutritional status Past Medical History Past Medical History: Coronary Artery Disease (CAD), GERD/Reflux, Hypertension, Myocardial Infarction (AL), Pneumonia Additional Past Medical History / Comment(s): Coronary artery disease, diabetes mellitus, hypertension, questionable alcoholism, severe peripheral vascular disease, 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, chronic back pain, questionable CVA, history of gangrenous left foot post amputation Last Myocardial Infarction Date:: UNK History of Any Multi-Drug Resistant Organisms: None Reported, MRSA Date of last positivie culture/infection: 03/31/16 MDRO Source:: Left Foot Past Surgical History: No Surgical Hx Reported Additional Past Surgical History / Comment(s): TOOTH EXTRACTIONS, below-knee amputation of the left lower extremity Past Anesthesia/Blood Transfusion Reactions: Motion Sickness Past Psychological History: No Psychological Hx Reported Smoking Status: Current every day smoker Past Alcohol Use History: Daily, Heavy Past Drug Use History: None Reported - Past Family History Mother Family Medical History: Cancer Additional Family Medical History / Comment(s): BREAST CANCER, CERGVICAL CANCER AND PART OF TONGUE AND LT JAW REMOVED Father History Unknown: Yes Additional Family Medical History / Comment(s): DAD LEFT THE HOME WHEN PT WAS 14 Medications and Allergies Home Medications Medication Instructions Recorded Confirmed Type Acetaminophen [Tylenol Arthritis] 650 mg PO Q8H PRN 09/22/18 09/22/18 History Allergies Allergy/AdvReac Type Severity Reaction Status Date / Time shellfish derived Allergy Unknown Verified 09/22/18 10:13 Physical Exam Vitals: Vital Signs Temp Pulse Resp BP Pulse Ox 09/22/18 14:10 103 H 27 H 142/67 99 09/22/18 14:00 97.4 F L 101 H 25 H 143/53 100 09/22/18 13:53 105 H 12 09/22/18 13:08 96 16 135/46 96 09/22/18 13:00 98.0 F 96 16 135/46 99 09/22/18 12:50 98.1 F 103 H 18 133/58 97 09/22/18 12:24 98 16 128/74 99 09/22/18 10:59 89 16 136/74 99 09/22/18 09:09 99 16 128/56 100 09/22/18 08:08 99.2 F 115 H 16 125/47 100 Intake and Output 09/21/18 09/22/18 09/22/18 22:59 06:59 14:59 Intake Total 200 Output Total 200 Balance 0 Intake: Intake, IV Titration 200 Amount Sodium Chloride 0.9% 1, 200 000 ml @ 100 mls/hr IV . Q10H [facility] Rx#:[id number] Blood Product 0 Rc Pheresis As-3 Unit 0 [id number] Output: Urine 200 Other: Weight 72.575 kg General appearance: alert, in no apparent distress, the patient has been looking malnourished and cachectic, nonacute distress distress. Answering questions appropriately. Head exam: Present: atraumatic, normocephalic, normal inspection Eye exam: Present: normal appearance, PERRL, EOMI. Absent: scleral icterus, conjunctival injection, periorbital swelling ENT exam: Present: mucous membranes moist. Absent: normal exam (Pale conjunctiva.) The patient has very poor dental hygiene with multiple decayed and dental hygiene is very poor and he has only a few teeth left in his mouth. Neck exam: Present: normal inspection. Absent: tenderness, meningismus, lymphadenopathy Respiratory exam: Present: normal lung sounds bilaterally. Absent: respiratory distress, wheezes, rales, rhonchi, stridor Cardiovascular Exam: Present: regular rate, normal rhythm, normal heart sounds. Absent: systolic murmur, diastolic murmur, rubs, gallop, clicks GI/Abdominal exam: Present: soft, normal bowel sounds. Absent: distended, tenderness, guarding, rebound, rigid Rectal exam: Present: heme (+) stool, black stool Extremities exam: Present: Examination of the left lower extremity shows a below-knee amputation with a healthy stump. Examination of the right leg shows a gangrenous fifth toe which is necrotic and the base of the seems to be ulcerated and the surface covered by purulent material. This area is measuring around 4 cm in size and is essentially extending between the fourth and the fi fth toe. The base of the fourth and seems to be also involved and seems to be somewhat necrotic. There overlying skin is emaciated and there is significant erythema and tenderness upon palpation and a superimposed cellulitis is suspected. The dorsalis pedis and posterior tibialis have been obtained by Doppler signal. No gas. No crepitation. Neurovascular tendon exam: Present: pulse deficit (able to obtain Doppler pulses on dorsalis pedis, or posterior tibial pulse, no dopper pulse on the popliteal. Femoral pulses obtained with doppler. ), extremity cold to touch Neurological exam: Present: alert, no focal neurological deficit. The patient seemed to be confused in the emergency department and seems to be much more Results - Laboratory Findings CBC and BMP: 09/22/18 08:41 09/22/18 08:41 PT/INR, D-dimer PT 10.3 sec (9.0-12.0) 09/22/18 08:41 INR 1.0 (<1.2) 09/22/18 08:41 Abnormal lab findings: Abnormal Labs 09/22/18 09/22/18 09/22/18 08:41 08:41 08:41 WBC 27.8 H RBC 2.11 L Hgb 6.6 L* Hct 20.6 L Neutrophils # 25.4 H APTT Sodium 136 L Chloride 109 H Carbon Dioxide 10 L BUN 73 H Creatinine 1.66 H Glucose 282 H POC Glucose (mg/dL) Plasma Lactic Acid Kyaw 7.2 H* Calcium 8.0 L ALT 13 L Troponin I Total Protein 4.9 L Albumin 2.6 L Urine Protein Urine Glucose (UA) Urine Blood Urine Mucus Crossmatch 09/22/18 09/22/18 09/22/18 08:41 08:41 08:44 WBC RBC Hgb Hct Neutrophils # APTT 20.8 L Sodium Chloride Carbon Dioxide BUN Creatinine Glucose POC Glucose (mg/dL) 353 H Plasma Lactic Acid Kyaw Calcium ALT Troponin I 0.081 H* Total Protein Albumin Urine Protein Urine Glucose (UA) Urine Blood Urine Mucus Crossmatch 09/22/18 09/22/18 09/22/18 09:53 11:14 13:31 WBC RBC Hgb Hct Neutrophils # APTT Sodium Chloride Carbon Dioxide BUN Creatinine Glucose POC Glucose (mg/dL) Plasma Lactic Acid Kyaw 2.1 H* Calcium ALT Troponin I Total Protein Albumin Urine Protein Trace H Urine Glucose (UA) Trace H Urine Blood Trace H Urine Mucus Rare H Crossmatch See Detail 09/22/18 13:54 WBC RBC Hgb Hct Neutrophils # APTT Sodium Chloride Carbon Dioxide BUN Creatinine Glucose POC Glucose (mg/dL) 241 H Plasma Lactic Acid Kyaw Calcium ALT Troponin I Total Protein Albumin Urine Protein Urine Glucose (UA) Urine Blood Urine Mucus Crossmatch Assessment and Plan Plan: 1 gangrenous right fifth toe with ulceration of the toe base in addition to infection as purulent material is covered in the ulcer, in addition to a Lantus of the right foot. Patient has had a similar finding on the left with gangrene and MRSA infection back in 2016 and the patient underwent a below-knee amputation of the left lower extremity. He has severe peripheral vascular disease in addition to diabetes mellitus. Possible today right foot that extremely diminished. Obtain by Doppler signal. 2 cellulitis of the right foot 3 acute leukocytosis 4 acute GI bleeding as the patient has melanotic stool and hemoglobin is down to 6.6 and the patient is a 62 units of packed RBC 5 severe peripheral vascular disease 6 below-knee amputation of the left lower extremity for complications of gangrene of the left foot and ulceration and infection 7 hypertension 8 smoker 9 alcoholism 10 diabetes mellitus type 2 with complications, poorly controlled 11 acute metabolic acidosis with lactic acidosis of 7.2 which improved subsequently down to 2.1 Plan Admit to the ICU. 3 L of IV fluid was given. Lactic acid levels are improved. Continue maintenance fluid. Transfuse a total of 2 units of packed RBC. IV Protonix. GI consultation. Vascular surgery consultation to monitor the right foot findings and monitor the pulses. Obtain wound cultures. The patient has been infected with MRSA in the past and for that reason we'll suggest a combination of Zosyn and vancomycin. Local wound care with nonstick Vaseline dressing. We'll start the patient on Lantus 20 units and cover him with a sinus care coverage. No anticoagulation for now. He will likely need amputation of the toes at the later stage and for that reason ASCUS surgery will be consulted. Smoking cessation counseling was done. Prognosis poor. Based on performance and functional status is poor. His medical follow-up is also extremely poor. We'll follow.
[2018-09-22 16:21] LABS: Glucose,Whole Blood 167 mg/dL (75-99)
[2018-09-22] MEDS: INSULIN ASPART (NovoLOG) 100 UNIT/ML VIAL SQ SCH ×2 (16:50→21:05)
--- NOTE | 2018-09-22 17:00 | P.GSCN ---
History of Present Illness Consult date: 09/22/18 Reason for Consult: Right lower extremity wounds, cellulitis History of present illness: This is a 72-year-old male who was brought into the hospital for a fall after having a bowel movement while he was at home. He lives in a assisted living facility, where he has lived for the past 5 or so years. He has a past medical history of a left below-knee amputation for wet gangrene and peripheral arterial disease. He has poorly controlled diabetes mellitus, coronary artery disease, chronic tobacco abuse, chronic alcohol abuse, history of ND, hypertension, history of pneumonia. Workup in the ER revealed a hemoglobin of 6.6 and elevated white count. At the time of evaluation in the ER, while doing physical exam and removing us oxidated find areas of cellulitis and wound of his right lower extremity more notably between the fourth and fifth digits. The patient denies any pain in this area. When questioned he states he has had this problem in this leg for many months. This was not the reason he came to the emergency room. He denies any fevers, chills, nausea, vomiting, diarrhea or pain in his extremities. Past Medical History Past Medical History: Coronary Artery Disease (CAD), GERD/Reflux, Hypertension, Myocardial Infarction (ND), Pneumonia Additional Past Medical History / Comment(s): Coronary artery disease, diabetes mellitus, hypertension, questionable alcoholism, severe peripheral vascular disease, 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, chronic back pain, questionable CVA, history of gangrenous left foot post amputation Last Myocardial Infarction Date:: UNK History of Any Multi-Drug Resistant Organisms: None Reported, MRSA Year Discovered:: 03/31/16 MDRO Source:: Left Foot Past Surgical History: No Surgical Hx Reported Additional Past Surgical History / Comment(s): TOOTH EXTRACTIONS, below-knee amputation of the left lower extremity Past Anesthesia/Blood Transfusion Reactions: Motion Sickness Smoking Status: Current every day smoker - Past Family History Mother Family Medical History: Cancer Additional Family Medical History / Comment(s): BREAST CANCER, CERVICAL CANCER AND PART OF TONGUE AND LT JAW REMOVED Father History Unknown: Yes Additional Family Medical History / Comment(s): DAD LEFT THE HOME WHEN PT WAS 14 Medications and Allergies Home Medications Medication Instructions Recorded Confirmed Type Acetaminophen [Tylenol Arthritis] 650 mg PO Q8H PRN 07/26/19 07/26/19 History Allergies Allergy/AdvReac Type Severity Reaction Status Date / Time shellfish derived Allergy Unknown Verified 09/22/18 10:13 Surgical - Exam Vital Signs Temp Pulse Resp BP Pulse Ox 99.2 F 115 H 16 125/47 100 09/22/18 08:08 09/22/18 08:08 09/22/18 08:08 09/22/18 08:08 09/22/18 08:08 Patient fidgety in ICU bed, no acute distress, receiving 1 unit PRBC HEENT is normocephalic, atraumatic, extraocular motion intact Heart regular No respiratory distress, barrel chested Abdomen soft, nontender, nondistended. No pulsatile masses Left lower extremity below-knee amputation well healed Right lower extremity edema, cellulitis at the dorsal portion of the lateral foot. There is maceration and some sloughing with areas of necrosis between the third, fourth and fifth toes Palpable femoral pulses bilaterally. On the right there is a monophasic dorsa lis pedis, no posterior tibial identified. Motor sensory remains intact of the right foot Results - Labs 09/22/18 08:41 09/22/18 08:41 Abnormal Lab Results - Last 24 Hours (Table) 09/22/18 09/22/18 09/22/18 Range/Units 08:41 08:41 08:41 WBC 27.8 H (3.8-10.6) k/uL RBC 2.11 L (4.30-5.90) m/uL Hgb 6.6 L* (13.0-17.5) gm/dL Hct 20.6 L (39.0-53.0) % Neutrophils # 25.4 H (1.3-7.7) k/uL APTT (22.0-30.0) sec Sodium 136 L (137-145) mmol/L Chloride 109 H (98-107) mmol/L Carbon Dioxide 10 L (22-30) mmol/L BUN 73 H (9-20) mg/dL Creatinine 1.66 H (0.66-1.25) mg/dL Glucose 282 H (74-99) mg/dL POC Glucose (mg/dL) (75-99) mg/dL Plasma Lactic Acid Kyaw 7.2 H* (0.7-2.0) mmol/L Calcium 8.0 L (8.4-10.2) mg/dL ALT 13 L (21-72) U/L Troponin I (0.000-0.034) ng/mL Total Protein 4.9 L (6.3-8.2) g/dL Albumin 2.6 L (3.5-5.0) g/dL Urine Protein (Negative) Urine Glucose (UA) (Negative) Urine Blood (Negative) Urine Mucus (None) /hpf Crossmatch 09/22/18 09/22/18 09/22/18 Range/Units 08:41 08:41 08:44 WBC (3.8-10.6) k/uL RBC (4.30-5.90) m/uL Hgb (13.0-17.5) gm/dL Hct (39.0-53.0) % Neutrophils # (1.3-7.7) k/uL APTT 20.8 L (22.0-30.0) sec Sodium (137-145) mmol/L Chloride (98-107) mmol/L Carbon Dioxide (22-30) mmol/L BUN (9-20) mg/dL Creatinine (0.66-1.25) mg/dL Glucose (74-99) mg/dL POC Glucose (mg/dL) 353 H (75-99) mg/dL Plasma Lactic Acid Kyaw (0.7-2.0) mmol/L Calcium (8.4-10.2) mg/dL ALT (21-72) U/L Troponin I 0.081 H* (0.000-0.034) ng/mL Total Protein (6.3-8.2) g/dL Albumin (3.5-5.0) g/dL Urine Protein (Negative) Urine Glucose (UA) (Negative) Urine Blood (Negative) Urine Mucus (None) /hpf Crossmatch 09/22/18 09/22/18 09/22/18 Range/Units 09:53 11:14 13:31 WBC (3.8-10.6) k/uL RBC (4.30-5.90) m/uL Hgb (13.0-17.5) gm/dL Hct (39.0-53.0) % Neutrophils # (1.3-7.7) k/uL APTT (22.0-30.0) sec Sodium (137-145) mmol/L Chloride (98-107) mmol/L Carbon Dioxide (22-30) mmol/L BUN (9-20) mg/dL Creatinine (0.66-1.25) mg/dL Glucose (74-99) mg/dL POC Glucose (mg/dL) (75-99) mg/dL Plasma Lactic Acid Kyaw 2.1 H* (0.7-2.0) mmol/L Calcium (8.4-10.2) mg/dL ALT (21-72) U/L Troponin I (0.000-0.034) ng/mL Total Protein (6.3-8.2) g/dL Albumin (3.5-5.0) g/dL Urine Protein Trace H (Negative) Urine Glucose (UA) Trace H (Negative) Urine Blood Trace H (Negative) Urine Mucus Rare H (None) /hpf Crossmatch See Detail 09/22/18 Range/Units 13:54 WBC (3.8-10.6) k/uL RBC (4.30-5.90) m/uL Hgb (13.0-17.5) gm/dL Hct (39.0-53.0) % Neutrophils # (1.3-7.7) k/uL APTT (22.0-30.0) sec Sodium (137-145) mmol/L Chloride (98-107) mmol/L Carbon Dioxide (22-30) mmol/L BUN (9-20) mg/dL Creatinine (0.66-1.25) mg/dL Glucose (74-99) mg/dL POC Glucose (mg/dL) 241 H (75-99) mg/dL Plasma Lactic Acid Kyaw (0.7-2.0) mmol/L Calcium (8.4-10.2) mg/dL ALT (21-72) U/L Troponin I (0.000-0.034) ng/mL Total Protein (6.3-8.2) g/dL Albumin (3.5-5.0) g/dL Urine Protein (Negative) Urine Glucose (UA) (Negative) Urine Blood (Negative) Urine Mucus (None) /hpf Crossmatch Microbiology - Last 24 Hours (Table) 09/22/18 11:14 Urine Culture - Preliminary Urine,Voided Diabetes panel 09/22/18 Range/Units 08:41 Sodium 136 L (137-145) mmol/L Potassium 4.4 (3.5-5.1) mmol/L Chloride 109 H (98-107) mmol/L Carbon Dioxide 10 L (22-30) mmol/L BUN 73 H (9-20) mg/dL Creatinine 1.66 H (0.66-1.25) mg/dL Glucose 282 H (74-99) mg/dL Calcium 8.0 L (8.4-10.2) mg/dL AST 18 (17-59) U/L ALT 13 L (21-72) U/L Alkaline Phosphatase 50 (38-126) U/L Total Protein 4.9 L (6.3-8.2) g/dL Albumin 2.6 L (3.5-5.0) g/dL Calcium panel 09/22/18 Range/Units 08:41 Calcium 8.0 L (8.4-10.2) mg/dL Albumin 2.6 L (3.5-5.0) g/dL Pituitary panel 09/22/18 Range/Units 08:41 Sodium 136 L (137-145) mmol/L Potassium 4.4 (3.5-5.1) mmol/L Chloride 109 H (98-107) mmol/L Carbon Dioxide 10 L (22-30) mmol/L BUN 73 H (9-20) mg/dL Creatinine 1.66 H (0.66-1.25) mg/dL Glucose 282 H (74-99) mg/dL Calcium 8.0 L (8.4-10.2) mg/dL Adrenal panel 09/22/18 Range/Units 08:41 Sodium 136 L (137-145) mmol/L Potassium 4.4 (3.5-5.1) mmol/L Chloride 109 H (98-107) mmol/L Carbon Dioxide 10 L (22-30) mmol/L BUN 73 H (9-20) mg/dL Creatinine 1.66 H (0.66-1.25) mg/dL Glucose 282 H (74-99) mg/dL Calcium 8.0 L (8.4-10.2) mg/dL Total Bilirubin 0.3 (0.2-1.3) mg/dL AST 18 (17-59) U/L ALT 13 L (21-72) U/L Alkaline Phosphatase 50 (38-126) U/L Total Protein 4.9 L (6.3-8.2) g/dL Albumin 2.6 L (3.5-5.0) g/dL - Imaging Additional studies: BLE US reviewed. Multiphasic fem/pop. No identifiable flow at dp/pt Assessment and Plan Assessment: #1 acute GI bleed #2 anemia secondary to #1 #3 right lower extremity gangrene and cellulitis #4 significant chronic peripheral arterial disease #5 uncontrolled diabetes mellitus #6 continued chronic tobacco abuse #7 continued alcoholism #8 hypertension #9 history of ND #10 coronary artery disease #11 acute lactic acidosis, combination hypovolemia, right lower extremity infec tion Plan: At this point the biggest issue appears to be the GI bleed. He is scheduled to undergo EGD in am. His leg shows evidence of chronic ischemia with wounds and cellulitis. He has been initiated on antibiotics. In the next few days he will likely need an angiogram to evaluate blood flow although this does not need to take precedent over the GI bleed. He will likely need some degree of digital amputation versus transmetatarsal amputation versus amputation higher up depending on blood flow. We will continue to follow along. Thank you for allowing me to participate in the evaluation of this patient.
[2018-09-22 18:47] LABS: Anisocytosis Slight; Basophils # (A) 0.1 k/uL (0-0.2); Basophils % (A) 0 %; Eosinophils # (A) 0.1 k/uL (0-0.7); Eosinophils % (A) 0 %; HCT 25.1 % (39.0-53.0); Hypochromasia Moderate; Lymphocytes # (A) 2.5 k/uL (1.0-4.8); Lymphocytes % (A) 13 %; MCH 30.3 pg (25.0-35.0); MCHC 31.7 g/dL (31.0-37.0); MCV 95.7 fL (80.0-100.0); Mean Platelet Volume 9.1; Monocytes % (A) 5 %; Neutrophils # (A) 16.2 k/uL (1.3-7.7); Neutrophils % (A) 81 %; Platelet Count 232 k/uL (150-450); RBC 2.62 m/uL (4.30-5.90); RDW 16.4 % (11.5-15.5); WBC 20.1 k/uL (3.8-10.6)
[2018-09-22] MEDS ORDERED: RX INFO: IV CONTRAST WAS GIVEN 1 EACH MISC MISCELLANE PRN (19:43)
[2018-09-22 20:03] LABS: Glucose,Whole Blood 121 mg/dL (75-99)
[2018-09-22] MEDS: INSULIN DETEMIR (LEVEMIR) 100 UNIT/ML SYR SQ SCH (20:43)
[2018-09-22] MEDS ORDERED: FAMOTIDINE 20 MG/2 ML VIAL IV SCH (21:00)
--- NOTE | 2018-09-22 21:30 | HP ---
HISTORY AND PHYSICAL CHIEF COMPLAINT: Possible sepsis and necrotic ulcer on the right foot. HISTORY OF PRESENT ILLNESS: This is the first known admission for this 72-year-old white male who came in apparently from a care home in the [facility]. He presented with complaint of pain and confusion and he may have had a fall as he was found on the floor. He was evaluated in the emergency room and was found to have a chronic area on the dorsum of the right foot extending into the toes. He also has a left [id number] amputation. Apparently has a prior history of coronary artery disease, hypertension, GERD, and myocardial infarction. He may have had a stroke, but it is not certain. He apparently had a fracture of the spine when he was a youngster. He continues to smoke and has been a heavy drinker in the past. Laboratory studies in the ER revealed a lactic acid of 2.1 and his blood sugar [place] 241[place] [address] with a hemoglobin of 6.6 and a BUN was 73 with a creatinine of 1.66 and GFR 41. He had blood sugars 353 in the emergency room. Lactic acid started out 7.2 and dropped to 2.1. His troponin was also slightly elevated. Urine was clear. REVIEW OF SYSTEMS: Cannot be reliably obtained because of his confusion. PHYSICAL EXAM: Blood pressure 124/67, pulse of 90, respirations of 18. He is afebrile. GENERAL: He appeared to be disheveled, dehydrated, pale. Head, ears, eyes, nose, mouth, and throat were normal. Neck veins could not be assessed. Chest is clear. Cardiac exam demonstrated what sounded like sinus tachycardia. Abdomen is soft and nontender. Extremities demonstrated a left BK amputation and he had a necrotic ulcer on the distal dorsal right foot extending into the toes. IMPRESSION: 1. Septicemia. 2. Necrotic infected ulcer on the dorsum of the right foot. 3. Probable dementia. 4. Delirium. 5. Elevated blood sugar. 6. Renal failure. 7. Left below knee amputation. PLAN: 1. Bed rest. 2. IV fluids. 3. ICU care. 4. Surgery consult. 5. Rehydration. 6. Consult with Cardiology, General surgery and Nephrology. 7. He will also be seen by Infectious Disease. MMODL / IJN: [id number] /
--- NOTE | 2018-09-22 22:50 | P.CONS ---
History of Present Illness - Reason for Consult Consult date: 09/22/18 Right fifth toe gangrene Requesting physician: Wilmer Hawk - Chief Complaint Fall, non-healing wound to the right fifth toe for more than a month - History of Present Illness Patient is a 72-year-old male with past medical history significant for peripheral vascular disease this patient who did have a gangrenous left foot status post left below the knee but patient, patient also have a wound on his right fifth toe that he apparently develop about a month ago with no clear history of any trauma patient said he has been taking care of himself by cleaning it with peroxide and applying some antibacterial cream, patient apparently did have a fall after he did have a bowel movement at the assisted living with the patient has been living for the last 5 years patient was on the floor and subsequently has been brought to [facility] ER patient was noticed to be hypotensive requiring multiple fluid boluses he also have elevated white count of 27,000 he was noticed to have wet gangrene of his right fifth toe, patient did received a dose of Zosyn he was started on vancomycin subsequently has been admitted to the ICU infectious disease was consulted for further recommendation regarding antibiotic therapy, patient currently denies having any pain to his right fifth toe area or any pain in his leg no abdominal pain and some nausea but no vomiting no diarrhea and no urinary symptoms Review of Systems Positive points has been mentioned in HPI rest of the systems are negative Past Medical History Past Medical History: Coronary Artery Disease (CAD), GERD/Reflux, Hypertension, Myocardial Infarction ([place]), Pneumonia Additional Past Medical History / Comment(s): Coronary artery disease, diabetes mellitus, hypertension, questionable alcoholism, severe peripheral vascular disease, 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, chronic back pain, q uestionable CVA, history of gangrenous left foot post amputation Last Myocardial Infarction Date:: UNK History of Any Multi-Drug Resistant Organisms: None Reported, MRSA Year Discovered:: 03/31/16 MDRO Source:: Left Foot Past Surgical History: No Surgical Hx Reported Additional Past Surgical History / Comment(s): TOOTH EXTRACTIONS, below-knee amputation of the left lower extremity Past Anesthesia/Blood Transfusion Reactions: Motion Sickness Smoking Status: Current every day smoker - Past Family History Mother Family Medical History: Cancer Additional Family Medical History / Comment(s): BREAST CANCER, CERVICAL CANCER AND PART OF TONGUE AND LT JAW REMOVED Father History Unknown: Yes Additional Family Medical History / Comment(s): DAD LEFT THE HOME WHEN PT WAS 14 Medications and Allergies Home Medications Medication Instructions Recorded Confirmed Type Acetaminophen [Tylenol Arthritis] 650 mg PO Q8H PRN 09/22/18 09/22/18 History Allergies Allergy/AdvReac Type Severity Reaction Status Date / Time shellfish derived Allergy Unknown Verified 09/22/18 10:13 Physical Exam Vitals: Vital Signs Temp Pulse Resp BP Pulse Ox 09/22/18 16:00 98.5 F 100 23 125/53 99 09/22/18 15:30 98.5 F 90 18 124/67 99 09/22/18 15:11 124/67 09/22/18 15:10 97.7 F 101 H 28 H 130/75 96 09/22/18 15:05 98.6 F 108 H 24 130/75 98 09/22/18 15:00 98.6 F 97 29 H 130/68 98 09/22/18 14:30 105 H 14 128/76 99 09/22/18 14:10 103 H 27 H 142/67 99 09/22/18 14:00 97.4 F L 101 H 25 H 143/53 100 09/22/18 13:53 105 H 12 09/22/18 13:08 96 16 135/46 96 09/22/18 13:00 98.0 F 96 16 135/46 99 09/22/18 12:50 98.1 F 103 H 18 133/58 97 09/22/18 12:24 98 16 128/74 99 09/22/18 10:59 89 16 136/74 99 09/22/18 09:09 99 16 128/56 100 09/22/18 08:08 99.2 F 115 H 16 125/47 100 Intake and Output 09/22/18 09/22/18 09/22/18 06:59 14:59 22:59 Intake Total 200 510 Output Total 200 275 Balance 0 235 Intake: Intake, IV Titration 200 200 Amount Sodium Chloride 0.9% 1, 200 200 000 ml @ 100 mls/hr IV . Q10H [facility] Rx#:[id number] Blood Product 0 310 Rc As-1 Unit 0 [id number] Rc Pheresis As-3 Unit 0 310 [id number] Output: Urine 200 275 Other: Weight 72.575 kg GENERAL DESCRIPTION: Elderly male lying in bed, no distress. No tachypnea or accessory muscle of respiration use. HEENT: Shows Pallor , no scleral icterus. Oral mucous membrane is dry. No pharyngeal erythema or thrush NECK: Trachea central, no thyromegaly. LUNGS: Unlabored breathing. Clear to auscultation anteriorly. No wheeze or crackle. HEART: S1, S2, regular rate and rhythm. No loud murmur ABDOMEN: Soft, no tenderness , guarding or rigidity, no organomegaly EXTREMITIES: Right fifth toe wet gangrene with purulent and maceration in the fourth toe web SKIN: No rash, no masses palpable. NEUROLOGICAL: The patient is awake, alert, oriented x3, mood and affect normal. Results CBC & Chem 7: 09/22/18 18:34 09/22/18 08:41 Labs: Abnormal Lab Results - Last 24 Hours (Table) 09/22/18 09/22/18 09/22/18 Range/Units 08:41 08:41 08:41 WBC 27.8 H (3.8-10.6) k/uL RBC 2.11 L (4.30-5.90) m/uL Hgb 6.6 L* (13.0-17.5) gm/dL Hct 20.6 L (39.0-53.0) % Neutrophils # 25.4 H (1.3-7.7) k/uL APTT (22.0-30.0) sec Sodium 136 L (137-145) mmol/L Chloride 109 H (98-107) mmol/L Carbon Dioxide 10 L (22-30) mmol/L BUN 73 H (9-20) mg/dL Creatinine 1.66 H (0.66-1.25) mg/dL Glucose 282 H (74-99) mg/dL POC Glucose (mg/dL) (75-99) mg/dL Plasma Lactic Acid Kyaw 7.2 H* (0.7-2.0) mmol/L Calcium 8.0 L (8.4-10.2) mg/dL ALT 13 L (21-72) U/L Troponin I (0.000-0.034) ng/mL Total Protein 4.9 L (6.3-8.2) g/dL Albumin 2.6 L (3.5-5.0) g/dL Urine Protein (Negative) Urine Glucose (UA) (Negative) Urine Blood (Negative) Urine Mucus (None) /hpf Crossmatch 09/22/18 09/22/18 09/22/18 Range/Units 08:41 08:41 08:44 WBC (3.8-10.6) k/uL RBC (4.30-5.90) m/uL Hgb (13.0-17.5) gm/dL Hct (39.0-53.0) % Neutrophils # (1.3-7.7) k/uL APTT 20.8 L (22.0-30.0) sec Sodium (137-145) mmol/L Chloride (98-107) mmol/L Carbon Dioxide (22-30) mmol/L BUN (9-20) mg/dL Creatinine (0.66-1.25) mg/dL Glucose (74-99) mg/dL POC Glucose (mg/dL) 353 H (75-99) mg/dL Plasma Lactic Acid Kyaw (0.7-2.0) mmol/L Calcium (8.4-10.2) mg/dL ALT (21-72) U/L Troponin I 0.081 H* (0.000-0.034) ng/mL Total Protein (6.3-8.2) g/dL Albumin (3.5-5.0) g/dL Urine Protein (Negative) Urine Glucose (UA) (Negative) Urine Blood (Negative) Urine Mucus (None) /hpf Crossmatch 09/22/18 09/22/18 09/22/18 Range/Units 09:53 11:14 13:31 WBC (3.8-10.6) k/uL RBC (4.30-5.90) m/uL Hgb (13.0-17.5) gm/dL Hct (39.0-53.0) % Neutrophils # (1.3-7.7) k/uL APTT (22.0-30.0) sec Sodium (137-145) mmol/L Chloride (98-107) mmol/L Carbon Dioxide (22-30) mmol/L BUN (9-20) mg/dL Creatinine (0.66-1.25) mg/dL Glucose (74-99) mg/dL POC Glucose (mg/dL) (75-99) mg/dL Plasma Lactic Acid Kyaw 2.1 H* (0.7-2.0) mmol/L Calcium (8.4-10.2) mg/dL ALT (21-72) U/L Troponin I (0.000-0.034) ng/mL Total Protein (6.3-8.2) g/dL Albumin (3.5-5.0) g/dL Urine Protein Trace H (Negative) Urine Glucose (UA) Trace H (Negative) Urine Blood Trace H (Negative) Urine Mucus Rare H (None) /hpf Crossmatch See Detail 09/22/18 09/22/18 Range/Units 13:54 16:10 WBC (3.8-10.6) k/uL RBC (4.30-5.90) m/uL Hgb (13.0-17.5) gm/dL Hct (39.0-53.0) % Neutrophils # (1.3-7.7) k/uL APTT (22.0-30.0) sec Sodium (137-145) mmol/L Chloride (98-107) mmol/L Carbon Dioxide (22-30) mmol/L BUN (9-20) mg/dL Creatinine (0.66-1.25) mg/dL Glucose (74-99) mg/dL POC Glucose (mg/dL) 241 H 167 H (75-99) mg/dL Plasma Lactic Acid Kyaw (0.7-2.0) mmol/L Calcium (8.4-10.2) mg/dL ALT (21-72) U/L Troponin I (0.000-0.034) ng/mL Total Protein (6.3-8.2) g/dL Albumin (3.5-5.0) g/dL Urine Protein (Negative) Urine Glucose (UA) (Negative) Urine Blood (Negative) Urine Mucus (None) /hpf Crossmatch Microbiology - Last 24 Hours (Table) 09/22/18 11:14 Urine Culture - Preliminary Urine,Voided Assessment and Plan Assessment: 1-patient with right diabetic foot infection card's grade 4 in this patient with a wet gangrene of his right fifth toe. Uncontrolled diabetes mellitus wouldn't cover for both gram-positive as well as gram-negative bacteria for this but gangrene 2-uncontrolled diabetes mellitus 3-elevated Creatinine/ borderline kidney function and high risk of nephrotoxicity Plan: 1--vancomycin pharmacy to dose target trough of 15 while watching her kidney function and Vanco trough closely 2-cefepime 2 g every 12 hr 3-gentle IV fluid 4-dry protective dressing to the right fifth toe we will follow on clinical condition and culture to further adjust medication if needed Thank you for this consultation will follow this patient along with you Time with Patient: Greater than 30
[2018-09-23] MEDS ORDERED: VANCOMYCIN 1,250 MG in SODIUM CHLORIDE 0.9% 250 ML IVPB SCH ×2
[2018-09-23] MEDS: INSULIN ASPART (NovoLOG) 100 UNIT/ML VIAL SQ SCH ×6 (00:01→22:04)
[2018-09-23] MEDS: SODIUM CHLORIDE 0.9% 1,000 ML IV SCH ×3 (00:02→17:49)
[2018-09-23 00:03] LABS: Glucose,Whole Blood 141 mg/dL (75-99)
[2018-09-23 00:38] LABS: Hemoglobin A1C 6.7 % (4.0-6.0)
[2018-09-23 01:06] LABS: Anisocytosis Slight; Basophils # (A) 0.1 k/uL (0-0.2); Basophils % (A) 0 %; Eosinophils # (A) 0.1 k/uL (0-0.7); Eosinophils % (A) 0 %; HCT 23.8 % (39.0-53.0); HGB 7.6 gm/dL (13.0-17.5); Lymphocytes # (A) 2.6 k/uL (1.0-4.8); Lymphocytes % (A) 14 %; MCH 29.6 pg (25.0-35.0); MCV 92.5 fL (80.0-100.0); Mean Platelet Volume 8.8; Monocytes # (A) 1.1 k/uL (0-1.0); Monocytes % (A) 6 %; Neutrophils # (A) 14.4 k/uL (1.3-7.7); Neutrophils % (A) 78 %; Platelet Count 200 k/uL (150-450); RBC 2.57 m/uL (4.30-5.90); RDW 16.1 % (11.5-15.5); WBC 18.4 k/uL (3.8-10.6)
[2018-09-23] MEDS: HEPARIN SOD,PORK IN 0.45% NACL 25,000 UNIT in 0.45% NACL 1 250ML.BAG IV SCH (03:27)
[2018-09-23] MEDS: MORPHINE SULFATE 4 MG/ML SYRINGE IV PRN (05:04)
[2018-09-23 05:10] LABS: Glucose,Whole Blood 105 mg/dL (75-99)
[2018-09-23 05:16] LABS: Anisocytosis Slight; Basophils # (A) 0.1 k/uL (0-0.2); Basophils % (A) 1 %; Eosinophils # (A) 0.1 k/uL (0-0.7); Eosinophils % (A) 1 %; HCT 23.5 % (39.0-53.0); HGB 7.2 gm/dL (13.0-17.5); Lymphocytes # (A) 2.3 k/uL (1.0-4.8); Lymphocytes % (A) 13 %; MCH 28.3 pg (25.0-35.0); MCHC 30.4 g/dL (31.0-37.0); MCV 93.2 fL (80.0-100.0); Mean Platelet Volume 8.3; Monocytes % (A) 6 %; Neutrophils # (A) 13.7 k/uL (1.3-7.7); Neutrophils % (A) 79 %; Platelet Count 216 k/uL (150-450); RBC 2.53 m/uL (4.30-5.90); RDW 16.4 % (11.5-15.5); WBC 17.3 k/uL (3.8-10.6)
[2018-09-23 05:28] LABS: Calcium 8.3 mg/dL (8.4-10.2); Magnesium 2.2 mg/dL (1.6-2.3); Potassium 3.9 mmol/L (3.5-5.1)
[2018-09-23 07:58] LABS: Glucose,Whole Blood 121 mg/dL (75-99)
[2018-09-23] MEDS: CEFEPIME 2 GM in SODIUM CHLORIDE 0.9% 100 ML IVPB SCH ×2 (08:02→22:03)
[2018-09-23] MEDS: PANTOPRAZOLE 40 MG/10 ML VIAL IVP SCH ×2 (08:02→22:16)
[2018-09-23] MEDS ORDERED: PROPOFOL 10 MG/ML 20 ML VIAL IV ONE (08:53)
[2018-09-23] MEDS ORDERED: FAMOTIDINE 20 MG/2 ML VIAL IV SCH (09:00)
[2018-09-23] MEDS ORDERED: IV FLUID CONTINUATION 400 ML IV ONE (09:00)
--- NOTE | 2018-09-23 09:20 | P.CONS ---
History of Present Illness - Reason for Consult Consult date: 09/23/18 Anemia Requesting physician: Kevin Johnston - Chief Complaint Syncope - History of Present Illness 72-year-old male with a medical history significant for peripheral vascular disease, diabetes mellitus, and GERD who presents via EMS after a episode of passing out. The patient reports that it happens after a bowel movement. In the emergency department the patient was found to be hypotensive with a significant leukocytosis. Currently he is found to have wet gangrene in his right fifth toe and is on antibiotic therapy. The patient was also found to be anemic. On questioning he does believe that bowel movements have been dark in color. He denies any history of GI bleed or previous history of anemia. No endoscopy in the past. She does report reflux and frequent daily nausea but denies any hematemesis or coffee-ground emesis. Patient also has a significant history of alcohol consumption. He also reports occasional use of NSAIDs. Laboratory evaluation currently significant for WBC 17.3, hemoglobin 7.2 status post transfusion with initial hemoglobin 6.6 with an MCV of 97.4, platelet count 260,000, INR 1, total bilirubin 0.3, alkaline phosphatase 50, AST 18 and ALT 13. Patient also had a significant lactic acidosis on presentation. Currently he is seen lying comfortably in bed with no acute complaints. Review of Systems REVIEW OF SYSTEMS: CONSTITUTIONAL: Denies any fevers, chills, weight change or fatigue. CARDIOVASCULAR: Denies any chest pain, palpitations high or low blood pressures, but does report passing out prior to presentation. RESPIRATORY: Denies any shortness of breath, hemoptysis or cough. GENITOURINARY: No dysuria or hematuria. MUSCULOSKELETAL: No weakness reported. SKIN: Denies any new rashes or lesions, jaundice or pallor. PSYCHIATRIC: Denies any depression or anxiety. NEUROLOGY: Denies headache, denies any new focal deficits. EARS/NOSE/THROAT: No recent hearing change, congestion, nasal discharge or sore throat. EYES: No pain in eyes, discharge or change in vision. GASTROINTESTINAL: As per HPI. 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, chronic back pain, questionable CVA, history of gangrenous left foot post amputation Last Myocardial Infarction Date:: UNK History of Any Multi-Drug Resistant Organisms: None Reported, MRSA Year Discovered:: 03/31/16 MDRO Source:: Left Foot Past Surgical History: No Surgical Hx Reported Additional Past Surgical History / Comment(s): TOOTH EXTRACTIONS, below-knee amputation of the left lower extremity Past Anesthesia/Blood Transfusion Reactions: Motion Sickness Smoking Status: Current every day smoker - Past Family History Mother Family Medical History: Cancer Additional Family Medical History / Comment(s): BREAST CANCER, CERVICAL CANCER AND PART OF TONGUE AND LT JAW REMOVED Father History Unknown: Yes Additional Family Medical History / Comment(s): DAD LEFT THE HOME WHEN PT WAS 14 Medications and Allergies Home Medications Medication Instructions Recorded Confirmed Type Acetaminophen [Tylenol Arthritis] 650 mg PO Q8H PRN 09/22/18 09/22/18 History Allergies Allergy/AdvReac Type Severity Reaction Status Date / Time shellfish derived Allergy Unknown Verified 09/22/18 10:13 Physical Exam Vitals: Vital Signs Temp Pulse Resp BP Pulse Ox 09/23/18 08:00 98 F 103 H 18 123/82 97 09/23/18 07:00 118 H 26 H 139/69 96 09/23/18 06:00 90 18 137/75 95 09/23/18 05:00 101 H 21 150/68 95 09/23/18 04:00 98.3 F 107 H 17 138/66 96 09/23/18 03:00 96 12 138/66 96 09/23/18 02:00 84 14 132/55 96 09/23/18 01:00 97 18 146/71 97 09/23/18 00:00 98.3 F 98 15 92 L 09/22/18 23:00 104 H 20 126/71 96 09/22/18 22:13 126/71 93 L 09/22/18 22:00 94 16 126/71 96 09/22/18 21:00 92 20 141/64 97 09/22/18 20:00 90 22 130/52 96 09/22/18 19:00 98.0 F 94 22 118/62 97 09/22/18 18:00 86 27 H 133/62 98 09/22/18 17:11 98.4 F 91 22 133/62 100 09/22/18 17:00 104 H 24 147/70 97 09/22/18 16:30 95 12 137/69 98 09/22/18 16:00 98.5 F 100 23 125/53 99 09/22/18 15:30 98.5 F 90 18 124/67 99 09/22/18 15:11 124/67 09/22/18 15:10 97.7 F 101 H 28 H 130/75 96 09/22/18 15:05 98.6 F 108 H 24 130/75 98 09/22/18 15:00 98.6 F 97 29 H 130/68 98 09/22/18 14:30 105 H 14 128/76 99 09/22/18 14:10 103 H 27 H 142/67 99 09/22/18 14:00 97.4 F L 101 H 25 H 143/53 100 09/22/18 13:53 105 H 12 09/22/18 13:08 96 16 135/46 96 09/22/18 13:00 98.0 F 96 16 135/46 99 09/22/18 12:50 98.1 F 103 H 18 133/58 97 09/22/18 12:24 98 16 128/74 99 09/22/18 10:59 89 16 136/74 99 09/22/18 09:09 99 16 128/56 100 Intake and Output 09/22/18 09/23/18 09/23/18 22:59 06:59 14:59 Intake Total 1420 1100 150 Output Total 600 1700 300 Balance 820 -600 -150 Intake: IV 150 Cefepime 2 gm In Sodium 100 Chloride 0.9% 100 ml @ 200 mls/hr IVPB Q12HR [facility] Rx#:[id number] Sodium Chloride 0.9% 1, 50 000 ml @ 100 mls/hr IV . Q10H [facility] Rx#:[id number] Intake, IV Titration 800 1100 Amount Sodium Chloride 0.9% 1, 800 900 000 ml @ 100 mls/hr IV . Q10H [facility] Rx#:[id number] Vancomycin 1,250 mg In 200 Sodium Chloride 0.9% 250 ml @ 125 mls/hr IVPB Q16H [facility] Rx#:[id number] Blood Product 620 Rc As-1 Unit 310 [id number] Rc Pheresis As-3 Unit 310 [id number] Output: Urine 600 1700 300 Other: Voiding Method Urinal Urinal Weight 69.5 kg On physical examination, patient appears comfortable in no apparent distress. HEAD: Normocephalic, atraumatic. EYES: No scleral icterus. No conjunctival injection. MOUTH: No lesions, tongue midline. NECK: Trachea midline, no gross abnormalities. CHEST: Decreased air entry bilaterally. HEART: Regular rate and rhythm. ABDOMEN: Soft, nontender and nondistended. Bowel sounds are positive. No organomegaly. No guarding or rigidity. EXTREMITIES: Left below the knee amputation, right foot currently wrapped secondary to treatment for what gangrene. SKIN: No rashes, no jaundice. NEUROLOGIC: Alert and oriented x3. No focal deficits. Results CBC & Chem 7: 09/23/18 04:26 09/23/18 04:26 Labs: Abnormal Lab Results - Last 24 Hours (Table) 09/22/18 09/22/18 09/22/18 Range/Units 08:41 08:41 08:41 WBC 27.8 H (3.8-10.6) k/uL RBC 2.11 L (4.30-5.90) m/uL Hgb 6.6 L* (13.0-17.5) gm/dL Hct 20.6 L (39.0-53.0) % MCHC (31.0-37.0) g/dL RDW (11.5-15.5) % Neutrophils # 25.4 H (1.3-7.7) k/uL Monocytes # (0-1.0) k/uL APTT (22.0-30.0) sec Sodium 136 L (137-145) mmol/L Chloride 109 H (98-107) mmol/L Carbon Dioxide 10 L (22-30) mmol/L BUN 73 H (9-20) mg/dL Creatinine 1.66 H (0.66-1.25) mg/dL Glucose 282 H (74-99) mg/dL POC Glucose (mg/dL) (75-99) mg/dL Hemoglobin A1c (4.0-6.0) % Plasma Lactic Acid Kyaw 7.2 H* (0.7-2.0) mmol/L Calcium 8.0 L (8.4-10.2) mg/dL ALT 13 L (21-72) U/L Troponin I (0.000-0.034) ng/mL Total Protein 4.9 L (6.3-8.2) g/dL Albumin 2.6 L (3.5-5.0) g/dL Urine Protein (Negative) Urine Glucose (UA) (Negative) Urine Blood (Negative) Urine Mucus (None) /hpf Crossmatch 09/22/18 09/22/18 09/22/18 Range/Units 08:41 08:41 09:53 WBC (3.8-10.6) k/uL RBC (4.30-5.90) m/uL Hgb (13.0-17.5) gm/dL Hct (39.0-53.0) % MCHC (31.0-37.0) g/dL RDW (11.5-15.5) % Neutrophils # (1.3-7.7) k/uL Monocytes # (0-1.0) k/uL APTT 20.8 L (22.0-30.0) sec Sodium (137-145) mmol/L Chloride (98-107) mmol/L Carbon Dioxide (22-30) mmol/L BUN (9-20) mg/dL Creatinine (0.66-1.25) mg/dL Glucose (74-99) mg/dL POC Glucose (mg/dL) (75-99) mg/dL Hemoglobin A1c (4.0-6.0) % Plasma Lactic Acid Kyaw (0.7-2.0) mmol/L Calcium (8.4-10.2) mg/dL ALT (21-72) U/L Troponin I 0.081 H* (0.000-0.034) ng/mL Total Protein (6.3-8.2) g/dL Albumin (3.5-5.0) g/dL Urine Protein (Negative) Urine Glucose (UA) (Negative) Urine Blood (Negative) Urine Mucus (None) /hpf Crossmatch See Detail 09/22/18 09/22/18 09/22/18 Range/Units 11:14 13:31 13:54 WBC (3.8-10.6) k/uL RBC (4.30-5.90) m/uL Hgb (13.0-17.5) gm/dL Hct (39.0-53.0) % MCHC (31.0-37.0) g/dL RDW (11.5-15.5) % Neutrophils # (1.3-7.7) k/uL Monocytes # (0-1.0) k/uL APTT (22.0-30.0) sec Sodium (137-145) mmol/L Chloride (98-107) mmol/L Carbon Dioxide (22-30) mmol/L BUN (9-20) mg/dL Creatinine (0.66-1.25) mg/dL Glucose (74-99) mg/dL POC Glucose (mg/dL) 241 H (75-99) mg/dL Hemoglobin A1c (4.0-6.0) % Plasma Lactic Acid Kyaw 2.1 H* (0.7-2.0) mmol/L Calcium (8.4-10.2) mg/dL ALT (21-72) U/L Troponin I (0.000-0.034) ng/mL Total Protein (6.3-8.2) g/dL Albumin (3.5-5.0) g/dL Urine Protein Trace H (Negative) Urine Glucose (UA) Trace H (Negative) Urine Blood Trace H (Negative) Urine Mucus Rare H (None) /hpf Crossmatch 09/22/18 09/22/18 09/22/18 Range/Units 16:10 18:34 18:34 WBC 20.1 H (3.8-10.6) k/uL RBC 2.62 L (4.30-5.90) m/uL Hgb 8.0 L (13.0-17.5) gm/dL Hct 25.1 L (39.0-53.0) % MCHC (31.0-37.0) g/dL RDW 16.4 H (11.5-15.5) % Neutrophils # 16.2 H (1.3-7.7) k/uL Monocytes # (0-1.0) k/uL APTT (22.0-30.0) sec Sodium (137-145) mmol/L Chloride (98-107) mmol/L Carbon Dioxide (22-30) mmol/L BUN (9-20) mg/dL Creatinine (0.66-1.25) mg/dL Glucose (74-99) mg/dL POC Glucose (mg/dL) 167 H (75-99) mg/dL Hemoglobin A1c 6.7 H (4.0-6.0) % Plasma Lactic Acid Kyaw (0.7-2.0) mmol/L Calcium (8.4-10.2) mg/dL ALT (21-72) U/L Troponin I (0.000-0.034) ng/mL Total Protein (6.3-8.2) g/dL Albumin (3.5-5.0) g/dL Urine Protein (Negative) Urine Glucose (UA) (Negative) Urine Blood (Negative) Urine Mucus (None) /hpf Crossmatch 09/22/18 09/22/18 09/23/18 Range/Units 19:52 23:51 00:25 WBC 18.4 H (3.8-10.6) k/uL RBC 2.57 L (4.30-5.90) m/uL Hgb 7.6 L (13.0-17.5) gm/dL Hct 23.8 L (39.0-53.0) % MCHC (31.0-37.0) g/dL RDW 16.1 H (11.5-15.5) % Neutrophils # 14.4 H (1.3-7.7) k/uL Monocytes # 1.1 H (0-1.0) k/uL APTT (22.0-30.0) sec Sodium (137-145) mmol/L Chloride (98-107) mmol/L Carbon Dioxide (22-30) mmol/L BUN (9-20) mg/dL Creatinine (0.66-1.25) mg/dL Glucose (74-99) mg/dL POC Glucose (mg/dL) 121 H 141 H (75-99) mg/dL Hemoglobin A1c (4.0-6.0) % Plasma Lactic Acid Kyaw (0.7-2.0) mmol/L Calcium (8.4-10.2) mg/dL ALT (21-72) U/L Troponin I (0.000-0.034) ng/mL Total Protein (6.3-8.2) g/dL Albumin (3.5-5.0) g/dL Urine Protein (Negative) Urine Glucose (UA) (Negative) Urine Blood (Negative) Urine Mucus (None) /hpf Crossmatch 09/23/18 09/23/18 09/23/18 Range/Units 04:26 04:26 04:59 WBC 17.3 H (3.8-10.6) k/uL RBC 2.53 L (4.30-5.90) m/uL Hgb 7.2 L (13.0-17.5) gm/dL Hct 23.5 L (39.0-53.0) % MCHC 30.4 L (31.0-37.0) g/dL RDW 16.4 H (11.5-15.5) % Neutrophils # 13.7 H (1.3-7.7) k/uL Monocytes # (0-1.0) k/uL APTT (22.0-30.0) sec Sodium (137-145) mmol/L Chloride 119 H (98-107) mmol/L Carbon Dioxide 14 L (22-30) mmol/L BUN 57 H (9-20) mg/dL Creatinine (0.66-1.25) mg/dL Glucose (74-99) mg/dL POC Glucose (mg/dL) 105 H (75-99) mg/dL Hemoglobin A1c (4.0-6.0) % Plasma Lactic Acid Kyaw (0.7-2.0) mmol/L Calcium 8.3 L (8.4-10.2) mg/dL ALT (21-72) U/L Troponin I (0.000-0.034) ng/mL Total Protein (6.3-8.2) g/dL Albumin (3.5-5.0) g/dL Urine Protein (Negative) Urine Glucose (UA) (Negative) Urine Blood (Negative) Urine Mucus (None) /hpf Crossmatch 09/23/18 Range/Units 07:47 WBC (3.8-10.6) k/uL RBC (4.30-5.90) m/uL Hgb (13.0-17.5) gm/dL Hct (39.0-53.0) % MCHC (31.0-37.0) g/dL RDW (11.5-15.5) % Neutrophils # (1.3-7.7) k/uL Monocytes # (0-1.0) k/uL APTT (22.0-30.0) sec Sodium (137-145) mmol/L Chloride (98-107) mmol/L Carbon Dioxide (22-30) mmol/L BUN (9-20) mg/dL Creatinine (0.66-1.25) mg/dL Glucose (74-99) mg/dL POC Glucose (mg/dL) 121 H (75-99) mg/dL Hemoglobin A1c (4.0-6.0) % Plasma Lactic Acid Kyaw (0.7-2.0) mmol/L Calcium (8.4-10.2) mg/dL ALT (21-72) U/L Troponin I (0.000-0.034) ng/mL Total Protein (6.3-8.2) g/dL Albumin (3.5-5.0) g/dL Urine Protein (Negative) Urine Glucose (UA) (Negative) Urine Blood (Negative) Urine Mucus (None) /hpf Crossmatch Microbiology - Last 24 Hours (Table) 09/22/18 16:52 Gram Stain - Preliminary Foot - Right Wound Culture - Preliminary 09/22/18 16:50 Anaerobic Culture - Preliminary Foot - Right 09/22/18 11:14 Urine Culture - Preliminary Urine,Voided Chest x-ray: report reviewed (Biapical opacities noted on chest x-ray) Assessment and Plan (1) GI bleed Narrative/Plan: 72-year-old male with multiple medical comorbidities who presents to the hospital for evaluation after fall/syncope. Patient was found to be anemic with stool positive for occult blood. Normocytic indices likely indicate a component of anemia of chronic disease, however patient did report dark stools and NSAID use as well as symptoms of nausea and vomiting and frequent reflux and had stool testing which was positive for occult blood. Concern is for upper GI bleed with differential including peptic ulcer disease, esophagitis, gastritis, AVM or other pathology. Current Visit: Yes Status: Acute Code(s): K92.2 - GASTROINTESTINAL HEMORRHAGE, UNSPECIFIED SNOMED Code(s): 34958841 (2) Anemia associated with acute blood loss Current Visit: Yes Status: Acute Code(s): D62 - ACUTE POSTHEMORRHAGIC ANEMIA SNOMED Code(s): 983719037 (3) Lactic acidosis Current Visit: Yes Status: Acute Code(s): E87.2 - ACIDOSIS SNOMED Code(s): 66166893 (4) Diabetes mellitus type 2 with complications Current Visit: No Status: Acute Code(s): E11.8 - TYPE 2 DIABETES MELLITUS WITH UNSPECIFIED COMPLICATIONS SNOMED Code(s): 95047433 (5) Gangrene of toe Current Visit: No Status: Acute Code(s): I96 - GANGRENE, NOT ELSEWHERE C LASSIFIED SNOMED Code(s): 809732965 Plan: Supportive care Nothing by mouth Protonix IV twice a day Continue to monitor hemoglobin and hematocrit and transfuse as needed Continue to monitor stool output Avoid NSAID use Plan for EGD this morning Thank you for allowing us to participate in the care of the patient we will continue to follow
--- NOTE | 2018-09-23 09:27 | P.PCN ---
Date of Procedure: 09/23/18 Description of Procedure: BRIEF HISTORY: 72-year-old male with a medical history significant for peripheral vascular disease, diabetes mellitus, and GERD who presents via EMS after a episode of passing out after a bowel movement. The patient was also found to be anemic. On questioning he does believe that bowel movements have been dark in color. He denies any history of GI bleed or previous history of anemia. No endoscopy in the past. She does report reflux and frequent daily nausea but denies any hematemesis or coffee-ground emesis. Patient also has a significant history of alcohol consumption. He also reports occasional use of NSAIDs. Laboratory evaluation currently significant for WBC 17.3, hemoglobin 7.2 status post transfusion with initial hemoglobin 6.6 with an MCV of 97.4. PROCEDURE PERFORMED: Esophagogastroduodenoscopy. PREOPERATIVE DIAGNOSIS: Anemia of acute blood loss, melena. ESTIMATED BLOOD LOSS: Minimal. IV sedation per anesthesia. PROCEDURE: After informed consent was obtained, the patient was brought into the endoscopy unit. IV sedation was administered by Anesthesia under continuous monitoring. Initially the Olympus GIF-190 video endoscope was inserted into the mouth. Esophagus intubated without any difficulty. It was gradually advanced into the stomach and duodenum and carefully examined. The bulb and duodenal sweep were significant for a large ulcer encompassing almost the entire duodenal bulb without any active bleeding or other high risk stigmata for bleeding. The scope at this time was withdrawn to the stomach, adequately insufflated with air, and upon careful examination, mucosa of the antrum, body, cardia and the fundus grossly normal. The scope was then withdrawn into the esophagus. Moderate 3 cm hiatal hernia was noted. The GE junction was located at 39 cm from the incisors. The esophagus appeared normal. There were no erosions or ulcerations seen and the patient tolerated the procedure well. IMPRESSION: 1. Large ulcer in the duodenal bulb and sweep without any active bleeding, clots or high risk stigmata for bleeding. 2. Hiatal hernia. RECOMMENDATIONS: The findings of this examination were discussed with the patient. Continue to monitor hemoglobin and hematocrit and transfuse as needed. Continue Protonix 40 mg twice daily. Will add Carafate 3 times a day. Okay for liquids today, but would not advance diet until patient is clinically stable. Patient must avoid all NSAID use. If further bleeding occurs the size and location of the ulcer would make endoscopic intervention difficult and consideration should be for referral to a tertiary center for consideration of CT angiography with coiling or surgical intervention.
--- NOTE | 2018-09-23 10:34 | CT ---
EXAMINATION TYPE: CT angio abd aorta w/Runoff DATE OF EXAM: 09/23/2018 COMPARISON: None. HISTORY: Right sided foot wound. CT DLP: 1570 mGycm, Automated Exposure Control for Dose Reduction was Utilized. CONTRAST: CT scan of the abdomen and pelvis is performed with oral and with IV Contrast, patient injected with 125 mL of Isovue 370. FINDINGS: There is dependent atelectasis in the dependent portions of both lungs. Visualized portions of both lungs are otherwise clear. There is no pleural or pericardial fluid. The heart is not enlarg ed. Within the abdomen, liver and spleen are normal. The gallbladder is mildly distended. Both adrenal glands are normal. There are nonobstructing calculi in both kidneys. There is a 1 cm simple appearing cyst in the mid po lar region of the left kidney. Limited views of the pancreas are unremarkable. There is no significant retroperitoneal, iliac or inguinal adenopathy. Bladder is unremarkable. There are scattered diverticula within the left side of the colon. There is no radiographic evidence of diverticulitis. The appendix is not visualized with certainty. Small bowel loops are normal caliber. No free fluid and no free air is seen. There is mild atheromatous calcification of the lower abdominal aorta and iliac vessels. Both the int ernal and external iliac arteries appear intact. The right superficial femoral artery is occluded at its origin. The right popliteal artery is also oc cluded. There is reconstituted via geniculate collaterals at the level of the knee joint. There is th ree-vessel runoff to the level of the ankle on the right. There is been a lower leg amputation on the left. Facial femoral artery on the left is occluded as it enters the adductor canal. The popliteal arteries reconstitute at the level of the ankle but is very attenuated. There is two-vessel runoff throughout most of the stomach but only 1 vessel runoff to th e distal stump. Physicians percent wedge compression fracture of L4. There is severe degenerative disc disease with a vacuum phenomena present at L2-3. There is an incomplete fusion at T12. IMPRESSION: 1. BILATERAL, NONOBSTRUCTING NEPHROLITHIASIS. 2. MINIMAL, UNCOMPLICATED DIVERTICULOSIS OF THE LEFT-SIDED:. 3. OCCLUSION OF THE RIGHT SUPERFICIAL FEMORAL ARTERY. THE POPLITEAL ARTERY IS RECONSTITUTED VIA GENIC ULATE COLLATERALS. THERE IS THREE-VESSEL RUNOFF TO THE LEVEL OF THE ANKLE. 4. PREVIOUS BELOW-KNEE AMPUTATION ON THE LEFT. 5. ATTENUATION OF THE SUPERFICIAL FEMORAL ARTERY ON THE LEFT WITH THREE-VESSEL RUNOFF IN THE PROXIMAL STOMACH BUT ONLY 1 VESSEL RUNOFF IN THE DISTAL STUMP. 6. 50% WEDGE COMPRESSION FRACTURE OF L4 WITH SEVERE DEGENERATIVE CHANGE AND PARTIAL FUSIONS THROUGHOU T THE VISUALIZED PORTION OF THE SPINE.
[2018-09-23 11:58] LABS: Glucose,Whole Blood 128 mg/dL (75-99)
--- NOTE | 2018-09-23 12:43 | P.PN ---
Subjective Progress Note Date: 09/23/18 72-year-old male patient came into the hospital because of a fall after having a bowel movement at home. Apparently lives in an assisted living and he was found on the floor to smoke. He was complaining of generalized pain and weakness and the patient was also somewhat confused. For that reason it was brought into the hospital. 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 This was done she years back. He also has diabetes mellitus that seems to be poorly controlled and coronary artery disease. The patient is a chronic smoker and he also drinks alcohol. No p revious history of GI bleeds. In the emergency, the patient was found to have a gangrenous right fifth toe in addition to extensive skin maceration over the anterior aspect of the right foot and between his toes mainly in between the third fourth and fifth toe addition to anterior foot cellulitis and marked diminished pulses that were initially absent in the emergency department and subsequently after being transferred to the ICU dorsalis pedis and posterior tibialis pulses were obtained by Doppler signal. He had leukocytosis. Lactic acidosis. He was profoundly anemic. At the later stage he was found to have melanotic stools. His serum bicarb was 10. Creatinine was up to 1.6. Blood s ugar was at 282. Hemoglobin is at 6.6. White cell count is at 27. He got moved to the ICU where he was started on IV fluids and the patient currently is receiving maintenance of 100 mL an hour and addition to Zosyn and vancomycin. IV heparin was briefly started and stopped as the patient was found to be GI bleed. He was ordered a total of 2 units of packed RBC. No abdominal distention. No nausea. No vomiting. No hematemesis. He drinks 4 shots of alcohol on a daily basis. He was given 3 L of IV fluid in the emergency department. He has poor vision. He denies having any chest pain or shortness of breath. No cough or sputum production. No altered mentation at this point in time. He is not seeing any physician on a regular basis. In fact he doesn't seem to have seen any physician or seek any medical care over the past 2 years. On 09/23/2018 I'm seeing this patient for a follow-up. Doing well. Underwent EGD. The patient was found to have a large ulcer in the duodenal bulb and sweep without active bleeding clots or high stigmatic risk for bleeding. As such the patient was brought back to the ICU and she was allowed clear liquid diet. He was also seen by vascular surgery. The CT angiogram of the lower extremities was done and it showed bilateral nonobstructive nephrolithiasis, occlusion of the right superficial femoral artery. The popliteal artery was reconstituted via geniculate collaterals. There is a previously noted below the knee amputation on the left. . Meanwhile, the patient still being treated for cellulitis and necrotic toe and the right foot was also noted. The white cell count is at 17.3. The serum bicarb is up to 14. Renal function is stable. He is awake and alert. No hemodynamic instability. He is receiving IV fluids in the form of normal saline at the rate of 100 mL an hour. He has an adequate urine output. Objective - Vital Signs Vital signs: Vital Signs Temp 98 F 09/23/18 08:00 Pulse 97 09/23/18 11:00 Resp 14 09/23/18 11:00 BP 145/72 09/23/18 11:00 Pulse Ox 98 09/23/18 11:00 Intake & Output 09/22/18 09/23/18 09/23/18 18:59 06:59 18:59 Intake Total 1220 1500 500 Output Total 700 1800 600 Balance 520 -300 -100 Weight 72.575 kg 69.5 kg 69.5 kg Intake: IV 500 Cefepime 2 gm In Sodium 100 Chloride 0.9% 100 ml @ 200 mls/hr IVPB Q12HR MAHENDRA Rx#:[id number] Sodium Chloride 0.9% 1, 350 000 ml @ 100 mls/hr IV . Q10H MAHENDRA Rx#:[id number] Intake, IV Titration 600 1500 Amount Sodium Chloride 0.9% 1, 600 1300 000 ml @ 100 mls/hr IV . Q10H MAHENDRA Rx#:[id number] Vancomycin 1,250 mg In 200 Sodium Chloride 0.9% 250 ml @ 125 mls/hr IVPB Q16H MAHENDRA Rx#:[id number] Blood Product 620 Rc As-1 Unit 310 [id number] Rc Pheresis As-3 Unit 310 [id number] Output: Urine 700 1800 600 Other: Voiding Method Urinal Urinal - Exam General appearance: alert, in no apparent distress, the patient has been looking malnourished and cachectic, nonacute distress distress. Answering questions appropriately. Head exam: Present: atraumatic, normocephalic, normal inspection Eye exam: Present: normal appearance, PERRL, EOMI. Absent: scleral icterus, conjunctival injection, periorbital swelling ENT exam: Present: mucous membranes moist. Absent: normal exam (Pale conjunctiva.) The patient has very poor dental hygiene with multiple decayed and dental hygiene is very poor and he has only a few teeth left in his mouth. Neck exam: Present: normal inspection. Absent: tenderness, meningismus, ly mphadenopathy Respiratory exam: Present: normal lung sounds bilaterally. Absent: respiratory distress, wheezes, rales, rhonchi, stridor Cardiovascular Exam: Present: regular rate, normal rhythm, normal heart sounds. Absent: systolic murmur, diastolic murmur, rubs, gallop, clicks GI/Abdominal exam: Present: soft, normal bowel sounds. Absent: distended, tenderness, guarding, rebound, rigid Rectal exam: Present: heme (+) stool, black stool Extremities exam: Present: Examination of the left lower extremity shows a below-knee amputation with a healthy stump. Examination of the right leg shows a gangrenous fifth toe which is necrotic and the base of the seems to be ulc erated and the surface covered by purulent material. This area is measuring around 4 cm in size and is essentially extending between the fourth and the fifth toe. The base of the fourth and seems to be also involved and seems to be somewhat necrotic. There overlying skin is emaciated and there is significant erythema and tenderness upon palpation and a superimposed cellulitis is suspected. The dorsalis pedis and posterior tibialis have been obtained by Doppler signal. No gas. No crepitation. Neurovascular tendon exam: Present: pulse deficit (able to obtain Doppler pulses on dorsalis pedis, or posterior tibial pulse, no dopper pulse on the popliteal. Femoral pulses obtained with doppler. ), extremity cold to touch Neurological exam: Present: alert, no focal neurological deficit. The patient seemed to be confused in the emergency department and seems to be much more - Labs CBC & Chem 7: 09/23/18 04:26 09/23/18 04:26 Labs: Abnormal Lab Results - Last 24 Hours (Table) 09/22/18 09/22/18 09/22/18 Range/Units 09:53 13:31 13:54 WBC (3.8-10.6) k/uL RBC (4.30-5.90) m/uL Hgb (13.0-17.5) gm/dL Hct (39.0-53.0) % MCHC (31.0-37.0) g/dL RDW (11.5-15.5) % Neutrophils # (1.3-7.7) k/uL Monocytes # (0-1.0) k/uL Chloride (98-107) mmol/L Carbon Dioxide (22-30) mmol/L BUN (9-20) mg/dL POC Glucose (mg/dL) 241 H (75-99) mg/dL Hemoglobin A1c (4.0-6.0) % Plasma Lactic Acid Kyaw 2.1 H* (0.7-2.0) mmol/L Calcium (8.4-10.2) mg/dL Crossmatch See Detail 09/22/18 09/22/18 09/22/18 Range/Units 16:10 18:34 18:34 WBC 20.1 H (3.8-10.6) k/uL RBC 2.62 L (4.30-5.90) m/uL Hgb 8.0 L (13.0-17.5) gm/dL Hct 25.1 L (39.0-53.0) % MCHC (31.0-37.0) g/dL RDW 16.4 H (11.5-15.5) % Neutrophils # 16.2 H (1.3-7.7) k/uL Monocytes # (0-1.0) k/uL Chloride (98-107) mmol/L Carbon Dioxide (22-30) mmol/L BUN (9-20) mg/dL POC Glucose (mg/dL) 167 H (75-99) mg/dL Hemoglobin A1c 6.7 H (4.0-6.0) % Plasma Lactic Acid Kyaw (0.7-2.0) mmol/L Calcium (8.4-10.2) mg/dL Crossmatch 09/22/18 09/22/18 09/23/18 Range/Units 19:52 23:51 00:25 WBC 18.4 H (3.8-10.6) k/uL RBC 2.57 L (4.30-5.90) m/uL Hgb 7.6 L (13.0-17.5) gm/dL Hct 23.8 L (39.0-53.0) % MCHC (31.0-37.0) g/dL RDW 16.1 H (11.5-15.5) % Neutrophils # 14.4 H (1.3-7.7) k/uL Monocytes # 1.1 H (0-1.0) k/uL Chloride (98-107) mmol/L Carbon Dioxide (22-30) mmol/L BUN (9-20) mg/dL POC Glucose (mg/dL) 121 H 141 H (75-99) mg/dL Hemoglobin A1c (4.0-6.0) % Plasma Lactic Acid Kyaw (0.7-2.0) mmol/L Calcium (8.4-10.2) mg/dL Crossmatch 09/23/18 09/23/18 09/23/18 Range/Units 04:26 04:26 04:59 WBC 17.3 H (3.8-10.6) k/uL RBC 2.53 L (4.30-5.90) m/uL Hgb 7.2 L (13.0-17.5) gm/dL Hct 23.5 L (39.0-53.0) % MCHC 30.4 L (31.0-37.0) g/dL RDW 16.4 H (11.5-15.5) % Neutrophils # 13.7 H (1.3-7.7) k/uL Monocytes # (0-1.0) k/uL Chloride 119 H (98-107) mmol/L Carbon Dioxide 14 L (22-30) mmol/L BUN 57 H (9-20) mg/dL POC Glucose (mg/dL) 105 H (75-99) mg/dL Hemoglobin A1c (4.0-6.0) % Plasma Lactic Acid Kyaw (0.7-2.0) mmol/L Calcium 8.3 L (8.4-10.2) mg/dL Crossmatch 09/23/18 09/23/18 Range/Units 07:47 11:47 WBC (3.8-10.6) k/uL RBC (4.30-5.90) m/uL Hgb (13.0-17.5) gm/dL Hct (39.0-53.0) % MCHC (31.0-37.0) g/dL RDW (11.5-15.5) % Neutrophils # (1.3-7.7) k/uL Monocytes # (0-1.0) k/uL Chloride (98-107) mmol/L Carbon Dioxide (22-30) mmol/L BUN (9-20) mg/dL POC Glucose (mg/dL) 121 H 128 H (75-99) mg/dL Hemoglobin A1c (4.0-6.0) % Plasma Lactic Acid Kyaw (0.7-2.0) mmol/L Calcium (8.4-10.2) mg/dL Crossmatch Microbiology - Last 24 Hours (Table) 09/22/18 11:14 Urine Culture - Final Urine,Voided 09/22/18 08:41 Blood Culture - Preliminary Blood No Growth after 24 hours 09/22/18 16:52 Gram Stain - Preliminary Foot - Right Wound Culture - Preliminary 09/22/18 16:50 Anaerobic Culture - Preliminary Foot - Right Assessment and Plan Plan: 1 gangrenous right fifth toe with ulceration of the toe base in addition to infection as purulent material is covered in the ulcer, in addition to a cellulitis of the right foot. Patient has had a similar finding on the left with gangrene and MRSA infection back in 2017 and the patient underwent a below- knee amputation of the left lower extremity. He has severe peripheral vascular disease in addition to diabetes mellitus. Possible today right foot that extremely diminished. Obtain by Doppler signal. 2 cellulitis of the right foot 3 acute leukocytosis 4 acute GI bleeding as the patient has melanotic stool and hemoglobin is down to 6.6 and the patient was given 2 units of packed RBC. EGD was done and the patient was found to have a duodenal ulcer and that is no evidence of any acute bleeding for now. The patient's hemoglobin is at 7.2. 5 severe peripheral vascular disease 6 below-knee amputation of the left lower extremity for complications of gangrene of the left foot and ulceration and infection 7 hypertension 8 smoker 9 alcoholism 10 diabetes mellitus type 2 with complications, poorly controlled 11 acute metabolic acidosis with lactic acidosis of 7.2 which improved subsequently down to 2.1, and the patient still has a component of metabolic acidosis on today's blood work. 12 bilateral nephrolithiasis, nonobstructive 13 50% was compression fracture of the L4 spine with severe degenerative changes Plan Allow clear liquid diet. Watch for any signs of GI bleeds. Monitor hemoglobin. Continue same antibiotic coverage. ID is on the case. Vascular surgery is on the case. Wound care. The CT angiogram to reviewed by vascular surgery. The patient will ultimately need a amputation which will be either a digital" or possibly metatarsal amputation depending on the vascular surgery's evaluation. We'll continue to follow.
[2018-09-23] MEDS: SUCRALFATE 1 GM TAB PO SCH ×2 (12:49→17:47)
[2018-09-23] MEDS: VANCOMYCIN 1,500 MG in SODIUM CHLORIDE 0.9% 250 ML IVPB SCH ×2 (12:50→23:48)
--- NOTE | 2018-09-23 13:19 | PN ---
PROGRESS NOTE CHIEF COMPLAINT: Anemia, infected ulcer in the distal and dorsal right foot. HISTORY OF PRESENT ILLNESS: This gentleman remains fairly awake and alert. He has not had a fever. There have been no signs of bleeding. PHYSICAL EXAMINATION: He remains slightly pale. Chest is clear. Cardiac exam is normal. Abdomen is soft, nontender. The right foot and the lateral toes are the same. IMPRESSION: 1. Necrotic and infected ulcer on the dorsum of the right foot involving the right lateral two toes with cellulitis. 2. Anemia. PLAN: Continue with IV fluids and antibiotics and await recommendations from Vascular Surgery. MMODL / IJN: [id number] /
[2018-09-23 17:12] LABS: Glucose,Whole Blood 132 mg/dL (75-99)
--- NOTE | 2018-09-23 18:57 | P.PN ---
Progress Note - Text Progress Note Date: 09/23/18 Reviewed CTA of the lower extremity. Chronic occlusion of the SFA with reconstitution at the popliteal artery behind the knee. There is no soft tissue edema or air at the right foot and toes. Once patient is more stable from a GI perspective then would recommend angiogram with revascularization of the right lower extremity and amputation of the gangrenous toes. Will tentatively schedule for Tuesday and re-evaluate Tuesday.
[2018-09-23 21:08] LABS: Glucose,Whole Blood 141 mg/dL (75-99)
[2018-09-23] MEDS: INSULIN DETEMIR (LEVEMIR) 100 UNIT/ML SYR SQ SCH (22:04)
[2018-09-23] MEDS: ACETAMINOPHEN TAB 325 MG TAB PO PRN (23:04)
[2018-09-24] MEDS: SODIUM CHLORIDE 0.9% 1,000 ML IV SCH ×2 (06:03→17:27)
[2018-09-24 06:23] LABS: Anisocytosis Slight; Basophils # (A) 0.1 k/uL (0-0.2); Basophils % (A) 1 %; Eosinophils # (A) 0.1 k/uL (0-0.7); Eosinophils % (A) 0 %; HCT 22.4 % (39.0-53.0); HGB 7.1 gm/dL (13.0-17.5); Hypochromasia Slight; Lymphocytes # (A) 1.6 k/uL (1.0-4.8); Lymphocytes % (A) 9 %; MCH 29.7 pg (25.0-35.0); MCHC 31.9 g/dL (31.0-37.0); Mean Platelet Volume 8.3; Monocytes # (A) 1.1 k/uL (0-1.0); Monocytes % (A) 6 %; Neutrophils # (A) 14.4 k/uL (1.3-7.7); Neutrophils % (A) 82 %; Platelet Count 279 k/uL (150-450); RBC 2.41 m/uL (4.30-5.90); RDW 16.7 % (11.5-15.5); WBC 17.6 k/uL (3.8-10.6)
[2018-09-24 06:25] LABS: Glucose,Whole Blood 48 mg/dL (75-99)
[2018-09-24] MEDS: SUCRALFATE 1 GM TAB PO SCH ×3 (06:28→17:26)
[2018-09-24 06:39] LABS: Glucose,Whole Blood 45 mg/dL (75-99)
[2018-09-24] MEDS ORDERED: DEXTROSE 10 % IN WATER 250 ML IV STA (06:44)
[2018-09-24 06:49] LABS: African American GFR (CKD) >90 (>60 ml/min/1.73 sqM); Anion Gap 6 mmol/L; Blood Urea Nitrogen 28 mg/dL (9-20); Calcium 8.3 mg/dL (8.4-10.2); Carbon Dioxide 17 mmol/L (22-30); Chloride 118 mmol/L (98-107); Potassium 3.2 mmol/L (3.5-5.1); Sodium 141 mmol/L (137-145)
[2018-09-24 06:56] LABS: Glucose 37 mg/dL (74-99)
[2018-09-24 06:57] LABS: Glucose,Whole Blood 148 mg/dL (75-99)
[2018-09-24] MEDS: INSULIN ASPART (NovoLOG) 100 UNIT/ML VIAL SQ SCH ×4 (06:58→20:41)
[2018-09-24] MEDS: CEFEPIME 2 GM in SODIUM CHLORIDE 0.9% 100 ML IVPB SCH ×2 (08:20→20:27)
[2018-09-24] MEDS: PANTOPRAZOLE 40 MG/10 ML VIAL IVP SCH ×2 (08:20→20:27)
[2018-09-24] MEDS: ACETAMINOPHEN TAB 325 MG TAB PO PRN (08:37)
[2018-09-24] MEDS: VANCOMYCIN 1,500 MG in SODIUM CHLORIDE 0.9% 250 ML IVPB SCH ×2 (11:41→23:17)
[2018-09-24 11:48] LABS: Glucose,Whole Blood 93 mg/dL (75-99)
--- NOTE | 2018-09-24 13:19 | P.PN ---
Subjective Progress Note Date: 09/24/18 72-year-old male patient came into the hospital because of a fall after having a bowel movement at home. Apparently lives in an assisted living and he was found on the floor to smoke. He was complaining of generalized pain and weakness and the patient was also somewhat confused. For that reason it was brought into the hospital. 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 This was done she years back. He also has diabetes mellitus that seems to be poorly controlled and coronary artery disease. The patient is a chronic smoker and he also drinks alcohol. No p revious history of GI bleeds. In the emergency, the patient was found to have a gangrenous right fifth toe in addition to extensive skin maceration over the anterior aspect of the right foot and between his toes mainly in between the third fourth and fifth toe addition to anterior foot cellulitis and marked diminished pulses that were initially absent in the emergency department and subsequently after being transferred to the ICU dorsalis pedis and posterior tibialis pulses were obtained by Doppler signal. He had leukocytosis. Lactic acidosis. He was profoundly anemic. At the later stage he was found to have melanotic stools. His serum bicarb was 10. Creatinine was up to 1.6. Blood s ugar was at 282. Hemoglobin is at 6.6. White cell count is at 27. He got moved to the ICU where he was started on IV fluids and the patient currently is receiving maintenance of 100 mL an hour and addition to Zosyn and vancomycin. IV heparin was briefly started and stopped as the patient was found to be GI bleed. He was ordered a total of 2 units of packed RBC. No abdominal distention. No nausea. No vomiting. No hematemesis. He drinks 4 shots of alcohol on a daily basis. He was given 3 L of IV fluid in the emergency department. He has poor vision. He denies having any chest pain or shortness of breath. No cough or sputum production. No altered mentation at this point in time. He is not seeing any physician on a regular basis. In fact he doesn't seem to have seen any physician or seek any medical care over the past 2 years. On 09/23/2018 I'm seeing this patient for a follow-up. Doing well. Underwent EGD. The patient was found to have a large ulcer in the duodenal bulb and sweep without active bleeding clots or high stigmatic risk for bleeding. As such the patient was brought back to the ICU and she was allowed clear liquid diet. He was also seen by vascular surgery. The CT angiogram of the lower extremities was done and it showed bilateral nonobstructive nephrolithiasis, occlusion of the right superficial femoral artery. The popliteal artery was reconstituted via geniculate collaterals. There is a previously noted below the knee amputation on the left. . Meanwhile, the patient still being treated for cellulitis and necrotic toe and the right foot was also noted. The white cell count is at 17.3. The serum bicarb is up to 14. Renal function is stable. He is awake and alert. No hemodynamic instability. He is receiving IV fluids in the form of normal saline at the rate of 100 mL an hour. He has an adequate urine output. On 09/24/2018, the patient has no specific complaints. No evidence of any bleeding and the patient is maintaining a stable hemoglobin. No nausea. No vomiting. No abdominal pain. He is also being treated for a cellulitis of the right foot in addition to that he has a gangrenous toe. He remains on a combination of cefepime and vancomycin. IV fluids are running at the rate of 100 mL an hour. No altered mentation. No fever or chills. No other significant events overnight. The wound cultures presumptive staph aureus. Objective - Vital Signs Vital signs: Vital Signs Temp 98.2 F 09/24/18 11:35 Pulse 82 09/24/18 11:35 Resp 20 09/24/18 11:35 BP 154/66 09/24/18 11:35 Pulse Ox 100 09/24/18 11:35 Intake & Output 09/23/18 09/24/18 09/24/18 18:59 06:59 18:59 Intake Total 1040 650 720 Output Total 1400 550 300 Balance -360 100 420 Weight 69.5 kg 70.5 kg Intake: IV 800 400 Cefepime 2 gm In Sodium 100 Chloride 0.9% 100 ml @ 200 mls/hr IVPB Q12HR [facility] Rx#:[id number] Sodium Chloride 0.9% 1, 650 400 000 ml @ 100 mls/hr IV . Q10H [facility] Rx#:[id number] Intake, IV Titration 250 Amount Vancomycin 1,500 mg In 250 Sodium Chloride 0.9% 250 ml @ 125 mls/hr IVPB Q12H [facility] Rx#:[id number] Oral 240 720 Output: Urine 1400 550 300 Other: Voiding Method Urinal Urinal # Voids 0 # Bowel Movements 0 - Exam General appearance: alert, in no apparent distress, the patient has been looking malnourished and cachectic, nonacute distress distress. Answering questions appropriately. Head exam: Present: atraumatic, normocephalic, normal inspection Eye exam: Present: normal appearance, PERRL, EOMI. Absent: scleral icterus, conjunctival injection, periorbital swelling ENT exam: Present: mucous membranes moist. Absent: normal exam (Pale conjun ctiva.) The patient has very poor dental hygiene with multiple decayed and dental hygiene is very poor and he has only a few teeth left in his mouth. Neck exam: Present: normal inspection. Absent: tenderness, meningismus, lymphadenopathy Respiratory exam: Present: normal lung sounds bilaterally. Absent: respiratory distress, wheezes, rales, rhonchi, stridor Cardiovascular Exam: Present: regular rate, normal rhythm, normal heart sounds. Absent: systolic murmur, diastolic murmur, rubs, gallop, clicks GI/Abdominal exam: Present: soft, normal bowel sounds. Absent: distended, tenderness, guarding, rebound, rigid Rectal exam: Present: heme (+) stool, black stool Extremities exam: Present: Examination of the left lower extremity shows a below -knee amputation with a healthy stump. Examination of the right leg shows a gangrenous fifth toe which is necrotic and the base of the seems to be ulcerated and the surface covered by purulent material. This area is measuring around 4 cm in size and is essentially extending between the fourth and the fifth toe. The base of the fourth and seems to be also involved and seems to be somewhat necrotic. There overlying skin is emaciated and there is significant erythema and tenderness upon palpation and a superimposed cellulitis is suspected. The dorsalis pedis and posterior tibialis have been obtained by Doppler signal. No gas. No crepitation. Neurovascular tendon exam: Present: pulse deficit (able to obtain Doppler pulses on dorsalis pedis, or posterior tibial pulse, no dopper pulse on the popliteal. Femoral pulses obtained with doppler. ), extremity cold to touch Neurological exam: Present: alert, no focal neurological deficit. The patient seemed to be confused in the emergency department and seems to be much more - Labs CBC & Chem 7: 09/24/18 05:47 09/24/18 05:47 Labs: Abnormal Lab Results - Last 24 Hours (Table) 09/23/18 09/23/18 09/24/18 Range/Units 17:00 20:57 05:47 WBC 17.6 H (3.8-10.6) k/uL RBC 2.41 L (4.30-5.90) m/uL Hgb 7.1 L (13.0-17.5) gm/dL Hct 22.4 L (39.0-53.0) % RDW 16.7 H (11.5-15.5) % Neutrophils # 14.4 H (1.3-7.7) k/uL Monocytes # 1.1 H (0-1.0) k/uL Potassium (3.5-5.1) mmol/L Chloride (98-107) mmol/L Carbon Dioxide (22-30) mmol/L BUN (9-20) mg/dL Glucose (74-99) mg/dL POC Glucose (mg/dL) 132 H 141 H (75-99) mg/dL Calcium (8.4-10.2) mg/dL 09/24/18 09/24/18 09/24/18 Range/Units 05:47 06:22 06:37 WBC (3.8-10.6) k/uL RBC (4.30-5.90) m/uL Hgb (13.0-17.5) gm/dL Hct (39.0-53.0) % RDW (11.5-15.5) % Neutrophils # (1.3-7.7) k/uL Monocytes # (0-1.0) k/uL Potassium 3.2 L (3.5-5.1) mmol/L Chloride 118 H (98-107) mmol/L Carbon Dioxide 17 L (22-30) mmol/L BUN 28 H (9-20) mg/dL Glucose 37 L* (74-99) mg/dL POC Glucose (mg/dL) 48 L 45 L (75-99) mg/dL Calcium 8.3 L (8.4-10.2) mg/dL 09/24/18 Range/Units 06:56 WBC (3.8-10.6) k/uL RBC (4.30-5.90) m/uL Hgb (13.0-17.5) gm/dL Hct (39.0-53.0) % RDW (11.5-15.5) % Neutrophils # (1.3-7.7) k/uL Monocytes # (0-1.0) k/uL Potassium (3.5-5.1) mmol/L Chloride (98-107) mmol/L Carbon Dioxide (22-30) mmol/L BUN (9-20) mg/dL Glucose (74-99) mg/dL POC Glucose (mg/dL) 148 H (75-99) mg/dL Calcium (8.4-10.2) mg/dL Microbiology - Last 24 Hours (Table) 09/22/18 08:41 Blood Culture - Preliminary Blood No Growth after 48 hours 09/22/18 16:52 Gram Stain - Preliminary Foot - Right Wound Culture - Preliminary Presumptive Staph aureus 09/22/18 11:14 Urine Culture - Final Urine,Voided Assessment and Plan Plan: 1 gangrenous right fifth toe with ulceration of the toe base in addition to infection as purulent material is covered in the ulcer, in addition to a cellulitis of the right foot. Patient has had a similar finding on the left with gangrene and MRSA infection back in 2017 and the patient underwent a below- knee amputation of the left lower extremity. He has severe peripheral vascular disease in addition to diabetes mellitus. Possible today right foot that extremely diminished. Obtain by Doppler signal. 2 cellulitis of the right foot, improving and the cultures of shown staph aureus from the wound and the patient is currently on cefepime vancomycin 3 acute leukocytosis, slightly improved and a white cell count of 17.6 4 acute GI bleeding as the patient has melanotic stool and hemoglobin is down to 6.6 and the patient was given 2 units of packed RBC. EGD was done and the patient was found to have a duodenal ulcer and that is no evidence of any acute bleeding for now. The patient's hemoglobin is at 7.1 and is stable for now and the patient has not shown any further bleeding 5 severe peripheral vascular disease 6 below-knee amputation of the left lower extremity for complications of gangrene of the left foot and ulceration and infection 7 hypertension 8 smoker 9 alcoholism 10 diabetes mellitus type 2 with complications, poorly controlled 11 acute metabolic acidosis with lactic acidosis of 7.2 which improved subsequently down to 2.1, and the patient still has a component of metabolic acidosis on today's blood work. 12 bilateral nephrolithiasis, nonobstructive 13 50% was compression fracture of the L4 spine with severe degenerative changes Plan Advance diet as tolerated. Hemoglobin is stable. No evidence of any GI bleeding. The patient has staph aureus presumptive in the wound. The patient will be kept on the same antibiotic coverage . The patient will ultimately need a amputation which will be either a digital" or possibly metatarsal amputation depending on the vascular surgery's evaluation. We'll continue to follow.
--- NOTE | 2018-09-24 13:21 | PN ---
PROGRESS NOTE DATE OF SERVICE: 09/23/2018. REASON FOR FOLLOWUP: Right 5th toe diabetic foot infection and Tabitha's Grade IV. INTERVAL HISTORY: The patient is currently afebrile. The patient is breathing comfortably. The patient denies having any chest pain or shortness of breath, no cough, no abdominal pain or any worsening pain to the right foot or toe area. PHYSICAL EXAMINATION: Blood pressure is 133/64 with a pulse of 85, temperature 98. He is 98% on room air. General description is an elderly male lying in bed in no distress. Respiratory system: Unlabored breathing with decreased breath sounds in the bases. HEART: S1, S2. Regular rate and rhythm. Abdomen soft. No tenderness. Right foot currently dressed up. No obvious drainage on the dressing. LABS: Cultures from the , currently pending. DIAGNOSTIC IMPRESSION AND PLAN: Patient with right diabetic foot infection Tabitha's grade 4, with necrotic fourth toe cultures currently pending. Patient covered with cefepime and vancomycin to continue while waiting for the culture to finalize. Continue supportive care. MMODL / IJN: [id number] /
[2018-09-24] MEDS: MORPHINE SULFATE 4 MG/ML SYRINGE IV PRN (14:59)
[2018-09-24 17:02] LABS: Glucose,Whole Blood 103 mg/dL (75-99)
[2018-09-24] MEDS ORDERED: Magnesium Replacement Protocol 1 EACH MISC MISCELLANE PRN (18:08)
[2018-09-24] MEDS: POTASSIUM CHLORIDE ER 20 MEQ TAB.ER PO SCH ×2 (18:18→20:27)
--- NOTE | 2018-09-24 19:18 | PN ---
PROGRESS NOTE CHIEF COMPLAINT: Infected gangrenous ulcer of the right foot. HISTORY OF PRESENT ILLNESS: This gentleman has been comfortable without any evidence of bleeding. He continues on IV fluids and antibiotics. PHYSICAL EXAM: Chest is clear. Cardiac exam is unremarkable. Abdomen is soft and nontender. IMPRESSION: 1. Infected gangrenous ulcer on the dorsum of the right foot. 2. Probable septicemia. 3. Gastrointestinal bleed. PLAN: At the present time he is stable and will continue with IV fluids and IV antibiotics and wait to see what other measures may be taken for the right foot. MMODL / IJN: [id number] /
--- NOTE | 2018-09-24 19:56 | P.PN ---
Subjective Progress Note Date: 09/24/18 Principal diagnosis: GI bleed Patient seen lying in bed reporting that he is feeling well. No signs or symptoms of GI bleeding reported. Tolerating his diet. Objective - Vital Signs Vital signs: Vital Signs Temp 98.9 F 09/24/18 19:15 Pulse 95 09/24/18 19:15 Resp 18 09/24/18 19:15 BP 148/62 09/24/18 19:15 Pulse Ox 100 09/24/18 19:15 Intake & Output 09/24/18 09/24/18 09/25/18 06:59 18:59 06:59 Intake Total 650 1440 Output Total 550 500 Balance 100 940 Weight 70.5 kg Intake: IV 400 Sodium Chloride 0.9% 1, 400 000 ml @ 100 mls/hr IV . Q10H [facility] Rx#:[id number] Intake, IV Titration 250 Amount Vancomycin 1,500 mg In 250 Sodium Chloride 0.9% 250 ml @ 125 mls/hr IVPB Q12H [facility] Rx#:[id number] Oral 1440 Output: Urine 550 500 Other: Voiding Method Urinal Urinal # Voids 0 # Bowel Movements 0 - Exam On physical examination, patient appears comfortable in no apparent distress. HEAD: Normocephalic, atraumatic. EYES: No scleral icterus. No conjunctival injection. MOUTH: No lesions, tongue midline. NECK: Trachea midline, no gross abnormalities. CHEST: Decreased air entry bilaterally. HEART: S1-S2 appreciated. ABDOMEN: Soft, obese and nontender. Bowel sounds are positive. No organomegaly. No guarding or rigidity. SKIN: No rashes, no jaundice. NEUROLOGIC: Alert and oriented x2. No focal deficits. - Labs CBC & Chem 7: 09/24/18 05:47 09/24/18 05:47 Labs: Abnormal Lab Results - Last 24 Hours (Table) 09/23/18 09/24/18 09/24/18 Range/Units 20:57 05:47 05:47 WBC 17.6 H (3.8-10.6) k/uL RBC 2.41 L (4.30-5.90) m/uL Hgb 7.1 L (13.0-17.5) gm/dL Hct 22.4 L (39.0-53.0) % RDW 16.7 H (11.5-15.5) % Neutrophils # 14.4 H (1.3-7.7) k/uL Monocytes # 1.1 H (0-1.0) k/uL Potassium 3.2 L (3.5-5.1) mmol/L Chloride 118 H (98-107) mmol/L Carbon Dioxide 17 L (22-30) mmol/L BUN 28 H (9-20) mg/dL Glucose 37 L* (74-99) mg/dL POC Glucose (mg/dL) 141 H (75-99) mg/dL Calcium 8.3 L (8.4-10.2) mg/dL Vancomycin Trough ug/mL 09/24/18 09/24/18 09/24/18 Range/Units 06:22 06:37 06:56 WBC (3.8-10.6) k/uL RBC (4.30-5.90) m/uL Hgb (13.0-17.5) gm/dL Hct (39.0-53.0) % RDW (11.5-15.5) % Neutrophils # (1.3-7.7) k/uL Monocytes # (0-1.0) k/uL Potassium (3.5-5.1) mmol/L Chloride (98-107) mmol/L Carbon Dioxide (22-30) mmol/L BUN (9-20) mg/dL Glucose (74-99) mg/dL POC Glucose (mg/dL) 48 L 45 L 148 H (75-99) mg/dL Calcium (8.4-10.2) mg/dL Vancomycin Trough ug/mL 09/24/18 09/24/18 Range/Units 12:44 16:58 WBC (3.8-10.6) k/uL RBC (4.30-5.90) m/uL Hgb (13.0-17.5) gm/dL Hct (39.0-53.0) % RDW (11.5-15.5) % Neutrophils # (1.3-7.7) k/uL Monocytes # (0-1.0) k/uL Potassium (3.5-5.1) mmol/L Chloride (98-107) mmol/L Carbon Dioxide (22-30) mmol/L BUN (9-20) mg/dL Glucose (74-99) mg/dL POC Glucose (mg/dL) 103 H (75-99) mg/dL Calcium (8.4-10.2) mg/dL Vancomycin Trough 36.3 H* ug/mL Microbiology - Last 24 Hours (Table) 09/22/18 16:52 Gram Stain - Preliminary Foot - Right Wound Culture - Preliminary Staphylococcus aureus 09/22/18 08:41 Blood Culture - Preliminary Blood No Growth after 48 hours Assessment and Plan (1) GI bleed Narrative/Plan: 72-year-old male with multiple medical comorbidities who presents to the hospital for evaluation after fall/syncope. Patient was found to be anemic with stool positive for occult blood. Normocytic indices likely indicate a component of anemia of chronic disease, however patient did report dark stools and NSAID use as well as symptoms of nausea and vomiting and frequent reflux and had stool testing which was positive for occult blood. Patient was taken for EGD with a large duodenal bulb ulcer without high-risk stigmata for rebleeding or active bleeding noted. Current Visit: Yes Status: Acute Code(s): K92.2 - GASTROINTESTINAL HEMORRHAGE, UNSPECIFIED SNOMED Code(s): 87577924 (2) Anemia associated with acute blood loss Current Visit: Yes Status: Acute Code(s): D62 - ACUTE POSTHEMORRHAGIC ANEMIA SNOMED Code(s): 042833000 (3) Lactic acidosis Current Visit: Yes Status: Acute Code(s): E87.2 - ACIDOSIS SNOMED Code(s): 25564162 (4) Diabetes mellitus type 2 with complications Current Visit: No Status: Acute Code(s): E11.8 - TYPE 2 DIABETES MELLITUS WITH UNSPECIFIED COMPLICATIONS SNOMED Code(s): 54596270 (5) Gangrene of toe Current Visit: No Status: Acute Code(s): I96 - GANGRENE, NOT ELSEWHERE CLASSIFIED SNOMED Code(s): 262890457 Plan: Supportive care Okay for liquid diet, if no further signs of bleeding and hemoglobin stable tomorrow and advance to full liquids Protonix IV twice a day and Carafate Continue to monitor hemoglobin and hematocrit and transfuse as needed Continue to monitor stool output Avoid NSAID use If further signs or symptoms of bleeding occur or fall in hemoglobin, consideration for surgical consult versus referral to tertiary center for CT angiography with embolization given the size and location of ulcer Thank you for allowing us to participate in the care of the patient we will continue to follow
[2018-09-24 20:39] LABS: Glucose,Whole Blood 183 mg/dL (75-99)
[2018-09-24] MEDS: INSULIN DETEMIR (LEVEMIR) 100 UNIT/ML SYR SQ SCH (20:39)
--- NOTE | 2018-09-24 22:11 | PN ---
PROGRESS NOTE DATE OF SERVICE: 09/24/2018. REASON FOR FOLLOWUP: Right diabetic foot infection. INTERVAL HISTORY: The patient is currently afebrile. Patient has been breathing comfortably. Denies having any chest pain, shortness of breath. No cough or abdominal pain. Has been complaining of some pain in the right foot area, but no worsening. PHYSICAL EXAMINATION: Blood pressure 128/60 with a pulse of 83. Temperature 98.4. He is 98% on room air. General description is a middle-aged elderly male lying in bed in no distress. RESPIRATORY SYSTEM: Unlabored breathing, clear to auscultation anteriorly. HEART: S1, S2. Regular rate and rhythm. ABDOMEN: Soft. Right foot is currently dressed up, no obvious drainage on the dressing. LABS: Creatinine 0.94. Vancomycin trough up to 6.3. Wound culture presumptive Staph aureus. DIAGNOSTIC IMPRESSION AND PLAN: Patient with right diabetic foot infection, Tabitha's grade 4 with presumptive Staph aureus. Vancomycin dose needs to be adjusted down to keep the trough around 15. Kidney function to monitor closely. Await surgical evaluation. Vascular surgeon already on the case. Continue supportive care. MMODL / IJN: [id number] /
[2018-09-25] MEDS: SODIUM CHLORIDE 0.9% 1,000 ML IV SCH ×3 (04:00→20:27)
[2018-09-25] MEDS: SUCRALFATE 1 GM TAB PO SCH ×3 (06:27→17:46)
[2018-09-25 06:28] LABS: Glucose,Whole Blood 118 mg/dL (75-99)
[2018-09-25] MEDS: INSULIN ASPART (NovoLOG) 100 UNIT/ML VIAL SQ SCH ×4 (06:40→20:21)
[2018-09-25 08:10] LABS: African American GFR (CKD) >90 (>60 ml/min/1.73 sqM); Magnesium 1.9 mg/dL (1.6-2.3)
[2018-09-25] MEDS: PANTOPRAZOLE 40 MG/10 ML VIAL IVP SCH ×2 (09:35→20:18)
[2018-09-25] MEDS: CEFEPIME 2 GM in SODIUM CHLORIDE 0.9% 100 ML IVPB SCH ×2 (09:35→20:21)
[2018-09-25] MEDS: POTASSIUM CHLORIDE ER 20 MEQ TAB.ER PO SCH ×3 (09:36→20:18)
[2018-09-25] MEDS ORDERED: VANCOMYCIN TROUGH DUE 1 EACH MISC MISCELLANE ONE (11:00)
--- NOTE | 2018-09-25 12:09 | P.PN ---
Subjective Progress Note Date: 09/25/18 Patient seen and examined. Imaging are reviewed from the weekend. No issues per patient. No further bleeding. Objective - Vital Signs Vital signs: Vital Signs Temp 96.9 F L 09/25/18 08:00 Pulse 97 09/25/18 08:00 Resp 18 09/25/18 03:20 BP 134/65 09/25/18 08:00 Pulse Ox 95 09/25/18 08:00 Intake & Output 09/24/18 09/25/18 09/25/18 18:59 06:59 18:59 Intake Total 1440 700 Output Total 500 875 675 Balance 940 -875 25 Weight 72 kg Intake: Oral 1440 700 Output: Urine 500 875 675 Other: Voiding Method Urinal Urinal # Voids 0 1,200 # Bowel Movements 0 - Exam Gen. is a pleasant cooperative male in no acute distress resting comfortably HEENT is normal cephalic atraumatic extraocular motion intact Chest is Bear chested Abdomen soft, nontender, nondistended Left lower extremity BKA intact clean and dry Right lower extremity third fourth and fifth toes gangrenous with cellulitis, there is some necrosis at the dorsal portion of the foot which is worsened from previous. Staph aureus on culture - Labs CBC & Chem 7: 09/24/18 05:47 09/25/18 07:07 Labs: Abnormal Lab Results - Last 24 Hours (Table) 09/24/18 09/24/18 09/24/18 Range/Units 12:44 16:58 20:35 POC Glucose (mg/dL) 103 H 183 H (75-99) mg/dL Vancomycin Trough 36.3 H* ug/mL 09/25/18 Range/Units 06:26 POC Glucose (mg/dL) 118 H (75-99) mg/dL Vancomycin Trough ug/mL Microbiology - Last 24 Hours (Table) 09/22/18 08:41 Blood Culture - Preliminary Blood No Growth after 72 hours 09/22/18 16:50 Anaerobic Culture - Final Foot - Right 09/22/18 16:52 Gram Stain - Preliminary Foot - Right Wound Culture - Preliminary Staphylococcus aureus Assessment and Plan Assessment: #1 acute GI bleed resolved #2 anemia secondary to #1 stable #3 right lower extremity gangrene and cellulitis #4 significant chronic peripheral arterial disease #5 uncontrolled diabetes mellitus #6 continued chronic tobacco abuse #7 continued alcoholism #8 hypertension #9 history of [place] #10 coronary artery disease Plan: At this point appears his GI bleeding issue has stabilized. We will plan to take him to the operating room tomorrow for revascularization attempts endovascularly as well as amputation of at least his third through fifth toe for the time being. Discussion was had with him that if we are unable to revascularize he may need a bypass. He would rather continue attempts at limb salvage then undergo an above/below-knee amputation. Any revascularization would require at least 1 form of antiplatelet therapy. Appreciate GI input
[2018-09-25 12:17] LABS: Glucose,Whole Blood 187 mg/dL (75-99)
--- NOTE | 2018-09-25 15:22 | P.PN ---
Subjective Progress Note Date: 09/25/18 Principal diagnosis: Gangrenous right fifth toe with ulceration of the toe base in addition to infection, cellulitis of the right foot, acute GI bleeding 72-year-old male patient came into the hospital because of a fall after having a bowel movement at home. Apparently lives in an assisted living and he was found on the floor to smoke. He was complaining of generalized pain and weakness and the patient was also somewhat confused. For that reason it was brought into the hospital. 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 This was done she years back. He also has diabetes mellitus that seems to be poorly controlled and coronary artery disease. The patient is a chronic smoker and he also drinks alcohol. No previous history of GI bleeds. In the emergency, the patient was found to have a gangrenous right fifth toe in addition to extensive skin maceration over the anterior aspect of the right foot and between his toes mainly in between the third fourth and fifth toe addition to anterior foot cellulitis and marked diminished pulses that were initially absent in the emergency department and subsequently after being transferred to the ICU dorsalis pedis and posterior tibialis pulses were obtained by Doppler signal. He had leukocytosis. Lactic acidosis. He was profoundly anemic. At the later stage he was found to have melanotic stools. His serum bicarb was 10. Creatinine was up to 1.6. Blood sugar was at 282. Hemoglobin is at 6.6. White cell count is at 27. He got moved to the ICU where he was started on IV fluids and the patient currently is receiving maintenance of 100 mL an hour and addition to Zosyn and vancomycin. IV heparin was briefly started and stopped as the patient was found to be GI bleed. He was ordered a total of 2 units of packed RBC. No abdominal distention. No nausea. No vomiting. No hematemesis. He drinks 4 shots of alcohol on a daily basis. He was given 3 L of IV fluid in the emergency department. He has poor vision. He denies having any chest pain or shortness of breath. No cough or sputum production. No altered mentation at this point in time. He is not seeing any physician on a regular basis. In fact he doesn't seem to have seen any physician or seek any medical care over the past 2 years. On 09/23/2018 I'm seeing this patient for a follow-up. Doing well. Underwent EGD. The patient was found to have a large ulcer in the duodenal bulb and sweep without active bleeding clots or high stigmatic risk for bleeding. As such the patient was brought back to the ICU and she was allowed clear liquid diet. He was also seen by vascular surgery. The CT angiogram of the lower extremities was done and it showed bilateral nonobstructive nephrolithiasis, occlusion of the right superficial femoral artery. The popliteal artery was reconstituted via geniculate collaterals. There is a previously noted below the knee amputation on the left. . Meanwhile, the patient still being treated for cellulitis and necrotic toe and the right foot was also noted. The white cell count is at 17.3. The serum bicarb is up to 14. Renal function is stable. He is awake and alert. No hemodynamic instability. He is receiving IV fluids in the form of normal saline at the rate of 100 mL an hour. He has an adequate urine output. On 09/24/2018, the patient has no specific complaints. No evidence of any bleeding and the patient is maintaining a stable hemoglobin. No nausea. No vomiting. No abdominal pain. He is also being treated for a cellulitis of the right foot in addition to that he has a gangrenous toe. He remains on a combination of cefepime and vancomycin. IV fluids are running at the rate of 100 mL an hour. No altered mentation. No fever or chills. No other significant events overnight. The wound cultures presumptive staph aureus. On 09/25/2018 patient seen in follow-up on selective care unit, awake and alert, in no acute distress, denies any shortness of breath or chest pain, no signs of active GI bleeding, no CBC was done today, yesterday's CBC showed hemoglobin of 7.1, patient is hemodynamically stable. No melena, no hematemesis, no hematochezia. Wound culture of the right foot was positive for staph aureus, with sensitivity to methicillin, however it was resistant to Cipro, clindamycin, erythromycin and Levaquin, with intermediate sensitivity to moxifloxacin. Urine and blood cultures were negative. Patient is on cefepime and vancomycin, ID service is following, and patient is scheduled for revascularization as well as amputation of his third through fifth toe of the right lower extremity. Objective - Vital Signs Vital signs: Vital Signs Temp 96.9 F L 09/25/18 08:00 Pulse 97 09/25/18 08:00 Resp 18 09/25/18 03:20 BP 134/65 09/25/18 08:00 Pulse Ox 95 09/25/18 08:00 Intake & Output 09/24/18 09/25/18 09/25/18 18:59 06:59 18:59 Intake Total 1440 1300 Output Total 500 875 675 Balance 940 -875 625 Weight 72 kg Intake: Oral 1440 1300 Output: Urine 500 875 675 Other: Voiding Method Urinal Urinal # Voids 0 1,200 # Bowel Movements 0 - Exam GENERAL EXAM: Alert, pleasant, 72-year-old white male, comfortable in no apparent distress. HEAD: Normocephalic/atraumatic. EYES: Normal reaction of pupils, equal size. Conjunctiva pink, sclera white. NOSE: Clear with pink turbinates. THROAT: No erythema or exudates. NECK: No masses, no JVD, no thyroid enlargement, no adenopathy. CHEST: No chest wall deformity. Symmetrical expansion. LUNGS: Equal air entry with no crackles, wheeze, rhonchi or dullness. CVS: Regular rate and rhythm, normal S1 and S2, no gallops, no murmurs, no rubs ABDOMEN: Soft, nontender. No hepatosplenomegaly, normal bowel sounds, no guarding or rigidity. EXTREMITIES: No clubbing, no edema, no cyanosis, 2+ pulses and upper and lower extremities. Left low the knee amputation, right lower extremity with a dressi ng on his right foot with swelling and redness extending to his ankle. Underneath the dressing third fourth and fifth toes gangrenous with cellulitis with necrosis at the dorsal portion of the foot MUSCULOSKELETAL: Muscle strength and tone normal. SPINE: No scoliosis or deformity SKIN: No rashes CENTRAL NERVOUS SYSTEM: Alert and oriented -3. No focal deficits, tone is normal in all 4 extremities. PSYCHIATRIC: Alert and oriented -3. Appropriate affect. Intact judgment and insight. - Labs CBC & Chem 7: 09/24/18 05:47 09/25/18 07:07 Labs: Abnormal Lab Results - Last 24 Hours (Table) 09/24/18 09/24/18 09/25/18 Range/Units 16:58 20:35 06:26 POC Glucose (mg/dL) 103 H 183 H 118 H (75-99) mg/dL 09/25/18 Range/Units 12:00 POC Glucose (mg/dL) 187 H (75-99) mg/dL Microbiology - Last 24 Hours (Table) 09/22/18 08:41 Blood Culture - Preliminary Blood No Growth after 72 hours 09/22/18 16:50 Anaerobic Culture - Final Foot - Right 09/22/18 16:52 Gram Stain - Preliminary Foot - Right Wound Culture - Preliminary Staphylococcus aureus Assessment and Plan Plan: Assessment: 1 gangrenous right fifth toe with ulceration of the toe base in addition to infection as purulent material is covered in the ulcer, in addition to a cellulitis of the right foot. Patient has had a similar finding on the left with gangrene and MRSA infection back in 2017 and the patient underwent a below- knee amputation of the left lower extremity. He has severe peripheral vascular disease in addition to diabetes mellitus. Possible today right foot that extremely diminished. Obtain by Doppler signal. 2 cellulitis of the right foot, improving and the cultures of shown staph aureus from the wound and the patient is currently on cefepime vancomycin 3 acute leukocytosis, slightly improved and a white cell count of 17.6 4 acute GI bleeding as the patient has melanotic stool and hemoglobin is down to 6.6 and the patient was given 2 units of packed RBC. EGD was done and the patient was found to have a duodenal ulcer and that is no evidence of any acute bleeding for now. The patient's hemoglobin is at 7.1 and is stable for now and the patient has not shown any further bleeding 5 severe peripheral vascular disease 6 below-knee amputation of the left lower extremity for complications of gangrene of the left foot and ulceration and infection 7 hypertension 8 smoker 9 alcoholism 10 diabetes mellitus type 2 with complications, poorly controlled 11 acute metabolic acidosis with lactic acidosis of 7.2 which improved subsequently down to 2.1, and the patient still has a component of metabolic acidosis on today's blood work. 12 bilateral nephrolithiasis, nonobstructive 13 50% was compression fracture of the L4 spine with severe degenerative changes Plan: No ongoing GI bleeding, hemodynamically patient stable, afebrile, antibiotics per ID service recommendations, methicillin sensitive staph aureus in the wound cultures from the right foot. No new labs today, no difficulty breathing, no chest pain, patient is being followed by vascular surgery and is scheduled for amputation of his third fourth and fifth digits on his right lower extremity and the possibility of revascularization tomorrow. We will sign off and follow on as-needed basis, please feel free to reconsult us if there is any ongoing on rate of critical care issues I performed a history & physical examination of the patient and discussed their management with my nurse practitioner, Ayleen Villarreal. I reviewed the nurse practitioner's note and agree with the documented findings and plan of care. Lung sounds are positive for clear lung sounds. The findings and the impression was discussed with the patient. I attest to the documentation by the nurse practitioner. Time with Patient: Less than 30
--- NOTE | 2018-09-25 15:50 | PN ---
PROGRESS NOTE DATE OF DICTATION: 09/25/2018 This patient is a 72-year-old pleasant white male admitted to the hospital with acute GI bleed. He underwent upper endoscopy by Dr. Verde 2 days ago and was noted to have a large duodenal bulbar ulcer without any active bleeding. The patient since has been on Protonix 40 mg twice daily and is doing well. He had one bowel movement this morning. No bleeding noted. He denies any abdominal pain. He complains of right foot pain. PHYSICAL EXAMINATION: GENERAL: He appears comfortable, in no apparent distress. VITAL SIGNS: Stable. Blood pressure is 132/86, pulse 80 per minute and afebrile. HEENT EXAMINATION: Unremarkable. Conjunctivae pink. Sclerae anicteric. Oral cavity no lesions. NECK: No JVD or lymph node enlargement. CHEST: Clear to auscultation. HEART: Regular rate and rhythm. ABDOMEN: Soft. Bowel sounds are positive. No organomegaly. EXTREMITIES: No pedal edema. Left below-knee amputation noted. Right leg has severe erythema with dry gangrene of the right little toe. LABS: Labs from today not available. Yesterday WBC was 17.6, hemoglobin 7.1, and platelets were normal. BUN is 28 and creatinine 0.9. IMPRESSION: 1. Acute upper gastrointestinal bleed from duodenal bulbar ulcer, status post EGD by Dr. Verde two days ago. Hemoglobin had gradual drop, and this morning it is 7.1 g/dL. Clinically patient has no active bleeding. 2. Peripheral vascular disease with gangrene of the right little toe. Vascular Surgery is following the patient closely. RECOMMENDATIONS: 1. Continue with Protonix 40 mg q.12 hours. 2. Advance diet as tolerated. 3. CBC in the morning. Will follow with you closely during his hospital stay. Thank you for this consultation. MMODL / IJN: [id number] /
[2018-09-25 17:19] LABS: Glucose,Whole Blood 56 mg/dL (75-99)
[2018-09-25 17:24] LABS: Glucose,Whole Blood 61 mg/dL (75-99)
[2018-09-25 17:56] LABS: Glucose,Whole Blood 97 mg/dL (75-99)
[2018-09-25] MEDS ORDERED: VANCOMYCIN 1,500 MG in SODIUM CHLORIDE 0.9% 250 ML IVPB SCH (18:00)
--- NOTE | 2018-09-25 18:56 | PN ---
PROGRESS NOTE DATE OF SERVICE: 09/25/2018. REASON FOR FOLLOWUP: Right diabetic foot infection, Tabitha's Grade IV. INTERVAL HISTORY: The patient is currently afebrile. The patient has been breathing comfortably. Patient denies having any chest pain or any cough. No nausea, no vomiting. No abdominal pain or any worsening pain in the right foot area. PHYSICAL EXAMINATION: Blood pressure 146/56, pulse of 98 temperature 96.9. He is 97% on room air. General description is an elderly male lying in bed in no distress. Respiratory system: Unlabored breathing with decreased breath sounds in the bases. No wheeze. Heart S1, S2. Regular rate and rhythm. ABDOMEN: Soft, no tenderness. Right foot remains to be necrotic especially the 4th and 5th toe. Some surrounding redness. No foul smelling drainage. LAB: Wound culture has been finalized with MSSA. DIAGNOSTIC IMPRESSION AND PLAN: Patient with right diabetic foot infection Tabitha's Grade IV with chronic fourth and fifth toe with some evidence of necrosis to the dorsum of the right foot with secondary cellulitis, the patient to continue with cefepime, vancomycin to be discontinued. No MRSA has grown and monitor clinical course closely. Await possible amputation being monitored closely by vascular surgery. Continue supportive care. MMODL / IJN: [id number] /
--- NOTE | 2018-09-25 19:39 | PN ---
PROGRESS NOTE CHIEF COMPLAINT: Infected ulcer with cellulitis and gangrene of the right foot. HISTORY OF PRESENT ILLNESS: This gentleman is doing fairly well and the IV antibiotics continue with local wound care. He is not having any significant amount of pain. We are working on discharge plan. PHYSICAL EXAMINATION: Chest is clear. Cardiac exam is normal. Abdomen is soft, nontender. Right foot is about the same, although the wound is cleaning up nicely. IMPRESSION: Infected gangrenous ulcer of the distal right foot. PLAN: Continue with IV fluids and antibiotics. MMODL / IJN: [id number] /
[2018-09-25] MEDS: INSULIN DETEMIR (LEVEMIR) 100 UNIT/ML SYR SQ SCH (20:21)
[2018-09-25 20:24] LABS: Glucose,Whole Blood 290 mg/dL (75-99)
[2018-09-26] MEDS: ACETAMINOPHEN TAB 325 MG TAB PO PRN (05:34)
[2018-09-26] MEDS: SODIUM CHLORIDE 0.9% 1,000 ML IV SCH ×3 (05:35→22:05)
[2018-09-26] MEDS: INSULIN ASPART (NovoLOG) 100 UNIT/ML VIAL SQ SCH ×4 (06:18→22:09)
[2018-09-26] MEDS: SUCRALFATE 1 GM TAB PO SCH ×3 (06:18→18:02)
[2018-09-26 06:19] LABS: Glucose,Whole Blood 53 mg/dL (75-99)
[2018-09-26 06:36] LABS: Glucose,Whole Blood 65 mg/dL (75-99)
[2018-09-26 06:51] LABS: Glucose,Whole Blood 84 mg/dL (75-99)
[2018-09-26 07:33] LABS: African American GFR (CKD) >90 (>60 ml/min/1.73 sqM)
[2018-09-26 07:54] LABS: Anisocytosis Slight; Basophils % (A) 0 %; Eosinophils # (A) 0.1 k/uL (0-0.7); Eosinophils % (A) 0 %; HCT 22.1 % (39.0-53.0); HGB 7.1 gm/dL (13.0-17.5); Hypochromasia Slight; Lymphocytes # (A) 1.6 k/uL (1.0-4.8); Lymphocytes % (A) 10 %; MCH 30.5 pg (25.0-35.0); MCHC 31.9 g/dL (31.0-37.0); MCV 95.8 fL (80.0-100.0); Macrocytosis Slight; Mean Platelet Volume 8.2; Monocytes # (A) 0.9 k/uL (0-1.0); Monocytes % (A) 6 %; Neutrophils # (A) 12.4 k/uL (1.3-7.7); Neutrophils % (A) 82 %; Platelet Count 278 k/uL (150-450); RBC 2.31 m/uL (4.30-5.90); RDW 17.5 % (11.5-15.5); WBC 15.2 k/uL (3.8-10.6)
[2018-09-26 08:25] LABS: Anion Gap 10 mmol/L; Blood Urea Nitrogen 19 mg/dL (9-20); Calcium 8.3 mg/dL (8.4-10.2); Carbon Dioxide 15 mmol/L (22-30); Chloride 116 mmol/L (98-107); Glucose 69 mg/dL (74-99); Potassium 3.8 mmol/L (3.5-5.1); Sodium 141 mmol/L (137-145)
[2018-09-26] MEDS ORDERED: diphenhydrAMINE 50 MG/ML 1 ML VIAL IVP ONE (08:37)
[2018-09-26] MEDS ORDERED: LIDOCAINE 2% INJ 20 MG/ML SQ ONE (08:37)
[2018-09-26] MEDS ORDERED: methylPREDNISolone SOD SUCCI 125 MG/2 ML VIAL IVP ONE (08:37)
[2018-09-26] MEDS: fentaNYL (PF) 50 MCG/ML 2 ML AMP IVP ONE ×6 (08:38→10:22)
[2018-09-26] MEDS: MIDAZOLAM (PF) 2 MG/2 ML VIAL IVP ONE ×4 (08:38→10:26)
[2018-09-26] MEDS ORDERED: SODIUM CHLORIDE 0.9% 1,000 ML IV ONE ×3 (08:46→13:26)
[2018-09-26] MEDS: HEPARIN SODIUM 1,000 UN/ML (10ML VL) IV ONE ×3 (09:06→10:26)
[2018-09-26] MEDS ORDERED: ALTEPLASE 2 MG VIAL (CATHFLO) IV ONE ×3 (10:00→13:00)
[2018-09-26] MEDS ORDERED: MIDAZOLAM 2 MG/2 ML VIAL ONE ×2 (11:04→13:26)
[2018-09-26] MEDS ORDERED: PROPOFOL 10 MG/ML 20 ML VIAL IV ONE ×2 (11:04→13:26)
[2018-09-26] MEDS ORDERED: fentaNYL (PF) 50 MCG/ML 2 ML AMP ONE ×2 (11:04→13:26)
[2018-09-26] MEDS ORDERED: HEPARIN SODIUM,PORCINE 5,000 UNIT/ML 1 ML VIAL ONE (11:04)
[2018-09-26] MEDS ORDERED: KETAMINE 10 MG/ML 20 ML VIAL ONE ×2 (11:04→13:26)
[2018-09-26] MEDS ORDERED: IOPAMIDOL-250 100ML BTL INTRAARTER ONE ×3 (11:30→13:10)
[2018-09-26] MEDS ORDERED: IOPAMIDOL-250 50ML BTL INTRAARTER ONE (11:31)
[2018-09-26] MEDS: NITROGLYCERIN 1000MCG/10ML SYRINGE INTRAARTER ONE ×3 (11:34→13:02)
--- NOTE | 2018-09-26 12:18 | P.PN ---
Subjective Progress Note Date: 09/26/18 Principal diagnosis: GI bleed duodenal ulcer Patient off floor for testing will reevaluate later. Objective - Vital Signs Vital signs: Vital Signs Temp 97.6 F 09/26/18 08:00 Pulse 86 09/26/18 08:00 Resp 18 09/26/18 06:00 BP 138/60 09/26/18 08:00 Pulse Ox 98 09/26/18 08:00 Intake & Output 09/25/18 09/26/18 09/26/18 18:59 06:59 18:59 Intake Total 1900 200 Output Total 1600 725 400 Balance 300 -725 -200 Weight 72 kg 71.8 kg 71.8 kg Intake: IV 200 Oral 1900 Output: Urine 1600 725 400 Other: Voiding Method Urinal # Voids 2 - Labs CBC & Chem 7: 09/26/18 06:55 09/26/18 06:55 Labs: Abnormal Lab Results - Last 24 Hours (Table) 09/25/18 09/25/18 09/25/18 Range/Units 12:00 17:02 17:20 WBC (3.8-10.6) k/uL RBC (4.30-5.90) m/uL Hgb (13.0-17.5) gm/dL Hct (39.0-53.0) % RDW (11.5-15.5) % Neutrophils # (1.3-7.7) k/uL Chloride (98-107) mmol/L Carbon Dioxide (22-30) mmol/L Glucose (74-99) mg/dL POC Glucose (mg/dL) 187 H 56 L 61 L (75-99) mg/dL Calcium (8.4-10.2) mg/dL 09/25/18 09/26/18 09/26/18 Range/Units 20:12 06:14 06:35 WBC (3.8-10.6) k/uL RBC (4.30-5.90) m/uL Hgb (13.0-17.5) gm/dL Hct (39.0-53.0) % RDW (11.5-15.5) % Neutrophils # (1.3-7.7) k/uL Chloride (98-107) mmol/L Carbon Dioxide (22-30) mmol/L Glucose (74-99) mg/dL POC Glucose (mg/dL) 290 H 53 L 65 L (75-99) mg/dL Calcium (8.4-10.2) mg/dL 09/26/18 09/26/18 Range/Units 06:55 06:55 WBC 15.2 H (3.8-10.6) k/uL RBC 2.31 L (4.30-5.90) m/uL Hgb 7.1 L (13.0-17.5) gm/dL Hct 22.1 L (39.0-53.0) % RDW 17.5 H (11.5-15.5) % Neutrophils # 12.4 H (1.3-7.7) k/uL Chloride 116 H (98-107) mmol/L Carbon Dioxide 15 L (22-30) mmol/L Glucose 69 L (74-99) mg/dL POC Glucose (mg/dL) (75-99) mg/dL Calcium 8.3 L (8.4-10.2) mg/dL Microbiology - Last 24 Hours (Table) 09/22/18 08:41 Blood Culture - Preliminary Blood No Growth after 96 hours 09/22/18 16:52 Gram Stain - Final Foot - Right Wound Culture - Final Staphylococcus aureus
[2018-09-26] MEDS ORDERED: LIDOCAINE 1% INJ 10MG/ML (20 ML MDV) SQ ONE (13:21)
[2018-09-26 14:36] LABS: Glucose,Whole Blood 92 mg/dL (75-99)
[2018-09-26] MEDS ORDERED: HYDROmorphone 1 MG/ML 1 ML SYRINGE IVP ONE ×2 (15:00→15:15)
--- NOTE | 2018-09-26 15:03 | P.OP ---
Description of Procedure: Preoperative diagnosis: Right femoral artery occlusive disease, wet gangrene right toes 3 through 5 Postoperative diagnosis: Same Procedure: 1. Ultrasound-guided left common femoral artery access 2. Selective right lower extremity angiogram 3. Right superficial femoral artery atherectomy 4. Right superficial femoral artery percutaneous transluminal balloon angioplasty with 4 x 150 balloon 5. Selective anterior tibial artery angiogram 6. Selective tibial peroneal trunk angiogram 7. Pharmacal mechanical thrombectomy with TPA and export thrombectomy catheter 8. Superficial femoral and popliteal artery stent placement with 6 x 59 Omnilink, 6 x 150 Viabahn, 6 x 250 Viabahn, 5 x 100 Viabahn 9. Anterior tibial artery percutaneous transluminal balloon angioplasty 10. Dorsalis pedis preteens transluminal balloon angioplasty 11. Placement of left femoral artery closure device 6-[place] Angio-Seal 12. Ray amputation of right third through fifth toe Surgeon: Negra Dc D.O. [employer] Dies: Collins Vargas D.O. Anesthesia: Moderate conscious sedation 4h25m with MAC initiation following EBL: 60cc IV fluids: See records Urine output: See records Drains: none Complications: none Condition: Stable Operative indication and findings: The patient is a 72-year-old male who was initially admitted to the hospital with a GI bleed and findings of gangrene of his right foot. After appropriate stability of his GI bleed, a CT angiogram was performed revealing occlusion of his superficial femoral artery with reconstitution at the popliteal artery. Long discussion was had with the patient regarding potential revascularization and need for anticoagulation which may increase his risk of rebleeding. He wishes to do everything he can to salvage his right lower extremity at this time. He was taken to the operative suite for endovascular revascularization and amputation of his third through fifth toes. Upon imaging there was a long segment of superficial femoral artery occlusion. Upon crossing this there was two-vessel runoff below the knee. After the atherectomy, there was a slight wire channel but no significant improvement of flow. Balloon was utilized, there was found to be thrombus forming even though patient had already received 5000 units of heparin. The export thrombectomy catheter and TPA was utilized with multiple passes and eventually the flow was found to be patent through the 2 vessels. Review balloon was performed followed by stenting from the popliteal artery to the superficial femoral takeoff. Flow was brisk and cleared quickly. On imaging of the ankle there was flow through the dorsalis pedis after serial ballooning. Procedure in detail: The patient was taken to the procedural suite and placed in supine position the bilateral groins were prepped and draped in usual sterile fashion a preprocedure timeout was performed and all parties in agreement. The ultrasound was utilized and the left common femoral artery was identified and skin overlying was anesthetized and a multipurpose needle was utilized to cannulate the common femoral artery. A guidewire was passed and a 5-[place] sheath was placed. A Glidewire was utilized and an RBI catheter in order to traverse the aortic bifurcation. A right lower extremity angiogram was performed and also an THOMSON position. This elucidated the nipple of the superficial femoral artery. The nipple was engaged with a glide advantage. At that point the sheath was exchanged for a 6-[place] Angela. Utilizing a glide advantage and a crossing catheter the superficial femoral artery was traversed. The catheter was utilized to confirm positioning the below-knee popliteal artery intraluminal. A 5 spider filter wire was placed through the catheter. A 6 F, Hawk One M was utilized with multiple passes throughout levels of the occlusion of the superficial femoral artery. After multiple passes a repeat injury and was performed with no evidence of adequate flow. There was some suspicion of thrombus given the final evacuation of the Hawk one catheter device therefore a export thrombectomy catheter was placed and suctioned revealing blood clot. TPA a total of 4 mg was instilled. Balloon angioplasty with a 3 x 2 50 and a 4 x 2 50 balloon were utilized. After multiple passes of the thrombectomy device and ballooning there appeared to be adequate blood flow below the tibial bifurcation. At that point wire access using an 014 wire was performed to each of the anterior tibial artery and tibial peroneal trunk. The 3 x 250 balloon was utilized in both along their distance. At that point the Biobond stents were placed, most distally the 5 x 100 followed by the 6 x 2 50 followed by 6 x 1 50 followed by a 6 x 59 Omnilink balloon expandable stent at the takeoff of the superficial femoral artery. Repeat imaging was performed revealing brisk filling and washout of the superficial femoral artery and the popliteal to the a nterior tibial and posterior tibial arteries. There was cessation of flow at the distal calf. At that point a guidewire was placed again into the anterior tibial artery and balloon was performed. This is all the way to the level of the dorsalis pedis. The catheters and wires were then removed. The sheath was removed over a guidewire. An Angio-Seal, 6-[place] was placed with adequate hemostasis. There was a palpable pulse distal to the closure device upon completion. At that point the patient was then taken to the operative suite his right lower exam he was prepped and draped in usual sterile fashion. The skin of the third through fifth toes was sharply incised and carried down to the level of the bone. The toes were removed. The periosteal elevator was utilized and the metatarsals were cleared. The Sudhir and bone cutters were utilized to remove the distal portions of the metatarsal head. Any bony edges were smoothed down. The area was then copiously irrigated. There was hyperemic tissue on the dorsum of the foot, this was left intact given the recent revascularization in hopes that it may survive. The wound was left open and wet-to-dry dressings were placed. The patient was transferred to PACU in stable condition having tolerated both procedures well.
[2018-09-26] MEDS: CEFEPIME 2 GM in SODIUM CHLORIDE 0.9% 100 ML IVPB SCH ×2 (15:10→22:06)
[2018-09-26] MEDS ORDERED: hydrALAZINE HCL 20 MG/ML 1 ML VIAL IVP ONE (15:15)
[2018-09-26 16:58] LABS: Glucose,Whole Blood 136 mg/dL (75-99)
[2018-09-26 17:26] LABS: Anisocytosis Slight; Basophils % (A) 0 %; Eosinophils % (A) 0 %; HCT 23.1 % (39.0-53.0); HGB 7.1 gm/dL (13.0-17.5); Hypochromasia Moderate; Lymphocytes # (A) 0.7 k/uL (1.0-4.8); Lymphocytes % (A) 6 %; MCH 29.8 pg (25.0-35.0); MCHC 30.7 g/dL (31.0-37.0); MCV 97.1 fL (80.0-100.0); Macrocytosis Slight; Monocytes # (A) 0.2 k/uL (0-1.0); Monocytes % (A) 2 %; Neutrophils # (A) 11.5 k/uL (1.3-7.7); Neutrophils % (A) 92 %; Platelet Count 280 k/uL (150-450); RBC 2.38 m/uL (4.30-5.90); RDW 17.6 % (11.5-15.5); WBC 12.6 k/uL (3.8-10.6)
[2018-09-26 17:40] LABS: African American GFR (CKD) >90 (>60 ml/min/1.73 sqM); Anion Gap 7 mmol/L; Blood Urea Nitrogen 18 mg/dL (9-20); Calcium 8.3 mg/dL (8.4-10.2); Carbon Dioxide 17 mmol/L (22-30); Chloride 115 mmol/L (98-107); Glucose 113 mg/dL (74-99); Sodium 139 mmol/L (137-145)
[2018-09-26] MEDS: POTASSIUM CHLORIDE ER 20 MEQ TAB.ER PO SCH ×3 (17:50→22:01)
[2018-09-26] MEDS: PANTOPRAZOLE 40 MG/10 ML VIAL IVP SCH ×2 (18:02→22:02)
[2018-09-26 21:04] LABS: Glucose,Whole Blood 309 mg/dL (75-99)
[2018-09-26] MEDS: CLOPIDOGREL 75 MG TAB PO SCH (22:01)
[2018-09-26] MEDS: INSULIN DETEMIR (LEVEMIR) 100 UNIT/ML SYR SQ SCH (22:09)
--- NOTE | 2018-09-26 22:35 | PN ---
PROGRESS NOTE CHIEF COMPLAINT: Anemia and gangrenous ulcer of the right foot with PVD. HISTORY OF PRESENT ILLNESS: This gentleman is doing fairly well postoperatively. He is not having significant discomfort. PHYSICAL EXAMINATION: His chest is fairly clear. There are scattered rales. Cardiac exam is normal. Abdomen is soft. IMPRESSION: 1. Ischemic ulcer of the dorsum of the right foot. 2. Peripheral vascular occlusive disease. PLAN: No change in program and follow with vascular surgery including looking into discharge arrangements. MMODL / IJN: [id number] /
--- NOTE | 2018-09-26 23:08 | PN ---
PROGRESS NOTE DATE OF SERVICE: 09/26/2018. REASON FOR FOLLOWUP: Right diabetic foot infection, Tabitha's grade 4. INTERVAL HISTORY: The patient was taken to the OR today. The patient is status post revascularization and amputation of his right third to fifth toes. The patient tolerated the procedure. The patient was seen post surgery. Pain is currently controlled. He was eating his dinner. No nausea, no vomiting, no abdominal pain, no diarrhea. PHYSICAL EXAMINATION: Blood pressure 138/59 with a pulse of 92, temperature 98.6. He is 97% on room air. General description is an elderly male lying in bed in no distress. RESPIRATORY SYSTEM: Unlabored breathing with decreased breath sounds at the base. HEART: S1, S2. Regular rate and rhythm. ABDOMEN: Soft. No tenderness. Right foot is currently dressed up. No obvious drainage on the dressing. LABS: Hemoglobin 7.9, white count 12.6, BUN of 18, creatinine 0.91. DIAGNOSTIC IMPRESSION AND PLAN: Patient with right diabetic foot infection, Tabitha's grade 4, in this patient who did have necrotic right fourth and fifth toes. The patient is status post amputation of the right third, fourth and fifth toes. Wound culture has been Staphylococcus aureus. Patient is currently covered with cefepime; to continue while monitoring clinical course closely. Continue supportive care. MMODL / IJN: [id number] /
[2018-09-27] MEDS: ACETAMINOPHEN TAB 325 MG TAB PO PRN ×2 (03:33→17:25)
[2018-09-27 06:11] LABS: Glucose,Whole Blood 168 mg/dL (75-99)
[2018-09-27] MEDS: SUCRALFATE 1 GM TAB PO SCH ×3 (06:12→17:24)
[2018-09-27] MEDS: INSULIN ASPART (NovoLOG) 100 UNIT/ML VIAL SQ SCH ×4 (06:12→21:10)
[2018-09-27 07:29] LABS: Calcium 8.2 mg/dL (8.4-10.2); Potassium 4.5 mmol/L (3.5-5.1)
[2018-09-27 07:32] LABS: Anisocytosis Slight; Basophils # (A) 0.1 k/uL (0-0.2); Basophils % (A) 0 %; Eosinophils # (A) 0.1 k/uL (0-0.7); Eosinophils % (A) 0 %; Hypochromasia Moderate; Lymphocytes # (A) 1.7 k/uL (1.0-4.8); Lymphocytes % (A) 9 %; MCHC 31.3 g/dL (31.0-37.0); Macrocytosis Slight; Mean Platelet Volume 8.5; Monocytes # (A) 1.2 k/uL (0-1.0); Monocytes % (A) 6 %; Neutrophils # (A) 15.6 k/uL (1.3-7.7); Neutrophils % (A) 82 %; Platelet Count 282 k/uL (150-450); Poikilocytosis Slight; RBC 2.01 m/uL (4.30-5.90); RDW 18.5 % (11.5-15.5); WBC 18.9 k/uL (3.8-10.6)
[2018-09-27 07:47] LABS: HCT 19.9 % (39.0-53.0); HGB 6.2 gm/dL (13.0-17.5)
--- NOTE | 2018-09-27 08:02 | P.PN ---
Subjective Progress Note Date: 09/27/18 Patient seen and examined. Overall doing well. Has more feeling in his right leg. The pain essentially controlled. Did have dressing change once overnight due to serosanguineous drainage. No acute distress resting comfortably Right lower extremity warm, dry. Dressing is changed. Minimal serosanguineous drainage from edema and mild oozing. Audible strong monophasic PT and AT flow at the ankle Labs reviewed, this morning hemoglobin 6.2 from 7.1. No evidence of active bleeding, likely just postsurgical Acute on chronic anemia, history of GI bleed, recent surgery Postoperative day #1 from right lower extremity endovascular revascularization with stents and right third through fifth toe amputation for wet gangrene The patient is currently on Plavix for his stents. He was discussed with him that if he does have issues with continuing low hemoglobin and worsening of this his Plavix may need to be stopped in which case he might thrombose his stents. He seemingly understands this risk and is willing to proceed as planned. At this point there is no evidence of active bleeding. We will transfuse 1 unit of PRBC at this time. His wounds on his foot appear much improved with healthy-ap pearing tissue. We will await one more day for further demarcation and plan on wound VAC and discharged versus wound closure attempts. Hopeful for DC in the next 48 hours. Objective - Vital Signs Vital signs: Vital Signs Temp 98.8 F 09/27/18 03:41 Pulse 91 09/27/18 04:00 Resp 18 09/27/18 04:00 BP 130/64 09/27/18 03:41 Pulse Ox 99 09/27/18 03:41 Intake & Output 09/26/18 09/27/18 09/27/18 18:59 06:59 18:59 Intake Total 860 800 Output Total 1660 500 Balance -800 300 Weight 71.8 kg 73.5 kg Intake: IV 500 800 Sodium Chloride 0.9% 1, 800 000 ml @ 100 mls/hr IV . Q10H MAHENDRA Rx#:[id number] Oral 360 Output: Urine 1650 500 Estimated Blood Loss 10 Other: Voiding Method Indwelling Catheter # Voids 1 - Labs CBC & Chem 7: 09/27/18 06:51 09/27/18 06:51 Labs: Abnormal Lab Results - Last 24 Hours (Table) 09/26/18 09/26/1819 Range/Units 06:55 16:56 17:04 WBC (3.8-10.6) k/uL RBC (4.30-5.90) m/uL Hgb (13.0-17.5) gm/dL Hct (39.0-53.0) % MCHC (31.0-37.0) g/dL RDW (11.5-15.5) % Neutrophils # (1.3-7.7) k/uL Lymphocytes # (1.0-4.8) k/uL Monocytes # (0-1.0) k/uL Chloride 116 H 115 H (98-107) mmol/L Carbon Dioxide 15 L 17 L (22-30) mmol/L BUN (9-20) mg/dL Glucose 69 L 113 H (74-99) mg/dL POC Glucose (mg/dL) 136 H (75-99) mg/dL Calcium 8.3 L 8.3 L (8.4-10.2) mg/dL 09/26/18 09/26/18 09/27/18 Range/Units 17:11 21:02 06:08 WBC 12.6 H (3.8-10.6) k/uL RBC 2.38 L (4.30-5.90) m/uL Hgb 7.1 L (13.0-17.5) gm/dL Hct 23.1 L (39.0-53.0) % MCHC 30.7 L (31.0-37.0) g/dL RDW 17.6 H (11.5-15.5) % Neutrophils # 11.5 H (1.3-7.7) k/uL Lymphocytes # 0.7 L (1.0-4.8) k/uL Monocytes # (0-1.0) k/uL Chloride (98-107) mmol/L Carbon Dioxide (22-30) mmol/L BUN (9-20) mg/dL Glucose (74-99) mg/dL POC Glucose (mg/dL) 309 H 168 H (75-99) mg/dL Calcium (8.4-10.2) mg/dL 09/27/18 09/27/18 Range/Units 06:51 06:51 WBC 18.9 H (3.8-10.6) k/uL RBC 2.01 L (4.30-5.90) m/uL Hgb 6.2 L* (13.0-17.5) gm/dL Hct 19.9 L* (39.0-53.0) % MCHC (31.0-37.0) g/dL RDW 18.5 H (11.5-15.5) % Neutrophils # 15.6 H (1.3-7.7) k/uL Lymphocytes # (1.0-4.8) k/uL Monocytes # 1.2 H (0-1.0) k/uL Chloride 113 H (98-107) mmol/L Carbon Dioxide 19 L (22-30) mmol/L BUN 26 H (9-20) mg/dL Glucose 113 H (74-99) mg/dL POC Glucose (mg/dL) (75-99) mg/dL Calcium 8.2 L (8.4-10.2) mg/dL Microbiology - Last 24 Hours (Table) 09/22/18 08:41 Blood Culture - Preliminary Blood No Growth after 96 hours
--- NOTE | 2018-09-27 08:41 | IR ---
Fluoroscopy HISTORY: Pain 68.1 minutes fluoroscopy time supplied to the referring clinician. 9184 intraoperative C-arm images document the procedure. See dictated report from vascular surgery.
[2018-09-27] MEDS: CEFEPIME 2 GM in SODIUM CHLORIDE 0.9% 100 ML IVPB SCH (09:47)
[2018-09-27] MEDS: CLOPIDOGREL 75 MG TAB PO SCH (09:47)
[2018-09-27] MEDS: PANTOPRAZOLE 40 MG/10 ML VIAL IVP SCH ×2 (09:47→21:09)
[2018-09-27] MEDS: POTASSIUM CHLORIDE ER 20 MEQ TAB.ER PO SCH ×3 (09:47→21:10)
--- NOTE | 2018-09-27 11:31 | P.ARTDOP ---
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 Doppler waveforms: Multiphasic at both femorals. Atypical at the right popliteal, no pulsatile flow at the right ankle or foot Pulse volume recording: []. Pressure gradients: No pressures are recorded. Ankle-brachial indices: []. Toe pressures: [] on the right, [] on the left Impression: Severe right femoral popliteal disease.
[2018-09-27 12:00] LABS: Glucose,Whole Blood 219 mg/dL (75-99)
--- NOTE | 2018-09-27 13:25 | P.PN ---
Subjective Progress Note Date: 09/27/18 Principal diagnosis: GI bleed duodenal ulcer 72-year-old gentleman status post inpatient EGD 4 days ago for acute GI bleed with findings of a large duodenal ulcer. Presently denies active GI bleeding such as hematemesis hematochezia or melena. Patient underwent right lower extr emity endovascular revascularization with stents in right third-fifth toe amputation for wet gangrene yesterday. Patient was started on Plavix this morning. He will 6.2 blood transfusion as been ordered. Denies abdominal complaints. Afebrile. Objective - Vital Signs Vital signs: Vital Signs Temp 98.4 F 09/27/18 13:20 Pulse 83 09/27/18 13:20 Resp 18 09/27/18 04:00 BP 136/53 09/27/18 13:20 Pulse Ox 95 09/27/18 13:20 Intake & Output 09/26/18 09/27/18 09/27/18 18:59 06:59 18:59 Intake Total 860 800 460 Output Total 1660 500 Balance -800 300 460 Weight 71.8 kg 73.5 kg Intake: IV 500 800 100 Cefepime 2 gm In Sodium 100 Chloride 0.9% 100 ml @ 200 mls/hr IVPB Q12HR [facility]DRA Rx#:[id number] Sodium Chloride 0.9% 1, 800 000 ml @ 100 mls/hr IV . Q10H MAHENDRA Rx#:[id number] Oral 360 360 Blood Product 0 Rc As-1 Unit 0 [id number] Output: Urine 1650 500 Estimated Blood Loss 10 Other: Voiding Method Indwelling Catheter # Voids 1 - Exam General appearance: The patient is alert, oriented, in no acute distress. HET: Head is normocephalic and atraumatic. Pupils are equal and reactive. Oropharynx is clear without lesions. Neck: Supple without lymphadenopathy. Trachea midline. Heart: S1 S2. Regular rate and rhythm. Lungs: No crackles or wheezes are heard. Abdomen: Soft, nontender, nondistended with bowel sounds. No peritoneal signs. No palpable organomegaly or masses. Neurological: No focal deficits. Strength and sensation are grossly intact. - Labs CBC & Chem 7: 09/27/18 06:51 09/27/18 06:51 Labs: Abnormal Lab Results - Last 24 Hours (Table) 09/26/18 09/26/1819 Range/Units 16:56 17:04 17:11 WBC 12.6 H (3.8-10.6) k/uL RBC 2.38 L (4.30-5.90) m/uL Hgb 7.1 L (13.0-17.5) gm/dL Hct 23.1 L (39.0-53.0) % MCHC 30.7 L (31.0-37.0) g/dL RDW 17.6 H (11.5-15.5) % Neutrophils # 11.5 H (1.3-7.7) k/uL Lymphocytes # 0.7 L (1.0-4.8) k/uL Monocytes # (0-1.0) k/uL Chloride 115 H (98-107) mmol/L Carbon Dioxide 17 L (22-30) mmol/L BUN (9-20) mg/dL Glucose 113 H (74-99) mg/dL POC Glucose (mg/dL) 136 H (75-99) mg/dL Calcium 8.3 L (8.4-10.2) mg/dL Crossmatch 09/26/18 09/27/18 09/27/18 Range/Units 21:02 06:08 06:51 WBC (3.8-10.6) k/uL RBC (4.30-5.90) m/uL Hgb (13.0-17.5) gm/dL Hct (39.0-53.0) % MCHC (31.0-37.0) g/dL RDW (11.5-15.5) % Neutrophils # (1.3-7.7) k/uL Lymphocytes # (1.0-4.8) k/uL Monocytes # (0-1.0) k/uL Chloride 113 H (98-107) mmol/L Carbon Dioxide 19 L (22-30) mmol/L BUN 26 H (9-20) mg/dL Glucose 113 H (74-99) mg/dL POC Glucose (mg/dL) 309 H 168 H (75-99) mg/dL Calcium 8.2 L (8.4-10.2) mg/dL Crossmatch 09/27/18 09/27/18 09/27/18 Range/Units 06:51 08:24 11:47 WBC 18.9 H (3.8-10.6) k/uL RBC 2.01 L (4.30-5.90) m/uL Hgb 6.2 L* (13.0-17.5) gm/dL Hct 19.9 L* (39.0-53.0) % MCHC (31.0-37.0) g/dL RDW 18.5 H (11.5-15.5) % Neutrophils # 15.6 H (1.3-7.7) k/uL Lymphocytes # (1.0-4.8) k/uL Monocytes # 1.2 H (0-1.0) k/uL Chloride (98-107) mmol/L Carbon Dioxide (22-30) mmol/L BUN (9-20) mg/dL Glucose (74-99) mg/dL POC Glucose (mg/dL) 219 H (75-99) mg/dL Calcium (8.4-10.2) mg/dL Crossmatch See Detail Microbiology - Last 24 Hours (Table) 09/22/18 08:41 Blood Culture - Preliminary Blood No Growth after 120 hours Assessment and Plan (1) Duodenal ulcer Current Visit: Yes Status: Acute Code(s): K26.9 - DUODENAL ULCER, UNSP ACUTE OR CHRONIC, W/O HEMOR OR PERF SNOMED Code(s): 64431722 (2) Anemia associated with acute blood loss Current Visit: Yes Status: Acute Code(s): D62 - ACUTE POSTHEMORRHAGIC ANEMIA SNOMED Code(s): 780247107 (3) GI bleed Current Visit: Yes Status: Acute Code(s): K92.2 - GASTROINTESTINAL HEMORRHAGE, UNSPECIFIED SNOMED Code(s): 50996753 (4) Gangrene of right foot Current Visit: Yes Status: Acute Code(s): I96 - GANGRENE, NOT ELSEWHERE CLASSIFIED SNOMED Code(s): 17253552087884636 Plan: 1. CBC monitoring. Continue Protonix 40 mg twice daily. Blood transfusions as indicated. Presently no evidence of active GI bleeding. Continue with present medications including Plavix with close clinical monitoring of hemoglobin for recurrent GI bleed secondary to EGD findings of duodenal ulcer 4 days ago. Will follow closely with you. Assessment and plan a care discussed with Dr. Ferraro
[2018-09-27] MEDS: SODIUM CHLORIDE 0.9% 1,000 ML IV SCH (13:37)
--- NOTE | 2018-09-27 13:54 | PN ---
PROGRESS NOTE DATE OF SERVICE: 09/27/2018 REASON FOR FOLLOWUP: Right diabetic foot infection Loja's stage IV MSSA. INTERVAL HISTORY: The patient is currently afebrile. Patient has been breathing comfortably. The patient denies having any chest pain, shortness of breath or cough. The patient's pain to his right foot is currently controlled. No nausea or vomiting. No abdominal pain and no diarrhea. PHYSICAL EXAMINATION: On examination, blood pressure 103/63 with a pulse of 91 temperature 97.6. He is 95% 2 L nasal cannula. General description is an elderly male lying in bed in no distress. RESPIRATORY SYSTEM: Unlabored breathing, clear to auscultation anteriorly. HEART: S1, S2. Regular rate and rhythm. ABDOMEN: Soft, no tenderness. Right foot is currently dressed up, no obvious drainage on the dressing. LABS: Hemoglobin is 6.2 with a white count of 18.9, BUN of 26, creatinine 1.14. DIAGNOSTIC IMPRESSION AND PLAN: Patient with right diabetic foot infection with wet gangrene and discoloration of right fourth and fifth toe, status post right fourth and fifth amputation. The patient did have slight jump in white count, possibly reactive as the patient did have a drop in hemoglobin as well. He will be monitored closely. Antibiotic will be adjusted to cefazolin 2 grams q.8 hours. Repeating tomorrow. Local care to continue per surgery. Continue supportive care. JESSICAL / MERLEN: [id number] /
--- NOTE | 2018-09-27 16:42 | PN ---
PROGRESS NOTE CHIEF COMPLAINT: PVOD with necrotic ulcer and gangrene of the right foot. HISTORY OF PRESENT ILLNESS: This gentleman is still having GI bleeding issues. He had a melanotic stool this morning and his hemoglobin is 6.2. PHYSICAL EXAMINATION: He remains pale. He is slightly agitated but seems alert. Head, ears, eyes, nose, mouth and throat are normal. Chest is clear. Cardiac exam is normal. The abdomen seems soft without masses. IMPRESSION: 1. Gastrointestinal bleed. 2. Peripheral vascular occlusive disease involving the right lower extremity with necrotic ulcer of the distal foot and lateral 3 toes. PLAN: Continue to follow with Vascular Surgery and Gastroenterology. He will require transfusions as long as he continues to bleed. MMODL / IJN: [id number] /
[2018-09-27 16:43] LABS: Glucose,Whole Blood 114 mg/dL (75-99)
[2018-09-27 20:36] LABS: Glucose,Whole Blood 332 mg/dL (75-99)
[2018-09-27] MEDS: INSULIN DETEMIR (LEVEMIR) 100 UNIT/ML SYR SQ SCH (21:09)
[2018-09-28] MEDS: ACETAMINOPHEN TAB 325 MG TAB PO PRN ×2 (00:09→11:33)
[2018-09-28] MEDS: MORPHINE SULFATE 4 MG/ML SYRINGE IV PRN ×3 (02:54→21:44)
[2018-09-28] MEDS: SODIUM CHLORIDE 0.9% 1,000 ML IV SCH ×3 (04:38→17:39)
[2018-09-28 06:33] LABS: Glucose,Whole Blood 82 mg/dL (75-99)
[2018-09-28] MEDS: INSULIN ASPART (NovoLOG) 100 UNIT/ML VIAL SQ SCH ×4 (06:51→21:43)
[2018-09-28 08:39] LABS: Anisocytosis Slight; Basophils # (A) 0.1 k/uL (0-0.2); Basophils % (A) 0 %; Eosinophils # (A) 0.1 k/uL (0-0.7); Eosinophils % (A) 1 %; HCT 22.9 % (39.0-53.0); HGB 7.2 gm/dL (13.0-17.5); Hypochromasia Slight; Lymphocytes # (A) 2.6 k/uL (1.0-4.8); Lymphocytes % (A) 15 %; MCH 29.8 pg (25.0-35.0); MCHC 31.4 g/dL (31.0-37.0); MCV 94.8 fL (80.0-100.0); Mean Platelet Volume 8.3; Monocytes # (A) 1.2 k/uL (0-1.0); Monocytes % (A) 7 %; Neutrophils # (A) 12.4 k/uL (1.3-7.7); Neutrophils % (A) 75 %; Platelet Count 297 k/uL (150-450); Poikilocytosis Slight; RBC 2.42 m/uL (4.30-5.90); RDW 16.7 % (11.5-15.5); WBC 16.6 k/uL (3.8-10.6)
[2018-09-28] MEDS: SUCRALFATE 1 GM TAB PO SCH ×3 (08:41→17:39)
[2018-09-28] MEDS: PANTOPRAZOLE 40 MG/10 ML VIAL IVP SCH ×2 (08:45→21:44)
[2018-09-28] MEDS: POTASSIUM CHLORIDE ER 20 MEQ TAB.ER PO SCH ×3 (08:45→21:58)
[2018-09-28] MEDS: CLOPIDOGREL 75 MG TAB PO SCH (08:45)
[2018-09-28 08:51] LABS: Calcium 8.1 mg/dL (8.4-10.2); Potassium 4.2 mmol/L (3.5-5.1)
[2018-09-28 11:59] LABS: Glucose,Whole Blood 243 mg/dL (75-99)
--- NOTE | 2018-09-28 12:10 | P.PN ---
Subjective Progress Note Date: 09/28/18 Principal diagnosis: GI bleed duodenal ulcer 72-year-old gentleman status post inpatient EGD 5 days ago for acute GI bleed with findings of a large duodenal ulcer. Presently denies active GI bleeding such as hematemesis hematochezia or melena. Patient underwent right lower extr emity endovascular revascularization with stents in right third-fifth toe amputation for wet gangrene. Receiving Plavix. Hemoglobin today 7.2. Denies abdominal complaints. Afebrile. Objective - Vital Signs Vital signs: Vital Signs Temp 98 F 09/28/18 11:36 Pulse 80 09/28/18 11:36 Resp 20 09/28/18 11:36 BP 123/62 09/28/18 11:36 Pulse Ox 97 09/28/18 11:36 Intake & Output 09/27/18 09/28/18 09/28/18 18:59 06:59 18:59 Intake Total 1610 500 360 Output Total 1400 1000 650 Balance 210 -500 -290 Weight 74 kg Intake: IV 100 500 Cefepime 2 gm In Sodium 100 Chloride 0.9% 100 ml @ 200 mls/hr IVPB Q12HR [facility]DR[facility] Rx#:[id number] Sodium Chloride 0.9% 1, 500 000 ml @ 100 mls/hr IV . Q10H MAHENDRA Rx#:[id number] Oral 1200 360 Blood Product 310 Rc As-1 Unit 310 [id number] Output: Urine 1400 1000 650 Other: Voiding Method Indwelling Catheter Indwelling Catheter - Exam General appearance: The patient is alert, oriented, in no acute distress. HET: Head is normocephalic and atraumatic. Pupils are equal and reactive. Oropharynx is clear without lesions. Neck: Supple without lymphadenopathy. Trachea midline. Heart: S1 S2. Regular rate and rhythm. Lungs: No crackles or wheezes are heard. Abdomen: Soft, nontender, nondistended with bowel sounds. No peritoneal signs. No palpable organomegaly or masses. Neurological: No focal deficits. Strength and sensation are grossly intact. - Labs CBC & Chem 7: 09/28/18 08:05 09/28/18 08:05 Labs: Abnormal Lab Results - Last 24 Hours (Table) 09/27/18 09/27/18 09/27/18 Range/Units 08:24 16:39 20:34 WBC (3.8-10.6) k/uL RBC (4.30-5.90) m/uL Hgb (13.0-17.5) gm/dL Hct (39.0-53.0) % RDW (11.5-15.5) % Neutrophils # (1.3-7.7) k/uL Monocytes # (0-1.0) k/uL Chloride (98-107) mmol/L Carbon Dioxide (22-30) mmol/L BUN (9-20) mg/dL POC Glucose (mg/dL) 114 H 332 H (75-99) mg/dL Calcium (8.4-10.2) mg/dL Crossmatch See Detail 09/28/18 09/28/18 09/28/18 Range/Units 08:05 08:05 11:55 WBC 16.6 H (3.8-10.6) k/uL RBC 2.42 L (4.30-5.90) m/uL Hgb 7.2 L (13.0-17.5) gm/dL Hct 22.9 L (39.0-53.0) % RDW 16.7 H (11.5-15.5) % Neutrophils # 12.4 H (1.3-7.7) k/uL Monocytes # 1.2 H (0-1.0) k/uL Chloride 114 H (98-107) mmol/L Carbon Dioxide 20 L (22-30) mmol/L BUN 33 H (9-20) mg/dL POC Glucose (mg/dL) 243 H (75-99) mg/dL Calcium 8.1 L (8.4-10.2) mg/dL Crossmatch Microbiology - Last 24 Hours (Table) 09/22/18 08:41 Blood Culture - Final Blood No Growth after 144 hours Assessment and Plan (1) Duodenal ulcer Current Visit: Yes Status: Acute Code(s): K26.9 - DUODENAL ULCER, UNSP ACUTE OR CHRONIC, W/O HEMOR OR PERF SNOMED Code(s): 78149597 (2) Anemia associated with acute blood loss Current Visit: Yes Status: Acute Code(s): D62 - ACUTE POSTHEMORRHAGIC ANEMIA SNOMED Code(s): 576996636 (3) GI bleed Current Visit: Yes Status: Acute Code(s): K92.2 - GASTROINTESTINAL HEMORRHAGE, UNSPECIFIED SNOMED Code(s): 96326037 (4) Gangrene of right foot Current Visit: Yes Status: Acute Code(s): I96 - GANGRENE, NOT ELSEWHERE C LASSIFIED SNOMED Code(s): 50738366441572169 Plan: 1. CBC monitoring. Continue Protonix 40 mg twice daily on discharge. Return to office 3-4 weeks. Blood transfusions as indicated. Presently no evidence of active GI bleeding. Continue with present medications including Plavix with close clinical monitoring of hemoglobin for recurrent GI bleed secondary to EGD findings of duodenal ulcer 5 days ago. Discharge planning per vascular surgery medicine. We'll follow on an as-needed basis. Assessment and plan a care discussed with Dr. Ferraro
[2018-09-28 16:53] LABS: Glucose,Whole Blood 149 mg/dL (75-99)
--- NOTE | 2018-09-28 19:27 | PN ---
PROGRESS NOTE DATE OF SERVICE: 09/28/2018. REASON FOR FOLLOWUP: Right diabetic foot Tabitha's grade 4/wet gangrene. INTERVAL HISTORY: The patient is currently afebrile. The patient has been breathing comfortably. Patient denies having any chest pain or shortness of breath or cough. No nausea, no vomiting, no abdominal pain or any worsening pain to the right foot area. PHYSICAL EXAMINATION: Blood pressure 120/69 with a pulse of 84, temperature 97.5. He is 100% on room air. General description is an elderly male up in the bed in no distress. HEENT EXAMINATION: Pallor. Oral mucosa membrane dry. LUNGS: Unlabored breathing. Clear to auscultation. HEART: S1, S2. Regular rate and rhythm. ABDOMEN: Soft. No tenderness. Right foot is currently dressed up. No obvious drainage on the dressing. LABS: Hemoglobin 7.2 with white count 16.6, BUN of 33, creatinine 1.02. DIAGNOSTIC IMPRESSION AND PLAN: Patient with right diabetic foot infection with wet gangrene, status post right leg endovascular revascularization with stenting and amputation of third to fifth toes. Wound culture with MSSA. The patient is currently covered with cefazolin 2 grams q.8; to continue while monitoring her clinical course closely. Continue with supportive care. MMODL / IJN: [id number] /
--- NOTE | 2018-09-28 20:30 | PN ---
PROGRESS NOTE CHIEF COMPLAINT: GI bleed, PVOD and a chronic ulcer of the right foot. HISTORY OF PRESENT ILLNESS: This gentleman seems to be stabilizing, and his hemoglobin has held for the last 24 hours. PHYSICAL EXAMINATION: He remains pale, but awake and alert. Chest is clear. Cardiac exam is normal. Abdomen is soft, nontender. Perfusion to the right foot seems to be excellent. Dressings are dry and there is no bleeding from his amputation. IMPRESSION: 1. Gastrointestinal bleed. 2. Blood loss anemia. 3. Peripheral vascular occlusive disease affecting the right lower extremity. 4. Necrotic ulcer of the dorsum of the right foot. PLAN: Continue with current management, physical therapy, and work on discharge plan. MMMILDREDL / IJN: [id number] /
[2018-09-28 20:40] LABS: Glucose,Whole Blood 193 mg/dL (75-99)
[2018-09-28] MEDS: INSULIN DETEMIR (LEVEMIR) 100 UNIT/ML SYR SQ SCH (21:43)
[2018-09-29] MEDS: MORPHINE SULFATE 4 MG/ML SYRINGE IV PRN ×2 (00:12→08:43)
[2018-09-29] MEDS: SODIUM CHLORIDE 0.9% 1,000 ML IV SCH ×3 (02:30→23:55)
[2018-09-29 06:25] LABS: Glucose,Whole Blood 86 mg/dL (75-99)
[2018-09-29] MEDS: INSULIN ASPART (NovoLOG) 100 UNIT/ML VIAL SQ SCH ×4 (06:45→21:38)
[2018-09-29] MEDS: SUCRALFATE 1 GM TAB PO SCH ×3 (06:47→17:57)
[2018-09-29] MEDS: POTASSIUM CHLORIDE ER 20 MEQ TAB.ER PO SCH ×3 (08:44→21:39)
[2018-09-29] MEDS: PANTOPRAZOLE 40 MG/10 ML VIAL IVP SCH ×2 (08:45→21:38)
[2018-09-29] MEDS: CLOPIDOGREL 75 MG TAB PO SCH (08:45)
--- NOTE | 2018-09-29 11:45 | P.PN ---
Subjective Progress Note Date: 09/29/18 Principal diagnosis: GI bleed duodenal ulcer 72-year-old gentleman status post inpatient EGD 6 days ago for acute GI bleed with findings of a large duodenal ulcer. Presently denies active GI bleeding such as hematemesis hematochezia or melena. Patient underwent right lower extr emity endovascular revascularization with stents in right third-fifth toe amputation for wet gangrene earlier this week. Receiving Plavix. Hemoglobin yesterday 7.2. Denies abdominal complaints. Afebrile. Possible DC to ECF today. Objective - Vital Signs Vital signs: Vital Signs Temp 97.3 F L 09/29/18 08:00 Pulse 87 09/29/18 08:00 Resp 16 09/29/18 08:00 BP 128/85 09/29/18 08:00 Pulse Ox 100 09/29/18 08:00 Intake & Output 09/28/18 09/29/18 09/29/18 18:59 06:59 18:59 Intake Total 880 960 260 Output Total 1425 3000 Balance -545 -2040 260 Weight 77.5 kg Intake: IV 910 20 Invasive Line 6 10 20 Sodium Chloride 0.9% 1, 900 000 ml @ 100 mls/hr IV . Q10H MAHENDRA Rx#:[id number] Intake, IV Titration 50 Amount ceFAZolin 2 gm In Sodium 50 Chloride 0.9% 50 ml @ 100 mls/hr IVPB Q8HR MAHENDRA Rx# :[id number] Oral 880 240 Output: Urine 1425 3000 Other: Voiding Method Indwelling Catheter Indwelling Catheter Indwelling Catheter - Exam General appearance: The patient is alert, oriented, in no acute distress. HET: Head is normocephalic and atraumatic. Pupils are equal and reactive. Oropharynx is clear without lesions. Neck: Supple without lymphadenopathy. Trachea midline. Heart: S1 S2. Regular rate and rhythm. Lungs: No crackles or wheezes are heard. Abdomen: Soft, nontender, nondistended with bowel sounds. No peritoneal signs. No palpable organomegaly or masses. Neurological: No focal deficits. Strength and sensation are grossly intact. - Labs CBC & Chem 7: 09/28/18 08:05 09/28/18 08:05 Labs: Abnormal Lab Results - Last 24 Hours (Table) 09/28/18 09/28/18 09/28/18 Range/Units 11:55 16:52 20:36 POC Glucose (mg/dL) 243 H 149 H 193 H (75-99) mg/dL Microbiology - Last 24 Hours (Table) 09/22/18 08:41 Blood Culture - Final Blood No Growth after 144 hours Assessment and Plan (1) Duodenal ulcer Current Visit: Yes Status: Acute Code(s): K26.9 - DUODENAL ULCER, UNSP ACUTE OR CHRONIC, W/O HEMOR OR PERF SNOMED Code(s): 91652632 (2) Anemia associated with acute blood loss Current Visit: Yes Status: Acute Code(s): D62 - ACUTE POSTHEMORRHAGIC ANEMIA SNOMED Code(s): 333144760 (3) GI bleed Current Visit: Yes Status: Acute Code(s): K92.2 - GASTROINTESTINAL HEMORRHAGE, UNSPECIFIED SNOMED Code(s): 83368095 (4) Gangrene of right foot Current Visit: Yes Status: Acute Code(s): I96 - GANGRENE, NOT ELSEWHERE CLASSIFIED SNOMED Code(s): 13271380581103487 Plan: 1. Continue Protonix 40 mg twice daily on discharge. Return to office 3-4 weeks. Presently no evidence of active GI bleeding while receiving Plavix. Continue with present medications including Plavix with close clinical monitoring of hemoglobin for recurrent GI bleed secondary to EGD findings of duodenal ulcer. Discharge planning per vascular surgery medicine. We'll follow on an as-needed basis. Assessment and plan a care discussed with Dr. Ferraro
[2018-09-29 11:50] LABS: Glucose,Whole Blood 192 mg/dL (75-99)
--- NOTE | 2018-09-29 12:37 | DS ---
DISCHARGE SUMMARY CHIEF COMPLAINT: Anemia, GI bleed and gangrenous ulcer of the right distal foot and toes. HISTORY OF PRESENT ILLNESS AND PHYSICAL EXAM: Details of this man's history and physical can be found in the initial workup. LABORATORY STUDIES: While he was in a hospital he had laboratory studies, details of which can be found in the laboratory section of his chart. COURSE IN HOSPITAL: After admission, he was placed on bedrest, started intravenous fluids and he was seen by Vascular Surgery. He was taken for an endovascular procedure to reestablish circulation in the right lower extremity. After that, he was taken for debridement of the right foot including removal of the lateral 3 toes. He remained fairly stable after that and was felt that he could be discharged to the custodial for physical therapy on the second. He will go to [facility]. FINAL DIAGNOSES: 1. Gangrene of the right foot. 2. Peripheral vascular occlusive disease. 3. Gastrointestinal bleed. 4. Blood-loss anemia. OPERATIONS: Endovascular femoral popliteal procedure and the amputation of the right lateral 3 toes. CONSULTATIONS: Surgery. He is improved. MMODL / IJN: [id number] /
[2018-09-29] MEDS: ACETAMINOPHEN TAB 325 MG TAB PO PRN (12:42)
[2018-09-29 15:13] VITALS: BMI 21.9
--- NOTE | 2018-09-29 16:33 | PN ---
PROGRESS NOTE DATE OF SERVICE: 09/29/2018 REASON FOR FOLLOWUP: Right foot wet gangrene with culture positive for MSSA. INTERVAL HISTORY: The patient is currently afebrile. The patient has been breathing comfortably. Patient denies having any chest pain or shortness of breath or cough. No abdominal pain or pain to the right foot surgical site. PHYSICAL EXAMINATION: Blood pressure is 128/85 with a pulse of 87, temperature 97.3. He is 100% on room air. General description is an elderly male lying in bed in no distress. RESPIRATORY SYSTEM: Unlabored breathing. Clear to auscultation anteriorly. HEART: S1, S2. Regular rate and rhythm. ABDOMEN: Soft. No tenderness. Right foot is currently dressed up. No obvious drainage on the dressing. LABS: No new labs have been obtained today. DIAGNOSTIC IMPRESSION AND PLAN: Patient with right diabetic foot with wet gangrene, status post endovascular revascularization with stenting and amputation of the right third to fifth toes. The patient clinically is improving post surgery. The patient is currently covered with cefazolin; to continue through a mid line for 2 weeks. Local wound care to continue per Vascular Surgery. To follow up in the wound care center next week. Continue supportive care. MMODL / IJN: [id number] /
[2018-09-29 16:45] LABS: Glucose,Whole Blood 139 mg/dL (75-99)
[2018-09-29 21:25] LABS: Glucose,Whole Blood 349 mg/dL (75-99)
[2018-09-29] MEDS: INSULIN DETEMIR (LEVEMIR) 100 UNIT/ML SYR SQ SCH (21:38)
[2018-09-30 07:51] LABS: Glucose,Whole Blood 63 mg/dL (75-99)
[2018-09-30 08:09] LABS: Glucose,Whole Blood 91 mg/dL (75-99)
[2018-09-30] MEDS: INSULIN ASPART (NovoLOG) 100 UNIT/ML VIAL SQ SCH (08:56)
[2018-09-30] MEDS: PANTOPRAZOLE 40 MG/10 ML VIAL IVP SCH (09:01)
[2018-09-30] MEDS: SUCRALFATE 1 GM TAB PO SCH (09:02)
[2018-09-30] MEDS: CLOPIDOGREL 75 MG TAB PO SCH (09:02)
[2018-09-30] MEDS: POTASSIUM CHLORIDE ER 20 MEQ TAB.ER PO SCH (09:02)
[2018-09-30] MEDS: SODIUM CHLORIDE 0.9% 1,000 ML IV SCH (09:10)
[2018-09-30 11:34] LABS: Glucose,Whole Blood 112 mg/dL (75-99)
[2018-09-30 11:57] VITALS: BP 136/66; PULSE 82; RESP 17; TEMP 98.1
--- NOTE | 2018-09-30 16:32 | PN ---
PROGRESS NOTE DATE OF SERVICE: 09/30/2018 CHIEF COMPLAINT: Peripheral vascular occlusive disease and ischemic and necrotic ulcers of the right foot with gangrene. HISTORY OF PRESENT ILLNESS: This gentleman was supposed to have gone to the senior living yesterday. He is still here. It is not sure if he will be transferred today or not. PHYSICAL EXAM: He is awake and alert. Chest is clear. Cardiac exam is normal. Abdomen is soft, nontender. The foot is dressed. IMPRESSION: 1. Peripheral vascular occlusive disease with gangrene of the right foot. 2. Blood loss anemia. 3. GI bleed. PLAN: Probably go to a senior living today. MMODL / IJN: [id number] /
== END 2018-09-30 12:45 | DRG 853 ==
LOC: EC 08:07 → 2SICU 11:30 → 3SCARD 09-24 00:07 → 3NMEDONC 09-29 22:06
PROVIDERS: ADMIT Family Medicine; ATTEND Family Medicine
PROC: 30233N1 Transfusion of Nonautologous Red Blood Cells into Peripheral Vein, Percutaneous Approach (ICD-10-PCS; 2018-09-22)
PROC: 0DJ08ZZ Inspection of Upper Intestinal Tract, Via Natural or Artificial Opening Endoscopic (ICD-10-PCS; 2018-09-23)
PROC: 047V3ZZ Dilation of Right Foot Artery, Percutaneous Approach (ICD-10-PCS; 2018-09-26)
PROC: 0Y6M0Z6 Detachment at Right Foot, Complete 3rd Ray, Open Approach (ICD-10-PCS; 2018-09-26)
PROC: 0Y6M0Z7 Detachment at Right Foot, Complete 4th Ray, Open Approach (ICD-10-PCS; 2018-09-26)
PROC: 0Y6M0Z8 Detachment at Right Foot, Complete 5th Ray, Open Approach (ICD-10-PCS; 2018-09-26)
PROC: 3E053PZ Introduction of Platelet Inhibitor into Peripheral Artery, Percutaneous Approach (ICD-10-PCS; 2018-09-26)
PROC: B44FZZ3 Ultrasonography of Right Lower Extremity Arteries, Intravascular (ICD-10-PCS; 2018-09-26)
PROC: 047 Lower Arteries, Dilation (ICD-10-PCS; principal; 2018-09-26 07:30)
PROC: 047M3ZZ Dilation of Right Popliteal Artery, Percutaneous Approach (ICD-10-PCS; 2018-09-26 08:22)
PROC: 047P3ZZ Dilation of Right Anterior Tibial Artery, Percutaneous Approach (ICD-10-PCS; 2018-09-26 08:22)
PROC: 04CK3ZZ Extirpation of Matter from Right Femoral Artery, Percutaneous Approach (ICD-10-PCS; 2018-09-26 08:22)
PROC: 05HC33Z Insertion of Infusion Device into Left Basilic Vein, Percutaneous Approach (ICD-10-PCS; 2018-09-29)
DX: A41.01 Sepsis due to Methicillin susceptible Staphylococcus aureus (principal); K26.4 Chronic or unspecified duodenal ulcer with hemorrhage; D62 Acute posthemorrhagic anemia; E11.52 Type 2 diabetes mellitus with diabetic peripheral angiopathy with gangrene; E87.2 Acidosis; I70.261 Atherosclerosis of native arteries of extremities with gangrene, right leg; L03.115 Cellulitis of right lower limb; M48.56XA Collapsed vertebra, not elsewhere classified, lumbar region, initial encounter for fracture; D63.8 Anemia in other chronic diseases classified elsewhere; E11.22 Type 2 diabetes mellitus with diabetic chronic kidney disease; E11.621 Type 2 diabetes mellitus with foot ulcer; E11.628 Type 2 diabetes mellitus with other skin complications; E11.65 Type 2 diabetes mellitus with hyperglycemia; E86.1 Hypovolemia; F03.90 Unspecified dementia, unspecified severity, without behavioral disturbance, psychotic disturbance, mood disturbance, and anxiety; F10.20 Alcohol dependence, uncomplicated; F17.210 Nicotine dependence, cigarettes, uncomplicated; H54.7 Unspecified visual loss; I12.9 Hypertensive chronic kidney disease with stage 1 through stage 4 chronic kidney disease, or unspecified chronic kidney disease; I25.10 Atherosclerotic heart disease of native coronary artery without angina pectoris; I25.2 Old myocardial infarction; I70.235 Atherosclerosis of native arteries of right leg with ulceration of other part of foot; L97.519 Non-pressure chronic ulcer of other part of right foot with unspecified severity; Z79.4 Long term (current) use of insulin; K21.9 Gastro-esophageal reflux disease without esophagitis; K44.9 Diaphragmatic hernia without obstruction or gangrene; N18.9 Chronic kidney disease, unspecified; N20.0 Calculus of kidney; Z04.3 Encounter for examination and observation following other accident; Z16.23 Resistance to quinolones and fluoroquinolones; Z80.3 Family history of malignant neoplasm of breast; Z86.14 Personal history of Methicillin resistant Staphylococcus aureus infection; Z87.01 Personal history of pneumonia (recurrent); Z89.512 Acquired absence of left leg below knee; G89.29 Other chronic pain; M54.9 Dorsalgia, unspecified; Z86.73 Personal history of transient ischemic attack (TIA), and cerebral infarction without residual deficits; Z80.8 Family history of malignant neoplasm of other organs or systems
CPT/HCPCS: 36410; 36415; 37227; 37228; 37232; 43235; 70450; 71045; 72125; 75635; 75710; 76937; 80048; 80053; 80202; 81001; 82272; 82550; 82565; 83036; 83605; 83735; 84484; 85025; 85610; 85730; 86850; 86900; 86901; 86920; 87040; 87070; 87075; 87077; 87086; 87186; 87205; 88305; 88311; 88312; 93005; 93922; 96365; 96367; 96374; 96376; 99291

== ENCOUNTER 2020-05-27 18:03 | Observation (INO) | payer MEDICARE, OTHER ==
[2020-05-27] MEDS ORDERED: ASPIRIN 81 MG PO STA (18:26)
[2020-05-27] MEDS ORDERED: NITROGLYCERIN OINT 1 INCH/GM PACKET TOPICAL STA (18:26)
--- NOTE | 2020-05-27 18:29 | ED ---
General Adult HPI - General Chief complaint: Chest Pain Stated complaint: chest pain Time Seen by Provider: 05/27/20 18:06 Source: patient, EMS, RN notes reviewed Mode of arrival: EMS Limitations: no limitations - History of Present Illness Initial comments: Patient is a pleasant 74-year-old male presenting to the emergency Department with complaints of reported chest discomfort. Patient is a poor historian and does not recall the episode well. Patient believes he was upset and started to get chest discomfort. Patient believes this lasted maybe 10 or 20 minutes however is not sure. No associated dyspnea, nausea, or diaphoresis. Patient has a difficult time describing the type of discomfort he had. No radiation. Patient believes she may have had similar symptoms previously however is not quite sure. - Related Data Home Medications Medication Instructions Recorded Confirmed Apixaban [Eliquis] 5 mg PO BID 05/27/20 05/27/20 Ferrous Sulfate [Feosol] 325 mg PO DAILY 05/27/20 05/27/20 Gabapentin [Neurontin] 300 mg PO Q6H 05/27/20 05/27/20 Insulin Detemir (Levemir) [Levemir] 11 unit SQ HS 05/27/20 05/27/20 Insulin Lispro [humaLOG Kwikpen] See Protocol SQ ACHS 05/27/20 05/27/20 Pantoprazole Sodium [Protonix] 40 mg PO DAILY 05/27/20 05/27/20 Rosuvastatin Calcium [Crestor] 40 mg PO DAILY 05/27/20 05/27/20 Allergies Allergy/AdvReac Type Severity Reaction Status Date / Time shellfish derived Allergy Unknown Verified 05/27/20 19:11 Review of Systems ROS Statement: Those systems with pertinent positive or pertinent negative responses have been documented in the HPI. ROS Other: All systems not noted in ROS Statement are negative. Constitutional: Denies: fever Eyes: Denies: eye pain ENT: Denies: ear pain Respiratory: Denies: cough, dyspnea Cardiovascular: Reports: as per HPI Endocrine: Denies: fatigue Gastrointestinal: Denies: abdominal pain Genitourinary: Denies: dysuria Musculoskeletal: Denies: back pain Skin: Denies: rash Neurological: Denies: headache Past Medical History Past Medical History: Coronary Artery Disease (CAD), Dementia, Diabetes Mellitus, GERD/Reflux, Hypertension, Myocardial Infarction ([place]), Pneumonia Additional Past Medical History / Comment(s): Coronary artery disease, diabetes mellitus, hypertension, questionable alcoholism, severe peripheral vascular disease, 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, chronic back pain, questionable CVA, history of gangrenous left foot post amputation Last Myocardial Infarction Date:: UNK History of Any Multi-Drug Resistant Organisms: MRSA Date of last positivie culture/infection: 03/31/16 MDRO Source:: Left Foot Past Surgical History: No Surgical Hx Reported Additional Past Surgical History / Comment(s): TOOTH EXTRACTIONS, below-knee amputation of the left lower extremity Past Anesthesia/Blood Transfusion Reactions: Motion Sickness Past Psychological History: No Psychological Hx Reported Smoking Status: Never smoker Past Alcohol Use History: Daily, Heavy Past Drug Use History: None Reported - Past Family History Mother Family Medical History: Cancer Additional Family Medical History / Comment(s): BREAST CANCER, CERVICAL CANCER AND PART OF TONGUE AND LT JAW REMOVED Father History Unknown: Yes Additional Family Medical History / Comment(s): DAD LEFT THE HOME WHEN PT WAS 14 General Exam Limitations: no limitations General appearance: alert, in no apparent distress Head exam: Present: normocephalic Eye exam: Present: normal appearance Neck exam: Present: normal inspection Respiratory exam: Present: normal lung sounds bilaterally. Absent: chest wall tenderness Cardiovascular Exam: Present: regular rate, normal rhythm, normal heart sounds Expanded Peripheral pulses: 2+: Radial (R), Radial (L) GI/Abdominal exam: Present: soft. Absent: distended, tenderness Extremities exam: Present: other (Right AKA, left BKA) Neurological exam: Present: alert Psychiatric exam: Present: normal affect, normal mood Skin exam: Present: normal color Course Vital Signs 05/27/20 18:06 Temperature 98.1 F Pulse Rate 96 Respiratory 18 Rate Blood Pressure 195/98 O2 Sat by Pulse 98 Oximetry EKG Findings - EKG Comments: EKG Findings:: Normal sinus rhythm at 88. PA 144. QRS 90. QT 370. QTc 447. Left axis. LVH criteria. No acute ST change. Medical Decision Making - Medical Decision Making Patient reevaluated and resting comfortably in bed. Patient updated on results and plan. Case was discussed in detail with Dr. Johnston who would like to admit his patient with cardiology consult. - Lab Data Result diagrams: 05/27/20 18:11 05/27/20 18:11 Lab Results 05/27/20 05/27/20 05/27/20 Range/Units 18:11 18:11 18:11 WBC 9.3 (3.8-10.6) k/uL RBC 4.53 (4.30-5.90) m/uL Hgb 13.2 (13.0-17.5) gm/dL Hct 40.5 (39.0-53.0) % MCV 89.2 (80.0-100.0) fL MCH 29.2 (25.0-35.0) pg MCHC 32.7 (31.0-37.0) g/dL RDW 13.8 (11.5-15.5) % Plt Count 183 (150-450) k/uL MPV 9.7 Neutrophils % 54 % Lymphocytes % 34 % Monocytes % 6 % Eosinophils % 4 % Basophils % 1 % Neutrophils # 5.1 (1.3-7.7) k/uL Lymphocytes # 3.2 (1.0-4.8) k/uL Monocytes # 0.5 (0-1.0) k/uL Eosinophils # 0.4 (0-0.7) k/uL Basophils # 0.1 (0-0.2) k/uL PT 9.8 (9.0-12.0) sec INR 0.9 (<1.2) APTT 24.4 (22.0-30.0) sec Sodium 138 (137-145) mmol/L Potassium 4.2 (3.5-5.1) mmol/L Chloride 106 (98-107) mmol/L Carbon Dioxide 23 (22-30) mmol/L Anion Gap 9 mmol/L BUN 23 H (9-20) mg/dL Creatinine 0.96 (0.66-1.25) mg/dL Est GFR (CKD-EPI)AfAm >90 (>60 ml/min/1.73 sqM) Est GFR (CKD-EPI)NonAf 79 (>60 ml/min/1.73 sqM) Glucose 144 H (74-99) mg/dL Calcium 9.2 (8.4-10.2) mg/dL Magnesium 2.0 (1.6-2.3) mg/dL Total Bilirubin 0.7 (0.2-1.3) mg/dL AST 28 (17-59) U/L ALT 30 (4-49) U/L Alkaline Phosphatase 92 (38-126) U/L Troponin I (0.000-0.034) ng/mL Total Protein 7.0 (6.3-8.2) g/dL Albumin 4.0 (3.5-5.0) g/dL 05/27/20 Range/Units 18:11 WBC (3.8-10.6) k/uL RBC (4.30-5.90) m/uL Hgb (13.0-17.5) gm/dL Hct (39.0-53.0) % MCV (80.0-100.0) fL MCH (25.0-35.0) pg MCHC (31.0-37.0) g/dL RDW (11.5-15.5) % Plt Count (150-450) k/uL MPV Neutrophils % % Lymphocytes % % Monocytes % % Eosinophils % % Basophils % % Neutrophils # (1.3-7.7) k/uL Lymphocytes # (1.0-4.8) k/uL Monocytes # (0-1.0) k/uL Eosinophils # (0-0.7) k/uL Basophils # (0-0.2) k/uL PT (9.0-12.0) sec INR (<1.2) APTT (22.0-30.0) sec Sodium (137-145) mmol/L Potassium (3.5-5.1) mmol/L Chloride (98-107) mmol/L Carbon Dioxide (22-30) mmol/L Anion Gap mmol/L BUN (9-20) mg/dL Creatinine (0.66-1.25) mg/dL Est GFR (CKD-EPI)AfAm (>60 ml/min/1.73 sqM) Est GFR (CKD-EPI)NonAf (>60 ml/min/1.73 sqM) Glucose (74-99) mg/dL Calcium (8.4-10.2) mg/dL Magnesium (1.6-2.3) mg/dL Total Bilirubin (0.2-1.3) mg/dL AST (17-59) U/L ALT (4-49) U/L Alkaline Phosphatase (38-126) U/L Troponin I <0.012 (0.000-0.034) ng/mL Total Protein (6.3-8.2) g/dL Albumin (3.5-5.0) g/dL - Radiology Data Radiology results: image reviewed (Chest x-ray shows no acute process) Disposition Clinical Impression: Chest pain Disposition: ADMITTED IP TO THIS HOSP Is patient prescribed a controlled substance at d/c from ED?: No Referrals: Kevin Johnston MD [Primary Care Provider] - 1-2 days Decision Time: 19:55
[2020-05-27 18:59] LABS: Basophils # (A) 0.1 k/uL (0-0.2); Basophils % (A) 1 %; Eosinophils # (A) 0.4 k/uL (0-0.7); Eosinophils % (A) 4 %; HCT 40.5 % (39.0-53.0); HGB 13.2 gm/dL (13.0-17.5); Lymphocytes # (A) 3.2 k/uL (1.0-4.8); Lymphocytes % (A) 34 %; MCH 29.2 pg (25.0-35.0); MCHC 32.7 g/dL (31.0-37.0); MCV 89.2 fL (80.0-100.0); Mean Platelet Volume 9.7; Monocytes # (A) 0.5 k/uL (0-1.0); Monocytes % (A) 6 %; Neutrophils # (A) 5.1 k/uL (1.3-7.7); Neutrophils % (A) 54 %; Platelet Count 183 k/uL (150-450); RBC 4.53 m/uL (4.30-5.90); RDW 13.8 % (11.5-15.5); WBC 9.3 k/uL (3.8-10.6)
--- NOTE | 2020-05-27 19:05 | XR ---
EXAMINATION TYPE: XR chest 2V DATE OF EXAM: 05/27/2020 COMPARISON: March 31, 2016 HISTORY: Chest pain TECHNIQUE: FINDINGS: There is no heart failure nor confluent pneumonic infiltrate. Costophrenic angles are clear . Heart size is normal. Thoracic aorta is atheromatous. There are chest leads. IMPRESSION: No active cardiopulmonary disease. Normal heart. No change.
[2020-05-27 19:06] LABS: ALT 30 U/L (4-49); AST 28 U/L (17-59); African American GFR (CKD) >90 (>60 ml/min/1.73 sqM); Alkaline Phosphatase 92 U/L (38-126); Anion Gap 9 mmol/L; Blood Urea Nitrogen 23 mg/dL (9-20); Calcium 9.2 mg/dL (8.4-10.2); Carbon Dioxide 23 mmol/L (22-30); Chloride 106 mmol/L (98-107); Glucose 144 mg/dL (74-99); Non-African American GFR(CKD) 79 (>60 ml/min/1.73 sqM); Potassium 4.2 mmol/L (3.5-5.1); Sodium 138 mmol/L (137-145); Total Bilirubin 0.7 mg/dL (0.2-1.3)
[2020-05-27 19:12] LABS: INR 0.9 (<1.2); Partial Thromboplastin Time 24.4 sec (22.0-30.0); Prothrombin Time 9.8 sec (9.0-12.0)
[2020-05-27] MEDS ORDERED: NITROGLYCERIN SL TABS 0.4 MG TAB SUBLINGUAL PRN (19:56)
[2020-05-27] MEDS ORDERED: METOPROLOL TARTRATE 12.5 MG TAB PO STA (20:23)
[2020-05-28 05:55] LABS: Cholesterol 97 mg/dL (<200); HDL Cholesterol 40 mg/dL (40-60); LDL Cholesterol,Calculated 41 mg/dL (0-99); Triglycerides 81 mg/dL (<150)
[2020-05-28] MEDS ORDERED: ASPIRIN 325 MG TAB PO SCH (09:00)
--- NOTE | 2020-05-28 10:15 | P.CRDCN ---
History of Present Illness Consult date: 05/28/20 History of present illness: HISTORY OF PRESENT ILLNESS: This is a 74-year-old male with a past medical history significant for diabetes, dementia, GERD, hypertension, and peripheral vascular disease with previous right AKA and left BKA. Patient follows in the office with Dr. Murray. We have been asked to see the patient in consultation for chest pain. Patient examined at the bedside. Patient was transferred yesterday from [facility] due to chest pain. According to the ER physician's note, the patient was not having chest pain when he was evaluated in the emergency room. Patient denies chest pain or pressure at the time of examination this morning. He denies having any chest pain overnight. He does not remember having any chest pain yesterday. he denies any shortness of breath. Denies cough or congestion. He believes he was brought to the hospital due to trouble communicating. Patient is on Eliquis 5mg PO BID. No previous documentation of PE or atrial fibrillation. Office note from Dr. Murray also indicates he is unsure why patient is on Eliquis. EKG reveals sinus mechanism with no signs of acute ischemia Chest xray negative for acute process Laboratory data: WBC 9.3. Hemoglobin 13.2. Platelet count 183. Sodium 138. Potassium 4.2. BUN 23. Creatinine 0.96. Magnesium 2.0. Troponin negative 3. Current home cardiac medications include Crestor 40 mg daily and Eliquis 5 mg twice a day Most recent echocardiogram obtained in 2019 revealed ejection fraction of 45% REVIEW OF SYSTEMS: At the time of my exam: CONSTITUTIONAL: Denies fever or chills. HEENT: Denies blurred vision, vision changes, or eye pain. Denies hemoptysis CARDIOVASCULAR: Denies chest pain. Denies orthopnea. Denies PND. Denies palpitations RESPIRATORY: Denies shortness of breath. GASTROINTESTINAL: Denies abdominal pain. Denies nausea or vomiting. HEMATOLOGIC: Denies bleeding disorders. GENITOURINARY: Denies any blood in urine. SKIN: Denies pruitis. Denies rash. PHYSICAL EXAM: VITAL SIGNS: Reviewed. GENERAL: Well-developed in no acute distress. HEENT: Head is normocephalic. Pupils are equal, round. Sclerae anicteric. Mucous membranes of the mouth are moist. Neck supple. No JVD or thyromegaly LUNGS: Respirations even and unlabored. Lungs essentially clear to auscultation bilaterally. HEART: Regular rate and rhythm. S1 and S2 heard. ABDOMEN: Soft. Nondistended. Nontender. EXTREMITIES: Normal range of motion. No clubbing or cyanosis. Peripheral pulses intact. right AKA. Left BKA. NEUROLOGIC: Awake and alert. Oriented x 1. ASSESSMENT: Chest pain, patient denies ever having chest pain, troponin negative x 3 Hypertension Hyperlipidemia Diabetes mellitus Peripheral vascular disease History of right AKA and left BKA Dementia On long-term anticoagulation with Eliquis, reason unknown PLAN: An acute coronary event has been ruled out Obtain 2-D echo to assess cardiac structure and function Begin lisinopril 5mg daily for optimal blood pressure control Resume home cardiac medications Further recommendations pending patient course Nurse practitioner note has been reviewed by physician. Signing provider agrees with the documented findings, assessment, and plan of care. 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, chronic back pain, questionable CVA, history of gangrenous left foot post amputation Last Myocardial Infarction Date:: UNK History of Any Multi-Drug Resistant Organisms: MRSA Date of last positivie culture/infection: 03/31/16 MDRO Source:: Left Foot Past Surgical History: No Surgical Hx Reported Additional Past Surgical History / Comment(s): TOOTH EXTRACTIONS, below-knee amputation of the left lower extremity Past Anesthesia/Blood Transfusion Reactions: Motion Sickness Past Psychological History: No Psychological Hx Reported Smoking Status: Never smoker Past Alcohol Use History: Daily, Heavy Past Drug Use History: None Reported - Past Family History Mother Family Medical History: Cancer Additional Family Medical History / Comment(s): BREAST CANCER, CERVICAL CANCER AND PART OF TONGUE AND LT JAW REMOVED Father History Unknown: Yes Additional Family Medical History / Comment(s): DAD LEFT THE HOME WHEN PT WAS 14 Medications and Allergies Home Medications Medication Instructions Recorded Confirmed Type Apixaban [Eliquis] 5 mg PO BID 05/27/20 05/27/20 History Ferrous Sulfate [Feosol] 325 mg PO DAILY 05/27/20 05/27/20 History Gabapentin [Neurontin] 300 mg PO Q6H 05/27/20 05/27/20 History Insulin Detemir (Levemir) [Levemir] 11 unit SQ HS 05/27/20 05/27/20 History Insulin Lispro [humaLOG Kwikpen] See Protocol SQ ACHS 05/27/20 05/27/20 History Pantoprazole Sodium [Protonix] 40 mg PO DAILY 05/27/20 05/27/20 History Rosuvastatin Calcium [Crestor] 40 mg PO DAILY 05/27/20 05/27/20 History Allergies Allergy/AdvReac Type Severity Reaction Status Date / Time shellfish derived Allergy Unknown Verified 05/27/20 19:11 Physical Exam Vitals: Vital Signs Temp Pulse Pulse Resp BP BP Pulse Ox 05/28/20 07:51 98.2 F 81 20 132/70 98 05/28/20 06:39 71 16 164/88 98 05/28/20 03:00 65 16 150/83 99 05/27/20 22:18 63 18 150/67 98 05/27/20 21:12 73 18 154/80 98 05/27/20 20:18 79 18 187/105 99 05/27/20 18:06 98.1 F 96 18 195/98 98 Intake and Output 05/27/20 05/28/20 05/28/20 22:59 06:59 14:59 Other: Weight 72.575 kg Results 05/27/20 18:11 05/27/20 18:11 Cardiac Enzymes 05/27/20 05/27/20 05/27/20 Range/Units 18:11 18:11 21:35 AST 28 (17-59) U/L Troponin I <0.012 <0.012 (0.000-0.034) ng/mL 05/28/20 Range/Units 01:21 AST (17-59) U/L Troponin I <0.012 (0.000-0.034) ng/mL Coagulation 05/27/20 Range/Units 18:11 PT 9.8 (9.0-12.0) sec APTT 24.4 (22.0-30.0) sec Lipids 05/28/20 Range/Units 04:41 Triglycerides 81 (<150) mg/dL Cholesterol 97 (<200) mg/dL HDL Cholesterol 40 (40-60) mg/dL CBC 05/27/20 Range/Units 18:11 WBC 9.3 (3.8-10.6) k/uL RBC 4.53 (4.30-5.90) m/uL Hgb 13.2 (13.0-17.5) gm/dL Hct 40.5 (39.0-53.0) % Plt Count 183 (150-450) k/uL Comprehensive Metabolic Panel 05/27/20 Range/Units 18:11 Sodium 138 (137-145) mmol/L Potassium 4.2 (3.5-5.1) mmol/L Chloride 106 (98-107) mmol/L Carbon Dioxide 23 (22-30) mmol/L BUN 23 H (9-20) mg/dL Creatinine 0.96 (0.66-1.25) mg/dL Glucose 144 H (74-99) mg/dL Calcium 9.2 (8.4-10.2) mg/dL AST 28 (17-59) U/L ALT 30 (4-49) U/L Alkaline Phosphatase 92 (38-126) U/L Total Protein 7.0 (6.3-8.2) g/dL Albumin 4.0 (3.5-5.0) g/dL Current Medications Generic Name Dose Route Start Last Admin Trade Name Freq PRN Reason Stop Dose Admin Aspirin 325 mg 05/28/20 09:00 Aspirin 325 Mg Tab PO DAILY MAHENDRA Nitroglycerin 0.4 mg 05/27/20 19:56 Nitroglycerin Sl Tabs 0.4 Mg Tab SUBLINGUAL Q5M PRN Chest Pain Sodium Chloride 10 ml 05/27/20 21:00 05/28/20 02:48 Sodium Chloride 0.9% Flush 10 Ml Syringe IV Not Given BID MAHENDRA Intake and Output 05/27/20 05/28/20 05/28/20 22:59 06:59 14:59 Other: Weight 72.575 kg 05/27/20 18:11 05/27/20 18:11
[2020-05-28] MEDS: lisinopriL 5 MG TAB PO SCH (10:32)
--- NOTE | 2020-05-28 11:26 | ECHOF ---
Referral Reason:lv function, chest pain MEASUREMENTS -------- HEIGHT: 165.1 cm WEIGHT: 72.6 kg BP: RVIDd: 3.5 cm (< 3.3) IVSd: 1.3 cm (0.6 - 1.1) LVIDd: 4.9 cm (3.9 - 5.3) LVPWd: 1.6 cm (0.6 - 1.1) IVSs: 1.6 cm LVIDs: 3.6 cm LVPWs: 1.8 cm LA Diam: 4.5 cm (2.7 - 3.8) Ao Diam: 3.4 cm (2.0 - 3.7) AV Cusp: 2.0 cm (1.5 - 2.6) MV EXCURSION: 21.085 mm (> 18.000) MV EF SLOPE: 67 mm/s (70 - 150) EPSS: 0.2 cm MV E Yousif: 0.37 m/s MV DecT: 323 ms MV A Yousif: 0.84 m/s MV E/A Ratio: 0.44 RAP: 5.00 mmHg RVSP: 12.87 mmHg FINDINGS -------- Sinus rhythm. This was a technically good study. LV size, wall thickness and systolic function are normal, with an EF greater than 55%. The left katy tricular size is normal. The right ventricle is normal in size. The left atrium is mildly dilated. The right atrial size is normal. The aortic valve is trileaflet, and appears structurally normal. No aortic stenosis or regurgitation. Mild mitral regurgitation is present. Mild tricuspid regurgitation present. Right ventricular systolic pressure is normal at < 35 mmHg. There is no pulmonic regurgitation present. The aortic root size is normal. There is no pericardial effusion. CONCLUSIONS -------- 1. LV size, wall thickness and systolic function are normal, with an EF greater than 55%. 2. The left ventricular size is normal. 3. The right ventricle is normal in size. 4. The left atrium is mildly dilated. 5. The right atrial size is normal. 6. The aortic valve is trileaflet, and appears structurally normal. No aortic stenosis or regurgitati on. 7. Mild mitral regurgitation is present. 8. Mild tricuspid regurgitation present. 9. The aortic root size is normal. 10. There is no pericardial effusion. EXHIBIT CARPENTER: Roseanne Holguin RDCS
--- NOTE | 2020-05-28 18:12 | HP ---
HISTORY AND PHYSICAL CHIEF COMPLAINT: Chest pain. HISTORY OF PRESENT ILLNESS: This is another admission for this 74-year-old white male from [facility]. He was treated there for ASCVD, hypertension, type 2 diabetes, right AKA amputation, CAD and dementia. He apparently was sent in by the home for chest pain. There were no other details available. REVIEW OF SYSTEMS: Patient seems to be comfortable and has no complaints of chest pain at this time. He denies shortness of breath, abdominal pain, fever, chills, etc. Past medical history, family history, personal and social histories are not reliably obtained. PHYSICAL EXAMINATION: Blood pressure is 145/90 with a pulse of 81 and regular, respirations of 35. He is afebrile. In general he appeared to be slightly dehydrated, asthenic and slightly pale. Head, ears, eyes, nose, mouth and throat seem to be normal. Mucous membranes slightly dry. Carotids are normal. Chest demonstrated no rales or rhonchi. Cardiac exam demonstrated sinus tachycardia. The abdomen was flat, soft and nontender without any visceromegaly or masses. Bowel sounds are present. Extremities are normal except for his right AKA amputation. Neurologically he was awake, but somewhat inappropriate. He was admitted to the hospital with the diagnoses of: 1. Chest pain. 2. History of coronary artery disease. 3. Atherosclerotic cardiovascular disease. 4. History of peripheral vascular occlusive disease. 5. Status post right above knee amputation. 6. Type 2 diabetes mellitus. 7. Dementia. PLAN: 1. Bedrest. 2. IV fluids. 3. Telemetry. 4. Serial EKGs and enzymes. 5. Cardiology consult. MMODL / IJN: [id number] /
--- NOTE | 2020-05-28 18:21 | PN ---
PROGRESS NOTE DATE OF SERVICE: 05/28/2020 CHIEF COMPLAINT: Chest pain. HISTORY OF PRESENT ILLNESS: This gentleman has been stable during the night. He is being evaluated by Cardiology. PHYSICAL EXAMINATION: Vital signs are normal. Chest is clear. Cardiac exam is unchanged. Abdomen is soft. IMPRESSION: 1. Chest pain. 2. Coronary artery disease. 3. Possible angina pectoris. PLAN: Await further evaluation and recommendations by Cardiology. MMODL / IJN: [id number] /
[2020-05-28] MEDS: APIXABAN 5 MG TAB PO SCH (20:18)
[2020-05-29 07:31] LABS: Glucose,Whole Blood 156 mg/dL (75-99)
[2020-05-29] MEDS: APIXABAN 5 MG TAB PO SCH (07:48)
[2020-05-29] MEDS: lisinopriL 5 MG TAB PO SCH (07:48)
[2020-05-29] MEDS ORDERED: ATORVASTATIN 80 MG TAB PO SCH (09:00)
--- NOTE | 2020-05-29 13:54 | DS ---
DISCHARGE SUMMARY DATE OF DISCHARGE: 05/29/2020 CHIEF COMPLAINT: Chest pain. HISTORY OF PRESENT ILLNESS AND PHYSICAL EXAM: Details of this man's history and physical can be found in the initial workup. LABORATORY STUDIES: While he was in the hospital he had laboratory studies, details of which can be found in the laboratory section of his chart. COURSE IN THE HOSPITAL: After admission he was placed on bedrest and started on intravenous fluids and had serial EKGs and enzymes. He was seen by Cardiology. They did an echocardiogram with no other studies. It was felt that his pain was not cardiac in nature or that it did not require any intervention. It was felt that [facility] could [facility] to the [facility] his usual activity, diet and medication. FINAL DIAGNOSES: 1. Atypical chest pain. 2. Atherosclerotic cardiovascular disease. 3. Coronary artery disease. 4. Peripheral vascular occlusive disease. 5. Right lower extremity amputation. 6. Dementia. 7. Diabetes. OPERATIONS: None. CONSULTATIONS: Cardiology. He is improved. MMTAMMIE / MERLEN: [id number] /
[2020-05-29 14:38] VITALS: RESP 16; TEMP 97.6
[2020-05-29 16:32] VITALS: BP 173/84; PULSE 85
== END 2020-05-29 17:41 ==
LOC: EC 18:03 → EEVIPCON 19:56 → 3SCARD 19:56 → 2ORMAIN 05-28 22:51
PROVIDERS: ADMIT Family Medicine; ATTEND Family Medicine
DX: R07.89 Other chest pain (principal); E11.51 Type 2 diabetes mellitus with diabetic peripheral angiopathy without gangrene; I08.1 Rheumatic disorders of both mitral and tricuspid valves; I25.10 Atherosclerotic heart disease of native coronary artery without angina pectoris; I10 Essential (primary) hypertension; F03.90 Unspecified dementia, unspecified severity, without behavioral disturbance, psychotic disturbance, mood disturbance, and anxiety; E78.5 Hyperlipidemia, unspecified; G89.29 Other chronic pain; M54.9 Dorsalgia, unspecified; I99.8 Other disorder of circulatory system; K21.9 Gastro-esophageal reflux disease without esophagitis; Z79.01 Long term (current) use of anticoagulants; Z79.4 Long term (current) use of insulin; Z79.899 Other long term (current) drug therapy; Z91.013 Allergy to seafood; Z89.512 Acquired absence of left leg below knee; Z89.611 Acquired absence of right leg above knee; I25.2 Old myocardial infarction; Z87.01 Personal history of pneumonia (recurrent); Z86.14 Personal history of Methicillin resistant Staphylococcus aureus infection; Z80.3 Family history of malignant neoplasm of breast; Z80.0 Family history of malignant neoplasm of digestive organs; Z80.49 Family history of malignant neoplasm of other genital organs
CPT/HCPCS: 93005 ×2; 99285; 36415; 93306; 80061; 80053; 83735; 84484 ×2; 85025; 85610; 85730; 87635; 71046; G0378 ×3

== ENCOUNTER 2020-07-06 16:16 | Inpatient (IN) | payer MEDICARE, OTHER ==
[2020-07-06] MEDS ORDERED: NALOXONE 0.4 MG/ML 1 ML VIAL IVP STA (16:25)
[2020-07-06] MEDS ORDERED: SUCCINYLCHOLINE CHLORIDE VIAL 200 MG/10 ML VIAL IV STA (16:27)
[2020-07-06] MEDS ORDERED: FAMOTIDINE 20 MG/2 ML VIAL IV STA (16:29)
[2020-07-06] MEDS ORDERED: diphenhydrAMINE 50 MG/ML 1 ML VIAL IVP STA (16:29)
[2020-07-06] MEDS ORDERED: methylPREDNISolone SOD SUCCI 125 MG/2 ML VIAL IV STA (16:29)
[2020-07-06 16:30] LABS: Glucose,Whole Blood 167 mg/dL (75-99)
--- NOTE | 2020-07-06 16:34 | ED ---
Altered Mental Status HPI - General Chief Complaint: Altered Mental Status Stated Complaint: unresponsive.fall Time Seen by Provider: 07/06/20 16:29 Source: EMS Mode of arrival: EMS Limitations: altered mental status, physical limitation - History of Present Illness Initial Comments: This is a 74-year-old male who presents emergency department for unres ponsiveness. The patient apparently had some type of fall out of his wheelchair at the skilled nursing and complained of pain in his left stump. The patient was taken to his room and placed into bed and when EMS arrived the patient was completely unresponsive may could not arouse him. The patient does not take any narcotic medications according to the nursing list. He is on L course. He is unable to provide any history because he is unresponsive. - Related Data Home Medications Medication Instructions Recorded Confirmed Apixaban [Eliquis] 5 mg PO BID 05/27/20 07/06/20 Ferrous Sulfate [Iron (65 MG 325 mg PO HS 05/27/20 07/06/20 Elemental)] Gabapentin [Neurontin] 300 mg PO QID 05/27/20 07/06/20 Insulin Detemir (Levemir) [Levemir] 11 unit SQ HS 05/27/20 07/06/20 Atorvastatin [Lipitor] 80 mg PO HS 07/06/20 07/06/20 INSULIN LISPRO (humaLOG) [humaLOG] See Protocol SQ ACHS 07/06/20 07/06/20 Omeprazole 20 mg PO DAILY@0500 07/06/20 07/06/20 Previous Rx's Medication Instructions Recorded lisinopriL [Zestril] 5 mg PO DAILY #90 tab 05/29/20 Allergies Allergy/AdvReac Type Severity Reaction Status Date / Time shellfish derived Allergy Unknown Verified 07/06/20 17:17 Review of Systems ROS Statement: Those systems with pertinent positive or pertinent negative responses have been documented in the HPI. ROS Other: All systems not noted in ROS Statement are negative. Past Medical History Past Medical History: Coronary Artery Disease (CAD), Chest Pain / Angina, Dementia, Diabetes Mellitus, GERD/Reflux, Hypertension, Myocardial Infarction (GA), Pneumonia, Vascular Disorder Additional Past Medical History / Comment(s): IDDM type II, cognitive dysfunction, PVD/pt has L BKA and R AKA d/t sores/cellulitis/gangrene, duodenal ulcer, GI bleed, iron anemia, hiatal hernia, pt thinks he may have had a GA many years ago as well as a CVA, past ETOH abuse, past back vertibral fractures as child. Last Myocardial Infarction Date:: UNK History of Any Multi-Drug Resistant Organisms: MRSA Date of last positivie culture/infection: 03/31/16 MDRO Source:: Left Foot Past Surgical History: No Surgical Hx Reported Additional Past Surgical History / Comment(s): Abdominal aortagram with femoral revascularization/ptba/stent/thrombectomy, L BKA, R AKA, EGD, teeth extractions. Past Anesthesia/Blood Transfusion Reactions: Motion Sickness Additional Past Anesthesia/Blood Transfusion Reaction / Comment(s): Pt has received blood in past without reaction. Past Psychological History: No Psychological Hx Reported Smoking Status: Former smoker Past Alcohol Use History: Unable to Obtain Past Drug Use History: Unable to Obtain - Past Family History Mother Family Medical History: Cancer Additional Family Medical History / Comment(s): BREAST CANCER, CERVICAL CANCER AND PART OF TONGUE AND LT JAW REMOVED Father History Unknown: Yes Additional Family Medical History / Comment(s): DAD LEFT THE HOME WHEN PT WAS 14 General Exam - General Exam Comments Initial Comments: Constitutional: Patient is unresponsive Appears comfortable Head: Normocephalic atraumatic Eyes: no conjunctival injection No scleral icterus EOMI, pupils are 3 mm and sluggish bilaterally Neck: No JVD Supple, in c-collar Heart: Regular rate rhythm normal S1-S2 no murmurs Lungs: Sonorous respirations Clear to auscultation bilaterally No wheezing No rales Abdomen: Soft nondistended nontender Extremities: Non edematous DP pulses intact Radial pulses intact Neuro: Patient is unresponsive and does not respond to any noxious stimuli. Possibly moved his L arm but did not seem to be purposeful. Unable to get him to do anything else. Psych: Appropriate mood and affect Limitations: altered mental status, physical limitation Course Vital Signs 07/06/20 07/06/20 07/06/20 16:19 16:21 16:30 Temperature Pulse Rate 101 H 100 Respiratory 12 12 Rate Blood Pressure 177/89 239/113 O2 Sat by Pulse 88 L 100 Oximetry 07/06/20 07/06/20 07/06/20 16:45 17:00 17:27 Temperature 97.5 F L Pulse Rate 105 H 98 89 Respiratory 24 23 Rate Blood Pressure 169/113 147/83 126/80 O2 Sat by Pulse 100 100 100 Oximetry 07/06/20 07/06/20 17:50 18:36 Temperature Pulse Rate 78 85 Respiratory 25 H 14 Rate Blood Pressure 110/66 103/70 O2 Sat by Pulse 99 100 Oximetry - Reevaluation(s) Reevaluation #1: 07/06/20 17:01 the nurse called [facility] who stated that the patient fell around 1430. He was complaining of R stump pain after the fall. States he appeared to be moving all extremities normally at that time. She put him in bed and then found him unresponsive. She states she is unsure exactly when the last time he was seen normal prior to the fall since it was the day shift nurse who would have seen him. Reevaluation #2: 07/06/20 17:13 Appeared to have ischemic changes in R parietal region. ? narrowing or LVO in RMCA region. Called code stroke. NIHSS is difficult to obtain but at least 19. Pt on eliquis and not TPA candidate also with large area of ischemic changes which he should not get TPA for. Paged out to interventional neurologist for evaluation. Reevaluation #3: 07/06/20 17:47 Dr. Rosen looked at CTA and states there is plaque in R MCA but no occlusion. Old appearing infarcts in RMCA territory. Asked about seizures which the patient does not have a history of. Recommended holding Eliquis, giving ASA and monitoring. Reevaluation #4: 07/06/20 17:58 EKG showing sinus tachycardia with a rate of 105. There are some ST segment depressions in V3 through V5. No ST elevations. No T-wave inversions. QTC is 438. Procedures - ABG Interpretation Ph: 7.35 PCO2: 32 PO2: 283 Bicarbonate: 18 - Intubation Paralytic: Succinylcholine Mg Given: 100 Laryngoscope: fiber optic video scope (4) Size: 4 ET Tube Size: 8 ET Tube Uncuffed: Yes Tube Secured Depth (cm): 24 Tube Secured Location: lips Tube Placement Confirmation: visualized tube passing through cords, equal breath sounds bilaterally, no breath sounds over epigastrium, confirmation by capnometry Patient Tolerated Procedure: well Intubation Complications: none Medical Decision Making - Lab Data Result diagrams: 07/06/20 16:33 07/06/20 16:33 Lab Results 07/06/20 07/06/20 07/06/20 Range/Units 16:19 16:33 16:33 WBC 13.6 H (3.8-10.6) k/uL RBC 5.19 (4.30-5.90) m/uL Hgb 15.2 (13.0-17.5) gm/dL Hct 46.7 (39.0-53.0) % MCV 89.8 (80.0-100.0) fL MCH 29.2 (25.0-35.0) pg MCHC 32.5 (31.0-37.0) g/dL RDW 14.2 (11.5-15.5) % Plt Count 209 (150-450) k/uL MPV 9.6 Neutrophils % 77 % Lymphocytes % 18 % Monocytes % 4 % Eosinophils % 1 % Basophils % 0 % Neutrophils # 10.5 H (1.3-7.7) k/uL Lymphocytes # 2.4 (1.0-4.8) k/uL Monocytes # 0.5 (0-1.0) k/uL Eosinophils # 0.1 (0-0.7) k/uL Basophils # 0.0 (0-0.2) k/uL PT 10.0 (9.0-12.0) sec INR 0.9 (<1.2) APTT 23.2 (22.0-30.0) sec Sample Site ABG pH (7.35-7.45) ABG pCO2 (35-45) mmHg ABG pO2 (83-108) mmHg ABG HCO3 (21-25) mmol/L ABG Total CO2 (19-24) mmol/L ABG O2 Saturation (94-97) % ABG Base Excess mmol/L Placido Test FiO2 % Sodium (137-145) mmol/L Potassium (3.5-5.1) mmol/L Chloride (98-107) mmol/L Carbon Dioxide (22-30) mmol/L Anion Gap mmol/L BUN (9-20) mg/dL Creatinine (0.66-1.25) mg/dL Est GFR (CKD-EPI)AfAm (>60 ml/min/1.73 sqM) Est GFR (CKD-EPI)NonAf (>60 ml/min/1.73 sqM) Glucose (74-99) mg/dL POC Glucose (mg/dL) 167 H (75-99) mg/dL POC Glu Gear And Spline Grinder ID Barb Souza Plasma Lactic Acid Kyaw (0.7-2.0) mmol/L Calcium (8.4-10.2) mg/dL Total Bilirubin (0.2-1.3) mg/dL AST (17-59) U/L ALT (4-49) U/L Alkaline Phosphatase (38-126) U/L Ammonia (<30) umol/L Troponin I (0.000-0.034) ng/mL Total Protein (6.3-8.2) g/dL Albumin (3.5-5.0) g/dL Urine Color Urine Appearance (Clear) Urine pH (5.0-8.0) Ur Specific [place] (1.001-1.035) Urine Protein (Negative) Urine Glucose (UA) (Negative) Urine Ketones (Negative) Urine Blood (Negative) Urine Nitrite (Negative) Urine Bilirubin (Negative) Urine Urobilinogen (<2.0) mg/dL Ur Leukocyte Esterase (Negative) Urine RBC (0-5) /hpf Urine WBC (0-5) /hpf Ur Squamous Epith Cells (0-4) /hpf Urine Bacteria (None) /hpf Salicylates mg/dL Urine Opiates Screen (NotDetected) Ur Oxycodone Screen (NotDetected) Urine Methadone Screen (NotDetected) Ur Propoxyphene Screen (NotDetected) Acetaminophen ug/mL Ur Barbiturates Screen (NotDetected) U Tricyclic Antidepress (NotDetected) Ur Phencyclidine Scrn (NotDetected) Ur Amphetamines Screen (NotDetected) U Methamphetamines Scrn (NotDetected) U Benzodiazepines Scrn (NotDetected) Urine Cocaine Screen (NotDetected) U Marijuana (THC) Screen (NotDetected) Coronavirus (PCR) (Not Detectd) 07/06/20 07/06/20 07/06/20 Range/Units 16:33 16:33 16:33 WBC (3.8-10.6) k/uL RBC (4.30-5.90) m/uL Hgb (13.0-17.5) gm/dL Hct (39.0-53.0) % MCV (80.0-100.0) fL MCH (25.0-35.0) pg MCHC (31.0-37.0) g/dL RDW (11.5-15.5) % Plt Count (150-450) k/uL MPV Neutrophils % % Lymphocytes % % Monocytes % % Eosinophils % % Basophils % % Neutrophils # (1.3-7.7) k/uL Lymphocytes # (1.0-4.8) k/uL Monocytes # (0-1.0) k/uL Eosinophils # (0-0.7) k/uL Basophils # (0-0.2) k/uL PT (9.0-12.0) sec INR (<1.2) APTT (22.0-30.0) sec Sample Site ABG pH (7.35-7.45) ABG pCO2 (35-45) mmHg ABG pO2 (83-108) mmHg ABG HCO3 (21-25) mmol/L ABG Total CO2 (19-24) mmol/L ABG O2 Saturation (94-97) % ABG Base Excess mmol/L Placido Test FiO2 % Sodium 138 (137-145) mmol/L Potassium 3.6 (3.5-5.1) mmol/L Chloride 108 H (98-107) mmol/L Carbon Dioxide 19 L (22-30) mmol/L Anion Gap 11 mmol/L BUN 26 H (9-20) mg/dL Creatinine 1.23 (0.66-1.25) mg/dL Est GFR (CKD-EPI)AfAm 68 (>60 ml/min/1.73 sqM) Est GFR (CKD-EPI)NonAf 59 (>60 ml/min/1.73 sqM) Glucose 182 H (74-99) mg/dL POC Glucose (mg/dL) (75-99) mg/dL POC Glu Gear And Spline Grinder ID Plasma Lactic Acid Kyaw (0.7-2.0) mmol/L Calcium 8.9 (8.4-10.2) mg/dL Total Bilirubin 0.7 (0.2-1.3) mg/dL AST 27 (17-59) U/L ALT 25 (4-49) U/L Alkaline Phosphatase 134 H (38-126) U/L Ammonia <9 (<30) umol/L Troponin I 0.040 H* (0.000-0.034) ng/mL Total Protein 6.7 (6.3-8.2) g/dL Albumin 3.5 (3.5-5.0) g/dL Urine Color Urine Appearance (Clear) Urine pH (5.0-8.0) Ur Specific [place] (1.001-1.035) Urine Protein (Negative) Urine Glucose (UA) (Negative) Urine Ketones (Negative) Urine Blood (Negative) Urine Nitrite (Negative) Urine Bilirubin (Negative) Urine Urobilinogen (<2.0) mg/dL Ur Leukocyte Esterase (Negative) Urine RBC (0-5) /hpf Urine WBC (0-5) /hpf Ur Squamous Epith Cells (0-4) /hpf Urine Bacteria (None) /hpf Salicylates <1.0 mg/dL Urine Opiates Screen (NotDetected) Ur Oxycodone Screen (NotDetected) Urine Methadone Screen (NotDetected) Ur Propoxyphene Screen (NotDetected) Acetaminophen <10.0 ug/mL Ur Barbiturates Screen (NotDetected) U Tricyclic Antidepress (NotDetected) Ur Phencyclidine Scrn (NotDetected) Ur Amphetamines Screen (NotDetected) U Methamphetamines Scrn (NotDetected) U Benzodiazepines Scrn (NotDetected) Urine Cocaine Screen (NotDetected) U Marijuana (THC) Screen (NotDetected) Coronavirus (PCR) (Not Detectd) 07/06/20 07/06/20 07/06/20 Range/Units 16:33 17:21 17:45 WBC (3.8-10.6) k/uL RBC (4.30-5.90) m/uL Hgb (13.0-17.5) gm/dL Hct (39.0-53.0) % MCV (80.0-100.0) fL MCH (25.0-35.0) pg MCHC (31.0-37.0) g/dL RDW (11.5-15.5) % Plt Count (150-450) k/uL MPV Neutrophils % % Lymphocytes % % Monocytes % % Eosinophils % % Basophils % % Neutrophils # (1.3-7.7) k/uL Lymphocytes # (1.0-4.8) k/uL Monocytes # (0-1.0) k/uL Eosinophils # (0-0.7) k/uL Basophils # (0-0.2) k/uL PT (9.0-12.0) sec INR (<1.2) APTT (22.0-30.0) sec Sample Site RAD ABG pH 7.36 (7.35-7.45) ABG pCO2 32 L (35-45) mmHg ABG pO2 283 H (83-108) mmHg ABG HCO3 18 L (21-25) mmol/L ABG Total CO2 19 (19-24) mmol/L ABG O2 Saturation 100.0 H (94-97) % ABG Base Excess -7.4 mmol/L Placido Test Yes FiO2 100 % Sodium (137-145) mmol/L Potassium (3.5-5.1) mmol/L Chloride (98-107) mmol/L Carbon Dioxide (22-30) mmol/L Anion Gap mmol/L BUN (9-20) mg/dL Creatinine (0.66-1.25) mg/dL Est GFR (CKD-EPI)AfAm (>60 ml/min/1.73 sqM) Est GFR (CKD-EPI)NonAf (>60 ml/min/1.73 sqM) Glucose (74-99) mg/dL POC Glucose (mg/dL) (75-99) mg/dL POC Glu Gear And Spline Grinder ID Plasma Lactic Acid Kyaw (0.7-2.0) mmol/L Calcium (8.4-10.2) mg/dL Total Bilirubin (0.2-1.3) mg/dL AST (17-59) U/L ALT (4-49) U/L Alkaline Phosphatase (38-126) U/L Ammonia (<30) umol/L Troponin I (0.000-0.034) ng/mL Total Protein (6.3-8.2) g/dL Albumin (3.5-5.0) g/dL Urine Color Light Yellow Urine Appearance Clear (Clear) Urine pH 6.0 (5.0-8.0) Ur Specific [place] 1.010 (1.001-1.035) Urine Protein 1+ H (Negative) Urine Glucose (UA) Negative (Negative) Urine Ketones Negative (Negative) Urine Blood Trace H (Negative) Urine Nitrite Negative (Negative) Urine Bilirubin Negative (Negative) Urine Urobilinogen <2.0 (<2.0) mg/dL Ur Leukocyte Esterase Negative (Negative) Urine RBC 1 (0-5) /hpf Urine WBC 1 (0-5) /hpf Ur Squamous Epith Cells <1 (0-4) /hpf Urine Bacteria Rare H (None) /hpf Salicylates mg/dL Urine Opiates Screen Not Detected (NotDetected) Ur Oxycodone Screen Not Detected (NotDetected) Urine Methadone Screen Not Detected (NotDetected) Ur Propoxyphene Screen Not Detected (NotDetected) Acetaminophen ug/mL Ur Barbiturates Screen Not Detected (NotDetected) U Tricyclic Antidepress Not Detected (NotDetected) Ur Phencyclidine Scrn Not Detected (NotDetected) Ur Amphetamines Screen Not Detected (NotDetected) U Methamphetamines Scrn Not Detected (NotDetected) U Benzodiazepines Scrn Not Detected (NotDetected) Urine Cocaine Screen Not Detected (NotDetected) U Marijuana (THC) Screen Not Detected (NotDetected) Coronavirus (PCR) Detected A (Not Detectd) 07/06/20 Range/Units 18:00 WBC (3.8-10.6) k/uL RBC (4.30-5.90) m/uL Hgb (13.0-17.5) gm/dL Hct (39.0-53.0) % MCV (80.0-100.0) fL MCH (25.0-35.0) pg MCHC (31.0-37.0) g/dL RDW (11.5-15.5) % Plt Count (150-450) k/uL MPV Neutrophils % % Lymphocytes % % Monocytes % % Eosinophils % % Basophils % % Neutrophils # (1.3-7.7) k/uL Lymphocytes # (1.0-4.8) k/uL Monocytes # (0-1.0) k/uL Eosinophils # (0-0.7) k/uL Basophils # (0-0.2) k/uL PT (9.0-12.0) sec INR (<1.2) APTT (22.0-30.0) sec Sample Site ABG pH (7.35-7.45) ABG pCO2 (35-45) mmHg ABG pO2 (83-108) mmHg ABG HCO3 (21-25) mmol/L ABG Total CO2 (19-24) mmol/L ABG O2 Saturation (94-97) % ABG Base Excess mmol/L Placido Test FiO2 % Sodium (137-145) mmol/L Potassium (3.5-5.1) mmol/L Chloride (98-107) mmol/L Carbon Dioxide (22-30) mmol/L Anion Gap mmol/L BUN (9-20) mg/dL Creatinine (0.66-1.25) mg/dL Est GFR (CKD-EPI)AfAm (>60 ml/min/1.73 sqM) Est GFR (CKD-EPI)NonAf (>60 ml/min/1.73 sqM) Glucose (74-99) mg/dL POC Glucose (mg/dL) (75-99) mg/dL POC Glu Gear And Spline Grinder ID Plasma Lactic Acid Kyaw 2.1 H* (0.7-2.0) mmol/L Calcium (8.4-10.2) mg/dL Total Bilirubin (0.2-1.3) mg/dL AST (17-59) U/L ALT (4-49) U/L Alkaline Phosphatase (38-126) U/L Ammonia (<30) umol/L Troponin I (0.000-0.034) ng/mL Total Protein (6.3-8.2) g/dL Albumin (3.5-5.0) g/dL Urine Color Urine Appearance (Clear) Urine pH (5.0-8.0) Ur Specific [place] (1.001-1.035) Urine Protein (Negative) Urine Glucose (UA) (Negative) Urine Ketones (Negative) Urine Blood (Negative) Urine Nitrite (Negative) Urine Bilirubin (Negative) Urine Urobilinogen (<2.0) mg/dL Ur Leukocyte Esterase (Negative) Urine RBC (0-5) /hpf Urine WBC (0-5) /hpf Ur Squamous Epith Cells (0-4) /hpf Urine Bacteria (None) /hpf Salicylates mg/dL Urine Opiates Screen (NotDetected) Ur Oxycodone Screen (NotDetected) Urine Methadone Screen (NotDetected) Ur Propoxyphene Screen (NotDetected) Acetaminophen ug/mL Ur Barbiturates Screen (NotDetected) U Tricyclic Antidepress (NotDetected) Ur Phencyclidine Scrn (NotDetected) Ur Amphetamines Screen (NotDetected) U Methamphetamines Scrn (NotDetected) U Benzodiazepines Scrn (NotDetected) Urine Cocaine Screen (NotDetected) U Marijuana (THC) Screen (NotDetected) Coronavirus (PCR) (Not Detectd) Critical Care Time Critical Care Time: Yes Total Critical Care Time: 60 Critical Care Time: Critical care time spent evaluating the patient and obtaining history from EMS and skilled nursing, interpreting and ordering lab results, interpreting and ordering CT imaging and chest x-ray, interpreting and ordering ABG. Ventilator management. Sedation management. Repeat neural examinations. Speaking to moo rizvi. Disposition Clinical Impression: COVID-19, Ventilator dependent, Acute respiratory failure with hypoxia, Elevated troponin Disposition: ADMITTED IP TO THIS [facility] Condition: Critical Is patient prescribed a controlled substance at d/c from ED?: No Referrals: None,Stated [REFERRING] - 1-2 days
[2020-07-06 16:43] LABS: Basophils % (A) 0 %; Eosinophils # (A) 0.1 k/uL (0-0.7); Eosinophils % (A) 1 %; HCT 46.7 % (39.0-53.0); HGB 15.2 gm/dL (13.0-17.5); Lymphocytes # (A) 2.4 k/uL (1.0-4.8); Lymphocytes % (A) 18 %; MCH 29.2 pg (25.0-35.0); MCHC 32.5 g/dL (31.0-37.0); MCV 89.8 fL (80.0-100.0); Mean Platelet Volume 9.6; Monocytes # (A) 0.5 k/uL (0-1.0); Monocytes % (A) 4 %; Neutrophils # (A) 10.5 k/uL (1.3-7.7); Neutrophils % (A) 77 %; Platelet Count 209 k/uL (150-450); RBC 5.19 m/uL (4.30-5.90); RDW 14.2 % (11.5-15.5); WBC 13.6 k/uL (3.8-10.6)
[2020-07-06 16:53] LABS: ALT 25 U/L (4-49); AST 27 U/L (17-59); Acetaminophen <10.0 ug/mL; African American GFR (CKD) 68 (>60 ml/min/1.73 sqM); Albumin 3.5 g/dL (3.5-5.0); Alkaline Phosphatase 134 U/L (38-126); Anion Gap 11 mmol/L; Blood Urea Nitrogen 26 mg/dL (9-20); Calcium 8.9 mg/dL (8.4-10.2); Carbon Dioxide 19 mmol/L (22-30); Chloride 108 mmol/L (98-107); Glucose 182 mg/dL (74-99); Non-African American GFR(CKD) 59 (>60 ml/min/1.73 sqM); Potassium 3.6 mmol/L (3.5-5.1); Salicylate <1.0 mg/dL; Sodium 138 mmol/L (137-145); Total Bilirubin 0.7 mg/dL (0.2-1.3); Total Protein 6.7 g/dL (6.3-8.2)
[2020-07-06] MEDS ORDERED: PROPOFOL 10 MG/ML 20 ML VIAL IV STA (17:03)
[2020-07-06 17:11] LABS: Amphetamine Screen,Urine Not Detected (NotDetected); Appearance,Urine Clear (Clear); Bacteria,Urine Rare /hpf; Barbiturate Screen,Urine Not Detected (NotDetected); Benzodiazepines Screen,Urine Not Detected (NotDetected); Bilirubin,Urine Negative (Negative); Blood,Urine Trace (Negative); Cocaine Screen,Urine Not Detected (NotDetected); Color,Urine Light Yellow; Glucose,Urine (UA) Negative (Negative); Ketones,Urine Negative (Negative); Leukocyte Esterase,Urine Negative (Negative); Methadone Screen, Urine Not Detected (NotDetected); Nitrite,Urine Negative (Negative); Opiate Screen,Urine Not Detected (NotDetected); Oxycodone Screen, Urine Not Detected (NotDetected); Phencyclidine Screen,Urine Not Detected (NotDetected); Protein,Urine 1+ (Negative); RBC,Urine 1 /hpf (0-5); Squamous Epithelial Cell,Urine <1 /hpf (0-4); Tricyclic Antidepressant,Urine Not Detected (NotDetected); Urn Cannabinoid Scrn Not Detected (NotDetected); Urobilinogen,Urine <2.0 mg/dL (<2.0); WBC,Urine 1 /hpf (0-5)
--- NOTE | 2020-07-06 17:11 | CT ---
EXAMINATION TYPE: CT brain wo con DATE OF EXAM: 07/06/2020 COMPARISON: 09/22/2018 HISTORY: unresponsive CT DLP: 1164.2 mGycm Automated exposure control for dose reduction was used. Findings: There are remote infarcts involving the cortex and subcortical white matter in the right frontal lobe and right parietal lobe. There is diffuse ischemic demyelination of the white matter in both cerebral hemispheres. There is no acute bleed or mass effect. Posterior fossa is grossly normal. IMPRESSION: 1. Moderate atrophy. 2. Remote infarcts of the right cerebral cortex as described above. 3. No acute bleed or mass effect.
[2020-07-06 17:18] LABS: INR 0.9 (<1.2); Partial Thromboplastin Time 23.2 sec (22.0-30.0)
[2020-07-06 17:24] LABS: ABG Base Excess -7.4 mmol/L; ABG HCO3 18 mmol/L (21-25); ABG PCO2 32 mmHg (35-45); ABG PH 7.36 (7.35-7.45); ABG PO2 283 mmHg (83-108); ABG TCO2 19 mmol/L (19-24); Allen Test Performed? Yes
--- NOTE | 2020-07-06 17:45 | XR ---
EXAMINATION TYPE: XR chest 1V portable DATE OF EXAM: 07/06/2020 COMPARISON: 05/27/2020 HISTORY: Altered mental status TECHNIQUE: Single frontal view of the chest is obtained. FINDINGS: There is an ET tube approximately 2.7 cm above the claude. There is an NG tube within the stomach. There is ill-defined airspace and interstitial opacity throughout both lungs right significantly grea ter than left. There is no pneumothorax. There is no large pleural effusion. Heart size is normal IMPRESSION: 1.ET tube approximately 2.7 cm above the claude. 2. Bilateral lung infiltrates right greater than left.
--- NOTE | 2020-07-06 17:50 | CT ---
EXAMINATION TYPE: CT angio head neck DATE OF EXAM: 07/06/2020 HISTORY: unresponsive COMPARISON: None CT DLP: 578.3 mGycm. Automated Exposure Control for Dose Reduction was Utilized. TECHNIQUE: CTA scan of the neck is performed with IV Contrast, patient injected with 65cc mL of Isov ue 370, axial images are obtained, coronal and sagittal reformatted images are reviewed. Three-D nicholas nstructed images are created on an independent workstation and reviewed. FINDINGS: The brachiocephalic origins are widely patent. There is no significant carotid stenosis within the common or internal carotid arteries within the ne ck. The carotid bifurcations are widely patent. Intracranially, there is no sizable aneurysm sac vascular malformation. There is no evidence of occlu sive disease IMPRESSION: No significant abnormality is seen.
[2020-07-06] MEDS ORDERED: SODIUM CHLORIDE 0.9% 1,000 ML IV ONE (17:52)
[2020-07-06] MEDS: SODIUM CHLORIDE 0.9% 1,000 ML IV SCH (18:02)
[2020-07-06] MEDS: DEXAMETHASONE SOD PHOSPHATE 10 MG/ML 1 ML VIAL IV SCH (18:17)
[2020-07-06] MEDS ORDERED: NALOXONE 0.4 MG/ML 1 ML VIAL IV PRN (18:49)
[2020-07-06 20:59] LABS: ABG Base Excess -10.3 mmol/L; ABG HCO3 15 mmol/L (21-25); ABG Oxygen Saturation 96.6 % (94-97); ABG PCO2 28 mmHg (35-45); ABG PH 7.35 (7.35-7.45); ABG PO2 89 mmHg (83-108); ABG TCO2 16 mmol/L (19-24); Allen Test Performed? Yes
[2020-07-07 02:29] LABS: C Reactive Protein 1.4 mg/dL (<1.0)
[2020-07-07 03:44] LABS: Basophils % (A) 0 %; Eosinophils % (A) 0 %; HGB 16.2 gm/dL (13.0-17.5); Lymphocytes # (A) 0.7 k/uL (1.0-4.8); Lymphocytes % (A) 3 %; MCH 30.3 pg (25.0-35.0); MCHC 32.4 g/dL (31.0-37.0); MCV 93.3 fL (80.0-100.0); Monocytes # (A) 0.9 k/uL (0-1.0); Monocytes % (A) 3 %; Neutrophils # (A) 26.6 k/uL (1.3-7.7); Neutrophils % (A) 94 %; Platelet Count 175 k/uL (150-450); RBC 5.36 m/uL (4.30-5.90); RDW 14.2 % (11.5-15.5); WBC 28.3 k/uL (3.8-10.6)
[2020-07-07 03:58] LABS: Albumin 3.2 g/dL (3.5-5.0); Calcium 8.5 mg/dL (8.4-10.2); Total Bilirubin 0.7 mg/dL (0.2-1.3); Total Protein 6.1 g/dL (6.3-8.2)
[2020-07-07] MEDS: SODIUM CHLORIDE 0.9% 1,000 ML IV SCH ×3 (04:35→18:39)
[2020-07-07 05:19] LABS: ABG Base Excess -12.2 mmol/L; ABG HCO3 12 mmol/L (21-25); ABG Oxygen Saturation 97.6 % (94-97); ABG PH 7.42 (7.35-7.45); ABG PO2 87 mmHg (83-108); ABG TCO2 13 mmol/L (19-24); Allen Test Performed? Yes
[2020-07-07 05:39] LABS: ABG PCO2 19 mmHg (35-45)
[2020-07-07] MEDS ORDERED: ACETAMINOPHEN TAB 325 MG TAB PO PRN (06:36)
[2020-07-07] MEDS ORDERED: SODIUM CHLORIDE 0.9% 1,000 ML IV ONE ×2 (06:36→09:25)
[2020-07-07 06:58] LABS: Glucose,Whole Blood 372 mg/dL (75-99)
[2020-07-07] MEDS: INSULIN ASPART (NovoLOG) 100 UNIT/ML VIAL SQ SCH ×3 (07:14→18:40)
--- NOTE | 2020-07-07 07:55 | XR ---
EXAMINATION TYPE: XR chest 1V portable DATE OF EXAM: 07/07/2020 COMPARISON: 07/06/2020 HISTORY: SOB, Follow Up FINDINGS: Indwelling tubes and catheters are unchanged. Patchy basilar infiltrates persist with mild progression suggested at the right lung base. Stable appearance of the cardio-mediastinal structures at this time. Pleural effusion unchanged. IMPRESSION: 1. Patchy basilar infiltrates persist with mild progression suggested at the right lung base. Clinic al correlation and follow up until resolution is recommended.
[2020-07-07] MEDS: PIPERACILLIN-TAZOBACTAM 3.375 GM in SODIUM CHLORIDE 0.9% 100 ML IVPB SCH ×2 (08:59→15:02)
[2020-07-07] MEDS: INSULIN DETEMIR (LEVEMIR) 100 UNIT/ML SYR SQ SCH (08:59)
[2020-07-07] MEDS: DEXAMETHASONE SOD PHOSPHATE 10 MG/ML 1 ML VIAL IV SCH (08:59)
[2020-07-07 09:30] LABS: Ferritin 263.1 ng/mL (22.0-322.0)
[2020-07-07] MEDS ORDERED: ENOXAPARIN 40 MG/0.4 ML SYRINGE SQ SCH (09:45)
[2020-07-07] MEDS ORDERED: HEPARIN SODIUM 1,000 UN/ML (10ML VL) IV PRN (09:59)
[2020-07-07] MEDS: HEPARIN SOD,PORK IN 0.45% NACL 25,000 UNIT in 0.45% NACL 1 250ML.BAG IV SCH (10:20)
[2020-07-07] MEDS: DEXTROSE 5% IN WATER 1,000 ML with SODIUM BICARB (1 MEQ/ML) 150 ML IV SCH ×2 (10:24→22:56)
--- NOTE | 2020-07-07 10:30 | US ---
EXAMINATION TYPE: US venous doppler duplex LE DATE OF EXAM: 07/07/2020 10:25 AM COMPARISON: NONE CLINICAL HISTORY: rule out dvt. Exam done portable in ICU SIDE PERFORMED: Bilateral TECHNIQUE: The lower extremity deep venous system is examined utilizing real time linear array sonog garrick with graded compression, doppler sonography and color-flow sonography. VESSELS IMAGED: Common Femoral Vein Deep Femoral Vein Greater Saphenous Vein * Femoral Vein Popliteal Vein Small Saphenous Vein * Proximal Calf Veins (* superficial vessels) Right leg amputated above knee, left leg amputated below knee Right Leg: Appears negative for DVT Left Leg: Appears negative for DVT IMPRESSION: No evidence for DVT at this time.
[2020-07-07 10:36] LABS: Basophils % (A) 0 %; Eosinophils # (A) 0.1 k/uL (0-0.7); Eosinophils % (A) 0 %; HCT 45.6 % (39.0-53.0); HGB 14.9 gm/dL (13.0-17.5); Lymphocytes # (A) 1.1 k/uL (1.0-4.8); Lymphocytes % (A) 5 %; MCH 30.3 pg (25.0-35.0); MCHC 32.7 g/dL (31.0-37.0); MCV 92.4 fL (80.0-100.0); Mean Platelet Volume 9.5; Monocytes # (A) 1.1 k/uL (0-1.0); Monocytes % (A) 5 %; Neutrophils % (A) 90 %; Platelet Count 186 k/uL (150-450); RBC 4.94 m/uL (4.30-5.90); RDW 14.3 % (11.5-15.5); WBC 23.3 k/uL (3.8-10.6)
[2020-07-07 10:48] LABS: INR 1.1 (<1.2); Partial Thromboplastin Time 26.1 sec (22.0-30.0); Prothrombin Time 11.3 sec (9.0-12.0)
--- NOTE | 2020-07-07 11:49 | P.CNPUL ---
History of Present Illness Consult date: 07/07/20 Requesting physician: Kevin Johnston Reason for consult: other (Acute hypoxic respiratory failure) Chief complaint: On responsiveness and altered mental status History of present illness: This is a 74-year-old white male with history of multiple medical problems, patient is a skilled nursing resident, known to have coronary artery disease, peripheral vessel occlusive disease and right above-knee amputation, left below knee amputation, known history of dementia, type 2 diabetes, history of duodenal ulcer and GI bleeding, past history of alcohol abuse, patient was brought into the ER by EMS, apparently he fell off his wheelchair while at the skilled nursing, and prior to that he was complaining of pain in his left stump. EMS arrived, patient was unresponsive, could not be aroused. No mention and no history of any narcotic use, and drug screen was negative. Upon arrival to the ER, patient was unresponsive, he was intubated and mechanically ventilated. CT of the head came back negative. Neurology was consulted. Patient is normally maintained on Eliquis, gabapentin, iron, Lipitor, insulin, and he is also on omeprazole daily. Again his drug screen was negative. He had leukocytosis with WBC count of 23.3. Elevated d-dimer of 34. Abnormal ABG on 50% FiO2 with pO2 of 87, pCO2 of 19 pH of 7.42 and very low bicarb of 13. Electrolytes were normal except for low bicarb and elevated anion gap, he had BUN rise up to 33 from 26 on admission and creatinine up to 1.96 from 1.23 on admission. Blood sugars were over 300, but he had negative ketones in the urine. Lactic acid jumped up from 3.2-6.6. Troponin jumped up from 0.04 on admission up to 11.5 today. Pro-calcitonin was relatively normal. Coronary virus PCR was detected. Venous Doppler of both lower extremities were negative. Chest x-ray showed patchy basilar infiltrates present at the lung bases. Patient was placed empirically on antibiotics in the form of Zosyn. Cardiology will be consulted. Neurology will be consulted. CT of the brain on admission was negative. CT angiogram of the head was basically unremarkable. Patient will be placed on Lovenox for his elevated d-dimer, he was initially on Eliquis to begin with. Prognosis obviously is quite poor and guarded. Review of Systems ROS unobtainable: due to endotracheal tube Past Medical History Past Medical History: Coronary Artery Disease (CAD), Chest Pain / Angina, Dementia, Diabetes Mellitus, GERD/Reflux, Hypertension, Myocardial Infarction (OK), Pneumonia, Vascular Disorder Additional Past Medical History / Comment(s): IDDM type II, cognitive dysfunction, PVD/pt has L BKA and R AKA d/t sores/cellulitis/gangrene, duodenal ulcer, GI bleed, iron anemia, hiatal hernia, pt thinks he may have had a OK many years ago as well as a CVA, past ETOH abuse, past back vertibral fractures as child. Last Myocardial Infarction Date:: UNK History of Any Multi-Drug Resistant Organisms: MRSA Date of last positivie culture/infection: 03/31/16 MDRO Source:: left Foot Past Surgical History: No Surgical Hx Reported Additional Past Surgical History / Comment(s): Abdominal aortagram with femoral revascularization/ptba/stent/thrombectomy, L BKA, R AKA, EGD, teeth extractions. Past Anesthesia/Blood Transfusion Reactions: Motion Sickness Additional Past Anesthesia/Blood Transfusion Reaction / Comment(s): Pt has received blood in past without reaction. Past Psychological History: No Psychological Hx Reported Additional Psychological History / Comment(s): Pt resides at [facility]. He has [facility] public legal guardian. Pt is bilateral lower amputee/wheelchair bound. He can feed himself. Smoking Status: Former smoker Past Alcohol Use History: Unable to Obtain Additional Past Alcohol Use History / Comment(s): Pt started smoking in 1962 and quit in 2019. Reported pt was a "heavy drinker" in his past. Past Drug Use History: Unable to Obtain - Past Family History Mother Family Medical History: Cancer Additional Family Medical History / Comment(s): BREAST CANCER, CERVICAL CANCER AND PART OF TONGUE AND LT JAW REMOVED Father History Unknown: Yes Additional Family Medical History / Comment(s): DAD LEFT THE HOME WHEN PT WAS 14 Medications and Allergies Home Medications Medication Instructions Recorded Confirmed Type Apixaban [Eliquis] 5 mg PO BID 05/27/20 07/06/20 History Ferrous Sulfate [Iron (65 MG 325 mg PO HS 05/27/20 07/06/20 History Elemental)] Gabapentin [Neurontin] 300 mg PO QID 05/27/20 07/06/20 History Insulin Detemir (Levemir) [Levemir] 11 unit SQ HS 05/27/20 07/06/20 History lisinopriL [Zestril] 5 mg PO DAILY #90 tab 05/29/20 07/06/20 Rx Atorvastatin [Lipitor] 80 mg PO HS 07/06/20 07/06/20 History INSULIN LISPRO (humaLOG) [humaLOG] See Protocol SQ ACHS 07/06/20 07/06/20 History Omeprazole 20 mg PO DAILY@0500 07/06/20 07/06/20 History Allergies Allergy/AdvReac Type Severity Reaction Status Date / Time shellfish derived Allergy Unknown Verified 07/06/20 17:17 Physical Exam Vitals: Vital Signs Temp Pulse Resp BP Pulse Ox 07/07/20 08:00 93 19 99/64 98 07/07/20 07:30 94 16 99/64 96 07/07/20 07:00 92 21 118/67 97 07/07/20 06:30 96 20 118/67 96 07/07/20 06:00 93 19 109/66 96 07/07/20 05:30 90 19 109/66 96 07/07/20 05:00 93 18 118/61 95 07/07/20 04:30 85 19 118/61 97 07/07/20 04:00 101.8 F H 93 19 126/73 97 07/07/20 03:30 90 21 126/73 96 07/07/20 03:00 90 23 119/91 97 07/07/20 02:30 96 23 119/91 96 07/07/20 02:00 90 23 140/81 96 07/07/20 01:30 93 23 140/81 96 07/07/20 01:00 92 23 127/83 96 07/07/20 00:30 92 18 127/83 97 07/07/20 00:00 98.3 F 94 22 134/85 97 07/06/20 23:30 94 22 134/85 97 07/06/20 23:00 93 22 131/86 97 07/06/20 22:30 91 22 131/86 97 07/06/20 22:12 98 23 131/86 97 07/06/20 22:00 96 22 123/86 98 07/06/20 21:30 92 22 123/86 97 07/06/20 21:00 96 21 145/87 97 07/06/20 20:30 101 H 22 145/87 98 07/06/20 20:05 98.9 F 99 19 97 07/06/20 18:51 97.6 F 81 25 H 125/72 99 07/06/20 18:36 85 14 103/70 100 07/06/20 17:50 78 25 H 110/66 99 07/06/20 17:27 97.5 F L 89 23 126/80 100 07/06/20 17:00 98 24 147/83 100 07/06/20 16:45 105 H 169/113 100 07/06/20 16:30 100 239/113 100 07/06/20 16:21 12 07/06/20 16:19 101 H 12 177/89 88 L Intake and Output 07/06/20 07/07/20 07/07/20 22:59 06:59 14:59 Intake Total 128.480 9968 1130 Output Total 310 275 30 Balance 83.586 941 3369 Intake: IV 390 1040 130 Sodium Chloride 0.9% 1, 390 1040 130 000 ml @ 130 mls/hr IV . Q7H42M [facility] Rx#:[id number] Intake, IV Titration 3.377 1000 Amount Sodium Chloride 0.9% 1, 1000 000 ml @ 999 mls/hr IV . Q1H1M [facility] Rx#:[id number] propofoL 1,000 mg In 3.377 Empty Bag 1 bag @ Titrate IV .Q0M [facility] Rx#: [id number] Output: Urine 310 275 30 Other: Voiding Method Indwelling Catheter Indwelling Catheter Weight 79.469 kg 77.3 kg Physical Exam: Revealed 74-year-old white male intubated and mechanically ventilated, unresponsive to any stimuli. Head: Atraumatic, normocephalic. HEENT:[Neck is supple.] [No neck masses.] [No thyromegaly.] [No JVD.] Chest: Symmetrical chest expansion, crackles at the bases. Barrel chest is noted. Cardiac Exam: Normal S1 and S2, no S3 gallop, 2/6 systolic murmur throughout the precordium. Abdomen: [Soft, nontender, no megaly, no rebound, no guarding, normal bowel sounds.] Extremities: [No clubbing, no edema, no cyanosis.] Right above-knee amputation is noted and left below knee amputation is noted, both stumps are intact. Neurological Exam: Unresponsive to any stimuli. Pupils are sluggishly reactive. Psychiatric: Could not assess. Musculoskeletal: Difficult to assess, patient does have muscle wasting, and bilateral stumps noted. Results - Laboratory Findings CBC and BMP: 07/07/20 10:08 07/07/20 03:21 ABG ABG pH 7.42 (7.35-7.45) 07/07/20 05:17 ABG pCO2 19 mmHg (35-45) L* 07/07/20 05:17 ABG pO2 87 mmHg (83-108) 07/07/20 05:17 ABG O2 Saturation 97.6 % (94-97) H 07/07/20 05:17 PT/INR, D-dimer PT 11.3 sec (9.0-12.0) 07/07/20 10:08 INR 1.1 (<1.2) 07/07/20 10:08 D-Dimer >34.10 mg/L FEU (<0.60) H 07/07/20 03:21 Abnormal lab findings: Abnormal Labs 07/06/20 07/06/20 07/06/20 16:19 16:33 16:33 WBC 13.6 H Neutrophils # 10.5 H Lymphocytes # Monocytes # D-Dimer ABG pCO2 ABG pO2 ABG HCO3 ABG Total CO2 ABG O2 Saturation Chloride 108 H Carbon Dioxide 19 L BUN 26 H Creatinine Glucose 182 H POC Glucose (mg/dL) 167 H Plasma Lactic Acid Kyaw Alkaline Phosphatase 134 H Lactate Dehydrogenase Troponin I C-Reactive Protein Total Protein Albumin Urine Protein Urine Blood Urine Bacteria Coronavirus (PCR) 07/06/20 07/06/20 07/06/20 16:33 16:33 17:21 WBC Neutrophils # Lymphocytes # Monocytes # D-Dimer ABG pCO2 32 L ABG pO2 283 H ABG HCO3 18 L ABG Total CO2 ABG O2 Saturation 100.0 H Chloride Carbon Dioxide BUN Creatinine Glucose POC Glucose (mg/dL) Plasma Lactic Acid Kyaw Alkaline Phosphatase Lactate Dehydrogenase Troponin I 0.040 H* C-Reactive Protein Total Protein Albumin Urine Protein 1+ H Urine Blood Trace H Urine Bacteria Rare H Coronavirus (PCR) 07/06/20 07/06/20 07/06/20 17:45 18:00 18:11 WBC Neutrophils # Lymphocytes # Monocytes # D-Dimer ABG pCO2 ABG pO2 ABG HCO3 ABG Total CO2 ABG O2 Saturation Chloride Carbon Dioxide BUN Creatinine Glucose POC Glucose (mg/dL) Plasma Lactic Acid Kyaw 2.1 H* Alkaline Phosphatase Lactate Dehydrogenase 1253 H Troponin I C-Reactive Protein 1.4 H Total Protein Albumin Urine Protein Urine Blood Urine Bacteria Coronavirus (PCR) Detected A 07/06/20 07/06/20 07/06/20 20:55 21:12 23:49 WBC Neutrophils # Lymphocytes # Monocytes # D-Dimer ABG pCO2 28 L ABG pO2 ABG HCO3 15 L ABG Total CO2 16 L ABG O2 Saturation Chloride Carbon Dioxide BUN Creatinine Glucose POC Glucose (mg/dL) Plasma Lactic Acid Kyaw 3.0 H* 3.2 H* Alkaline Phosphatase Lactate Dehydrogenase Troponin I C-Reactive Protein Total Protein Albumin Urine Protein Urine Blood Urine Bacteria Coronavirus (PCR) 07/07/20 07/07/20 07/07/20 03:21 03:21 03:21 WBC 28.3 H Neutrophils # 26.6 H Lymphocytes # 0.7 L Monocytes # D-Dimer >34.10 H ABG pCO2 ABG pO2 ABG HCO3 ABG Total CO2 ABG O2 Saturation Chloride Carbon Dioxide BUN Creatinine Glucose POC Glucose (mg/dL) Plasma Lactic Acid Kyaw 6.7 H* Alkaline Phosphatase Lactate Dehydrogenase Troponin I C-Reactive Protein Total Protein Albumin Urine Protein Urine Blood Urine Bacteria Coronavirus (PCR) 07/07/20 07/07/20 07/07/20 03:21 05:17 06:57 WBC Neutrophils # Lymphocytes # Monocytes # D-Dimer ABG pCO2 19 L* ABG pO2 ABG HCO3 12 L ABG Total CO2 13 L ABG O2 Saturation 97.6 H Chloride Carbon Dioxide 16 L BUN 33 H Creatinine 1.96 H Glucose 312 H POC Glucose (mg/dL) 372 H Plasma Lactic Acid Kyaw Alkaline Phosphatase Lactate Dehydrogenase Troponin I C-Reactive Protein Total Protein 6.1 L Albumin 3.2 L Urine Protein Urine Blood Urine Bacteria Coronavirus (PCR) 07/07/20 07/07/20 07/07/20 07:28 10:08 10:14 WBC 23.3 H Neutrophils # 21.0 H Lymphocytes # Monocytes # 1.1 H D-Dimer ABG pCO2 ABG pO2 ABG HCO3 ABG Total CO2 ABG O2 Saturation Chloride Carbon Dioxide BUN Creatinine Glucose POC Glucose (mg/dL) Plasma Lactic Acid Kyaw 6.6 H* Alkaline Phosphatase Lactate Dehydrogenase Troponin I 11.500 H* C-Reactive Protein Total Protein Albumin Urine Protein Urine Blood Urine Bacteria Coronavirus (PCR) - Diagnostic Findings Chest x-ray: image reviewed (As noted in HPI) Assessment and Plan Assessment: Impression: Acute hypoxic respiratory failure secondary to acute CVA is strongly suspected, obviously the patient had a sudden onset of unresponsiveness and I'm suspecting that the patient has most likely anoxic brain injury. Acute toxic/metabolic encephalopathy upon presentation with abnormal labs highly suggestive of sepsis and severe anion gap metabolic acidosis with elevated lactic acid and abnormal chest x-ray suggestive of pneumonia which could be coded 19 pneumonia or possibly aspiration pneumonia. Hence the patient will be receiving Zosyn empirically. Elevated d-dimer, patient was on Eliquis prior to admission, cannot perform CT angiogram of the chest, however will place the patient on heparin while Eliquis is on hold. Acute kidney injury patient is to be seen by nephrology on consultation. Elevated d-dimer and the elevation is significant hence we will consult cardiology to evaluate and order echocardiogram. Acute COVID-19 pneumonia is strongly suspected. Recommendation: Continue present supportive care measures Continue ventilatory support, patient is now on assist control rate of 14 tidal volume is 450 FiO2 50% PEEP of 5 Start patient on bicarb drip. Continue GI prophylaxis. Give the patient fluid boluses for his lactic acidosis and continue to monitor lactic acid level. Nephrology to see on consultation for his acute kidney injury suspect ATN. Cardiology to evaluate the patient for his elevated troponin. Continue Zosyn and IV fluids. Need to address CODE STATUS with family members prognosis is extremely poor and guarded. Neurology to evaluate the patient regarding his acute episode of unresponsiveness. Again prognosis is extremely poor and guarded. We'll continue to follow. Time with Patient: Greater than 30
[2020-07-07 12:00] LABS: Glucose,Whole Blood 288 mg/dL (75-99)
--- NOTE | 2020-07-07 13:08 | CT ---
EXAMINATION TYPE: CT brain cspine wo con DATE OF EXAM: 07/07/2020 COMPARISON: 07/06/2020 HISTORY: Altered mental status. CT DLP: 1621.3 mGycm Automated exposure control for dose reduction was used. TECHNIQUE: CT scan of the head and cervical spine are performed without contrast. FINDINGS: There is no acute intracranial hemorrhage, mass effect, or midline shift identified. Fishman ges of chronic sinusitis are noted. Calvarium is grossly intact. Endotracheal and ET tube are noted. Generalized degenerative change is seen and there is atherosclerotic change of the basilar artery edgar cification along the course of the right MCA. Diffuse low attenuation in the white matter is noncysti c but most typical change and is stable from prior exam. Remote parietal infarct stable. No midline s hift. Asymmetric soft tissue in the subcutaneous tissues nonspecific. There is a poor definition of t he sulci within the left frontal lobe. Acute ischemia not excluded. Report called at 1:03 PM 1 to the patient's nurse.. Assessment of cervical spinal cord is limited due to resolution artifact. There is moderate multileve l degenerative disc disease with curvature of the cervical thoracic spine. Multilevel facet arthropat hy is seen. 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 This is noted u nilaterally on the left. Mild changes of right mastoiditis. ET and NG tube noted. IMPRESSION: 1. No acute hemorrhage or mass effect. Degenerative and change and nonspecific white matter findings are noted. Remote right parietal infarct seen. There is poor definition of the sulci within the left frontal lobe. Recommend MRI of the brain to exclude acute ischemia. 2. There is no acute fracture or dislocation evident in the cervical spine. Multilevel degenerative d isc disease with facet arthropathy and suspected foraminal encroachment. 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 F indings stable from the CT scan of 09/22/2018. 3. Posterior spondylosis at multiple levels with uncovertebral joint hypertrophy and multilevel wagner inal encroachment noted. Suspect canal stenosis at C5-C6. MRI is recommended for these findings.
--- NOTE | 2020-07-07 15:26 | P.CNNES ---
History of Present Illness Consult date: 07/07/20 Requesting physician: Kevin Johnston Reason for Consult: altered mental status History of Present Illness: This is a 75-year-old gentleman with medical history of coronary artery disease, dementia, diabetes mellitus, hypertension, myocardial infarction, perform vascular with gangrene disease status post below-knee amputation on the left and [id number] amputation on the right vertebral fracture as a child, duodenal ulcer and GI bleeding, past history of alcohol abuse who was brought into the ER by EMS on 07/06/2020 after falling off his wheelchair at his retirement. History is obtained from medical record as well as the patient nurse Prior to the event the patient was complaining of pain in the left stump. It seems that upon the EMS arrival to the seen the patient was unresponsive and was not arous able. As a result upon arrival to the ER the patient continued to be unresponsive and he was at intubated prophylactically for airway protection. The patient nurse on presentation the patient was started on the IV propofol but that has a been stopped at 1727 on 07/06/2020 and that the patient continues to be unresponsiveness. Some of the patient's home medication is, gabapentin, iron, Lipitor, insulin and open was all. Workup in the hospital consisted of: Initial vital signs his blood pressure of 177/89, heart rate of 101, respiratory of 12, pulse ox of 88% on 4 L of nasal cannula patient temperature was 97.5 Fahrenheit and that the first initial temperature i see recorded in the system. CT of the head is reported as moderate atrophy. Remote infarct of the right cerebral cortex described above. In the body it is mentioned there is remote infarct involving the cortex and subcortical white matter in the right frontal lobe and the right parietal lobe. No acute bleed or mass effect. CT angiography of the head and neck was reported as no significant abnormality is seen. Stroke code was activated per the patient nurse and the she stated that the she was notified after that workup the stroke team wanted that Eliquis to be held and instead for the patient to be on aspirin Patient had a repeat CT of the head today as well as a CT of the spinals ordered by the ICU team and is reported as no acute hemorrhage or mass effect. Degenerative and change and nonspecific white matter finding are noted. Remote right parietal infarct is seen. There is poor definition of the sulci within the left frontal lobe. Recommend MRI of the brain to exclude acute ischemia. While that CT of the cervical is reported as there is no acute fracture or dislocation evident in the cervical spine. Multilevel degenerative disc disease with facet arthropathy and suspected formal enlargement. 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 Finding stable from computed tomography scan of 09/22/2018. Posterior spondylosis at multiple levels with on coming vertebral joint hypertrophy and multiple foraminal encroachment noted. Suspect canal stenosis at C5-C6. MRI is recommended for these findings. Patient white blood cell on presentation is 13.6 and the last one blood cell is 23.3. Sodium is 138, potassium 3.6, BUN 26 and creatinine is 1.23. The POC glucose on presentation is 167 and the initial serum glucose is 182. The AST and ALT were normal . The plasma lactic acid vein is 2.1 and a got as high as 6.7. Ammonia level is less than 9. Initial troponin is 0.040 and most recent troponin is 11.5 Patient d-dimer is more than 34.1. The chavarria virus PCR is detected. ABG on last one is the pH is 77.42, CO2 is 19 is extremely low, bicarbonate is 12, the pO2 is 87. As of the elevated d-dimer ICU team started the patient on heparin drip. They could not get a CT angiography of the chest since the patient had elevated creatinine function Past Medical History Past Medical History: Coronary Artery Disease (CAD), Chest Pain / Angina, Dementia, Diabetes Mellitus, GERD/Reflux, Hypertension, Myocardial Infarction (AK), Pneumonia, Vascular Disorder Additional Past Medical History / Comment(s): IDDM type II, cognitive dysfunction, PVD/pt has L BKA and R AKA d/t sores/cellulitis/gangrene, duodenal ulcer, GI bleed, iron anemia, hiatal hernia, pt thinks he may have had a AK many years ago as well as a CVA, past ETOH abuse, past back vertibral fractures as child. Last Myocardial Infarction Date:: UNK History of Any Multi-Drug Resistant Organisms: MRSA Date of last positivie culture/infection: 03/31/16 MDRO Source:: left Foot Past Surgical History: No Surgical Hx Reported Additional Past Surgical History / Comment(s): Abdominal aortagram with femoral revascularization/ptba/stent/thrombectomy, L BKA, R AKA, EGD, teeth extractions. Past Anesthesia/Blood Transfusion Reactions: Motion Sickness Additional Past Anesthesia/Blood Transfusion Reaction / Comment(s): Pt has received blood in past without reaction. Past Psychological History: No Psychological Hx Reported Additional Psychological History / Comment(s): Pt resides at [facility]. He has [facility] public legal guardian. Pt is bilateral lower amputee/wheelchair bound. He can feed himself. Smoking Status: Former smoker Past Alcohol Use History: Unable to Obtain Additional Past Alcohol Use History / Comment(s): Pt started smoking in 1962 and quit in 2019. Reported pt was a "heavy drinker" in his past. Past Drug Use History: Unable to Obtain - Past Family History Mother Family Medical History: Cancer Additional Family Medical History / Comment(s): BREAST CANCER, CERVICAL CANCER AND PART OF TONGUE AND LT JAW REMOVED Father History Unknown: Yes Additional Family Medical History / Comment(s): DAD LEFT THE HOME WHEN PT WAS 14 Medications and Allergies Home Medications Medication Instructions Recorded Confirmed Type Apixaban [Eliquis] 5 mg PO BID 05/27/20 07/06/20 History Ferrous Sulfate [Iron (65 MG 325 mg PO HS 05/27/20 07/06/20 History Elemental)] Gabapentin [Neurontin] 300 mg PO QID 05/27/20 07/06/20 History Insulin Detemir (Levemir) [Levemir] 11 unit SQ HS 05/27/20 07/06/20 History lisinopriL [Zestril] 5 mg PO DAILY #90 tab 05/29/20 07/06/20 Rx Atorvastatin [Lipitor] 80 mg PO HS 07/06/20 07/06/20 History INSULIN LISPRO (humaLOG) [humaLOG] See Protocol SQ ACHS 07/06/20 07/06/20 History Omeprazole 20 mg PO DAILY@0500 07/06/20 07/06/20 History Allergies Allergy/AdvReac Type Severity Reaction Status Date / Time shellfish derived Allergy Unknown Verified 07/06/20 17:17 Physical Examination - Vital Signs Vital Signs: Vital Signs Temp Pulse Resp BP Pulse Ox 07/07/20 13:00 101 H 20 100/64 98 07/07/20 12:00 101 H 19 101/70 98 07/07/20 11:00 106 H 18 101/70 96 07/07/20 10:00 97 18 98/67 97 07/07/20 09:00 92 20 108/62 98 07/07/20 08:00 93 19 99/64 98 07/07/20 07:30 94 16 99/64 96 07/07/20 07:00 92 21 118/67 97 07/07/20 06:30 96 20 118/67 96 07/07/20 06:00 93 19 109/66 96 07/07/20 05:30 90 19 109/66 96 07/07/20 05:00 93 18 118/61 95 07/07/20 04:30 85 19 118/61 97 07/07/20 04:00 101.8 F H 93 19 126/73 97 07/07/20 03:30 90 21 126/73 96 07/07/20 03:00 90 23 119/91 97 07/07/20 02:30 96 23 119/91 96 07/07/20 02:00 90 23 140/81 96 07/07/20 01:30 93 23 140/81 96 07/07/20 01:00 92 23 127/83 96 07/07/20 00:30 92 18 127/83 97 07/07/20 00:00 98.3 F 94 22 134/85 97 07/06/20 23:30 94 22 134/85 97 07/06/20 23:00 93 22 131/86 97 07/06/20 22:30 91 22 131/86 97 07/06/20 22:12 98 23 131/86 97 07/06/20 22:00 96 22 123/86 98 07/06/20 21:30 92 22 123/86 97 07/06/20 21:00 96 21 145/87 97 07/06/20 20:30 101 H 22 145/87 98 07/06/20 20:05 98.9 F 99 19 97 07/06/20 18:51 97.6 F 81 25 H 125/72 99 07/06/20 18:36 85 14 103/70 100 07/06/20 17:50 78 25 H 110/66 99 07/06/20 17:27 97.5 F L 89 23 126/80 100 07/06/20 17:00 98 24 147/83 100 05/09/21 16:45 105 H 169/113 100 07/06/20 16:30 100 239/113 100 07/06/20 16:21 12 07/06/20 16:19 101 H 12 177/89 88 L Intake and Output 07/06/20 07/07/20 07/07/20 22:59 06:59 14:59 Intake Total 110.133 5737 3820 Output Total 310 275 200 Balance 83.526 208 2588 Intake: IV 390 1040 2820 Dextrose 5% in Water 1, 400 000 ml @ 100 mls/hr IV . [id number] MAHENDRA with Sodium Bicarb (1 Meq/ml) 150 ml Rx#:[id number] Piperacillin-Tazobactam 3 100 .375 gm In Sodium Chloride 0.9% 100 ml @ 25 mls/hr IVPB Q8HR MAHENDRA Rx# :[id number] Sodium Chloride 0.9% 1, 390 1040 320 000 ml @ 20 mls/hr IV . Q24H [facility] Rx#:[id number] Sodium Chloride 0.9% 1, 2000 000 ml @ 999 mls/hr IV . Q1H1M ONE Rx#:[id number] Intake, IV Titration 3.377 1000 Amount Sodium Chloride 0.9% 1, 1000 000 ml @ 999 mls/hr IV . Q1H1M ONE Rx#:[id number] propofoL 1,000 mg In 3.377 Empty Bag 1 bag @ Titrate IV .Q0M [facility] Rx#: [id number] Output: Urine 310 275 200 Other: Voiding Method Indwelling Catheter Indwelling Catheter Weight 79.469 kg 77.3 kg 77.3 kg GENERAL: The patient is lying in bed and is not in acute distress. CHEST: The heart rate is regular rate rhythm. No murmurs to auscultation. No carotid bruit bilaterally. LUNG: Clear to auscultation bilaterally no wheezing noted throughout. Not labored breathing. Intubated on ventilator. ABDOMEN/GI: Bowel sounds present in all 4 quadrants. No tenderness to palpation throughout. NEUROLOGICAL: Limited because of patient's condition. Higher mental function: The patient is comatose. GCS 3 (E1, VT1, M1). Patient is not responding to verbal or painful stimuli and not following any commands. Cranial nerves: The pupils are round, equal (2mm) and nonreactive to light. No facial weakness. Negative for corneal reflex. Negative for gag or cough ref radha. Is breathing over the vent (AC set at 18 and breathing at 24). Negative for oculocephalic reflex. Motor: Strength 0/5 throughout even with painful stimuli no movement noted. Has BKA on left and AKA on right. No spontaneous movement or posturing noted. Cerebellum: Could not assess. Sensation: No response to painful stimuli. Reflexes (right/left): 1+ upper. Has amputation of the bilateral knees. Results Urinalysis is negative for urinary tract infection. Urine drug screen nothing was detected from the workup. The sessile it's is less than 1.0, that acetaminophen is less than 10. - Laboratory Findings CBC and BMP: 07/07/20 10:08 07/07/20 03:21 Abnormal Lab Findings: Abnormal Labs 07/06/20 07/06/20 07/06/20 16:19 16:33 16:33 WBC 13.6 H Neutrophils # 10.5 H Lymphocytes # Monocytes # D-Dimer ABG pCO2 ABG pO2 ABG HCO3 ABG Total CO2 ABG O2 Saturation Chloride 108 H Carbon Dioxide 19 L BUN 26 H Creatinine Glucose 182 H POC Glucose (mg/dL) 167 H Plasma Lactic Acid Kyaw Alkaline Phosphatase 134 H Lactate Dehydrogenase Troponin I C-Reactive Protein Total Protein Albumin Urine Protein Urine Blood Urine Bacteria Coronavirus (PCR) 07/06/20 07/06/20 07/06/20 16:33 16:33 17:21 WBC Neutrophils # Lymphocytes # Monocytes # D-Dimer ABG pCO2 32 L ABG pO2 283 H ABG HCO3 18 L ABG Total CO2 ABG O2 Saturation 100.0 H Chloride Carbon Dioxide BUN Creatinine Glucose POC Glucose (mg/dL) Plasma Lactic Acid Kyaw Alkaline Phosphatase Lactate Dehydrogenase Troponin I 0.040 H* C-Reactive Protein Total Protein Albumin Urine Protein 1+ H Urine Blood Trace H Urine Bacteria Rare H Coronavirus (PCR) 07/06/20 07/06/20 07/06/20 17:45 18:00 18:11 WBC Neutrophils # Lymphocytes # Monocytes # D-Dimer ABG pCO2 ABG pO2 ABG HCO3 ABG Total CO2 ABG O2 Saturation Chloride Carbon Dioxide BUN Creatinine Glucose POC Glucose (mg/dL) Plasma Lactic Acid Kyaw 2.1 H* Alkaline Phosphatase Lactate Dehydrogenase 1253 H Troponin I C-Reactive Protein 1.4 H Total Protein Albumin Urine Protein Urine Blood Urine Bacteria Coronavirus (PCR) Detected A 07/06/20 07/06/20 07/06/20 20:55 21:12 23:49 WBC Neutrophils # Lymphocytes # Monocytes # D-Dimer ABG pCO2 28 L ABG pO2 ABG HCO3 15 L ABG Total CO2 16 L ABG O2 Saturation Chloride Carbon Dioxide BUN Creatinine Glucose POC Glucose (mg/dL) Plasma Lactic Acid Kyaw 3.0 H* 3.2 H* Alkaline Phosphatase Lactate Dehydrogenase Troponin I C-Reactive Protein Total Protein Albumin Urine Protein Urine Blood Urine Bacteria Coronavirus (PCR) 07/07/20 07/07/20 07/07/20 03:21 03:21 03:21 WBC 28.3 H Neutrophils # 26.6 H Lymphocytes # 0.7 L Monocytes # D-Dimer >34.10 H ABG pCO2 ABG pO2 ABG HCO3 ABG Total CO2 ABG O2 Saturation Chloride Carbon Dioxide BUN Creatinine Glucose POC Glucose (mg/dL) Plasma Lactic Acid Kyaw 6.7 H* Alkaline Phosphatase Lactate Dehydrogenase Troponin I C-Reactive Protein Total Protein Albumin Urine Protein Urine Blood Urine Bacteria Coronavirus (PCR) 07/07/20 07/07/20 07/07/20 03:21 05:17 06:57 WBC Neutrophils # Lymphocytes # Monocytes # D-Dimer ABG pCO2 19 L* ABG pO2 ABG HCO3 12 L ABG Total CO2 13 L ABG O2 Saturation 97.6 H Chloride Carbon Dioxide 16 L BUN 33 H Creatinine 1.96 H Glucose 312 H POC Glucose (mg/dL) 372 H Plasma Lactic Acid Kyaw Alkaline Phosphatase Lactate Dehydrogenase Troponin I C-Reactive Protein Total Protein 6.1 L Albumin 3.2 L Urine Protein Urine Blood Urine Bacteria Coronavirus (PCR) 07/07/20 07/07/20 07/07/20 07:28 10:08 10:14 WBC 23.3 H Neutrophils # 21.0 H Lymphocytes # Monocytes # 1.1 H D-Dimer ABG pCO2 ABG pO2 ABG HCO3 ABG Total CO2 ABG O2 Saturation Chloride Carbon Dioxide BUN Creatinine Glucose POC Glucose (mg/dL) Plasma Lactic Acid Kyaw 6.6 H* Alkaline Phosphatase Lactate Dehydrogenase Troponin I 11.500 H* C-Reactive Protein Total Protein Albumin Urine Protein Urine Blood Urine Bacteria Coronavirus (PCR) 07/07/20 07/07/20 11:58 12:37 WBC Neutrophils # Lymphocytes # Monocytes # D-Dimer ABG pCO2 ABG pO2 ABG HCO3 ABG Total CO2 ABG O2 Saturation Chloride Carbon Dioxide BUN Creatinine Glucose POC Glucose (mg/dL) 288 H Plasma Lactic Acid Kyaw 5.5 H* Alkaline Phosphatase Lactate Dehydrogenase Troponin I C-Reactive Protein Total Protein Albumin Urine Protein Urine Blood Urine Bacteria Coronavirus (PCR) Assessment and Plan Assessment: Unresponsiveness seems due to severe anoxic brain injury and likely due to cardiac insult (elevated troponin and is trending up). Altered mental status with unresponsiveness due to multifactorial: Septic encephalopathy from covid 19 pneumonia, metabolic encephalopathy. Remote right parietal stroke There is poor definition of the sulci within the left frontal lobe on repeat CT head. Acute COVID-19 pneumonia Acute kidney injury Elevated troponin Cervical spondylosis Acute hypoxic respiratory failure Elevated d-dimer with hypoxia. Cannot do CTA chest because of elevated kidney function Diabetes mellitus History of dementia Hypertension History of coronary artery disease History of myocardial infarction History of peripheral vascular disease with gangrene tatus post below-knee amputation on the left and [id number] amputation on the right History of duodenal ulcer and GI bleeding History of alcohol abuse Plan: CT of the head is reported as moderate atrophy. Remote infarct of the right cerebral cortex described above. In the body it is mentioned there is remote infarct involving the cortex and subcortical white matter in the right frontal lobe and the right parietal lobe. No acute bleed or mass effect. CT angiography of the head and neck was reported as no significant abnormality is seen. Stroke code was activated per the patient nurse and the she stated that the she was notified after that workup the stroke team wanted that Eliquis to be held and instead for the patient to be on aspirin Patient had a repeat CT of the head today as well as a CT of the spinals ordered by the ICU team and is reported as no acute hemorrhage or mass effect. Degenerative and change and nonspecific white matter finding are noted. Remote right parietal infarct is seen. There is poor definition of the sulci within the left frontal lobe. Recommend MRI of the brain to exclude acute ischemia. While that CT of the cervical is reported as there is no acute fracture or dislocation evident in the cervical spine. Multilevel degenerative disc disease with facet arthropathy and suspected formal enlargement. 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 Finding stable from computed tomography scan of 09/22/2018. Posterior spondylosis at multiple levels with on coming vertebral joint hypertrophy and multiple foraminal encroachment noted. Suspect canal stenosis at C5-C6. MRI is recommended for these findings. Patient was started on heparin drip by ICU team. I notified the nurse to avoid any heparin boluses and to keep the PTT between 45 and 60. I ordered a stat EEG. Pre-liminary: There is no brain activity seen. There is no seizure activity seen. I started the patient on Keppra 750mg IV every 12 hours as seizure prophylaxis especially with history of stroke (but this will not change patient's condition). Started the patient on Lipitor 80 mg daily. Recommend 2-D echo, lipid panel, TSH. PT, OT are consulted. We'll defer the rest of the medical management to the primary team. Cardiology team is consulted. Will defer the rest of medical management to the ICU and primary team. The patient prognosis seems very poor. He has only one brain stem reflex on examination (breathing over the vent). The plan is discussed with the patient's nurse and ICU attending. I attempted to contact the patient's public guardian but no response. Sudhir Berger MD. Neuro-Hospitalist Time with Patient: Greater than 30
--- NOTE | 2020-07-07 17:35 | EEG ---
ELECTROENCEPHALOGRAM REPORT DATE OF SERVICE: 07/07/2020. CLINICAL HISTORY: This is a 74-year-old gentleman who presented to the hospital since he was found unresponsive without any improving in his mentation. This video EEG is obtained to evaluate for seizure epileptiform activity. RELEVANT MEDICATION: The patient is not on any antiepileptic drug. DESCRIPTION: The patient is intubated and is on a ventilator. Regarding the background, there is no brain activity that is seen on bilateral hemispheres that was appreciated. Again, as stated above, since there is no brain activity, could not comment on any focal slowing. Interictal and ictal: None. ACTIVATION PROCEDURE Photic stimulation did not evoke a posterior driving response. Hyperventilation is not performed. CLINICAL INTERPRETATION: This is an abnormal routine EEG study and is in comatose state. There is no brain activity seen over bilateral hemispheres during this routine EEG. There are no epileptiform discharge or seizure during the study. Clinical correlation is recommended. TAI / LISSETTE: [id number] / MTDD
[2020-07-07 19:02] LABS: Glucose,Whole Blood 291 mg/dL (75-99)
--- NOTE | 2020-07-07 20:08 | HP ---
HISTORY AND PHYSICAL CHIEF COMPLAINT: Mental status changes, respiratory failure and COVID-19. HISTORY OF PRESENT ILLNESS: This is another admission for this 74-year-old white male from [facility]. He has dementia. He also has a history of PVOD, diabetes and dementia. He apparently fell out of his wheelchair. He may have struck his head. He was brought to the emergency room. He is normally awake and fairly alert but was extremely somnolent. CT of the brain failed to demonstrate any acute lesion. Etiology for the event was not clear. He was very obtunded and respirations were shallow and ineffective, and he was intubated. He was moved to ICU. He is FULL CODE. REVIEW OF SYSTEMS: Unobtainable. Past medical history, family history, and personal and social histories are all otherwise unobtainable. PHYSICAL EXAMINATION: Blood pressure is 105/64 with a pulse of 80. He is on a ventilator. In general he appeared to be pale. Nutrition was marginal. Head, ears and eyes were unremarkable. Neck veins were not distended. Chest demonstrated breath sounds bilaterally. Cardiac exam demonstrated what sounded like sinus tachycardia. The abdomen was flat and soft without masses. Extremities were normal except for his amputation. IMPRESSION: 1. Coma. 2. Possible cerebrovascular accident. 3. Possible closed-head injury. 4. History of dementia. 5. History of peripheral vascular occlusive disease. 6. History of diabetes. PLAN: Move to Intensive Care and consult Pulmonology/Intensive Care and Neurology. MMMILDREDL / MERLEN: [id number] /
--- NOTE | 2020-07-07 20:20 | PN ---
PROGRESS NOTE DATE OF SERVICE: 07/07/2020 CHIEF COMPLAINT: Mental status changes and possible CVA. HISTORY OF PRESENT ILLNESS: The patient is on a ventilator and there has been no significant change. We are waiting for further evaluation of his neurologic status. He is currently not sedated, and he is making some movements and is triggering respirator. PHYSICAL EXAMINATION: Vital signs are unchanged. Chest is clear on both sides. Cardiac exam is normal. Abdomen is soft. IMPRESSION: 1. Acute mental status changes with coma and respiratory failure. 2. Possible closed-head injury. 3. Possible cerebrovascular accident. 4. Atherosclerotic cardiovascular disease. 5. Peripheral vascular occlusive disease. 6. Diabetes. PLAN: 1. He has been started on Levemir and insulin to scale. 2. Await neurologic evaluation. MMODL / IJN: [id number] /
[2020-07-07 21:07] LABS: T4, Free (Free Thyroxine) 1.42 ng/dL (0.78-2.19)
[2020-07-07] MEDS: levETIRAcetam IV 750 MG in SODIUM CHLORIDE 0.9% 100 ML IVPB SCH (21:11)
[2020-07-07] MEDS: ATORVASTATIN 80 MG TAB PO SCH (21:12)
[2020-07-08 00:54] LABS: Glucose,Whole Blood 238 mg/dL (75-99)
[2020-07-08] MEDS: INSULIN ASPART (NovoLOG) 100 UNIT/ML VIAL SQ SCH ×5 (00:54→23:35)
[2020-07-08] MEDS: PIPERACILLIN-TAZOBACTAM 3.375 GM in SODIUM CHLORIDE 0.9% 100 ML IVPB SCH ×4 (00:54→23:35)
[2020-07-08 03:55] LABS: Basophils % (A) 0 %; Eosinophils % (A) 0 %; HCT 34.1 % (39.0-53.0); Lymphocytes # (A) 1.6 k/uL (1.0-4.8); Lymphocytes % (A) 8 %; MCH 30.6 pg (25.0-35.0); MCHC 33.8 g/dL (31.0-37.0); MCV 90.6 fL (80.0-100.0); Mean Platelet Volume 10.9; Monocytes # (A) 1.3 k/uL (0-1.0); Monocytes % (A) 6 %; Neutrophils # (A) 16.4 k/uL (1.3-7.7); Neutrophils % (A) 85 %; Platelet Count 121 k/uL (150-450); RBC 3.76 m/uL (4.30-5.90); RDW 14.5 % (11.5-15.5); WBC 19.4 k/uL (3.8-10.6)
[2020-07-08 04:12] LABS: Albumin 2.2 g/dL (3.5-5.0); Calcium 7.3 mg/dL (8.4-10.2); Potassium 3.8 mmol/L (3.5-5.1); Total Bilirubin 0.4 mg/dL (0.2-1.3); Total Protein 4.5 g/dL (6.3-8.2)
[2020-07-08 05:50] LABS: ABG Base Excess -1.3 mmol/L; ABG HCO3 22 mmol/L (21-25); ABG Oxygen Saturation 98.7 % (94-97); ABG PCO2 28 mmHg (35-45); ABG PO2 107 mmHg (83-108); ABG TCO2 23 mmol/L (19-24); Allen Test Performed? Yes
[2020-07-08 05:55] LABS: HGB 11.5 gm/dL (13.0-17.5)
[2020-07-08 06:48] LABS: Glucose,Whole Blood 168 mg/dL (75-99)
--- NOTE | 2020-07-08 08:34 | XR ---
EXAMINATION TYPE: XR chest 1V portable DATE OF EXAM: 07/08/2020 COMPARISON: 07/07/2020 INDICATION: Mechanical ventilation TECHNIQUE: Single frontal view of the chest is obtained. FINDINGS: The heart size is normal. The pulmonary vasculature is normal. There is mild right lower lobe infiltrate which has some improvement. There is silhouetting of the le ft diaphragm. Small left pleural effusion may be developing. Endotracheal tube tip is above the claude. Nasogastric tube transverses the thorax. IMPRESSION: 1. Improving right lower lobe infiltrate. 2. Suggestion of developing atelectasis or effusion at the left base. 3. Lines and catheters discussed above
[2020-07-08] MEDS: INSULIN DETEMIR (LEVEMIR) 100 UNIT/ML SYR SQ SCH (09:22)
[2020-07-08] MEDS: DEXAMETHASONE SOD PHOSPHATE 10 MG/ML 1 ML VIAL IV SCH (09:22)
[2020-07-08] MEDS: levETIRAcetam IV 750 MG in SODIUM CHLORIDE 0.9% 100 ML IVPB SCH ×2 (09:25→20:41)
[2020-07-08] MEDS: HEPARIN SOD,PORK IN 0.45% NACL 25,000 UNIT in 0.45% NACL 1 250ML.BAG IV SCH (09:26)
--- NOTE | 2020-07-08 10:29 | P.NPCON ---
History of Present Illness - Reason for Consult acute renal failure - History of Present Illness Reason for consultation: Acute kidney injury History of present illness: Patient is a 74-year-old male seen in renal consultation for acute kidney injury. Patient resides at an extended care facility. He was found to be unresponsive and sent to the hospital. Patient did test positive for coronavirus. His baseline creatinine is 1 and is up to 2.5 today. Urine output is about 30 mL an hour. He is currently maintained on bicarb drip. Acidosis has improved. He is currently intubated. He is on 40% FiO2. He is receiving tube feeding. Currently not on vasopressors. There was concern for an acute s troke. He did undergo CT angiogram of the head and neck on July 06 which revealed no significant abnormality. Blood cultures are negative. He is also on IV heparin due to elevated d-dimer. Patient does have history of diabetes. He was on lisinopril outpatient which is currently held. I don't see any nonsteroidals and his home medication list. Vital signs are stable. General: The patient appeared well nourished and normally developed. HEENT: Intubated. LUNGS: Breath sounds decreased. HEART: Regular rate and rhythm. ABDOMEN: Soft, no distention. EXTREMITITES: Left BKA and right AKA noted. Past Medical History Past Medical History: Coronary Artery Disease (CAD), Chest Pain / Angina, Dementia, Diabetes Mellitus, GERD/Reflux, Hypertension, Myocardial Infarction (KS), Pneumonia, Vascular Disorder Additional Past Medical History / Comment(s): IDDM type II, cognitive dysfunction, PVD/pt has L BKA and R AKA d/t sores/cellulitis/gangrene, duodenal ulcer, GI bleed, iron anemia, hiatal hernia, pt thinks he may have had a KS many years ago as well as a CVA, past ETOH abuse, past back vertibral fractures as child. Last Myocardial Infarction Date:: UNK History of Any Multi-Drug Resistant Organisms: MRSA Date of last positivie culture/infection: 03/31/16 MDRO Source:: left Foot Past Surgical History: No Surgical Hx Reported Additional Past Surgical History / Comment(s): Abdominal aortagram with femoral revascularization/ptba/stent/thrombectomy, L BKA, R AKA, EGD, teeth extractions. Past Anesthesia/Blood Transfusion Reactions: Motion Sickness Additional Past Anesthesia/Blood Transfusion Reaction / Comment(s): Pt has re ceived blood in past without reaction. Past Psychological History: No Psychological Hx Reported Additional Psychological History / Comment(s): Pt resides at [facility]. He has [employer] public legal guardian. Pt is bilateral lower amputee/wh eelchair bound. He can feed himself. Smoking Status: Former smoker Past Alcohol Use History: Unable to Obtain Additional Past Alcohol Use History / Comment(s): Pt started smoking in 1962 and quit in 2019. Reported pt was a "heavy drinker" in his past. Past Drug Use History: Unable to Obtain - Past Family History Mother Family Medical History: Cancer Additional Family Medical History / Comment(s): BREAST CANCER, CERVICAL CANCER AND PART OF TONGUE AND LT JAW REMOVED Father History Unknown: Yes Additional Family Medical History / Comment(s): DAD LEFT THE HOME WHEN PT WAS 14 Medications and Allergies Home Medications Medication Instructions Recorded Confirmed Type Apixaban [Eliquis] 5 mg PO BID 05/27/20 07/06/20 History Ferrous Sulfate [Iron (65 MG 325 mg PO HS 05/27/20 07/06/20 History Elemental)] Gabapentin [Neurontin] 300 mg PO QID 05/27/20 07/06/20 History Insulin Detemir (Levemir) [Levemir] 11 unit SQ HS 05/27/20 07/06/20 History lisinopriL [Zestril] 5 mg PO DAILY #90 tab 05/29/20 07/06/20 Rx Atorvastatin [Lipitor] 80 mg PO HS 07/06/20 07/06/20 History INSULIN LISPRO (humaLOG) [humaLOG] See Protocol SQ ACHS 07/06/20 07/06/20 History Omeprazole 20 mg PO DAILY@0500 07/06/20 07/06/20 History Allergies Allergy/AdvReac Type Severity Reaction Status Date / Time shellfish derived Allergy Unknown Verified 07/06/20 17:17 Physical Exam Vitals: Vital Signs Temp Pulse Resp BP Pulse Ox 07/08/20 10:00 84 20 132/75 97 07/08/20 09:00 74 20 147/76 97 07/08/20 08:00 89 20 141/78 97 07/08/20 07:00 71 18 132/72 98 07/08/20 06:00 76 18 125/60 97 07/08/20 05:00 74 18 124/61 98 07/08/20 04:00 100 F H 76 18 122/60 98 07/08/20 03:00 76 18 125/57 98 07/08/20 02:00 77 18 128/57 98 07/08/20 01:00 80 18 129/66 98 07/08/20 00:00 101.2 F H 80 18 127/64 98 07/07/20 23:00 83 18 128/60 98 07/07/20 22:00 89 18 121/65 07/07/20 21:54 87 121/65 99 07/07/20 21:00 89 14 129/65 98 07/07/20 20:00 101.2 F H 90 17 100/56 97 07/07/20 19:00 87 18 87/57 98 07/07/20 18:01 97 07/07/20 18:00 92 14 96/56 98 07/07/20 17:00 93 16 85/59 96 07/07/20 16:00 96 14 78/56 99 07/07/20 15:00 98 15 94/62 97 07/07/20 14:00 105 H 15 90/62 98 07/07/20 13:00 101 H 20 100/64 98 07/07/20 12:00 101 H 19 101/70 98 07/07/20 11:00 106 H 18 101/70 96 Intake and Output 07/07/20 07/08/20 07/08/20 22:59 06:59 14:59 Intake Total 1060 1110 659.276 Output Total 255 255 290 Balance 805 855 369.276 Intake: IV 1060 1060 395 Dextrose 5% in Water 1, 800 800 300 000 ml @ 100 mls/hr IV . [id number] MAHENDR[facility] with Sodium Bicarb (1 Meq/ml) 150 ml Rx#:[id number] Piperacillin-Tazobactam 3 100 100 75 .375 gm In Sodium Chloride 0.9% 100 ml @ 25 mls/hr IVPB Q8HR [facility]HENDR[facility] Rx# :[id number] Sodium Chloride 0.9% 1, 160 160 20 000 ml @ 20 mls/hr IV . Q24H MAHENDRA Rx#:[id number] Intake, IV Titration 214.276 Amount Heparin Sod,Pork in 0.45% 214.276 NaCl 25,000 unit In 0.45 % NaCl 1 250ml.bag @ 12 UNITS/KG/HR 9.276 mls/hr IV .Q24H [facility] Rx#: [id number] Tube Feeding 20 50 Other 30 Output: Urine 255 255 290 Other: Voiding Method Indwelling Catheter Indwelling Catheter Indwelling Catheter Weight 84.2 kg Results - Lab Results Most recent lab results ABG pH 7.50 (7.35-7.45) H 07/08/20 05:50 ABG pCO2 28 mmHg (35-45) L 07/08/20 05:50 ABG pO2 107 mmHg (83-108) 07/08/20 05:50 ABG HCO3 22 mmol/L (21-25) 07/08/20 05:50 ABG O2 Saturation 98.7 % (94-97) H 07/08/20 05:50 Calcium 7.3 mg/dL (8.4-10.2) L 07/08/20 03:12 07/08/20 03:12 07/08/20 03:12 Assessment and Plan Plan: Assessment: 1. Acute kidney injury secondary to ATN secondary to COVID ATN and component of contrast-induced acute kidney injury. Patient received IV contrast on July 06. Baseline creatinine near 1 and is up at 2.5 today. 2. Metabolic acidosis secondary to acute kidney injury maintained on bicarb drip. Resolved. 3. COVID-19 pneumonia. Currently intubated. On 40% FiO2. 4. Diabetes mellitus. Plan: Stop Bicarb drip. Start normal saline at 75 mL an hour. Maintain tube feeding. Check phosphorus level. Check renal ultrasound. Avoid nephrotoxins. Continue to monitor renal function and urine output. Continue to assess daily for need for renal replacement therapy. Hospice be considered. Overall prognosis guarded. Thank you for the consultation. I will continue to follow the patient with you during his hospital stay.
--- NOTE | 2020-07-08 10:57 | P.PN ---
Subjective Progress Note Date: 07/08/20 The patient was seen at bedside and the per the patient's nurse no improvement in the patient's condition. Objective - Vital Signs Vital signs: Vital Signs Temp 100 F H 07/08/20 04:00 Pulse 84 07/08/20 10:00 Resp 20 07/08/20 10:00 BP 132/75 07/08/20 10:00 Pulse Ox 97 07/08/20 10:00 Intake & Output 07/07/20 07/08/20 07/08/20 18:59 06:59 18:59 Intake Total 4400 1590 659.276 Output Total 330 380 290 Balance 4070 1210 369.276 Weight 77.3 kg 84.2 kg Intake: IV 3400 1540 395 Dextrose 5% in Water 1, 800 1200 300 000 ml @ 100 mls/hr IV . [id number] MAHENDRA with Sodium Bicarb (1 Meq/ml) 150 ml Rx#:[id number] Piperacillin-Tazobactam 3 200 100 75 .375 gm In Sodium Chloride 0.9% 100 ml @ 25 mls/hr IVPB Q8HR [facility] Rx# :[id number] Sodium Chloride 0.9% 1, 400 240 20 000 ml @ 20 mls/hr IV . Q24H [facility] Rx#:[id number] Sodium Chloride 0.9% 1, 2000 000 ml @ 999 mls/hr IV . Q1H1M ONE Rx#:[id number] Intake, IV Titration 1000 214.276 Amount Heparin Sod,Pork in 0.45% 214.276 NaCl 25,000 unit In 0.45 % NaCl 1 250ml.bag @ 12 UNITS/KG/HR 9.276 mls/hr IV .Q24H [facility] Rx#: [id number] Sodium Chloride 0.9% 1, 1000 000 ml @ 999 mls/hr IV . Q1H1M ONE Rx#:[id number] Tube Feeding 20 50 Other 30 Output: Urine 330 380 290 Other: Voiding Method Indwelling Catheter Indwelling Catheter Indwelling Catheter - Exam GENERAL: The patient is lying in bed and is not in acute distress. LUNG: Clear to auscultation bilaterally no wheezing noted throughout. Not labored breathing. Intubated on ventilator. NEUROLOGICAL: Limited because of patient's condition. Is not on any sedation Higher mental function: The patient is comatose. GCS 3 (E1, VT1, M1). Patient is not responding to verbal or painful stimuli and not following any commands. Cranial nerves: The pupils are round, right is 4mm and left is 6mm and are sluggishly reactive to light bilaterally. No facial weakness. Negative for corneal reflex. Positive for weak gag reflex. . Is breathing over the vent (AC set at 18 and breathing at 22). Negative for oculocephalic reflex. Motor: Strength 0/5 throughout even with painful stimuli no movement noted. Has BKA on left and AKA on right. No spontaneous movement or posturing noted. Cerebellum: Could not assess. Sensation: No response to painful stimuli. Reflexes (right/left): 1+ upper. Has amputation of the bilateral knees. - Labs CBC & Chem 7: 07/08/20 03:12 07/08/20 03:12 Labs: Abnormal Lab Results - Last 24 Hours (Table) 07/07/20 07/07/20 07/07/20 Range/Units 02:52 10:14 11:58 WBC (3.8-10.6) k/uL RBC (4.30-5.90) m/uL Hgb (13.0-17.5) gm/dL Hct (39.0-53.0) % Plt Count (150-450) k/uL Neutrophils # (1.3-7.7) k/uL Monocytes # (0-1.0) k/uL APTT (22.0-30.0) sec ABG pH (7.35-7.45) ABG pCO2 (35-45) mmHg ABG O2 Saturation (94-97) % Chloride (98-107) mmol/L BUN (9-20) mg/dL Creatinine (0.66-1.25) mg/dL Glucose (74-99) mg/dL POC Glucose (mg/dL) 288 H (75-99) mg/dL Plasma Lactic Acid Kyaw (0.7-2.0) mmol/L Calcium (8.4-10.2) mg/dL AST (17-59) U/L Troponin I 11.500 H* (0.000-0.034) ng/mL Total Protein (6.3-8.2) g/dL Albumin (3.5-5.0) g/dL TSH 0.464 L (0.465-4.680) mIU/L 07/07/20 07/07/20 07/07/20 Range/Units 12:37 16:41 16:41 WBC (3.8-10.6) k/uL RBC (4.30-5.90) m/uL Hgb (13.0-17.5) gm/dL Hct (39.0-53.0) % Plt Count (150-450) k/uL Neutrophils # (1.3-7.7) k/uL Monocytes # (0-1.0) k/uL APTT 47.3 H (22.0-30.0) sec ABG pH (7.35-7.45) ABG pCO2 (35-45) mmHg ABG O2 Saturation (94-97) % Chloride (98-107) mmol/L BUN (9-20) mg/dL Creatinine (0.66-1.25) mg/dL Glucose (74-99) mg/dL POC Glucose (mg/dL) (75-99) mg/dL Plasma Lactic Acid Kyaw 5.5 H* 4.5 H* (0.7-2.0) mmol/L Calcium (8.4-10.2) mg/dL AST (17-59) U/L Troponin I (0.000-0.034) ng/mL Total Protein (6.3-8.2) g/dL Albumin (3.5-5.0) g/dL TSH (0.465-4.680) mIU/L 07/07/20 07/07/20 07/08/20 Range/Units 19:00 20:11 00:52 WBC (3.8-10.6) k/uL RBC (4.30-5.90) m/uL Hgb (13.0-17.5) gm/dL Hct (39.0-53.0) % Plt Count (150-450) k/uL Neutrophils # (1.3-7.7) k/uL Monocytes # (0-1.0) k/uL APTT (22.0-30.0) sec ABG pH (7.35-7.45) ABG pCO2 (35-45) mmHg ABG O2 Saturation (94-97) % Chloride (98-107) mmol/L BUN (9-20) mg/dL Creatinine (0.66-1.25) mg/dL Glucose (74-99) mg/dL POC Glucose (mg/dL) 291 H 238 H (75-99) mg/dL Plasma Lactic Acid Kyaw 3.6 H* (0.7-2.0) mmol/L Calcium (8.4-10.2) mg/dL AST (17-59) U/L Troponin I (0.000-0.034) ng/mL Total Protein (6.3-8.2) g/dL Albumin (3.5-5.0) g/dL TSH (0.465-4.680) mIU/L 07/08/20 07/08/20 07/08/20 Range/Units 03:12 03:12 03:12 WBC 19.4 H (3.8-10.6) k/uL RBC 3.76 L (4.30-5.90) m/uL Hgb 11.5 L D (13.0-17.5) gm/dL Hct 34.1 L (39.0-53.0) % Plt Count 121 L (150-450) k/uL Neutrophils # 16.4 H (1.3-7.7) k/uL Monocytes # 1.3 H (0-1.0) k/uL APTT 57.0 H (22.0-30.0) sec ABG pH (7.35-7.45) ABG pCO2 (35-45) mmHg ABG O2 Saturation (94-97) % Chloride 110 H (98-107) mmol/L BUN 60 H (9-20) mg/dL Creatinine 2.51 H (0.66-1.25) mg/dL Glucose 149 H (74-99) mg/dL POC Glucose (mg/dL) (75-99) mg/dL Plasma Lactic Acid Kyaw (0.7-2.0) mmol/L Calcium 7.3 L (8.4-10.2) mg/dL AST 63 H (17-59) U/L Troponin I (0.000-0.034) ng/mL Total Protein 4.5 L (6.3-8.2) g/dL Albumin 2.2 L (3.5-5.0) g/dL TSH (0.465-4.680) mIU/L 07/08/20 07/08/20 07/08/20 Range/Units 03:12 05:50 06:46 WBC (3.8-10.6) k/uL RBC (4.30-5.90) m/uL Hgb (13.0-17.5) gm/dL Hct (39.0-53.0) % Plt Count (150-450) k/uL Neutrophils # (1.3-7.7) k/uL Monocytes # (0-1.0) k/uL APTT (22.0-30.0) sec ABG pH 7.50 H (7.35-7.45) ABG pCO2 28 L (35-45) mmHg ABG O2 Saturation 98.7 H (94-97) % Chloride (98-107) mmol/L BUN (9-20) mg/dL Creatinine (0.66-1.25) mg/dL Glucose (74-99) mg/dL POC Glucose (mg/dL) 168 H (75-99) mg/dL Plasma Lactic Acid Kyaw 2.4 H* (0.7-2.0) mmol/L Calcium (8.4-10.2) mg/dL AST (17-59) U/L Troponin I (0.000-0.034) ng/mL Total Protein (6.3-8.2) g/dL Albumin (3.5-5.0) g/dL TSH (0.465-4.680) mIU/L Microbiology - Last 24 Hours (Table) 07/06/20 18:00 Blood Culture - Preliminary Blood No Growth after 24 hours 07/06/20 18:00 Blood Culture - Preliminary Blood No Growth after 24 hours Assessment and Plan Assessment: Unresponsiveness seems due to severe anoxic brain injury and likely due to cardiac insult (elevated troponin and is trending up). Altered mental status with unresponsiveness due to multifactorial: Septic encephalopathy from covid 19 pneumonia, metabolic encephalopathy. Remote right parietal stroke There is poor definition of the sulci within the left frontal lobe on repeat CT head. Acute COVID-19 pneumonia Acute kidney injury Elevated troponin Cervical spondylosis Acute hypoxic respiratory failure Elevated d-dimer with hypoxia. Cannot do CTA chest because of elevated kidney function Diabetes mellitus History of dementia Hypertension History of coronary artery disease History of myocardial infarction History of peripheral vascular disease with gangrene tatus post below-knee amputation on the left and [id number] amputation on the right History of duodenal ulcer and GI bleeding History of alcohol abuse Plan: CT of the head is reported as moderate atrophy. Remote infarct of the right cerebral cortex described above. In the body it is mentioned there is remote infarct involving the cortex and subcortical white matter in the right frontal lobe and the right parietal lobe. No acute bleed or mass effect. CT angiography of the head and neck was reported as no significant abnormality is seen. Stroke code was activated per the patient nurse and the she stated that the she was notified after that workup the stroke team wanted that Eliquis to be held and instead for the patient to be on aspirin Patient had a repeat CT of the head today as well as a CT of the spinals ordered by the ICU team and is reported as no acute hemorrhage or mass effect. Degenerative and change and nonspecific white matter finding are noted. Remote right parietal infarct is seen. There is poor definition of the sulci within the left frontal lobe. Recommend MRI of the brain to exclude acute ischemia. While that CT of the cervical is reported as there is no acute fracture or dislocation evident in the cervical spine. Multilevel degenerative disc disease with facet arthropathy and suspected formal enlargement. 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 Finding stable from computed tomography scan of 09/22/2018. Posterior spondylosis at multiple levels with on coming vertebral joint hypertrophy and multiple foraminal encroachment noted. Suspect canal stenosis at C5-C6. MRI is recommended for these findings. Patient was started on heparin drip by ICU team. I notified the nurse to avoid any heparin boluses and to keep the PTT between 45 and 60. EEG (07/07/2020) There is no brain activity seen. There is no seizure activity seen. I started the patient on Keppra 750mg IV every 12 hours as seizure prophy laxis especially with history of stroke (but this will not change patient's condition). Started the patient on Lipitor 80 mg daily. Recommend 2-D echo, lipid panel, TSH. PT, OT are consulted. We'll defer the rest of the medical management to the primary team. Cardiology team is consulted. Will defer the rest of medical management to the ICU and primary team. The patient prognosis seems very poor. He has only brainstem reflex on examination. The plan is discussed with the patient's nurse. I spoke with a public guardian notified him about the patient condition. The patient stated that the they have to present the case in front of a county judge to address his CODE STATUS. Sudhir Berger MD. Neuro-Hospitalist Time with Patient: Less than 30
--- NOTE | 2020-07-08 11:00 | ECHOF ---
Referral Reason:elevated troponin. NSTEMI MEASUREMENTS -------- HEIGHT: 165.1 cm WEIGHT: 83.9 kg BP: 125/60 RVIDd: 4.1 cm (< 3.3) IVSd: 1.3 cm (0.6 - 1.1) LVIDd: 3.4 cm (3.9 - 5.3) LVPWd: 1.6 cm (0.6 - 1.1) IVSs: 1.8 cm LVIDs: 1.5 cm LVPWs: 1.8 cm MV E Yousif: 0.43 m/s MV DecT: 213 ms MV A Yousif: 0.58 m/s MV E/A Ratio: 0.74 RAP: 5.00 mmHg RVSP: 28.65 mmHg FINDINGS -------- This was a technically difficult study with suboptimal views. Pt. on a vent. The left ventricular size is normal. There is moderate concentric left ventricular hypertrophy. O verall left ventricular systolic function is low-normal with, an EF between 50 - 55 %. The right ventricle is severely enlarged. The left atrium was not well visualized. The right atrium was not well visualized. Lumason used The aortic valve was not well visualized. The mitral valve was not well visualized. The tricuspid valve was not well visualized. Mild tricuspid regurgitation present. Right ventricu lar systolic pressure is normal at < 35 mmHg. The pulmonic valve was not well visualized. The aortic root size is normal. IVC Not well visulized. There is a small, generalized pericardial effusion present. CONCLUSIONS -------- 1. The left ventricular size is normal. 2. There is moderate concentric left ventricular hypertrophy. 3. Overall left ventricular systolic function is low-normal with, an EF between 50 - 55 %. 4. The right ventricle is severely enlarged. 5. Mild tricuspid regurgitation present. 6. There is a small, generalized pericardial effusion present. DRIVER WHEELCHAIR: Vanessa Oneil RDCS
--- NOTE | 2020-07-08 11:03 | P.CRDCN ---
History of Present Illness History of present illness: HISTORY OF PRESENTING ILLNESS This is a pleasant 74-year-old male past medical history significant for dyslipidemia, diabetes mellitus, hypertension, peripheral vascular disease, CVA, history of alcohol abuse and former nicotine dependence. He follows in the office with Dr. Murray. We have been asked to see in consultation for elevated troponin. Limited physical exam was performed due to COVID-19. Information is obtained from nursing staff and medical record. He presented to the hospital with symptoms of altered mental status. He apparently fell out of his wheelchair and was having pain at the left stump. He was taken back to his room and placed into bed and when EMS arrived they found him unresponsive. Imaging revealed an ischemic changes in the right parietal region. Patient currently maintained on Eliquis for unknown reason. He was intubated in the em ergency department. Neurology is following. EKG reveals sinus tachycardia heart rate of 105 with PVCs and nonspecific ST abnormalities with [address] depression in the lateral leads. Chest x-ray reveals improving right lower lobe infiltrate with developing atelectasis and effusion at the left base. Venous Doppler is negative for DVT bilaterally. Laboratory data reviewed, WBC 19.4, hemoglobin 11.5, platelets 121, pH 7.5, pCO2 28, lactic acid 3.6, d-dimer greater than 34, troponin 0.04 and 11.5, sodium 138, potassium 3.8, creatinine 2.5, TSH 0.464, LDL 39. Current daily cardiac medications include Eliquis 5 mg twice a day for unknown reason, atorvastatin 80 mg daily, lisinopril 5 mg daily. There is no prior documented history of an arrhythmia. Most recent echocardiogram obtained April 2020 revealed preserved LV systolic function with ejection fraction greater than 55%, mild MR and mild TR noted. EEG performed revealed no brain activity. REVIEW OF SYSTEMS At the time of my exam: Unable to obtain accurate review of systems secondary to mechanical ventilation. PHYSICAL EXAMINATION Blood pressure 132/75 heart rate 84 afebrile and maintaining oxygen saturation on mechanical ventilation. CONSTITUTIONAL: No apparent distress. Limited physical exam performed secondary to COVID-19. ASSESSMENT COVID-19 Anoxic brain injury per neurology Septic encephalopathy Elevated troponin secondary to COVID-19 with EKG changes, consider myocarditis Hypertension Dyslipidemia Diabetes mellitus Lactic acidosis Acute kidney injury PLAN Echocardiogram has been obtained and will be reviewed. Maintained on heparin infusion for suspected PE due to elevated d-dimer. No brain activity noted on EEG, prognosis is poor. Thank you kindly for this consultation. Nurse Practitioner note has been reviewed, I agree with a documented findings and plan of care. Patient was seen and examined. Past Medical History Past Medical History: Coronary Artery Disease (CAD), Chest Pain / Angina, Dementia, Diabetes Mellitus, GERD/Reflux, Hypertension, Myocardial Infarction (NH), Pneumonia, Vascular Disorder Additional Past Medical History / Comment(s): IDDM type II, cognitive dysfunction, PVD/pt has L BKA and R AKA d/t sores/cellulitis/gangrene, duodenal ulcer, GI bleed, iron anemia, hiatal hernia, pt thinks he may have had a NH many years ago as well as a CVA, past ETOH abuse, past back vertibral fractures as child. Last Myocardial Infarction Date:: UNK History of Any Multi-Drug Resistant Organisms: MRSA Date of last positivie culture/infection: 03/31/16 MDRO Source:: left Foot Past Surgical History: No Surgical Hx Reported Additional Past Surgical History / Comment(s): Abdominal aortagram with femoral revascularization/ptba/stent/thrombectomy, L BKA, R AKA, EGD, teeth extractions. Past Anesthesia/Blood Transfusion Reactions: Motion Sickness Additional Past Anesthesia/Blood Transfusion Reaction / Comment(s): Pt has received blood in past without reaction. Past Psychological History: No Psychological Hx Reported Additional Psychological History / Comment(s): Pt resides at [facility]. He has [employer] public legal guardian. Pt is bilateral lower amputee/wheelc hair bound. He can feed himself. Smoking Status: Former smoker Past Alcohol Use History: Unable to Obtain Additional Past Alcohol Use History / Comment(s): Pt started smoking in 1962 and quit in 2019. Reported pt was a "heavy drinker" in his past. Past Drug Use History: Unable to Obtain - Past Family History Mother Family Medical History: Cancer Additional Family Medical History / Comment(s): BREAST CANCER, CERVICAL CANCER AND PART OF TONGUE AND LT JAW REMOVED Father History Unknown: Yes Additional Family Medical History / Comment(s): DAD LEFT THE HOME WHEN PT WAS 14 Medications and Allergies Home Medications Medication Instructions Recorded Confirmed Type Apixaban [Eliquis] 5 mg PO BID 05/27/20 07/06/20 History Ferrous Sulfate [Iron (65 MG 325 mg PO HS 05/27/20 07/06/20 History Elemental)] Gabapentin [Neurontin] 300 mg PO QID 05/27/20 07/06/20 History Insulin Detemir (Levemir) [Levemir] 11 unit SQ HS 05/27/20 07/06/20 History lisinopriL [Zestril] 5 mg PO DAILY #90 tab 05/29/20 07/06/20 Rx Atorvastatin [Lipitor] 80 mg PO HS 07/06/20 07/06/20 History INSULIN LISPRO (humaLOG) [humaLOG] See Protocol SQ ACHS 07/06/20 07/06/20 History Omeprazole 20 mg PO DAILY@0500 07/06/20 07/06/20 History Allergies Allergy/AdvReac Type Severity Reaction Status Date / Time shellfish derived Allergy Unknown Verified 07/06/20 17:17 Physical Exam Vitals: Vital Signs Temp Pulse Resp BP Pulse Ox 07/08/20 07:00 71 18 132/72 98 07/08/20 06:00 76 18 125/60 97 07/08/20 05:00 74 18 124/61 98 07/08/20 04:00 100 F H 76 18 122/60 98 07/08/20 03:00 76 18 125/57 98 07/08/20 02:00 77 18 128/57 98 07/08/20 01:00 80 18 129/66 98 07/08/20 00:00 101.2 F H 80 18 127/64 98 07/07/20 23:00 83 18 128/60 98 07/07/20 22:00 89 18 121/65 07/07/20 21:54 87 121/65 99 07/07/20 21:00 89 14 129/65 98 07/07/20 20:00 101.2 F H 90 17 100/56 97 07/07/20 19:00 87 18 87/57 98 07/07/20 18:01 97 07/07/20 18:00 92 14 96/56 98 07/07/20 17:00 93 16 85/59 96 07/07/20 16:00 96 14 78/56 99 07/07/20 15:00 98 15 94/62 97 07/07/20 14:00 105 H 15 90/62 98 07/07/20 13:00 101 H 20 100/64 98 07/07/20 12:00 101 H 19 101/70 98 07/07/20 11:00 106 H 18 101/70 96 07/07/20 10:00 97 18 98/67 97 Intake and Output 07/07/20 07/08/20 07/08/20 22:59 06:59 14:59 Intake Total 1060 1110 130 Output Total 255 255 30 Balance 805 855 100 Intake: IV 1060 1060 120 Dextrose 5% in Water 1, 800 800 100 000 ml @ 100 mls/hr IV . [id number] MAHENDRA with Sodium Bicarb (1 Meq/ml) 150 ml Rx#:[id number] Piperacillin-Tazobactam 3 100 100 .375 gm In Sodium Chloride 0.9% 100 ml @ 25 mls/hr IVPB Q8HR MAHENDRA Rx# :[id number] Sodium Chloride 0.9% 1, 160 160 20 000 ml @ 20 mls/hr IV . Q24H MAHENDRA Rx#:[id number] Tube Feeding 20 10 Other 30 Output: Urine 255 255 30 Other: Voiding Method Indwelling Catheter Indwelling Catheter Weight 84.2 kg Results 07/08/20 03:12 07/08/20 03:12 Cardiac Enzymes 07/07/20 07/08/20 Range/Units 10:14 03:12 AST 63 H (17-59) U/L Troponin I 11.500 H* (0.000-0.034) ng/mL Coagulation 07/07/20 07/07/20 07/08/20 Range/Units 10:08 16:41 03:12 PT 11.3 11.0 (9.0-12.0) sec APTT 26.1 47.3 H 57.0 H (22.0-30.0) sec Lipids 07/07/20 Range/Units 02:52 Triglycerides 116 (<150) mg/dL Cholesterol 108 (<200) mg/dL HDL Cholesterol 46 (40-60) mg/dL CBC 07/07/20 07/08/20 Range/Units 10:08 03:12 WBC 23.3 H 19.4 H (3.8-10.6) k/uL RBC 4.94 3.76 L (4.30-5.90) m/uL Hgb 14.9 11.5 L D (13.0-17.5) gm/dL Hct 45.6 34.1 L (39.0-53.0) % Plt Count 186 121 L (150-450) k/uL Comprehensive Metabolic Panel 07/08/20 Range/Units 03:12 Sodium 138 (137-145) mmol/L Potassium 3.8 (3.5-5.1) mmol/L Chloride 110 H (98-107) mmol/L Carbon Dioxide 23 (22-30) mmol/L BUN 60 H (9-20) mg/dL Creatinine 2.51 H (0.66-1.25) mg/dL Glucose 149 H (74-99) mg/dL Calcium 7.3 L (8.4-10.2) mg/dL AST 63 H (17-59) U/L ALT 17 (4-49) U/L Alkaline Phosphatase 63 (38-126) U/L Total Protein 4.5 L (6.3-8.2) g/dL Albumin 2.2 L (3.5-5.0) g/dL Current Medications Generic Name Dose Route Start Last Admin Trade Name Freq PRN Reason Stop Dose Admin Acetaminophen 650 mg 07/07/20 06:36 07/07/20 07:14 Acetaminophen Tab 325 Mg Tab PO 650 mg Q6HR PRN Administration Fever and/ or Pain Atorvastatin Calcium 80 mg 07/07/20 21:00 07/07/20 21:12 Atorvastatin 80 Mg Tab PO 80 mg HS MAHENDRA Administration Dexamethasone Sodium Phosphate 6 mg 07/06/20 18:15 07/07/20 08:59 Dexamethasone Sod Phosphate 10 Mg/Ml 1 Ml Vial IV 6 mg DAILY MAHENDRA Administration Heparin Sodium (Porcine) 0 unit 07/07/20 09:59 Heparin Sodium 1,000 Un/Ml (10ml Vl) IV PER PROTOCOL PRN Low PTT Protocol Propofol 1,000 mg/ IV Solution 100 mls @ 0 mls/hr 07/06/20 16:45 07/06/20 17:27 IV 0 mcg/kg/min .Q0M MAHENDRA 0 mls/hr Titration Protocol Titrate Sodium Chloride 1,000 mls @ 20 mls/hr 07/06/20 17:45 07/07/20 18:39 Saline 0.9% IV Not Given .Q24H MAHENDRA Piperacillin Sod/Tazobactam 100 mls @ 25 mls/hr 07/07/20 08:00 07/08/20 00:54 Sod 3.375 gm/ Sodium Chloride IVPB 25 mls/hr Q8HR MAHENDRA Administration Sodium Bicarbonate 150 ml/ 1,150 mls @ 100 mls/hr 07/07/20 10:00 07/07/20 22:56 Dextrose/Water IV 100 mls/hr .[id number] MAHENDRA Administration Heparin Sodium/Sodium Chloride 250 mls @ 9.276 mls/hr 07/07/20 10:00 07/07/20 10:20 25,000 unit/ Sodium Chloride IV 12 units/kg/hr .Q24H MAHENDRA 9.276 mls/hr Administration Protocol 12 UNITS/KG/HR Levetiracetam 750 mg/ Sodium 107.5 mls @ 400 mls/hr 07/07/20 21:00 07/07/20 21:11 Chloride IVPB 400 mls/hr Q12HR MAHENDRA Administration Insulin Aspart 0 unit 07/07/20 07:00 07/08/20 06:59 Insulin Aspart (Novolog) 100 Unit/Ml Vial SQ 1 unit Q6HR MAHENDRA Administration Protocol Insulin Detemir 10 unit 07/07/20 07:00 07/07/20 08:59 Insulin Detemir (Levemir) 100 Unit/Ml Syr SQ 10 unit DAILY@0700 MAHENDRA Administration Naloxone HCl 0.2 mg 07/06/20 18:49 Naloxone 0.4 Mg/Ml 1 Ml Vial IV Q2M PRN Opioid Reversal Intake and Output 07/07/20 07/08/20 07/08/20 22:59 06:59 14:59 Intake Total 1060 1110 130 Output Total 255 255 30 Balance 805 855 100 Intake: IV 1060 1060 120 Dextrose 5% in Water 1, 800 800 100 000 ml @ 100 mls/hr IV . [id number] MAHENDRA with Sodium Bicarb (1 Meq/ml) 150 ml Rx#:[id number] Piperacillin-Tazobactam 3 100 100 .375 gm In Sodium Chloride 0.9% 100 ml @ 25 mls/hr IVPB Q8HR MAHENDRA Rx# :[id number] Sodium Chloride 0.9% 1, 160 160 20 000 ml @ 20 mls/hr IV . Q24H MAHENDRA Rx#:[id number] Tube Feeding 20 10 Other 30 Output: Urine 255 255 30 Other: Voiding Method Indwelling Catheter Indwelling Catheter Weight 84.2 kg 07/08/20 03:12 07/08/20 03:12
[2020-07-08 11:35] LABS: Glucose,Whole Blood 122 mg/dL (75-99)
--- NOTE | 2020-07-08 11:54 | US ---
EXAMINATION TYPE: US kidneys/renal and bladder DATE OF EXAM: 07/08/2020 COMPARISON: 04/05/2016 CLINICAL HISTORY: maddy. MADDY Limted exam patient covid on vent. EXAM MEASUREMENTS: Right Kidney: 7.0 x 4.2 x 4.0 cm Left Kidney: 8.3 x 4.7 x 4.0 cm Right Kidney: Limited Left Kidney: No hydronephrosis or masses seen Bladder: Cather in place Bilateral Jets seen: No IMPRESSION: Renal ultrasound as visualized appears unremarkable.
--- NOTE | 2020-07-08 12:22 | P.PN ---
Subjective Progress Note Date: 07/08/20 Principal diagnosis: Cardiac arrest and severe anoxic brain injury This is a 74-year-old white male with history of multiple medical problems, patient is a senior living resident, known to have coronary artery disease, peripheral vessel occlusive disease and right above-knee amputation, left below knee amputation, known history of dementia, type 2 diabetes, history of duodenal ulcer and GI bleeding, past history of alcohol abuse, patient was brought into the ER by EMS, apparently he fell off his wheelchair while at the senior living, and prior to that he was complaining of pain in his left stump. EMS arrived, patient was unresponsive, could not be aroused. No mention and no history of any narcotic use, and drug screen was negative. Upon arrival to the ER, patient was unresponsive, he was intubated and mechanically ventilated. CT of the head came back negative. Neurology was consulted. Patient is normally maintained on Eliquis, gabapentin, iron, Lipitor, insulin, and he is also on omeprazole daily. Again his drug screen was negative. He had leukocytosis with WBC count of 23.3. Elevated d-dimer of 34. Abnormal ABG on 50% FiO2 with pO2 of 87, pCO2 of 19 pH of 7.42 and very low bicarb of 13. Electrolytes were normal except for low bicarb and elevated anion gap, he had BUN rise up to 33 from 26 on admission and creatinine up to 1.96 from 1.23 on admission. Blood sugars were over 300, but he had negative ketones in the urine. Lactic acid jumped up from 3.2-6.6. Troponin jumped up from 0.04 on admission up to 11.5 today. Pro-calcitonin was relatively normal. Coronary virus PCR was detected. Venous Doppler of both lower extremities were negative. Chest x-ray showed patchy basilar infiltrates present at the lung bases. Patient was placed empirically on antibiotics in the form of Zosyn. Cardiology will be consulted. Neurology will be consulted. CT of the brain on admission was negative. CT angiogram of the head was basically unremarkable. Patient will be placed on Lovenox for his elevated d-dimer, he was initially on Eliquis to begin with. Prognosis obviously is quite poor and guarded. Patient was reevaluated today 07/08/2020, remains intubated and mechanically ventilated, off all sedation, off all narcotics, patient remains unresponsive. He is on assist control rate of 18 tidal volume is 450 FiO2 40% PEEP of 5 ABG showed a pO2 of 107 pCO2 of 28 pH of 7.50. Patient was seen by neurology, and according to the neurologist, the patient must have sustained severe anoxic brain injury, CT of the brain showed remote infarct of the right cerebral cortex and moderate atrophy. CT angiography of the head and neck was negative. EEG on 07/07 showed basically no brain activity and no seizure activity. Patient was empirically started on Keppra for seizure prophylaxis. And after my discussion with the neurologist, he will discuss his status with the legal guardian and possibly consider comfort care measures on this patient. WBC count today is 19.4 hemoglobin is 11.5. Electrolytes are normal BUN is 60 creatinine 2.51. B lood cultures are negative so far since admission. Chest x-ray showing improving right lower lobe infiltrate and minimal atelectasis at the left base, I suspect the findings are mostly findings are related to aspiration. Objective - Vital Signs Vital signs: Vital Signs Temp 100 F H 07/08/20 04:00 Pulse 96 07/08/20 11:00 Resp 12 07/08/20 11:00 BP 144/80 07/08/20 11:00 Pulse Ox 98 07/08/20 11:00 Intake & Output 07/07/20 07/08/20 07/08/20 18:59 06:59 18:59 Intake Total 4400 1590 659.276 Output Total 330 380 290 Balance 4070 1210 369.276 Weight 77.3 kg 84.2 kg Intake: IV 3400 1540 395 Dextrose 5% in Water 1, 800 1200 300 000 ml @ 100 mls/hr IV . [id number] MAHENDRA with Sodium Bicarb (1 Meq/ml) 150 ml Rx#:[id number] Piperacillin-Tazobactam 3 200 100 75 .375 gm In Sodium Chloride 0.9% 100 ml @ 25 mls/hr IVPB Q8HR MAHENDRA Rx# :[id number] Sodium Chloride 0.9% 1, 400 240 20 000 ml @ 20 mls/hr IV . Q24H MAHENDRA Rx#:[id number] Sodium Chloride 0.9% 1, 2000 000 ml @ 999 mls/hr IV . Q1H1M ONE Rx#:[id number] Intake, IV Titration 1000 214.276 Amount Heparin Sod,Pork in 0.45% 214.276 NaCl 25,000 unit In 0.45 % NaCl 1 250ml.bag @ 12 UNITS/KG/HR 9.276 mls/hr IV .Q24H [facility] Rx#: [id number] Sodium Chloride 0.9% 1, 1000 000 ml @ 999 mls/hr IV . Q1H1M ONE Rx#:[id number] Tube Feeding 20 50 Other 30 Output: Urine 330 380 290 Other: Voiding Method Indwelling Catheter Indwelling Catheter Indwelling Catheter - Exam Physical Exam: Revealed 74-year-old white male intubated and mechanically ventilated, unresponsive to any stimuli. Patient is off sedation. Head: Atraumatic, normocephalic. HEENT:[Neck is supple.] [No neck masses.] [No thyromegaly.] [No JVD.] Chest: Symmetrical chest expansion, crackles at the bases. Barrel chest is noted. Cardiac Exam: Normal S1 and S2, no S3 gallop, 2/6 systolic murmur throughout the precordium. Abdomen: [Soft, nontender, no megaly, no rebound, no guarding, normal bowel sounds.] Extremities: [No clubbing, no edema, no cyanosis.] Right above-knee amputation is noted and left below knee amputation is noted, both stumps are intact. Neurological Exam: Unresponsive to any stimuli. Pupils are sluggishly reactive. Psychiatric: Could not assess. Musculoskeletal: Difficult to assess, patient does have muscle wasting, and bilateral stumps noted. - Labs CBC & Chem 7: 07/08/20 03:12 07/08/20 03:12 Labs: Abnormal Lab Results - Last 24 Hours (Table) 07/07/20 07/07/20 07/07/20 Range/Units 02:52 12:37 16:41 WBC (3.8-10.6) k/uL RBC (4.30-5.90) m/uL Hgb (13.0-17.5) gm/dL Hct (39.0-53.0) % Plt Count (150-450) k/uL Neutrophils # (1.3-7.7) k/uL Monocytes # (0-1.0) k/uL APTT 47.3 H (22.0-30.0) sec ABG pH (7.35-7.45) ABG pCO2 (35-45) mmHg ABG O2 Saturation (94-97) % Chloride (98-107) mmol/L BUN (9-20) mg/dL Creatinine (0.66-1.25) mg/dL Glucose (74-99) mg/dL POC Glucose (mg/dL) (75-99) mg/dL Plasma Lactic Acid Kyaw 5.5 H* (0.7-2.0) mmol/L Calcium (8.4-10.2) mg/dL AST (17-59) U/L Total Protein (6.3-8.2) g/dL Albumin (3.5-5.0) g/dL TSH 0.464 L (0.465-4.680) mIU/L 07/07/20 07/07/20 07/07/20 Range/Units 16:41 19:00 20:11 WBC (3.8-10.6) k/uL RBC (4.30-5.90) m/uL Hgb (13.0-17.5) gm/dL Hct (39.0-53.0) % Plt Count (150-450) k/uL Neutrophils # (1.3-7.7) k/uL Monocytes # (0-1.0) k/uL APTT (22.0-30.0) sec ABG pH (7.35-7.45) ABG pCO2 (35-45) mmHg ABG O2 Saturation (94-97) % Chloride (98-107) mmol/L BUN (9-20) mg/dL Creatinine (0.66-1.25) mg/dL Glucose (74-99) mg/dL POC Glucose (mg/dL) 291 H (75-99) mg/dL Plasma Lactic Acid Kyaw 4.5 H* 3.6 H* (0.7-2.0) mmol/L Calcium (8.4-10.2) mg/dL AST (17-59) U/L Total Protein (6.3-8.2) g/dL Albumin (3.5-5.0) g/dL TSH (0.465-4.680) mIU/L 07/08/20 07/08/20 07/08/20 Range/Units 00:52 03:12 03:12 WBC 19.4 H (3.8-10.6) k/uL RBC 3.76 L (4.30-5.90) m/uL Hgb 11.5 L D (13.0-17.5) gm/dL Hct 34.1 L (39.0-53.0) % Plt Count 121 L (150-450) k/uL Neutrophils # 16.4 H (1.3-7.7) k/uL Monocytes # 1.3 H (0-1.0) k/uL APTT (22.0-30.0) sec ABG pH (7.35-7.45) ABG pCO2 (35-45) mmHg ABG O2 Saturation (94-97) % Chloride 110 H (98-107) mmol/L BUN 60 H (9-20) mg/dL Creatinine 2.51 H (0.66-1.25) mg/dL Glucose 149 H (74-99) mg/dL POC Glucose (mg/dL) 238 H (75-99) mg/dL Plasma Lactic Acid Kyaw (0.7-2.0) mmol/L Calcium 7.3 L (8.4-10.2) mg/dL AST 63 H (17-59) U/L Total Protein 4.5 L (6.3-8.2) g/dL Albumin 2.2 L (3.5-5.0) g/dL TSH (0.465-4.680) mIU/L 07/08/20 07/08/20 07/08/20 Range/Units 03:12 03:12 05:50 WBC (3.8-10.6) k/uL RBC (4.30-5.90) m/uL Hgb (13.0-17.5) gm/dL Hct (39.0-53.0) % Plt Count (150-450) k/uL Neutrophils # (1.3-7.7) k/uL Monocytes # (0-1.0) k/uL APTT 57.0 H (22.0-30.0) sec ABG pH 7.50 H (7.35-7.45) ABG pCO2 28 L (35-45) mmHg ABG O2 Saturation 98.7 H (94-97) % Chloride (98-107) mmol/L BUN (9-20) mg/dL Creatinine (0.66-1.25) mg/dL Glucose (74-99) mg/dL POC Glucose (mg/dL) (75-99) mg/dL Plasma Lactic Acid Kyaw 2.4 H* (0.7-2.0) mmol/L Calcium (8.4-10.2) mg/dL AST (17-59) U/L Total Protein (6.3-8.2) g/dL Albumin (3.5-5.0) g/dL TSH (0.465-4.680) mIU/L 07/08/20 07/08/20 Range/Units 06:46 11:33 WBC (3.8-10.6) k/uL RBC (4.30-5.90) m/uL Hgb (13.0-17.5) gm/dL Hct (39.0-53.0) % Plt Count (150-450) k/uL Neutrophils # (1.3-7.7) k/uL Monocytes # (0-1.0) k/uL APTT (22.0-30.0) sec ABG pH (7.35-7.45) ABG pCO2 (35-45) mmHg ABG O2 Saturation (94-97) % Chloride (98-107) mmol/L BUN (9-20) mg/dL Creatinine (0.66-1.25) mg/dL Glucose (74-99) mg/dL POC Glucose (mg/dL) 168 H 122 H (75-99) mg/dL Plasma Lactic Acid Kyaw (0.7-2.0) mmol/L Calcium (8.4-10.2) mg/dL AST (17-59) U/L Total Protein (6.3-8.2) g/dL Albumin (3.5-5.0) g/dL TSH (0.465-4.680) mIU/L Microbiology - Last 24 Hours (Table) 07/06/20 18:00 Blood Culture - Preliminary Blood No Growth after 24 hours 07/06/20 18:00 Blood Culture - Preliminary Blood No Growth after 24 hours Assessment and Plan Assessment: Impression: Acute hypoxic respiratory failure secondary to cardiac arrest associated with severe anoxic brain injury. Acute toxic/metabolic encephalopathy with severe anoxic brain injury secondary to above. Possible aspiration pneumonia. Elevated d-dimer, empirically on heparin. Patient was normally on Eliquis. Acute kidney injury secondary to acute tubular necrosis and hypotension, related to cardiac arrest Elevated troponin, addressed by cardiology. Acute COVID-19 infection, possible underlying COVID-19 pneumonia but the findings are not classical findings on the chest x-ray for COVID-19 pneumonia. Recommendation: Continue present supportive care measures Continue ventilatory support, patient is now on assist control rate of 14 tidal volume is 450 FiO2 50% PEEP of 5 Continue GI prophylaxis. Cardiology and nephrology to follow Neurology is considering comfort care measures because of his abnormal EEG and severe anoxic brain injury Continue Zosyn and IV fluids. Again prognosis is extremely poor and guarded. Critical care time is over 30 minutes. We'll continue to follow. Time with Patient: Greater than 30
[2020-07-08] MEDS: DEXTROSE 5% IN WATER 1,000 ML with SODIUM BICARB (1 MEQ/ML) 150 ML IV SCH (12:45)
[2020-07-08] MEDS: SODIUM CHLORIDE 0.9% 1,000 ML IV SCH ×2 (13:56→20:42)
[2020-07-08 14:16] VITALS: BMI 30.9
[2020-07-08 17:57] LABS: Glucose,Whole Blood 177 mg/dL (75-99)
--- NOTE | 2020-07-08 18:25 | PN ---
PROGRESS NOTE CHIEF COMPLAINT: Coma and probable cardiovascular collapse. HISTORY OF PRESENT ILLNESS: This gentleman remains ventilator-dependent. Neurology has made an assessment and feels that there is extensive brain damage. At the present time he is being supported on the ventilator. A guardian is being contacted with the suggestion that he may be made comfort measures only. PHYSICAL EXAMINATION: Chest is clear and there are no rhonchi. Cardiac exam is unchanged. Abdomen is soft. IMPRESSION: 1. Anoxic brain injury following cardiorespiratory arrest. 2. Atherosclerotic cardiovascular disease. 3. History of dementia. PLAN: He will receive supportive care up until the point that the guardian decides to make him a comfort-only patient. MMODL / IJN: [id number] /
[2020-07-08] MEDS: ATORVASTATIN 80 MG TAB PO SCH (20:42)
[2020-07-08 23:22] LABS: Glucose,Whole Blood 157 mg/dL (75-99)
[2020-07-09 03:02] VITALS: RESP 18
[2020-07-09 03:42] LABS: Basophils % (A) 0 %; Eosinophils # (A) 0.1 k/uL (0-0.7); Eosinophils % (A) 0 %; HCT 31.8 % (39.0-53.0); Lymphocytes # (A) 1.4 k/uL (1.0-4.8); Lymphocytes % (A) 9 %; MCH 31.1 pg (25.0-35.0); MCHC 34.6 g/dL (31.0-37.0); MCV 89.8 fL (80.0-100.0); Mean Platelet Volume 10.7; Monocytes # (A) 0.8 k/uL (0-1.0); Monocytes % (A) 6 %; Neutrophils # (A) 12.3 k/uL (1.3-7.7); Neutrophils % (A) 84 %; Platelet Count 102 k/uL (150-450); RBC 3.54 m/uL (4.30-5.90); RDW 14.3 % (11.5-15.5); WBC 14.6 k/uL (3.8-10.6)
[2020-07-09 04:39] LABS: D-Dimer 2.16 mg/L FEU (<0.60); Partial Thromboplastin Time 62.7 sec (22.0-30.0)
[2020-07-09 05:26] LABS: Albumin 2.2 g/dL (3.5-5.0); C Reactive Protein 7.5 mg/dL (<1.0); Calcium 7.8 mg/dL (8.4-10.2); Potassium 4.1 mmol/L (3.5-5.1); Total Bilirubin 0.6 mg/dL (0.2-1.3); Total Protein 4.6 g/dL (6.3-8.2)
[2020-07-09 05:27] LABS: ABG Base Excess -1.7 mmol/L; ABG HCO3 22 mmol/L (21-25); ABG Oxygen Saturation 95.2 % (94-97); ABG PCO2 31 mmHg (35-45); ABG PH 7.46 (7.35-7.45); ABG PO2 71 mmHg (83-108); ABG TCO2 23 mmol/L (19-24); Allen Test Performed? Yes
[2020-07-09] MEDS: INSULIN ASPART (NovoLOG) 100 UNIT/ML VIAL SQ SCH ×2 (06:11→16:10)
[2020-07-09] MEDS: INSULIN DETEMIR (LEVEMIR) 100 UNIT/ML SYR SQ SCH (06:11)
--- NOTE | 2020-07-09 08:02 | XR ---
EXAMINATION TYPE: XR chest 1V portable DATE OF EXAM: 07/09/2020 COMPARISON: 07/08/2020 INDICATION: Difficulty breathing mechanical ventilation TECHNIQUE: Single frontal view of the chest is obtained. FINDINGS: The heart size is normal. The pulmonary vasculature is normal. There is a small left pleural effusion and/or atelectasis. Endotracheal tube tip is above claude. Nasogastric tube transverses the thorax. Exam appears stable from comparison. IMPRESSION: 1. Small left pleural effusion and/or atelectasis. 2. Lines and catheters discussed above.
[2020-07-09] MEDS: DEXAMETHASONE SOD PHOSPHATE 10 MG/ML 1 ML VIAL IV SCH (09:29)
[2020-07-09] MEDS: PIPERACILLIN-TAZOBACTAM 3.375 GM in SODIUM CHLORIDE 0.9% 100 ML IVPB SCH ×2 (09:30→16:11)
[2020-07-09] MEDS: levETIRAcetam IV 750 MG in SODIUM CHLORIDE 0.9% 100 ML IVPB SCH (09:30)
--- NOTE | 2020-07-09 10:43 | P.PN ---
Subjective Patient is seen in follow for acute kidney injury. Renal function better. Nonoliguric. Receiving tube feeding and IV fluids. There is concern for anoxic brain injury. Comfort measures been discussed. Vital signs are stable. HEENT: Intubated. LUNGS: Breath sounds decreased. HEART: Rate and Rhythm are regular. ABDOMEN: Soft, no distention. EXTREMITITES: Lower extremity amputations noted. Objective - Vital Signs Vital signs: Vital Signs Temp 97.3 F L 07/09/20 04:00 Pulse 63 07/09/20 09:00 Resp 18 07/09/20 09:00 BP 130/83 07/09/20 09:00 Pulse Ox 92 L 07/09/20 09:00 Intake & Output 07/08/20 07/09/20 07/09/20 18:59 06:59 18:59 Intake Total 771.965 7159 450 Output Total 885 1700 425 Balance 64.276 -668 25 Weight 84.2 kg 81.6 kg Intake: IV 595 300 100 Dextrose 5% in Water 1, 300 000 ml @ 100 mls/hr IV . [id number] MAHENDRA with Sodium Bicarb (1 Meq/ml) 150 ml Rx#:[id number] Piperacillin-Tazobactam 3 275 300 100 .375 gm In Sodium Chloride 0.9% 100 ml @ 25 mls/hr IVPB Q8HR [facility] Rx# :[id number] Sodium Chloride 0.9% 1, 20 000 ml @ 20 mls/hr IV . Q24H [facility] Rx#:[id number] Intake, IV Titration 214.276 Amount Heparin Sod,Pork in 0.45% 214.276 NaCl 25,000 unit In 0.45 % NaCl 1 250ml.bag @ 12 UNITS/KG/HR 9.276 mls/hr IV .Q24H [facility] Rx#: [id number] Tube Feeding 140 642 320 Other 90 30 Output: Urine 885 1700 425 Other: Voiding Method Indwelling Catheter Indwelling Catheter Indwelling Catheter - Labs CBC & Chem 7: 07/09/20 03:17 07/09/20 03:17 Labs: Abnormal Lab Results - Last 24 Hours (Table) 07/08/20 07/08/20 07/08/20 Range/Units 11:33 17:56 23:21 WBC (3.8-10.6) k/uL RBC (4.30-5.90) m/uL Hgb (13.0-17.5) gm/dL Hct (39.0-53.0) % Plt Count (150-450) k/uL Neutrophils # (1.3-7.7) k/uL APTT (22.0-30.0) sec D-Dimer (<0.60) mg/L FEU ABG pH (7.35-7.45) ABG pCO2 (35-45) mmHg ABG pO2 (83-108) mmHg Chloride (98-107) mmol/L Carbon Dioxide (22-30) mmol/L BUN (9-20) mg/dL Creatinine (0.66-1.25) mg/dL Glucose (74-99) mg/dL POC Glucose (mg/dL) 122 H 177 H 157 H (75-99) mg/dL Calcium (8.4-10.2) mg/dL AST (17-59) U/L Lactate Dehydrogenase (313-618) U/L Creatine Kinase (55-170) U/L C-Reactive Protein (<1.0) mg/dL Total Protein (6.3-8.2) g/dL Albumin (3.5-5.0) g/dL 07/09/20 07/09/20 07/09/20 Range/Units 03:17 03:17 03:17 WBC 14.6 H (3.8-10.6) k/uL RBC 3.54 L (4.30-5.90) m/uL Hgb 11.0 L (13.0-17.5) gm/dL Hct 31.8 L (39.0-53.0) % Plt Count 102 L (150-450) k/uL Neutrophils # 12.3 H (1.3-7.7) k/uL APTT 62.7 H (22.0-30.0) sec D-Dimer 2.16 H (<0.60) mg/L FEU ABG pH (7.35-7.45) ABG pCO2 (35-45) mmHg ABG pO2 (83-108) mmHg Chloride 118 H (98-107) mmol/L Carbon Dioxide 21 L (22-30) mmol/L BUN 56 H (9-20) mg/dL Creatinine 1.70 H (0.66-1.25) mg/dL Glucose 160 H (74-99) mg/dL POC Glucose (mg/dL) (75-99) mg/dL Calcium 7.8 L (8.4-10.2) mg/dL AST 63 H (17-59) U/L Lactate Dehydrogenase 1602 H (313-618) U/L Creatine Kinase 269 H (55-170) U/L C-Reactive Protein 7.5 H (<1.0) mg/dL Total Protein 4.6 L (6.3-8.2) g/dL Albumin 2.2 L (3.5-5.0) g/dL 07/09/20 Range/Units 05:21 WBC (3.8-10.6) k/uL RBC (4.30-5.90) m/uL Hgb (13.0-17.5) gm/dL Hct (39.0-53.0) % Plt Count (150-450) k/uL Neutrophils # (1.3-7.7) k/uL APTT (22.0-30.0) sec D-Dimer (<0.60) mg/L FEU ABG pH 7.46 H (7.35-7.45) ABG pCO2 31 L (35-45) mmHg ABG pO2 71 L (83-108) mmHg Chloride (98-107) mmol/L Carbon Dioxide (22-30) mmol/L BUN (9-20) mg/dL Creatinine (0.66-1.25) mg/dL Glucose (74-99) mg/dL POC Glucose (mg/dL) (75-99) mg/dL Calcium (8.4-10.2) mg/dL AST (17-59) U/L Lactate Dehydrogenase (313-618) U/L Creatine Kinase (55-170) U/L C-Reactive Protein (<1.0) mg/dL Total Protein (6.3-8.2) g/dL Albumin (3.5-5.0) g/dL Microbiology - Last 24 Hours (Table) 07/06/20 18:00 Blood Culture - Preliminary Blood No Growth after 48 hours 07/06/20 18:00 Blood Culture - Preliminary Blood No Growth after 48 hours Assessment and Plan Plan: Assessment: 1. Acute kidney injury secondary to ATN secondary to COVID ATN and component of contrast-induced acute kidney injury. Patient received IV contrast on July 06. Baseline creatinine near 1 and peaked at 2.5 this admission - 1.7 today. Renal ultrasound revealed small sized kidneys without any evidence of hydronephrosis. 2. Metabolic acidosis secondary to acute kidney injury s/p bicarb drip. 3. COVID-19 pneumonia. Currently intubated. On 40% FiO2. 4. Diabetes mellitus. 5. Anoxic brain injury. Plan: Maintain normal saline at 75 mL an hour. Maintain tube feeding. Add oral bicarbonate. Phosphorus level normal. Avoid nephrotoxins. Continue to monitor renal function and urine output. Hospice be considered. Overall prognosis guarded.
[2020-07-09] MEDS ORDERED: SODIUM BICARBONATE TAB 650 MG TAB PO SCH (10:45)
[2020-07-09 12:49] VITALS: TEMP 100.3
[2020-07-09 13:05] LABS: Glucose,Whole Blood 238 mg/dL (75-99)
--- NOTE | 2020-07-09 13:45 | P.PN ---
Subjective Progress Note Date: 07/09/20 Principal diagnosis: Cardiac arrest and severe anoxic brain injury This is a 74-year-old white male with history of multiple medical problems, patient is a half-way resident, known to have coronary artery disease, peripheral vessel occlusive disease and right above-knee amputation, left below knee amputation, known history of dementia, type 2 diabetes, history of duodenal ulcer and GI bleeding, past history of alcohol abuse, patient was brought into the ER by EMS, apparently he fell off his wheelchair while at the half-way, and prior to that he was complaining of pain in his left stump. EMS arrived, patient was unresponsive, could not be aroused. No mention and no history of any narcotic use, and drug screen was negative. Upon arrival to the ER, patient was unresponsive, he was intubated and mechanically ventilated. CT of the head came back negative. Neurology was consulted. Patient is normally maintained on Eliquis, gabapentin, iron, Lipitor, insulin, and he is also on omeprazole daily. Again his drug screen was negative. He had leukocytosis with WBC count of 23.3. Elevated d-dimer of 34. Abnormal ABG on 50% FiO2 with pO2 of 87, pCO2 of 19 pH of 7.42 and very low bicarb of 13. Electrolytes were normal except for low bicarb and elevated anion gap, he had BUN rise up to 33 from 26 on admission and creatinine up to 1.96 from 1.23 on admission. Blood sugars were over 300, but he had negative ketones in the urine. Lactic acid jumped up from 3.2-6.6. Troponin jumped up from 0.04 on admission up to 11.5 today. Pro-calcitonin was relatively normal. Coronary virus PCR was detected. Venous Doppler of both lower extremities were negative. Chest x-ray showed patchy basilar infiltrates present at the lung bases. Patient was placed empirically on antibiotics in the form of Zosyn. Cardiology will be consulted. Neurology will be consulted. CT of the brain on admission was negative. CT angiogram of the head was basically unremarkable. Patient will be placed on Lovenox for his elevated d-dimer, he was initially on Eliquis to begin with. Prognosis obviously is quite poor and guarded. Patient was reevaluated today 07/08/2020, remains intubated and mechanically ventilated, off all sedation, off all narcotics, patient remains unresponsive. He is on assist control rate of 18 tidal volume is 450 FiO2 40% PEEP of 5 ABG showed a pO2 of 107 pCO2 of 28 pH of 7.50. Patient was seen by neurology, and according to the neurologist, the patient must have sustained severe anoxic brain injury, CT of the brain showed remote infarct of the right cerebral cortex and moderate atrophy. CT angiography of the head and neck was negative. EEG on 07/07 showed basically no brain activity and no seizure activity. Patient was empirically started on Keppra for seizure prophylaxis. And after my discussion with the neurologist, he will discuss his status with the legal guardian and possibly consider comfort care measures on this patient. WBC count today is 19.4 hemoglobin is 11.5. Electrolytes are normal BUN is 60 creatinine 2.51. B lood cultures are negative so far since admission. Chest x-ray showing improving right lower lobe infiltrate and minimal atelectasis at the left base, I suspect the findings are mostly findings are related to aspiration. Patient was reevaluated today on 07/09/2020, remains intubated and mechanically ventilated he is on assist control rate of 18 tidal volume 450 FiO2 40% PEEP of 5. ABG showed a pO2 of 71 pCO2 of 31 pH of 7.46. Patient remains comatose, pupils are not dilated and non-reactive patient has no corneal reflex, he has no caloric reflex, patient is not triggering the ventilator, and he went apneic when disconnected from mechanical ventilation for about 1 minute. No effort whatsoever hence I believe the patient should be evaluated by neurology and initiated the brain protocol. Apparently his guardian is trying to seek court judgment regarding DO NOT RESUSCITATE CODE STATUS and comfort care measures, and that is undecided yet. But most likely the patient is brain at this point, and we'll may not have to go through the legal system. Waiting for the neurologist to reevaluate and confirm brain . CBC is relatively normal except for leukocytosis. Sodium is a bit high at 145 otherwise his electrolytes are normal his BUN is 56 creatinine is 1.70, improving compared to the last 2 days chest x-ray showed mostly left basilar atelectasis and small left pleural effusion Objective - Vital Signs Vital signs: Vital Signs Temp 100.3 F H 07/09/20 12:00 Pulse 62 07/09/20 12:00 Resp 18 07/09/20 12:00 BP 132/74 05/12/21 12:00 Pulse Ox 93 L 07/09/20 12:00 Intake & Output 07/08/20 07/09/20 07/09/20 18:59 06:59 18:59 Intake Total 427.503 8583 747 Output Total 885 1700 975 Balance 64.276 -668 -228 Weight 84.2 kg 81.6 kg Intake: IV 595 300 175 Dextrose 5% in Water 1, 300 000 ml @ 100 mls/hr IV . [id number] MAHENDRA with Sodium Bicarb (1 Meq/ml) 150 ml Rx#:[id number] Piperacillin-Tazobactam 3 275 300 175 .375 gm In Sodium Chloride 0.9% 100 ml @ 25 mls/hr IVPB Q8HR [facility] Rx# :[id number] Sodium Chloride 0.9% 1, 20 000 ml @ 20 mls/hr IV . Q24H [facility] Rx#:[id number] Intake, IV Titration 214.276 Amount Heparin Sod,Pork in 0.45% 214.276 NaCl 25,000 unit In 0.45 % NaCl 1 250ml.bag @ 12 UNITS/KG/HR 9.276 mls/hr IV .Q24H [facility] Rx#: [id number] Tube Feeding 140 642 512 Other 90 60 Output: Urine 885 1700 975 Other: Voiding Method Indwelling Catheter Indwelling Catheter Indwelling Catheter - Exam Physical Exam: Revealed 74-year-old white male intubated and mechanically ventilated, unresponsive to any stimuli. Patient is off sedation. Head: Atraumatic, normocephalic. HEENT:[Neck is supple.] [No neck masses.] [No thyromegaly.] [No JVD.] Negative corneal reflex and negative caloric reflex. Chest: Symmetrical chest expansion, crackles at the bases. Barrel chest is noted. Cardiac Exam: Normal S1 and S2, no S3 gallop, 2/6 systolic murmur throughout the precordium. Abdomen: [Soft, nontender, no megaly, no rebound, no guarding, normal bowel sounds.] Extremities: [No clubbing, no edema, no cyanosis.] Right above-knee amputation is noted and left below knee amputation is noted, both stumps are intact. Neurological Exam: Unresponsive to any stimuli. Pupils are dilated, nonreactive. Patient has negative corneals, negative caloric reflex, and he has no respiratory effort when disconnected from mechanical ventilation. Psychiatric: Could not assess. Musculoskeletal: Difficult to assess, patient does have muscle wasting, and bilateral stumps noted. - Labs CBC & Chem 7: 07/09/20 03:17 07/09/20 03:17 Labs: Abnormal Lab Results - Last 24 Hours (Table) 07/08/20 07/08/20 07/09/20 Range/Units 17:56 23:21 03:17 WBC (3.8-10.6) k/uL RBC (4.30-5.90) m/uL Hgb (13.0-17.5) gm/dL Hct (39.0-53.0) % Plt Count (150-450) k/uL Neutrophils # (1.3-7.7) k/uL APTT 62.7 H (22.0-30.0) sec D-Dimer 2.16 H (<0.60) mg/L FEU ABG pH (7.35-7.45) ABG pCO2 (35-45) mmHg ABG pO2 (83-108) mmHg Chloride (98-107) mmol/L Carbon Dioxide (22-30) mmol/L BUN (9-20) mg/dL Creatinine (0.66-1.25) mg/dL Glucose (74-99) mg/dL POC Glucose (mg/dL) 177 H 157 H (75-99) mg/dL Calcium (8.4-10.2) mg/dL AST (17-59) U/L Lactate Dehydrogenase (313-618) U/L Creatine Kinase (55-170) U/L C-Reactive Protein (<1.0) mg/dL Total Protein (6.3-8.2) g/dL Albumin (3.5-5.0) g/dL 07/09/20 07/09/20 07/09/20 Range/Units 03:17 03:17 05:21 WBC 14.6 H (3.8-10.6) k/uL RBC 3.54 L (4.30-5.90) m/uL Hgb 11.0 L (13.0-17.5) gm/dL Hct 31.8 L (39.0-53.0) % Plt Count 102 L (150-450) k/uL Neutrophils # 12.3 H (1.3-7.7) k/uL APTT (22.0-30.0) sec D-Dimer (<0.60) mg/L FEU ABG pH 7.46 H (7.35-7.45) ABG pCO2 31 L (35-45) mmHg ABG pO2 71 L (83-108) mmHg Chloride 118 H (98-107) mmol/L Carbon Dioxide 21 L (22-30) mmol/L BUN 56 H (9-20) mg/dL Creatinine 1.70 H (0.66-1.25) mg/dL Glucose 160 H (74-99) mg/dL POC Glucose (mg/dL) (75-99) mg/dL Calcium 7.8 L (8.4-10.2) mg/dL AST 63 H (17-59) U/L Lactate Dehydrogenase 1602 H (313-618) U/L Creatine Kinase 269 H (55-170) U/L C-Reactive Protein 7.5 H (<1.0) mg/dL Total Protein 4.6 L (6.3-8.2) g/dL Albumin 2.2 L (3.5-5.0) g/dL 07/09/20 Range/Units 13:04 WBC (3.8-10.6) k/uL RBC (4.30-5.90) m/uL Hgb (13.0-17.5) gm/dL Hct (39.0-53.0) % Plt Count (150-450) k/uL Neutrophils # (1.3-7.7) k/uL APTT (22.0-30.0) sec D-Dimer (<0.60) mg/L FEU ABG pH (7.35-7.45) ABG pCO2 (35-45) mmHg ABG pO2 (83-108) mmHg Chloride (98-107) mmol/L Carbon Dioxide (22-30) mmol/L BUN (9-20) mg/dL Creatinine (0.66-1.25) mg/dL Glucose (74-99) mg/dL POC Glucose (mg/dL) 238 H (75-99) mg/dL Calcium (8.4-10.2) mg/dL AST (17-59) U/L Lactate Dehydrogenase (313-618) U/L Creatine Kinase (55-170) U/L C-Reactive Protein (<1.0) mg/dL Total Protein (6.3-8.2) g/dL Albumin (3.5-5.0) g/dL Microbiology - Last 24 Hours (Table) 07/06/20 18:00 Blood Culture - Preliminary Blood No Growth after 48 hours 07/06/20 18:00 Blood Culture - Preliminary Blood No Growth after 48 hours Assessment and Plan Assessment: Impression: Acute hypoxic respiratory failure secondary to cardiac arrest associated with severe anoxic brain injury. I believe the patient may even be brain at this point, and we'll discuss this with the neurologist to confirm and possibly disconnect from mechanical ventilation once brain protocol is initiated by the neurologist and confirmed. Acute toxic/metabolic encephalopathy with severe anoxic brain injury secondary t o above. Possible aspiration pneumonia. Elevated d-dimer, empirically on heparin. Patient was normally on Eliquis. Acute kidney injury secondary to acute tubular necrosis and hypotension, related to cardiac arrest Elevated troponin, addressed by cardiology. Acute COVID-19 infection, possible underlying COVID-19 pneumonia but the findings are not classical findings on the chest x-ray for COVID-19 pneumonia. Recommendation: Will notify neurology about the new neurological changes and to confirm brain by neurology. In the meantime Continue present supportive care measures Continue ventilatory support, patient is now on assist control rate of 14 tidal volume is 450 FiO2 50% PEEP of 5 Continue GI prophylaxis. Continue Zosyn and IV fluids. Based on my neurological findings today, I believe the patient is brain , and we'll likely pronounced the patient later on today after evaluation by neurology Critical care time is over 30 minutes. We'll continue to follow. Time with Patient: Greater than 30
[2020-07-09 14:44] VITALS: BP 135/82; PULSE 74
--- NOTE | 2020-07-09 14:49 | PN ---
PROGRESS NOTE DATE OF SERVICE: 07/09/2020. CHIEF COMPLAINT: Anoxic encephalopathy. HISTORY OF PRESENT ILLNESS: This gentleman's condition is unchanged. He remains on the ventilator. It was planned yesterday that a guardian would be reached and that he would be made comfort measures only. This apparently has not been arranged. He is still on the ventilator. PHYSICAL EXAMINATION: CHEST: Clear. CARDIAC exam is normal. ABDOMEN is soft without masses. EXTREMITIES are unchanged. IMPRESSION: 1. Anoxic brain injury. 2. Atherosclerotic cardiovascular disease. 3. Dementia. 4. Peripheral vascular occlusive disease. PLAN: Continue with support until a guardian can make a determination to take him off the ventilator. MMODL / IJN: [id number] /
--- NOTE | 2020-07-09 14:54 | P.PN ---
Subjective Progress Note Date: 07/09/20 The patient was seen at bedside and per the patient nurse there is no improvement. He continues to be off sedation without any improvement. Objective - Vital Signs Vital signs: Vital Signs Temp 100.3 F H 07/09/20 12:00 Pulse 74 07/09/20 14:00 Resp 18 07/09/20 14:00 BP 135/82 07/09/20 14:00 Pulse Ox 93 L 07/09/20 14:00 Intake & Output 07/08/20 07/09/20 07/09/20 18:59 06:59 18:59 Intake Total 892.445 2540 989 Output Total 885 1700 1175 Balance 64.276 -668 -186 Weight 84.2 kg 81.6 kg Intake: IV 595 300 225 Dextrose 5% in Water 1, 300 000 ml @ 100 mls/hr IV . [id number] MAHENDRA with Sodium Bicarb (1 Meq/ml) 150 ml Rx#:[id number] Piperacillin-Tazobactam 3 275 300 225 .375 gm In Sodium Chloride 0.9% 100 ml @ 25 mls/hr IVPB Q8HR [facility] Rx# :[id number] Sodium Chloride 0.9% 1, 20 000 ml @ 20 mls/hr IV . Q24H [facility] Rx#:[id number] Intake, IV Titration 214.276 Amount Heparin Sod,Pork in 0.45% 214.276 NaCl 25,000 unit In 0.45 % NaCl 1 250ml.bag @ 12 UNITS/KG/HR 9.276 mls/hr IV .Q24H [facility] Rx#: [id number] Tube Feeding 140 642 704 Other 90 60 Output: Urine 885 1700 1175 Other: Voiding Method Indwelling Catheter Indwelling Catheter Indwelling Catheter - Exam GENERAL: The patient is lying in bed and is not in acute distress. LUNG: Clear to auscultation bilaterally no wheezing noted throughout. Not labored breathing. Intubated on ventilator. NEUROLOGICAL: Limited because of patient's condition. Is not on any sedation Higher mental function: The patient is comatose. GCS 3 (E1, VT1, M1). Patient is not responding to verbal or painful stimuli and not following any commands. Cranial nerves: The pupils are round, right is 7mm and left is 6mm and are not reactive to light bilaterally. No facial weakness. Negative for corneal reflex. Negative for gag reflex. . Is not breathing over the vent (AC set at 18 and breathing at 18). Negative for oculocephalic reflex. Motor: Strength 0/5 throughout even with painful stimuli no movement noted. Has BKA on left and AKA on right. No spontaneous movement or posturing noted. Cerebellum: Could not assess. Sensation: No response to painful stimuli. Reflexes (right/left): 1+ upper. Has amputation of the bilateral knees. - Labs CBC & Chem 7: 07/09/20 03:17 07/09/20 03:17 Labs: Abnormal Lab Results - Last 24 Hours (Table) 07/08/20 07/08/20 07/09/20 Range/Units 17:56 23:21 03:17 WBC (3.8-10.6) k/uL RBC (4.30-5.90) m/uL Hgb (13.0-17.5) gm/dL Hct (39.0-53.0) % Plt Count (150-450) k/uL Neutrophils # (1.3-7.7) k/uL APTT 62.7 H (22.0-30.0) sec D-Dimer 2.16 H (<0.60) mg/L FEU ABG pH (7.35-7.45) ABG pCO2 (35-45) mmHg ABG pO2 (83-108) mmHg Chloride (98-107) mmol/L Carbon Dioxide (22-30) mmol/L BUN (9-20) mg/dL Creatinine (0.66-1.25) mg/dL Glucose (74-99) mg/dL POC Glucose (mg/dL) 177 H 157 H (75-99) mg/dL Calcium (8.4-10.2) mg/dL AST (17-59) U/L Lactate Dehydrogenase (313-618) U/L Creatine Kinase (55-170) U/L C-Reactive Protein (<1.0) mg/dL Total Protein (6.3-8.2) g/dL Albumin (3.5-5.0) g/dL 07/09/20 07/09/20 07/09/20 Range/Units 03:17 03:17 05:21 WBC 14.6 H (3.8-10.6) k/uL RBC 3.54 L (4.30-5.90) m/uL Hgb 11.0 L (13.0-17.5) gm/dL Hct 31.8 L (39.0-53.0) % Plt Count 102 L (150-450) k/uL Neutrophils # 12.3 H (1.3-7.7) k/uL APTT (22.0-30.0) sec D-Dimer (<0.60) mg/L FEU ABG pH 7.46 H (7.35-7.45) ABG pCO2 31 L (35-45) mmHg ABG pO2 71 L (83-108) mmHg Chloride 118 H (98-107) mmol/L Carbon Dioxide 21 L (22-30) mmol/L BUN 56 H (9-20) mg/dL Creatinine 1.70 H (0.66-1.25) mg/dL Glucose 160 H (74-99) mg/dL POC Glucose (mg/dL) (75-99) mg/dL Calcium 7.8 L (8.4-10.2) mg/dL AST 63 H (17-59) U/L Lactate Dehydrogenase 1602 H (313-618) U/L Creatine Kinase 269 H (55-170) U/L C-Reactive Protein 7.5 H (<1.0) mg/dL Total Protein 4.6 L (6.3-8.2) g/dL Albumin 2.2 L (3.5-5.0) g/dL 07/09/20 Range/Units 13:04 WBC (3.8-10.6) k/uL RBC (4.30-5.90) m/uL Hgb (13.0-17.5) gm/dL Hct (39.0-53.0) % Plt Count (150-450) k/uL Neutrophils # (1.3-7.7) k/uL APTT (22.0-30.0) sec D-Dimer (<0.60) mg/L FEU ABG pH (7.35-7.45) ABG pCO2 (35-45) mmHg ABG pO2 (83-108) mmHg Chloride (98-107) mmol/L Carbon Dioxide (22-30) mmol/L BUN (9-20) mg/dL Creatinine (0.66-1.25) mg/dL Glucose (74-99) mg/dL POC Glucose (mg/dL) 238 H (75-99) mg/dL Calcium (8.4-10.2) mg/dL AST (17-59) U/L Lactate Dehydrogenase (313-618) U/L Creatine Kinase (55-170) U/L C-Reactive Protein (<1.0) mg/dL Total Protein (6.3-8.2) g/dL Albumin (3.5-5.0) g/dL Microbiology - Last 24 Hours (Table) 07/06/20 18:00 Blood Culture - Preliminary Blood No Growth after 48 hours 07/06/20 18:00 Blood Culture - Preliminary Blood No Growth after 48 hours Assessment and Plan Assessment: Severe anoxic brain injury and likely due to cardiac insult (elevated troponin and is trending up). Altered mental status with unresponsiveness due to multifactorial: Septic encephalopathy from covid 19 pneumonia, metabolic encephalopathy. Remote right parietal stroke There is poor definition of the sulci within the left frontal lobe on repeat CT head. Acute COVID-19 pneumonia Acute kidney injury Elevated troponin Cervical spondylosis Acute hypoxic respiratory failure Elevated d-dimer with hypoxia. Cannot do CTA chest because of elevated kidney function Diabetes mellitus History of dementia Hypertension History of coronary artery disease History of myocardial infarction History of peripheral vascular disease with gangrene tatus post below-knee amputation on the left and [id number] amputation on the right History of duodenal ulcer and GI bleeding History of alcohol abuse Plan: CT of the head is reported as moderate atrophy. Remote infarct of the right cerebral cortex described above. In the body it is mentioned there is remote infarct involving the cortex and subcortical white matter in the right frontal lobe and the right parietal lobe. No acute bleed or mass effect. CT angiography of the head and neck was reported as no significant abnormality is seen. Stroke code was activated per the patient nurse and the she stated that the she was notified after that workup the stroke team wanted that Eliquis to be held and instead for the patient to be on aspirin Patient had a repeat CT of the head today as well as a CT of the spinals ordered by the ICU team and is reported as no acute hemorrhage or mass effect. Degenerative and change and nonspecific white matter finding are noted. Remote right parietal infarct is seen. There is poor definition of the sulci within the left frontal lobe. Recommend MRI of the brain to exclude acute ischemia. While that CT of the cervical is reported as there is no acute fracture or dislocation evident in the cervical spine. Multilevel degenerative disc disease with facet arthropathy and suspected formal enlargement. 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 Finding stable from computed tomography scan of 09/22/2018. Posterior spondylosis at multiple levels with on coming vertebral joint hypertrophy and multiple foraminal encroachment noted. Suspect canal stenosis at C5-C6. MRI is recommended for these findings. Patient was started on heparin drip by ICU team. I notified the nurse to avoid any heparin boluses and to keep the PTT between 45 and 60. EEG (07/07/2020) There is no brain activity seen. There is no seizure activity seen. I started the patient on Keppra 750mg IV every 12 hours as seizure prophylaxis especially with history of stroke (but this will not change patient's condition). On Lipitor 80 mg daily. Recommend 2-D echo, lipid panel, TSH. PT, OT are consulted. We'll defer the rest of the medical management to the primary team. Cardiology team is consulted. Will defer the rest of medical management to the ICU and primary team. The patient prognosis is very poor. I spoke with a public guardian notified yesterday. The family will come in today and do terminal wean per the patient's nurse. Sudhir Berger MD. Neuro-Hospitalist Time with Patient: Less than 30
[2020-07-09] MEDS: HEPARIN SOD,PORK IN 0.45% NACL 25,000 UNIT in 0.45% NACL 1 250ML.BAG IV SCH (15:42)
[2020-07-10 03:49] LABS: Ferritin 263.1 ng/mL (22.0-322.0)
--- NOTE | 2020-07-10 19:58 | DS ---
DISCHARGE SUMMARY DATE OF : 07/09/2020 CHIEF COMPLAINT: Fall with head injury and coma. HISTORY OF PRESENT ILLNESS AND PHYSICAL EXAMINATION: Details of this man's history and physical can be found in the initial workup. LABORATORY STUDIES: While he was in the hospital he had laboratory studies, details of which can be found in the laboratory section of his chart. COURSE IN THE HOSPITAL: After admission he was placed on bedrest, started on intravenous fluids, and he was eventually intubated. He remained comatose with some minimal purposeless movements and was on ventilator assist, but his neurologic evaluation revealed that he had extensive ischemic brain damage. A guardian was contacted and he was made comfort measures and he on the evening of July 09. FINAL DIAGNOSES: 1. Cardiorespiratory arrest. 2. Anoxic brain injury. 3. Atherosclerotic cardiovascular disease. 4. Dementia. 5. Peripheral vascular occlusive disease. 6. Diabetes mellitus. OPERATIONS: None. CONSULTATIONS: 1. Neurology. 2. Intensive Medicine. He is not improved. He . MMODL / IJN: [id number] /
--- NOTE | 2020-07-16 13:58 | CDI ---
Documentation Clarification Form Date: 07/16/2020 01:46:24 PM From: Leticia Dubose RN, CCDS Admit Date: 07/06/2020 06:49:00 PM Patient Name: Feliz Hayes Visit Number: [id number] Discharge Date: 07/09/2020 05:17:00 PM ATTENTION: The Clinical Documentation Specialists (CDI) and [facility] Coding Staff appreciate your assistance in clarifying documentation. Please respond to the clarification below the line at the bottom and electronically sign. The CDI & [facility] Coding staff will review the response and follow-up if needed. Please note: Queries are made part of the Legal Health Record. If you have any questions, please contact the author of this message via ITS. Dr. Kevin Johnston The patient presented with the following clinical indicators. Additional clarification regarding the etiology/cause of the clinical indicators is requested. History/Risk Factors: CAD, Dementia, DM2, GERD, HTN, [place], PVD, L BKA, R AKA, Iron deficiency anemia, , CVA, ETOH abuse, ex-smoker Clinical Indicators: 07/07 Pulmonary consult: "Acute toxic/metabolic encephalopathy upon presentation with abnormal labs highly suggestive of sepsis and severe anion gap metabolic acidosis with elevated lactic acid and abnormal chest x-ray suggestive of pneumonia which could be code d 19 pneumonia or possibly aspiration pneumonia." 07/07 Neurology consult- 07/09 Neurology progress notes: "Altered mental status with unresponsiveness due to multifactorial: Septic encephalopathy from Covid 19 pneumonia, metabolic encephalopathy. 07/08 Cardiology consult: "Septic encephalopathy." Documented Infectious process: Acute Covid 19 pneumonia End organ damage: Acute hypoxic respiratory failure, Acute toxic/metabolic encephalopathy, MADDY with ATN 07/06-07/09 WBC: 13.6/23.3/19.4/14.6 Neutrophils: 10.5/21/16.4/12.3 07/06-07/08 Lactic acid: 2.1/3/3.2/6.7/6.6/5.5/4.5/3.6/2.4 Blood cultures: Negative x 2 at 144 hrs. 07/06 1619 Admission Vital signs: HR 101, RR 12, B/P 177/89, Spo2 88% on 4L NC Treatment: 07/06 1 L 0.9% NS IVF bolus 07/07 2 L 0.9% NS IVF bolus 07/07-07/09 Zosyn 3.375 gm IVPB Q8hrs In your professional opinion, please clarify if these findings signify one of the following conditions: [ ] Sepsis POA [ ] Sepsis, Not POA [ ] Sepsis ruled out [ ] Other, please specify [ ] Unable to determine SIRS Criteria: 2 or more of the following may indicate SIRS -Temperature < 96.8F (36C) or > 101.0F (38.3C) -Heart Rate > 90 bpm -Respiratory Rate > 20 breaths/min or PaCO2 < 32 mmHg -White Blood Cell Count > 12,000 or < 4,000 cells/mm3 or > 10% bands (Template Last Reviewed: March 2020) RONALDOD
--- NOTE | 2020-07-16 14:09 | CDI ---
Documentation Clarification Form Mortality Review Date: 07/16/2020 02:07:54 PM From: Leticia Dubose RN, CCDS Admit Date: 07/06/2020 06:49:00 PM Patient Name: Feliz Hayes Visit Number: [id number] Discharge Date: 07/09/2020 05:17:00 PM ATTENTION: The Clinical Documentation Specialists (CDI) and [facility] Coding Staff appreciate your assistance in clarifying documentation. Please respond to the clarification below the line at the bottom and electronically sign. The CDI & [facility] Coding staff will review the response and follow-up if needed. Please note: Queries are made part of the Legal Health Record. If you have any questions, please contact the author of this message via ITS. Dr. Kevin Johnston CVA is documented in the consultation and progress notes and requires confirmation from Attending MD. History/risk factors: CVA, DM2, CAD, HTN, HLD, ex-smoker, [place], Cognitive dysfunction, PVD, ETOH Abuse Clinical Indicators 07/07 H&P: "Possible cerebrovascular accident." 07/07 Neurology consult - 07/09 Neurology progress notes: "Remote infarct of the right cerebral cortex described above. Remote right parietal stroke." 07/09 Pulmonary progress note: "Patient was seen by neurology, and according to the neurologist, the patient must have sustained severe anoxic brain injury, CT of the brain showed remote infarct of the right cerebral cortex and moderate atrophy." 07/06 CT Brain: "1.Moderate atrophy.2.Remote infarcts of the right cerebral cortex as described above.3.No acute bleed or mass effect." Treatment: 07/07-07/09 Heparin low intensity protocol Please clarify the patient had an acute CVA this admission. [ ] CVA POA [ ] CVA was not POA [ ] CVA was ruled out [ ] Other (please specify) [ ] Unable to Determine (Template Last Revised: April 2020) MTDD
--- NOTE | 2020-07-16 14:18 | CDI ---
Documentation Clarification Form Mortality Review Date: 07/16/2020 02:16:57 PM From: Leticia Dubose RN, CCDS Admit Date: 07/06/2020 06:49:00 PM Patient Name: Feliz Hayes Visit Number: [id number] Discharge Date: 07/09/2020 05:17:00 PM ATTENTION: The Clinical Documentation Specialists (CDI) and [facility] Coding Staff appreciate your assistance in clarifying documentation. Please respond to the clarification below the line at the bottom and electronically sign. The CDI & [facility] Coding staff will review the response and follow-up if needed. Please note: Queries are made part of the Legal Health Record. If you have any questions, please contact the author of this message via ITS. Dr. Kevin Johnston There is documentation of myocarditis in the 07/08 cardiology consult w/o further documentation of this diagnosis. Please review and confirm if this diagnosis is ruled in or out.]. Additional clarification is requested. History/Risk Factors: CAD, HTL, HLD, DM2, [place], PVD, CVA, Acute coved 19 pneumonia, Clinical Indicators: 07/08 Cardiology Consult: "Elevated troponin secondary to COVID-19 with EKG changes, consider myocarditis Hypertension." 07/06-07/09 Labs: Troponin .04/11.5, LDH 1253/1602, WBC 13.6/23.3/19.4/14.6 Treatment: IV Zosyn 3.375gm IVPB q 8hrs Can you please clarify if myocarditis was ruled in or out]? [ ] Myocarditis POA [ ] Myocarditis ruled out [ ] Other, please specify [ ] Unable to determine (Template Last Revised: April 2020) MTDD
--- NOTE | 2020-07-17 11:31 | CDI ---
Documentation Clarification Form Mortality Review Date: 07/17/2020 11:28:29 AM From: Leticia Dubose RN, CCDS Admit Date: 07/06/2020 06:49:00 PM Patient Name: Feliz Hayes Visit Number: [id number] Discharge Date: 07/09/2020 05:17:00 PM ATTENTION: The Clinical Documentation Specialists (CDI) and [facility] Coding Staff appreciate your assistance in clarifying documentation. Please respond to the clarification below the line at the bottom and electronically sign. The CDI & [facility] Coding staff will review the response and follow-up if needed. Please note: Queries are made part of the Legal Health Record. If you have any questions, please contact the author of this message via ITS. Dr. Kevin Johnston Cardiac Arrest is documented in your 07/08 and 07/09 Progress notes, which may lack sufficient clinical evidence/support in the medical record. Additional clarification is requested as no code record can be found, there is not a house MD code note, and nursing has provided no documentation of an event. History/Risk Factors: CAD, CP, Angina, PVD, HTN, [place], IDDM2, bilateral amputations, Iron deficiency anemia, [place] Clinical Indicators: 07/08-07/09 Attending Progress Note: "Principal diagnosis: Cardiac arrest and severe anoxic brain injury. Impression: Acute hypoxic respiratory failure secondary to cardiac arrest associated with severe anoxic brain injury. Acute kidney injury secondary to acute tubular necrosis and hypotension, related to cardiac arrest Elevated troponin, addressed by cardiology." 07/06 ED note: "The patient was taken to his room and placed into bed and when EMS arrived the patient was completely unresponsive may could not arouse him. The patient does not take any narcotic medications according to the nursing list. He is on L course. He is unable to provide any history because he is unresponsive. Heart: Regular rate rhythm normal S1-S2 no murmurs Lungs: Sonorous respirations clear to auscultation bilaterally No wheezing No rales. Appeared to have ischemic changes in R parietal region, narrowing or LVO in RMCA region. Called code stroke. NIHSS is difficult to obtain but at least 19. Treatment: Please clarify if Cardiac Arrest is a valid diagnosis? [ ] Yes, Cardiac Arrest is present as evidence by (additional clinical support and specify cause, and if the condition was POA): [ ] No, Cardiac Arrest is ruled out [ ] Other (please specify diagnosis) [ ] Unable to determine (Template Last Revised: April 2020) MTDD
--- NOTE | 2020-07-18 07:38 | MISC ---
MISCELLANOUS REPORT QUERY: Myocarditis, unable to determine. MMODL / IJN: [id number] /
--- NOTE | 2020-07-18 13:58 | CDI ---
Documentation Clarification Form 2nd Request Mortality Review Date: 07/16/2020 02:07:00 PM From: Leticia Dubose RN, CCDS Admit Date: 07/06/2020 06:49:00 PM Patient Name: Feliz Hayes Visit Number: [id number] Discharge Date: 07/09/2020 05:17:00 PM ATTENTION: The Clinical Documentation Specialists (CDI) and [facility] Coding Staff appreciate your assistance in clarifying documentation. Please respond to the clarification below the line at the bottom and electronically sign. The CDI & [facility] Coding staff will review the response and follow-up if needed. Please note: Queries are made part of the Legal Health Record. If you have any questions, please contact the author of this message via ITS. Dr. Kevin Johnston CVA is documented in the consultation and progress notes and requires confirmation from Attending MD. History/risk factors: CVA, DM2, CAD, HTN, HLD, ex-smoker, [place], Cognitive dysfunction, PVD, ETOH Abuse Clinical Indicators 07/07 H&P: "Possible cerebrovascular accident." 07/07 Neurology consult - 07/09 Neurology progress notes: "Remote infarct of the right cerebral cortex described above. Remote right parietal stroke." 07/09 Pulmonary progress note: "Patient was seen by neurology, and according to the neurologist, the patient must have sustained severe anoxic brain injury, CT of the brain showed remote infarct of the right cerebral cortex and moderate atrophy." 07/06 CT Brain: "1.Moderate atrophy.2.Remote infarcts of the right cerebral cortex as described above.3.No acute bleed or mass effect." Treatment: 07/07-07/09 Heparin low intensity protocol Please clarify the patient had an acute CVA this admission. [ ] CVA POA [ ] CVA was not POA [ ] CVA was ruled out [ ] Other (please specify) [ ] Unable to Determine (Template Last Revised: April 2020) MTDD
--- NOTE | 2020-07-18 13:59 | CDI ---
Documentation Clarification Form 2nd Request Mortality Review Date: 07/16/2020 01:46:00 PM From: Leticia Dubose RN, CCDS Admit Date: 07/06/2020 06:49:00 PM Patient Name: Feliz Hayes Visit Number: [id number] Discharge Date: 07/09/2020 05:17:00 PM ATTENTION: The Clinical Documentation Specialists (CDI) and [facility] Coding Staff appreciate your assistance in clarifying documentation. Please respond to the clarification below the line at the bottom and electronically sign. The CDI & [facility] Coding staff will review the response and follow-up if needed. Please note: Queries are made part of the Legal Health Record. If you have any questions, please contact the author of this message via ITS. Dr. Kevin Johnston The patient presented with the following clinical indicators. Additional clarification regarding the etiology/cause of the clinical indicators is requested. History/Risk Factors: CAD, Dementia, DM2, GERD, HTN, [place], PVD, L BKA, R AKA, Iron deficiency anemia, , CVA, ETOH abuse, ex-smoker Clinical Indicators: 07/07 Pulmonary consult: "Acute toxic/metabolic encephalopathy upon presentation with abnormal labs highly suggestive of sepsis and severe anion gap metabolic acidosis with elevated lactic acid and abnormal chest x-ray suggestive of pneumonia which could be code d 19 pneumonia or possibly aspiration pneumonia." 07/07 Neurology consult- 07/09 Neurology progress notes: "Altered mental status with unresponsiveness due to multifactorial: Septic encephalopathy from Covid 19 pneumonia, metabolic encephalopathy. 07/08 Cardiology consult: "Septic encephalopathy." Documented Infectious process: Acute Covid 19 pneumonia End organ damage: Acute hypoxic respiratory failure, Acute toxic/metabolic encephalopathy, MADDY with ATN 07/06-07/09 WBC: 13.6/23.3/19.4/14.6 Neutrophils: 10.5/21/16.4/12.3 07/06-07/08 Lactic acid: 2.1/3/3.2/6.7/6.6/5.5/4.5/3.6/2.4 Blood cultures: Negative x 2 at 144 hrs. 07/06 1619 Admission Vital signs: HR 101, RR 12, B/P 177/89, Spo2 88% on 4L NC Treatment: 07/06 1 L 0.9% NS IVF bolus 07/07 2 L 0.9% NS IVF bolus 07/07-07/09 Zosyn 3.375 gm IVPB Q8hrs In your professional opinion, please clarify if these findings signify one of the following conditions: [ ] Sepsis POA [ ] Sepsis, Not POA [ ] Sepsis ruled out [ ] Other, please specify [ ] Unable to determine SIRS Criteria: 2 or more of the following may indicate SIRS -Temperature < 96.8F (36C) or > 101.0F (38.3C) -Heart Rate > 90 bpm -Respiratory Rate > 20 breaths/min or PaCO2 < 32 mmHg -White Blood Cell Count > 12,000 or < 4,000 cells/mm3 or > 10% bands (Template Last Reviewed: March 2020) RONALDOD
--- NOTE | 2020-07-19 17:02 | MISC ---
MISCELLANOUS REPORT He has cardiac arrest present. MMODL / IJN: [id number] /
--- NOTE | 2020-07-19 17:02 | MISC ---
MISCELLANOUS REPORT Regarding sepsis, unable to determine. MMODL / IJN: [id number] /
--- NOTE | 2020-07-19 17:02 | MISC ---
MISCELLANOUS REPORT Acute CVA this admission unable to determine. MMODL / IJN: [id number] /
== END 2020-07-09 17:17 | disposition expired | DRG 208 ==
LOC: EC 16:16 → 2SICU 18:49
PROVIDERS: ADMIT Family Medicine; ATTEND Family Medicine
PROC: 5A1945Z Respiratory Ventilation, 24-96 Consecutive Hours (ICD-10-PCS; principal; 2020-07-06)
PROC: 0BH17EZ Insertion of Endotracheal Airway into Trachea, Via Natural or Artificial Opening (ICD-10-PCS; principal; 2020-07-06)
PROC: 3E0G76Z Introduction of Nutritional Substance into Upper GI, Via Natural or Artificial Opening (ICD-10-PCS; 2020-07-07)
DX: U07.1 COVID-19 (principal); G92 Toxic encephalopathy; J12.82 Pneumonia due to coronavirus disease 2019; J96.01 Acute respiratory failure with hypoxia; N17.0 Acute kidney failure with tubular necrosis; E87.2 Acidosis; G93.1 Anoxic brain damage, not elsewhere classified; J98.11 Atelectasis; Z51.5 Encounter for palliative care; Z66 Do not resuscitate; E11.51 Type 2 diabetes mellitus with diabetic peripheral angiopathy without gangrene; E78.5 Hyperlipidemia, unspecified; I25.10 Atherosclerotic heart disease of native coronary artery without angina pectoris; I25.2 Old myocardial infarction; I10 Essential (primary) hypertension; F03.90 Unspecified dementia, unspecified severity, without behavioral disturbance, psychotic disturbance, mood disturbance, and anxiety; I46.9 Cardiac arrest, cause unspecified; I49.3 Ventricular premature depolarization; M47.812 Spondylosis without myelopathy or radiculopathy, cervical region; S09.90XA Unspecified injury of head, initial encounter; Z79.4 Long term (current) use of insulin; Z89.611 Acquired absence of right leg above knee; W05.0XXA Fall from non-moving wheelchair, initial encounter; Y92.129 Unspecified place in nursing home as the place of occurrence of the external cause; T50.8X5A Adverse effect of diagnostic agents, initial encounter; K21.9 Gastro-esophageal reflux disease without esophagitis; Z87.11 Personal history of peptic ulcer disease; N14.1 Nephropathy induced by other drugs, medicaments and biological substances; Z87.19 Personal history of other diseases of the digestive system; Z89.512 Acquired absence of left leg below knee; Z80.3 Family history of malignant neoplasm of breast; I08.1 Rheumatic disorders of both mitral and tricuspid valves; R79.1 Abnormal coagulation profile; F10.11 Alcohol abuse, in remission; N27.1 Small kidney, bilateral; Z79.01 Long term (current) use of anticoagulants; Z80.49 Family history of malignant neoplasm of other genital organs; Z79.899 Other long term (current) drug therapy; R77.8 Other specified abnormalities of plasma proteins; Z86.73 Personal history of transient ischemic attack (TIA), and cerebral infarction without residual deficits; Z87.891 Personal history of nicotine dependence; Z99.3 Dependence on wheelchair; Z98.890 Other specified postprocedural states; Z91.013 Allergy to seafood; Z86.14 Personal history of Methicillin resistant Staphylococcus aureus infection; Z87.81 Personal history of (healed) traumatic fracture; Z78.1 Physical restraint status
CPT/HCPCS: 31500; 36415; 36600; 70450; 70496; 70498; 71045; 72125; 76770; 80053; 80061; 80143; 80179; 80306; 81001; 82140; 82550; 82728; 82805; 83605; 83615; 84100; 84145; 84439; 84443; 84484; 85025; 85379; 85610; 85730; 86140; 87040; 87635; 93005; 93306; 93970; 94002; 94003; 95822; 96361; 96374; 96375; 99291